=== PATIENT | female | born 1945 | race Caucasian/White ===

== ENCOUNTER 2022-05-29 13:52 | Inpatient (IN) | payer OTHER, BC ==
--- OUTSIDE RECORDS SUMMARY | 2022-05-29 13:56 | XMS REPORT | Continuity of Care Document ---
:1945 Author Organization [facility] t Address [address] [place] [address] Care Team Providers Name Role Phone PAWAN CHARLOTTE Primary Care Physician Unavailable KANG LORD Attending Clinician Unavailable Kang Lord MD Attending Clinician Only, Adc Test Attending Clinician Unavailable Pob, [facility] Lab Main Attending Clinician Unavailable Doctor Unassigned, [place] Attending Clinician Unavailable Areli Bueno Attending Clinician Lex Bustillos Attending Clinician KANG LORD Admitting Clinician Unavailable Kang Lord MD Admitting Clinician Payers Payer Name Policy Type Policy Number Effective Date Expiration Date S ource MEDICARE PART A \T\ [id number] 2012 B 00:00:00 [employer] TRADITIONAL [id number] 2019 00:00:00 Problems Condition Condition Condition Status Onset Resolution Last Treating Co mments Source Name Details Category Date Date Treatment Clinician Date INFLAMMATI INFLAMMAT Diagnosis Active 2018-05-26 Memoria ON 05-15 09:13:00 l SACROILIAC SACROILIAC 00:00: He rmann JOINT JOINT 00 [facility] 2014-09 [facility] management management 2- it y of 00:00: [place] 00 Medical Branch Spondylosi Spondylos Problem 2018-12-13 Memoria s without is without 12:12:44 l myelopathy myelopathy He rmann or or radiculopa radiculopa thy, thy, lumbosacra lumbosacra l region l region 12/13/2018 [facility] Essential Essential Problem 2018-12-13 Memoria (primary) (primary) 12:12:44 l hypertensi hypertensi He rmann on on 12/13/2018 [facility] Hypothyroi Hypothyro Problem 2018-12-13 Memoria dism, idism, 12:12:44 l unspecifie unspecifie He rmann d d 12/13/2018 [facility] Gastro-eso Gastro-es Problem 2018-12-13 Memoria phageal ophageal 12:12:44 l reflux reflux [place] disease disease without without esophagiti esophagiti s s 12/13/2018 [facility] retirement retirement Problem 2018-12-13 Memoria (current) (current) 12:12:44 l use of use of [place] non-steroi non-steroi darrick darrick anti-infla anti-infla mmatories mmatories (NSAID) (NSAID) 12/13/2018 [facility] Presence Presence Problem 2018-12-13 Memoria of other of other 12:12:44 l specified specified Herm shakila functional functional implants implants 12/13/2018 [facility] Post-traum Post-trau Problem 2018-12-04 Memoria atic matic 13:16:01 l stress stress [place] disorder, disorder, unspecifie unspecifie d d 12/04/2018 [facility] Personal Personal Problem 2018-12-04 Memoria history of history of 13:16:01 l nicotine nicotine Jorge Luis n dependence dependence 12/04/2018 [facility] Gastric Gastric Problem Resolve 2021-07-02 M emoria ulcer ulcer d 00:51:24 l (disorder) (disorder) He rmann Resolved Problem 07/02/2021 [facility] Posttrauma Posttraum Problem Resolve 2021-07-02 Memoria tic stress atic d 00:51:24 l disorder stress Patel (disorder) disorder (disorder) [facility] Hypothyroi Hypothyro Problem Active 2021-07-02 Memoria dism idism 00:51:24 l (disorder) (disorder) He rmann Active Problem [facility]02[facility]2021 [facility] Impaired Impaired Problem Active 2021-07-02 Memoria mobility mobility 00:51:24 l (finding) (finding) Herm shakila Active Problem [facility]02[facility]2021 [facility] Sacroiliac Problem Active 2021-07-02 M emoria joint Sacroiliac 00:51:24 l inflamed joint Patel (disorder) inflamed (disorder) Active Problem 07/02/2021 Medical [facility] Osteoporos Osteoporo Problem Active 2021-07-02 Memoria is sis 00:51:24 l (disorder) (disorder) He rmann Active Problem [facility]02[facility]2021 [facility] Pain Pain Problem Active 2021-07-02 Memor ia (finding) (finding) 00:51:24 l Active [place] Problem 07/02/2021 Medical [facility] Poor Poor Problem Active 2021-07-02 Memor ia short-term short-term 00:51:24 l memory memory Patel (finding) (finding) Active Problem [facility]02[facility]2021 [facility] Seasonal Seasonal Problem Active 2021-07-02 Memoria allergic allergic 00:51:24 l rhinitis rhinitis Jorge Luis n (disorder) (disorder) Active Problem [facility]02[facility]2021 [facility] Thyroidect Thyroidec Problem Active 2021-07-02 Memoria william jeremie 00:51:24 l (procedure (procedure He rmann ) ) Active Problem 07/02/2021 [facility] Urinary Urinary Problem Active 2021-07-02 Me moria incontinen incontinen 00:51:24 l ce ce Patel (finding) (finding) Active Problem [facility]02/2021 [facility] History of Past Illness Condition Condition Condition Status Onset Resolution Last Treating Co mments Source Name Details Category Date Date Treatment Clinician Date Sacroiliit Sacroilii Problem 2017-0 2018-12-13 2018-12-13 Memoria is, not tis, not 9-14 12:12:44 12:12:44 l elsewhere elsewhere 03:22: Herm shakila classified classified 55 06/02/2018 12/13/2018 [facility] Allergies, Adverse Reactions, Alerts Allergy Allergy Status Severity Reaction(s) Onset Inactive Treating Comm ents Source Name Type Date Date Clinician Penicill DA Active U 2018-09 [facility] ins 0-07 Clear 00:00: [place] 00 [facility] codeine DA Active U 2018-09 [facility] 0-07 Clear 00:00: [place] 00 [facility] CODEINE DRUG Active Med Hallucinates 2014-09 Uni vers INGREDI 2- ity of 00:00: [place] 00 Medical Branch PENICILL Drug Active Unknown-Cmnt 2014-09 Un jerilyn INS Class 2 ity of 00:00: [place] 00 Medical Branch Codeine Propensi Active Nausea 2014-09 Univers ty to and/or 10-21 ity of adverse Vomiting 00:00: [place] reaction 00 Medical s to Branch drug Penicill Propensi Active Unknown - 2014-09 Uni vers ins ty to See comments 10-21 ity of adverse 00:00: [place] reaction 00 Medical s Branch traMADol traMADol Active Memori a l [place] morphine morphine Active Memori a l [place] penicill penicill Active Memori a ins ins l Patel codeine codeine Active Memoria l Patel Social History Social Habit Start Date Stop Date Quantity Comments Source History of Current smoker University of tobacco use [facility] Exposure to 2022-03-20 2022-03-30 Not sure [facility] SARS-CoV-2 00:00:00 15:29:00 [facility] [place] [facility] (event) Branch Alcohol intake 2022-03-30 2022-03-30 0 /d University 00:00:00 00:00:00 [facility] Social History 2018-05-15 2018-05-15 [facility] alexander 20:10:59 20:10:59 Sex [birth year] At [birth year] Universit y of 00:00:00 00:00:00 [facility] Smoking Status Start Date Stop Date Source Ex-smoker [facility] Branch Medications Ordered Filled Start Stop Current Ordering Indication Dosage Frequency Signature Comments Components Source Medication Medication Date Date Medication? Clinician (SIG) Name Name lactated 2022-0 Yes 1000mL at 75 Univer s ringers IV 7-18 mL/hr, ity of infusion 13:30: 1,000 mL[place] 1[place]000 [place] 00 IV Medical Infusion, Branch CONTINUOUS , Starting on Tue04/05/22 at 0830, Until Discontinu ed, Routine, PACU lactated 2021- No 1000mL at 75 Unive rs ringers IV 7-18 07-18 mL/hr, ity of infusion 13:30: 16:28 1,000 mL, Shmuel as 1,000 mL 00 :13 IV Medical Infusion, Branch CONTINUOUS , Starting on Tue04/05/22 at 0830, Until Tue04/05/22 at 1128, Routine, PACU HYDROmorphO 2021-0 Yes .2mg 0.2 mg, Uni vers ne -18 Slow IV ity of (DILAUDID) 13:22: Push, [place] injection 44 Q5MIN PRN, Medi maikol 0.2 mg 10 doses, Branch Starting on Tue04/05/22 at 0822, Until Discontinu ed, Routine, Pain (scale 7-10), PACU
Us e approved by (Faculty): PACU USE -ANESTHESI A SERVICE-HY DROMORPHON E INJECTIONS FENTanyl PF Yes 25ug 25 mcg, Uni vers (SUBLIMAZE -18 Slow IV ity of (PF)) 13:22: Push, [place] injection 44 Q5MIN PRN, Medi maikol 25 mcg 4 doses, Branch Starting on Tue04/05/22 at 0822, Until Discontinu ed, Routine, Pain (scale 4-6), PACU FENTanyl PF 2021- No 25ug 25 mcg, Un jerilyn (SUBLIMAZE 04-05-18 Slow IV ity o f (PF)) 13:22: 16:28 Push, [place] injection 44 :13 Q5MIN PRN, Medi maikol 25 mcg 4 doses, Branch Starting on Tue04/05/22 at 0822, Until Tue04/05/22 at 1128, Routine, Pain (scale 4-6), PACU HYDROmorphO 0 2021- No .2mg 0.2 mg, Un jerilyn ne 04-05-18 Slow IV ity of (DILAUDID) 13:22: 16:28 Push, [place] injection 44 :13 Q5MIN PRN, Medi maikol 0.2 mg 10 doses, Branch Starting on Tue04/05/22 at 0822, Until Tue04/05/22 at 1128, Routine, Pain (scale 7-10), PACU
Us e approved by (Faculty): PACU USE -ANESTHESI A SERVICE-HY DROMORPHON E INJECTIONS bupivacaine Yes PRN, Univer s -epinephrin 04-05 Starting ity of e-pf 12:52: on Tue [place] (SENSORCAIN 00 04/05/[address], Branch W/EPINEPHRI Until NE) 0.25 Discontinu %-1:200,000 ed, injection Routine, Intra-op bupivacaine 2021- No PRN, Unive rs -epinephrin 04-05 Starting ity of e-pf 12:52: 16:28 on Tue [place] (SENSORCAIN 00 :13 04/05/[address], Branch W/EPINEPHRI Until Mon NE) 0.25 04/05/22 at %-1:200,000 1128, injection Routine, Intra-op water for 2021- No PRN, Univers irrigation 04-05 Starting ity of irrigation 12:50: 13:19 on Tue [place] solution 00 :05 04/05/22 at Medic al 0750, Branch Until Tue04/05/22 at 0819, Routine, Intra-op lactated 2021- No 1000mL at 42 Unive rs ringers IV 04-05 mL/hr, ity of infusion 11:30: 11:40 1,000 mL, Shmuel as 1,000 mL 00 :00 IV Medical Infusion, Branch ONCE, 1 dose, On Tue04/05/22 at 0630, Routine, DSU Pre-op lactated 2021- No 1000mL at 42 Unive rs ringers IV 04-05-18 mL/hr, ity of infusion 11:30: 11:40 1,000 mL, Shmuel as 1,000 mL 00 :00 IV Medical Infusion, Branch ONCE, 1 dose, On Tue04/05/22 at 0630, Routine, DSU Pre-op FENTanyl 2022-0 Yes 1{patch Apply 1 Uni vers (DURAGESIC) 7-18 } Patch to ity of 100 mcg/hr 09:28: skin every [place] patch 11 72 Medical (seventy-t Branch wo) hours. oxybutynin 2022-0 Yes 5mg Take 5 mg Un jerilyn chloride 7-18 by mouth ity of (DITROPAN) 09:28: daily. [place] 5 mg tablet 11 Medical Branch methocarbam 2-0 Yes 750mg Take 750 U nivers ol 7-18 mg by ity of (ROBAXIN) 09:28: mouth [place] 750 mg 11 every 6 Medical tablet (six) Branch hours as needed. DULoxetine 2022-0 Yes 30mg Take 30 mg U nivers 30 mg 7-18 by mouth ity of capsule 09:28: in the [place] [address] morning. Medical Branch QUEtiapine 2022-0 Yes 25mg Take 25 mg U nivers 25 mg 7-18 by mouth ity of tablet 09:28: in the [place] [address] morning. Medical At bedtime Branch famotidine 2022-0 Yes 20mg Take 20 mg U nivers 20 mg 7-18 by mouth ity of tablet 09:28: in the [place] [address] morning Medical and 20 mg Branch in the evening. FENTanyl 2022-0 Yes 1{patch Apply 1 Uni vers (DURAGESIC) 7-18 } Patch to ity of 100 mcg/hr 09:28: skin every [place] patch 11 72 Medical (seventy-t Branch wo) hours. oxybutynin 2022-0 Yes 5mg Take 5 mg Un jerilyn chloride 7-18 by mouth ity of (DITROPAN) 09:28: daily. [place] 5 mg tablet 11 Medical Branch methocarbam 2-0 Yes 750mg Take 750 U nivers ol 7-18 mg by ity of (ROBAXIN) 09:28: mouth [place] 750 mg 11 every 6 Medical tablet (six) Branch hours as needed. DULoxetine 2022-0 Yes 30mg Take 30 mg U nivers 30 mg 7-18 by mouth ity of capsule 09:28: in the [place] [address] morning. Medical Branch QUEtiapine 2022-0 Yes 25mg Take 25 mg U nivers 25 mg 7-18 by mouth ity of tablet 09:28: in the [place] [address] morning. Medical At bedtime Branch famotidine 2022-0 Yes 20mg Take 20 mg U nivers 20 mg 7-18 by mouth ity of tablet 09:28: in the [place] 11 morning Medical and 20 mg Branch in the evening. DULoxetine Yes 30mg Take 30 mg U nivers 30 mg 7-12 by mouth ity of capsule 15:43: in the [place] [address] morning. Medical Branch QUEtiapine Yes 25mg Take 25 mg U nivers 25 mg 7-12 by mouth ity of tablet 15:43: in the [place] [address] morning. Medical At bedtime Branch famotidine Yes 20mg Take 20 mg U nivers 20 mg 7-12 by mouth ity of tablet 15:43: in the [place] [address] morning Medical and 20 mg Branch in the evening. levothyroxi 2021- No 125ug Take 125 Univers ne 7-12 07-12 mcg by ity of (SYNTHROID) 15:22: 00:00 mouth [place] 125 mcg 12 :00 daily. Medical tablet Branch levothyroxi 2021- No 125ug Take 125 Univers ne 7-12 07-12 mcg by ity of (SYNTHROID) 15:22: 00:00 mouth [place] 125 mcg 12 :00 daily. Medical tablet Branch FENTanyl Yes 1{patch Apply 1 Uni vers (DURAGESIC) 7-12 } Patch to ity of 100 mcg/hr 15:19: skin every [place] patch 22 72 Medical (seventy-t Branch wo) hours. oxybutynin Yes 5mg Take 5 mg Un jerilyn chloride 7-12 by mouth ity of (DITROPAN) 15:19: daily. [place] 5 mg tablet 22 Medical Branch methocarbam Yes 750mg Take 750 U nivers ol 7-12 mg by ity of (ROBAXIN) 15:19: mouth [place] 750 mg 22 every 6 Medical tablet (six) Branch hours as needed. EUTHYROX Yes 1{tbl} Take 1 Unive rs 112 mcg 6-08 tablet by ity of tablet 00:00: mouth [place] 00 every Medical morning. Branch donepeziL Yes 10mg Take 10 mg Un jerilyn 10 mg 6-08 by mouth ity of tablet 00:00: in the [place] 00 morning Medical and 10 mg Branch in the evening. Take with meals. memantine 2022-0 Yes 10mg Take 10 mg Un jerilyn 10 mg 6-08 by mouth ity of tablet 00:00: in the [place] morning Medical and 10 mg Branch in the evening. EUTHYROX 2022-0 Yes 1{tbl} Take 1 Unive rs 112 mcg 6-08 tablet by ity of tablet 00:00: mouth [place] every Medical morning. Branch donepeziL 2022-0 Yes 10mg Take 10 mg Un jerilyn 10 mg 6-08 by mouth ity of tablet 00:00: in the [place] morning Medical and 10 mg Branch in the evening. Take with meals. memantine 2022-0 Yes 10mg Take 10 mg Un jerilyn 10 mg 6-08 by mouth ity of tablet 00:00: in the [place] morning Medical and 10 mg Branch in the evening. EUTHYROX 2022-0 Yes 1{tbl} Take 1 Unive rs 112 mcg 6-08 tablet by ity of tablet 00:00: mouth [place] every Medical morning. Branch donepeziL 2022-0 Yes 10mg Take 10 mg Un jerilyn 10 mg 6-08 by mouth ity of tablet 00:00: in the [place] morning Medical and 10 mg Branch in the evening. Take with meals. memantine 2022-0 Yes 10mg Take 10 mg Un jerilyn 10 mg 6-08 by mouth ity of tablet 00:00: in the [place] morning Medical and 10 mg Branch in the evening. HYDROcodone 2022-0 Yes 1{tbl} Take 1 Un jerilyn -acetaminop 6-01 tablet by ity of hen 10-325 00:00: mouth 2 [place] mg tablet 00 (two) Medical times Branch daily with meals as needed. HYDROcodone 2022-0 Yes 1{tbl} Take 1 Un jerilyn -acetaminop 6-01 tablet by ity of hen 10-325 00:00: mouth 2 [place] mg tablet 00 (two) Medical times Branch daily with meals as needed. HYDROcodone 2022-0 Yes 1{tbl} Take 1 Un jerilyn -acetaminop 6-01 tablet by ity of hen 10-325 00:00: mouth 2 [place] mg tablet 00 (two) Medical times Branch daily with meals as needed. Acetaminoph 2021-0 Yes 0 Memori a en 325 MG / 05-11 Refill(s) l Hydrocodone 14:51: Jorge Luis n Bitartrate 00 10 MG Oral Tablet Acetaminoph No Notes: Azam romaine en 10 MG/ML 05-26 Infuse l Injectable 17:31: over 15 Herm shakila Solution 00 minutes Do not exceed 4gm/day of acetaminop hen MEDICATION WASTE Product Size: 1000 mg Product Wasted: ___ mg Lactated No 1,000 mL, Azam romaine Ringers IV 05-26 Rate: 125 l 1,000 mL 17:31: ml/hr, [place] 00 Infuse over: 8 hr, Route: IV, Dosing Weight 68.636 kg, Total Volume: 1,000, Start date: 05/26/18 12:31:00 CDT, Duration: 30 day, Stop date: 06/25/18 12:30:00 CDT, 1.81, m2 Hydromorpho No Notes: Azam romaine ne 05-26 Same as l 17:31: Dilaudid Patel 00 Acetaminoph No Notes: Do M emoria en 325 MG / 05-26 not exceed l Hydrocodone 17:31: 4gm/day of [place] Bitartrate 00 acetaminop 10 MG Oral hen. (Same Tablet as: Call 325/10) Ondansetron No Notes: Azam romaine 05-26 (Same as: l 17:31: Zofran) [place] 00 MEDICATION WASTE Product Size: 4 mg Product Wasted: ___ mg Ondansetron No Notes: Azam romaine 05-26 (Same as: l 17:30: Zofran) Patel 00 MEDICATION WASTE Product Size: 4 mg Product Wasted: ___ mg Lactated No 1,000 mL, Azam romaine Ringers IV 05-26 Rate: 125 l 1,000 mL 15:59: ml/hr, [place] 00 Infuse over: 8 hr, Route: IV, Dosing Weight 68.636 kg, Total Volume: 1,000, Start date: 05/26/18 10:59:00 CDT, Duration: 30 day, Stop date: 06/25/18 10:58:00 CDT, 1.81, m2 Saline No Notes: Memoria Flush 0.9% 05-26 Same as: l 15:59: BD [place] Posiflush Sterile Acetaminoph No Notes: Azam romaine en 10 MG/ML 05-17 Infuse l Injectable 15:42: over 15 Herm shakila Solution 00 minutes Do not exceed 4gm/day of acetaminop hen MEDICATION WASTE Product Size: 1000 mg Product Wasted: ___ mg Lactated No 1,000 mL, Azam romaine Ringers IV 05-17 Rate: 125 l 1,000 mL 15:42: ml/hr, [place] Infuse over: 8 hr, Route: IV, Dosing Weight 68.182 kg, Total Volume: 1,000, Start date: 05/17/18 10:42:00 CDT, Duration: 30 day, Stop date: 06/16/18 10:41:00 CDT, 1.81, m2 Ondansetron No Notes: Azam romaine 05-17 (Same as: l 15:42: Zofran) [place] 00 MEDICATION WASTE Product Size: 4 mg Product Wasted: ___ mg Hydromorpho No Notes: Azam romaine ne 05-17 Same as l 15:42: Dilaudid Patel Acetaminoph No Notes: Do M emoria en 325 MG / 05-17 not exceed l Hydrocodone 15:42: 4gm/day of [place] Bitartrate 00 acetaminop 10 MG Oral hen. (Same Tablet as: Call 325/10) Lactated No 1,000 mL, Azam romaine Ringers IV 05-17 Rate: 125 l 1,000 mL 14:10: ml/hr, [place] 00 Infuse over: 8 hr, Route: IV, Dosing Weight 68.182 kg, Total Volume: 1,000, Start date: 05/17/18 9:10:00 CDT, Duration: 30 day, Stop date: 06/16/18 9:09:00 CDT, 1.81, m2 Saline No Notes: Memoria Flush 0.9% 05-17 Same as: l 14:10: BD [place] 00 Posiflush Sterile Tylenol Yes PO, Memoria Extra 05-15 Bedtime, 0 l Strength PM 20:26: Refill(s) H ermann Rapid 00 Release ibuprofen Yes 800 mg = 1 Me moria 800 mg oral 05-15 tab, PO, l tablet 20:19: TID, 0 [place] 00 Refill(s) mirabegron Yes 25 mg, PO, M emoria 05-15 BID, 0 l 20:18: Refill(s) [place] 00 memantine 5 Yes 5 mg = 1 Me moria mg oral 05-15 tab, PO, l tablet 20:17: BID, 0 Patel 00 Refill(s) levothyroxi Yes 112 Memori a ne 112 mcg 05-15 microgram l (0.112 mg) 20:17: = 1 tab, Her [place] oral tablet 00 PO, Daily, 0 Refill(s) donepezil Yes 10 mg = 1 Mem oria 10 mg oral 05-15 tab, PO, l tablet 20:16: BID, 0 [place] 00 Refill(s) FENTanyl 2014-09 Yes 1{patch Apply 1 Uni vers (DURAGESIC) 2-07 } Patch to ity of 100 mcg/hr 18:09: skin every [place] patch 20 72 Medical (seventy-t Branch wo) hours. levothyroxi 2014-09 Yes 125ug Take 125 U nivers ne 2-07 mcg by ity of (SYNTHROID) 18:09: mouth [place] 125 mcg 20 daily. Medical tablet Branch oxybutynin 2014-09 Yes 5mg Take 5 mg Un jerilyn chloride 2-07 by mouth ity of (DITROPAN) 18:09: daily. [place] 5 mg tablet 20 Medical Branch methocarbam 2014-09 Yes 750mg Take 750 U nivers ol 2-07 mg by ity of (ROBAXIN) 18:09: mouth [place] 750 mg 20 every 6 Medical tablet (six) Branch hours as needed. FENTanyl 2014-09 Yes 1{patch Apply 1 Uni vers (DURAGESIC) 2-07 } Patch to ity of 100 mcg/hr 18:09: skin every [place] patch 20 72 Medical (seventy-t Branch wo) hours. levothyroxi 2014-09 Yes 125ug Take 125 U nivers ne 2-07 mcg by ity of (SYNTHROID) 18:09: mouth [place] 125 mcg 20 daily. Medical tablet Branch oxybutynin 2014-09 Yes 5mg Take 5 mg Un jerilyn chloride 2-07 by mouth ity of (DITROPAN) 18:09: daily. [place] 5 mg tablet 20 Medical Branch methocarbam 2014-09 Yes 750mg Take 750 U nivers ol 2-07 mg by ity of (ROBAXIN) 18:09: mouth [place] 750 mg 20 every 6 Medical tablet (six) Branch hours as needed. Vital Signs Vital Name Observation Time Observation Value Comments Source Heart rate 2022-04-05 13:57:00 73 /min [facility] Respiratory rate 2022-04-05 13:57:00 20 /min [facility] saturation in 2022-04-05 13:57:00 100 /min [facility] of Arterial blood by [facility] [place] [place] Pulse oximetry Branch Systolic blood 2022-04-05 13:55:00 158 mm[Hg] Univer sity of [facility] Diastolic blood 2022-04-05 13:55:00 63 mm[facility]Hg] [facility] Body temperature 2022-04-05 13:04:[address] [facility] Body height 2022-03-23 11:56:00 167.6 cm [facility] Body weight 2022-03-23 11:56:00 72.6 kg [facility] BMI 2022-03-23 11:56:00 25.85 kg/m2 [facility] Systolic blood 2022-04-05 13:20:00 122 mm[Hg] Univer sity of [facility] Diastolic blood 2022-04-05 13:20:00 51 mm[Hg] Unive rsity [facility] Heart rate 2022-04-05 13:20:00 79 /min [facility] Respiratory rate 2022-04-05 13:20:00 11 /min [facility] Oxygen saturation in 2022-04-05 13:20:00 94 /min [facility] Arterial blood by [facility] [place] [place] Pulse oximetry Branch Body temperature 2022-04-05 13:04:[address] [facility] Body height 2022-03-23 11:56:00 167.6 cm [facility] Body weight 2022-03-23 11:56:00 72.6 kg [facility] BMI 2022-03-23 11:56:00 25.85 kg/m2 [facility] Height 2021-06-29 14:41:00 167.64 cm [facility] Weight 2021-06-29 14:41:00 [facility] BMI Calculated 2021-06-29 14:41:00 Memori al [place] Systolic (mm Hg) 2021-05-11 14:39:00 Azam rial [place]el Diastolic (mm Hg) 2021-05-11 14:39:00 Mem orial [place] Heart Rate 2021-05-11 14:39:00 [facility] Patel Height 2021-05-11 14:39:00 167.64 cm Memorial [place] Weight 2021-05-11 14:39:00 [facility] [place] BMI Calculated 2021-05-11 14:39:00 Memori al [place] Respitory Rate 2018-05-26 18:02:00 Memori al [place] Systolic (mm Hg) 2018-05-26 18:02:00 Azam rial [place] Diastolic (mm Hg) 2018-05-26 18:02:00 Mem orial [place] Systolic (mm Hg) 2018-05-26 17:47:00 Azam rial [place] Diastolic (mm Hg) 2018-05-26 17:47:00 Mem orial [place] Respitory Rate 2018-05-26 17:47:00 Memori al [place] Systolic (mm Hg) 2018-05-26 17:32:00 Azam rial [place] Diastolic (mm Hg) 2018-05-26 17:32:00 Mem orial [place] Respitory Rate 2018-05-26 17:32:00 Memori al [place] Weight 2018-05-26 15:04:00 Memorial [place] BMI Calculated 2018-05-26 15:04:00 Memori al [place] Respitory Rate 2018-05-17 15:45:00 Memori al [place] Systolic (mm Hg) 2018-05-17 15:45:00 Azam rial [place] Diastolic (mm Hg) 2018-05-17 15:45:00 Mem orial [place] Respitory Rate 2018-05-17 15:30:00 Memori al [place] Systolic (mm Hg) 2018-05-17 15:30:00 Azam rial [place] Diastolic (mm Hg) 2018-05-17 15:30:00 Mem orial [place] Systolic (mm Hg) 2018-05-17 15:15:00 Azam rial [place] Diastolic (mm Hg) 2018-05-17 15:15:00 Mem orial [place] Respitory Rate 2018-05-17 15:15:00 Memori al Patel Height 2018-05-15 20:00:00 170.18 cm [facility] Procedures Procedure Date / Time Performing Clinician Source Performed INTRATHECAL INFUSION PUMP 2022-04-05 12:05:00 Kang [facility] ASSIGNMENT OF BENEFITS 2022-03-29 20:25:48 Doctor Unassigned, [facility] [place] [facility] EXTERNAL PROVIDER RECORDS 2022-03-17 05:01:00 Doctor Unassigned, [facility] [place] [facility] EXTERNAL PROVIDER RECORDS 2022-03-17 05:01:00 Doctor Unassigned, [facility] Name [facility] Measurement of 2021-05-11 15:12:00 Aniya aponte post-voiding residual urine and/or bladder capacity by ultrasound, non-imaging Insertion of infusion pump 2015-08-19 00:00:00 josafat Sweeney Open reduction and 2012-04-11 05:00:00 [facility] internal fixation of fracture Hysterectomy [facility] Partial lobectomy of [facility] thyroid Epidural steroid injection Memor ial [place] Cholecystectomy [facility] of [facility] by cautery Encounters Start End Encounter Admission Attending Care Care Encounter Source Date/Time Date/Time Type Type Clinicians Facility Department ID 2022-04-05 2022-04-05 Outpatient R RAULITO LORD ANS [id number] Univers 06:25:00 09:12:00 KANG lopez [facility] 2022-04-05 2022-04-05 Hospital Pop NYNALLELY [id number] Univers 06:25:00 09:12:00 Encounter Kang S [place] 350.1.13.10 [place] [id number] [facility] [address] 2022-04-05 2022-04-05 Surgery Pop [facility] [id number] Univers 07:15:00 08:23:00 Kang Ibanez [place] 350.1.13.10 [place] [id number] [facility] [address] 2022-04-02 2022-04-02 Laboratory Only, Adc Test [facility] 1.2.840. [id number] Univers 09:15:00 09:30:00 Only Kang Lord 350.1.13.1 0 [place] C[place] [id number] [facility] [address] 2022-04-02 2022-04-02 Outpatient R POP [facility] [id number] Univers 09:15:00 09:15:00 KANG [id number] ity [facility] 2022-04-02 2022-04-02 Outpatient R POP [facility] [id number] Univers 09:15:00 09:15:00 KANG ity [facility] 2022-03-29 2022-03-29 Examination Supervisor Sharon, Adc Lab Main [facility] [id number] [id number] Univers 15:30:00 15:45:00 Visit Kang Lord 350.1.13.1 0 [place] PROFESS[place] [id number] [facility] [address] [facility] 2022-03-29 2022-03-29 Outpatient R POP [facility] [id number] Univers 15:30:00 15:30:00 KANG it[facility] 2022-03-29 2022-03-29 Orders Doctor ABERNATHY [id number] Univers 00:00:00 00:00:00 Only Unassigned, MARYANA 350.1.13.10 [facility] 4.2.7.2.686 [place] as [id number] [place] [address] [address] 2021-06-29 2021-06-30 Outpatient nullFlavo [facility] Multi 39 [id number] Memoria 14:40:00 04:59:59 r Specialty 01 l [facility] Gorge jhaveri Brayan 2021-06-29 2021-06-29 [facility] [id number] 09:40:00 23:59:59 Areli L 01 2021-06-29 2021-06-29 Outpatient ZAK EUNICE [id number] Memoria 09:40:00 09:40:00 01 l Patel 2021-05-11 2021-05-12 Outpatient nullFlavo [facility] Multi 39 [id number] Memoria 14:40:00 04:59:59 r Specialty 00 l [facility] Daryl jhaveri [place] 2021-05-11 2021-05-11 Outpatient Myles [facility] [id number] 09:40:00 23:59:59 Areli L 00 2021-05-11 2021-05-11 Outpatient ZAK [facility] [id number] Memoria 09:40:00 09:40:00 00 l [place] 2018-05-26 2018-05-27 Day nullFlavo [facility] [id number] Memoria 13:59:00 04:59:00 Surgery r [place] 02 l [facility] 2018-05-26 2018-05-26 Outpatient ARBEN Bustillos [facility] [id number] 08:59:00 23:59:00 Lex Mckeon 2018-05-17 2018-05-18 Day nullFlavo [facility] [id number] Memoria 13:33:00 04:59:00 Surgery r [place] 01 l [facility]opedic [facility] 2018-05-17 2018-05-17 Outpatient Apollo [facility] [id number] 08:33:00 23:59:00 Lex Bright Results Test Description Test Time Test Comments Results Result Comments Source BASIC METABOLIC PANEL 2019-07-20 06:39:00 Test Item Value Reference Range Interpretation Comme nts SODIUM (test code = NA) 141 mmol/L 136-145 N POTASSIUM (test code = K) 3.9 mmol/L 3.5-5.1 N CHLORIDE (test code = CL) 105.0 mmol/L 98-107 N CARBON DIOXIDE (test code = 28.9 mmol/L 21-32 N CO2) GLUCOSE (test code = GLU) 95 mg/dL 70-110 N BLOOD UREA NITROGEN (test code 17 mg/dL 7-18 N = BUN) GLOMERULAR FILTRATION RATE 75.0 >60 U nit of measure: mL/min/1.73 (test code = GFR) [id number] Range:Healthy Adults >90 mL/m in/1.73 m2 For Chronic Kidney Disease: Stage II Mild Decreas e in GFR 60-90 Stage III Moder ate Decrease in GFR 30-59 St age IV Severe Decrease in GFR 15-29 Stage V Kidney Failure <15 CREATININE (test code = CREAT) 0.76 mg/dL 0.55-1.30 N CALCIUM (test code = CA) 8.2 mg/dL 8.2-10.1 N CBC W/AUTO [id number] 06:02:00 Test Item Value Reference Range Interpretation Comments WHITE BLOOD CELL (test code = WBC) 4.6 K/mm3 5.8-11.0 L RED BLOOD CELL (test code = RBC) 3.56 M/mm3 4.2-5.4 L HEMOGLOBIN (test code = HGB) 8.5 g/dL 12-16 L HEMATOCRIT (test code = HCT) 27.8 % 37-47 L MEAN CELL VOLUME (test code = MCV) 78 fL 80-98 L MEAN CELL HGB (test code = MCH) 23.9 pg 27-34 L MEAN CELL HGB CONCENTRATION (test 30.6 g/dL 30.8-34.1 L code = MCHC) RED CELL DISTRIBUTION WIDTH (test 15.4 % 11-16 N code = RDW) PLT (test code = PLT) 200 K/mm3 130-400 N MEAN PLATELET VOLUME (test code = 10.1 fL 8.9-12.1 N MPV) NEUTROPHIL % (test code = NT%) 69.6 % 45-70 N LYMPHOCYTE % (test code = LY%) 14.8 % 20-40 L MONOCYTE % (test code = MO%) 14.6 % 3-10 H EOSINOPHIL % (test code = EO%) 0.4 % 1-5 L BASOPHIL % (test code = BA%) 0.4 % 0.0-1.1 N NEUTROPHIL # (test code = NT#) 3.20 K/mm3 2.00-7.50 N LYMPHOCYTE # (test code = LY#) 0.68 K/mm3 1.50-4.00 L MONOCYTE # (test code = MO#) 0.67 K/mm3 0.2-0.8 N EOSINOPHIL # (test code = EO#) 0.02 K/mm3 0.04-0.4 L BASOPHIL # (test code = BA#) 0.02 K/mm3 0.02-0.10 N MANUAL DIFF REQUIRED (test code = NO MANUAL DIFF MDIFF) NUCLEATED RED BLOOD CELL (test 0 % 0-0 N code = NRBC) C REACTIVE [id number] 21:06:00 Test Item Value Reference Range Interpretation Comments C REACTIVE PROTEIN (test code = 0.5 mg/dL <0.9 CRP) ACUTE HEPATITIS [id number] 21:06:00 Test Item Value Reference Range Interpretation Comments AB HEPATITIS A IGM (test code = NONREACTIVE NONREACTIVE HAVMAB) AG HEPATITIS B SURFACE (test code NONREACTIVE NONREACTIVE = HBSAG) AB HEPATITIS B CORE IGM (test NONREACTIVE NONREACTIVE code = HBCMAB) AB HEPATITIS C (test code = NONREACTIVE NONREACTIVE HCVAB) SIGNAL TO CUTOFF (test code = 0.18 <0.80 CUTOFF) AB HIV 21:06:00 Test Item Value Reference Range Interpretation Comments AB HIV 1 (test code NONREACTIVE NONREACTIVE DONE AT: [facility] = HIV1AB) [place] [id number] [place], [place] [address] by [employer] HIV Ag/Ab C ombo Screen ACUTE HEPATITIS [id number] 21:05:00 Test Item Value Reference Range Interpretation Comments AB HEPATITIS A IGM (test code = NONREACTIVE NONREACTIVE HAVMAB) AG HEPATITIS B SURFACE (test code NONREACTIVE NONREACTIVE = HBSAG) AB HEPATITIS B CORE IGM (test NONREACTIVE NONREACTIVE code = HBCMAB) AB HEPATITIS C (test code = NONREACTIVE NONREACTIVE HCVAB) SIGNAL TO CUTOFF (test code = 0.18 <0.80 N CUTOFF) AB HIV 1 21:05:00 Test Item Value Reference Range Interpretation Comments AB HIV 1 2 (test NONREACTIVE NONREACTIVE Done by [employer] code = [id number]) 4th Gen HIV Ag/Ab Combo Screen C REACTIVE [id number] 20:33:00 Test Item Value Reference Range Interpretation Comments C REACTIVE PROTEIN (test code = 0.5 mg/dL <0.9 CRP) ACUTE HEPATITIS [id number] 20:33:00 Test Item Value Reference Range Interpretation Comments AB HEPATITIS A IGM (test code = NONREACTIVE HAVMAB) AG HEPATITIS B SURFACE (test code NONREACTIVE NONREACTIVE = HBSAG) AB HEPATITIS B CORE IGM (test code = HBCMAB) AB HEPATITIS C (test code = NONREACTIVE HCVAB) SIGNAL TO CUTOFF (test code = CUTOFF) AB HIV 20:33:00 Test Item Value Reference Range Interpretation Comments AB HIV 1 (test code = HIV1AB) NONREACTIVE ACUTE HEPATITIS [id number] 20:32:00 Test Item Value Reference Range Interpretation Comments AB HEPATITIS A IGM (test code = NONREACTIVE HAVMAB) AG HEPATITIS B SURFACE (test code NONREACTIVE NONREACTIVE = HBSAG) AB HEPATITIS B CORE IGM (test NONREACTIVE code = HBCMAB) AB HEPATITIS C (test code = NONREACTIVE HCVAB) SIGNAL TO CUTOFF (test code = <0.80 CUTOFF) AB HIV 1 20:32:00 Test Item Value Reference Range Interpretation Comments AB HIV 1 2 (test code = [id number]) NONREACTIVE CBC W/AUTO [id number] 18:33:00 Test Item Value Reference Range Interpretation Comments WHITE BLOOD CELL (test 2.9 K/mm3 5.8-11.0 LL VERIF IED BY REPEAT code = WBC) ANALYSIS. RED BLOOD CELL (test 4.56 M/mm3 4.2-5.4 N code = RBC) HEMOGLOBIN (test code = 10.9 g/dL 12-16 L HGB) HEMATOCRIT (test code = 35.3 % 37-47 L HCT) MEAN CELL VOLUME (test 77 fL 80-98 L code = MCV) MEAN CELL HGB (test code 23.9 pg 27-34 L = MCH) MEAN CELL HGB 30.9 g/dL 30.8-34.1 N CONCENTRATION (test code = MCHC) RED CELL DISTRIBUTION 14.9 % 11-16 N WIDTH (test code = RDW) PLT (test code = PLT) 242 K/mm3 130-400 N MEAN PLATELET VOLUME 10.6 fL 8.9-12.1 N (test code = MPV) NEUTROPHIL % (test code 59.4 % 45-70 N = NT%) LYMPHOCYTE % (test code 23.8 % 20-40 N = LY%) MONOCYTE % (test code = 13.4 % 3-10 H MO%) EOSINOPHIL % (test code 2.4 % 1-5 N = EO%) BASOPHIL % (test code = 0.7 % 0.0-1.1 N BA%) NEUTROPHIL # (test code 1.72 K/mm3 2.00-7.50 L = NT#) LYMPHOCYTE # (test code 0.69 K/mm3 1.50-4.00 L = LY#) MONOCYTE # (test code = 0.39 K/mm3 0.2-0.8 N MO#) EOSINOPHIL # (test code 0.07 K/mm3 0.04-0.4 N = EO#) BASOPHIL # (test code = 0.02 K/mm3 0.02-0.10 N BA#) MANUAL DIFF REQUIRED NO MANUAL DIFF (test code = MDIFF) NUCLEATED RED BLOOD CELL 0 % 0-0 N (test code = NRBC) SED [id number] 18:33:00 Test Item Value Reference Range Interpretation Comments SED RATE (test code = SEDW) 36 mm/hr 0-20 H CBC W/AUTO [id number] 17:48:00 Test Item Value Reference Range Interpretation Comments WHITE BLOOD CELL (test 2.9 K/mm3 5.8-11.0 LL VERIF IED BY REPEAT code = WBC) ANALYSIS. RED BLOOD CELL (test 4.56 M/mm3 4.2-5.4 N code = RBC) HEMOGLOBIN (test code = 10.9 g/dL 12-16 L HGB) HEMATOCRIT (test code = 35.3 % 37-47 L HCT) MEAN CELL VOLUME (test 77 fL 80-98 L code = MCV) MEAN CELL HGB (test code 23.9 pg 27-34 L = MCH) MEAN CELL HGB 30.9 g/dL 30.8-34.1 N CONCENTRATION (test code = MCHC) RED CELL DISTRIBUTION 14.9 % 11-16 N WIDTH (test code = RDW) PLT (test code = PLT) 242 K/mm3 130-400 N MEAN PLATELET VOLUME 10.6 fL 8.9-12.1 N (test code = MPV) NEUTROPHIL % (test code 59.4 % 45-70 N = NT%) LYMPHOCYTE % (test code 23.8 % 20-40 N = LY%) MONOCYTE % (test code = 13.4 % 3-10 H MO%) EOSINOPHIL % (test code 2.4 % 1-5 N = EO%) BASOPHIL % (test code = 0.7 % 0.0-1.1 N BA%) NEUTROPHIL # (test code 1.72 K/mm3 2.00-7.50 L = NT#) LYMPHOCYTE # (test code 0.69 K/mm3 1.50-4.00 L = LY#) MONOCYTE # (test code = 0.39 K/mm3 0.2-0.8 N MO#) EOSINOPHIL # (test code 0.07 K/mm3 0.04-0.4 N = EO#) BASOPHIL # (test code = 0.02 K/mm3 0.02-0.10 N BA#) MANUAL DIFF REQUIRED NO MANUAL DIFF (test code = MDIFF) NUCLEATED RED BLOOD CELL 0 % 0-0 N (test code = NRBC) SED [id number] 17:48:00 Test Item Value Reference Range Interpretation Comments SED RATE (test code = SEDW) mm/hr 0-20 CBC W/AUTO [id number] 17:45:00 Test Item Value Reference Range Interpretation Comments WHITE BLOOD CELL (test code = WBC) 2.9 K/mm3 5.8-11.0 LL RED BLOOD CELL (test code = RBC) 4.56 M/mm3 4.2-5.4 N HEMOGLOBIN (test code = HGB) 10.9 g/dL 12-16 L HEMATOCRIT (test code = HCT) 35.3 % 37-47 L MEAN CELL VOLUME (test code = MCV) 77 fL 80-98 L MEAN CELL HGB (test code = MCH) 23.9 pg 27-34 L MEAN CELL HGB CONCENTRATION (test 30.9 g/dL 30.8-34.1 N code = MCHC) RED CELL DISTRIBUTION WIDTH (test 14.9 % 11-16 N code = RDW) PLT (test code = PLT) 242 K/mm3 130-400 N MEAN PLATELET VOLUME (test code = 10.6 fL 8.9-12.1 N MPV) NEUTROPHIL % (test code = NT%) 59.4 % 45-70 N LYMPHOCYTE % (test code = LY%) 23.8 % 20-40 N MONOCYTE % (test code = MO%) 13.4 % 3-10 H EOSINOPHIL % (test code = EO%) 2.4 % 1-5 N BASOPHIL % (test code = BA%) 0.7 % 0.0-1.1 N NEUTROPHIL # (test code = NT#) 1.72 K/mm3 2.00-7.50 L LYMPHOCYTE # (test code = LY#) 0.69 K/mm3 1.50-4.00 L MONOCYTE # (test code = MO#) 0.39 K/mm3 0.2-0.8 N EOSINOPHIL # (test code = EO#) 0.07 K/mm3 0.04-0.4 N BASOPHIL # (test code = BA#) 0.02 K/mm3 0.02-0.10 N MANUAL DIFF REQUIRED (test code = NO MANUAL DIFF MDIFF) NUCLEATED RED BLOOD CELL (test 0 % 0-0 N code = NRBC) SED [id number] 17:45:00 Test Item Value Reference Range Interpretation Comments SED RATE (test code = SEDW) mm/hr 0-20 C REACTIVE [id number] 17:12:00 Test Item Value Reference Range Interpretation Comments C REACTIVE PROTEIN (test code = 0.5 mg/dL <0.9 CRP) ACUTE HEPATITIS [id number] 17:12:00 Test Item Value Reference Range Interpretation Comments AB HEPATITIS A IGM (test code = HAVMAB) NONREACTIVE AG HEPATITIS B SURFACE (test code = NONREACTIVE HBSAG) AB HEPATITIS B CORE IGM (test code = HBCMAB) AB HEPATITIS C (test code = HCVAB) NONREACTIVE SIGNAL TO CUTOFF (test code = CUTOFF) AB HIV 17:12:00 Test Item Value Reference Range Interpretation Comments AB HIV 1 (test code = HIV1AB) NONREACTIVE COMPREHENSIVE METABOLIC [id number] 17:12:00 Test Item Value Reference Range Interpretation Comments SODIUM (test code = NA) 136 mmol/L 136-145 N POTASSIUM (test code = 4.1 mmol/L 3.5-5.1 N K) CHLORIDE (test code = 99.0 mmol/L 98-107 N CL) CARBON DIOXIDE (test 30.4 mmol/L 21-32 N code = CO2) GLUCOSE (test code = 134 mg/dL 70-110 H GLU) BLOOD UREA NITROGEN 28 mg/dL 7-18 H (test code = BUN) GLOMERULAR FILTRATION 58.0 >60 Unit o f measure: RATE (test code = GFR) mL/mi n/1.73 [id number] Range:Healthy Adults >90 mL/min/1.73 m2 For Chronic Kidney Disease: Stage II Mild Decrease i n GFR 60-90 Stage III Moderate Decrea se in GFR 30-59 St age IV Severe Decre ase in GFR 15-29 St age V Kidney Failur e <15 CREATININE (test code = 0.95 mg/dL 0.55-1.30 N CREAT) TOTAL PROTEIN (test 7.4 g/dL 6.4-8.2 N code = PROT) ALBUMIN (test code = 3.5 g/dL 3.4-5.0 N ALB) GLOBULIN (test code = 3.9 g/dL 2.2-4.2 N GLOB) ALBUMIN/GLOBULIN RATIO 0.9 0.7-2.0 N (test code = A/G) CALCIUM (test code = 9.3 mg/dL 8.2-10.1 N CA) BILIRUBIN TOTAL (test 0.35 mg/dL 0.2-1.00 N code = BILT) SGOT/AST (test code = 21.0 U/L 15-37 N AST) SGPT/ALT (test code = 16.0 U/L 12-78 N Please note new ALT) normal range. ALKALINE PHOSPHATASE 116 U/L 46-116 N TOTAL (test code = ALKP) PROTHROMBIN [id number] 16:37:00 Test Item Value Reference Range Interpretation Comments PROTHROMBIN TIME 12.3 secs 10.1-12.5 N PATIENT (test code = PTP) INTERNATIONAL NORMAL 1.09 <2.0 RECOMME NDED THERAPEUTIC RATIO (test code = RANGE FOR ORAL INR) ANTICOAGULANTTR EATMENT: CONDITION INRPr ophylaxis of venous throm bosis in 2.0 - 3.0 high- risk medical or surg ical patientsTreatme nt of venous thrombos is 2.0 - 3.0Prevention o f embolism 2.0 - 3.0Prevention o f recurrent embol ism, or 3.0 - 4.5 patie nts with mechanical pros thetic intravascular v sullivan IS PATIENT ON ANTICOAGULANTS ? NHas Lab been notified if Patient is on Heparin Drip? NOIf Yes, orderCBC, OCCULT BLOOD, PT every other day NTHROMBOPLASTIN TIME [id number] 16:37:00 Test Item Value Reference Range Interpretation Comments PTT ACTIVATED (test code = APTT) 28.6 secs 24.9-37.0 N IS PATIENT ON ANTICOAGULANTS ? NHas Lab been notified if Patient is on Heparin Drip? NOIf Yes, orderCBC, OCCULT BLOOD, PT every other day N- XR FLUORO NDL 2019-06-28 12:02:00 Patient Name: CAMI TAPIA Unit No: [id number] EXAMS: CPT CODE: [id number] XR FLUORO NDL 06512 FLUOROSCOPICALLY GUIDED RIGHT KNEE Marcaine INJECTION COMMENT: After informed consent was obtained a 25-gauge needle is inserted into the right knee joint under fluoroscopic control using sterile technique. 3 mL of Isovue-300 is instilled into the joint. This is followed by injection of 5 mL Marcaine. The patient tolerated the procedure well. 0.5 minutes of fluoroscopy time was used on this exam. at 1202 Reported and signed by: Nasim Sanders MD CC: Ethan Francisco MD Technologist: RT. Maria M(R) Transcribed D/ (1202) [email or web address] [facility] NAME: CAMI TAPIA [address] [place] [address] PHYS: [email or web address] - Ethan Francisco MD : 1945 AGE: 73 SEX: F [place], [place] [address] LOC: Y.RAD PHONE #: [phone] EXAM DATE: 06/25/2019 STATUS: DEP CLI FAX #: [phone] RAD #: D/C DT PAGE 1 Signed Report Patient Name: CAMI TAPIA Unit No: [id number] EXAMS: CPT CODE: [id number] XR FLUORO NDL 00921 (Continued) Orig Print D/T: S: 06/28/2019 (1205) [facility] NAME: CAMI TAPIA [facility] PHYS: [email or web address] - Ethan Francisco MD : 1945 AGE: 73 SEX: F [place], [place] [address] LOC: JAYCE PHONE #: [phone] EXAM DATE: 06/25/2019 STATUS: ANA CLI FAX #: [phone] RAD #: D/C DT PAGE 2 Signed Report
[2022-05-29] MEDS ORDERED: NA CHLORIDE 0.9% 1,000 ML ONE (14:40)
[2022-05-29 14:52] LABS: Absolute Lymphocytes (CBC) 0.7 K/uL (0.7-4.9)
[2022-05-29 14:56] LABS: Hematocrit 40.6 % (36.0-45.0); Lymphocytes % 7.8 % (15.3-44.8); MCV 79.2 fL (80-100); MPV 7.8 fL (7.6-11.3); Protime INR 1.09; RBC Red Blood Cell Count 5.13 M/uL (3.86-4.86)
[2022-05-29 15:03] LABS: Albumin 3.3 g/dL (3.4-5.0); Bilirubin Total 0.8 mg/dL (0.2-1.0); Protein, Total 7.7 g/dL (6.4-8.2)
--- NOTE | 2022-05-29 15:18 | RAD REPORT ---
EXAM DESCRIPTION: RAD - Chest Single View - 05/29/2022 3:10 pm CLINICAL HISTORY: code sepsis COMPARISON: CHEST SINGLE VIEW dated 09/23/2015; CHEST PA AND LAT 2 VIEW dated 06/27/2014 FINDINGS: Lines: None. Lungs: No evidence of edema or pneumonia. Pleural: No significant pleural effusions or pneumothorax. Cardiac: The heart size is within normal limits. Mediastinum: Within normal limits. Bones: No acute fractures. Other: Surgical clips in the upper abdomen. IMPRESSION: No acute cardiopulmonary disease.
[2022-05-29 15:38] LABS: Urine Blood 3+ (Negative); Urine Glucose Negative (Negative); Urine Protein 2+ (Negative); Urine Specific Gravity 1.025 (1.005-1.030); Urine pH 8.5 (5.0-7.0)
[2022-05-29] MEDS ORDERED: ONDANSETRON 4 MG/2 ML VIAL ONE (15:39)
[2022-05-29] MEDS ORDERED: POTASSIUM 25 MEQ EFFERV TAB ONE (16:27)
--- NOTE | 2022-05-29 17:01 | EDPHYS ---
Physician Documentation [facility] Name: Jacquelyn Phillips Age: 76 yrs Sex: Female : 1945 Arrival Date: 05/29/2022 Time: 13:53 Bed 6 Private MD: ED Physician Peter Smith HPI: 05/29 14:56 This 76 yrs old Female presents to ER via EMS with complaints of generalized jl9 weakness. Patient's son states she has not been eating as much as she normally does. Patient denies any pain or distress. . 14:56 Onset: The symptoms/episode began/occurred yesterday. Severity of symptoms: Pain is jl9 currently a 0 / 10. The patient has not experienced similar symptoms in the past. Historical: - Allergies: 14:04 PENICILLINS; ph 14:04 BISPHOSPHONATES; ph 14:04 Codeine; ph 14:04 Morphine; ph - PMHx: 19:17 Dementia; Chronic pain; ph - Immunization history:: Adult Immunizations unknown. - Social history:: Smoking status: Patient denies any tobacco usage or history of. ROS: 14:58 Constitutional: Negative for fever, chills, and weight loss, Eyes: Negative for injury, jl9 pain, redness, and discharge, ENT: Negative for injury, pain, and discharge, Neck: Negative for injury, pain, and swelling, Cardiovascular: Negative for chest pain, palpitations, and edema, Respiratory: Negative for shortness of breath, cough, wheezing, and pleuritic chest pain, Abdomen/GI: Negative for abdominal pain, nausea, vomiting, diarrhea, and constipation, Back: Negative for injury and pain, : Negative for injury, bleeding, discharge, and swelling, MS/Extremity: Negative for injury and deformity, Skin: Negative for injury, rash, and discoloration. 14:58 Psych: Negative for depression, anxiety, suicide ideation, homicidal ideation, and hallucinations, Allergy/Immunology: Negative for hives, rash, and allergies, Endocrine: Negative for neck swelling, polydipsia, polyuria, polyphagia, and marked weight changes, Hematologic/Lymphatic: Negative for swollen nodes, abnormal bleeding, and unusual bruising. 14:58 Neuro: Positive for weakness. Exam: 14:58 Constitutional: This is a well developed, well nourished patient who is awake, alert, jl9 and in no acute distress. Head/Face: Normocephalic, atraumatic. Eyes: Pupils equal round and reactive to light, extra-ocular motions intact. Lids and lashes normal. Conjunctiva and sclera are non-icteric and not injected. Cornea within normal limits. Periorbital areas with no swelling, redness, or edema. ENT: Mucous membranes moist. Neck: Trachea midline, no thyromegaly or masses palpated, and no cervical lymphadenopathy. Supple, full range of motion without nuchal rigidity, or vertebral point tenderness. No Meningismus. Chest/axilla: Normal chest wall appearance and motion. Nontender with no deformity. No lesions are appreciated. Cardiovascular: Regular rate and rhythm with a normal S1 and S2. No gallops, murmurs, or rubs. Normal PMI, no JVD. No pulse deficits. Respiratory: Lungs have equal breath sounds bilaterally, clear to auscultation and percussion. No rales, rhonchi or wheezes noted. No increased work of breathing, no retractions or nasal flaring. Abdomen/GI: Soft, non-tender, with normal bowel sounds. No distension or tympany. No guarding or rebound. No evidence of tenderness throughout. Back: No spinal tenderness. No costovertebral tenderness. Full range of motion. Skin: Warm, dry with normal turgor. Normal color with no rashes, no lesions, and no evidence of cellulitis. MS/ Extremity: Pulses equal, no cyanosis. Neurovascular intact. Full, normal range of motion. Neuro: Awake and alert, GCS 15, oriented to person, place, time, and situation. Cranial nerves II-XII grossly intact. Motor strength 5/5 in all extremities. Sensory grossly intact. Cerebellar exam normal. Normal gait. Psych: Awake, alert, with orientation to person, place and time. Behavior, mood, and affect are within normal limits. Vital Signs: 13:54 BP 117 / 109; Pulse 113; Resp 18; Temp 98.4; Pulse Ox 100% on NC; Weight 58.06 kg; ph Height 5 ft. 7 in. (170.18 cm); 13:54 Resp 24; ph 15:48 BP 165 / 82; Pulse 96; Resp 18; Pulse Ox 95% on R/A; ph 17:15 BP 140 / 78; Pulse 93; Resp 16; Pulse Ox 96% on R/A; ph 18:33 BP 149 / 82; Pulse 90; Resp 18; Pulse Ox 96% on R/A; ph 19:45 BP 151 / 77; Pulse 90; Resp 16 S; Pulse Ox 94% on R/A; as6 13:54 Body Mass Index 20.05 (58.06 kg, 170.18 cm) ph MDM: 14:09 Patient medically screened. jl9 14:39 Test interpretation: by ED physician or midlevel provider: ECG, ST- 103. jl9 14:58 Data reviewed: vital signs, nurses notes. jl9 16:49 Counseling: I had a detailed discussion with the patient and/or guardian regarding: the 9 historical points, exam findings, and any diagnostic results supporting the discharge/admit diagnosis, lab results, radiology results, the need for further work-up and treatment in the hospital. 05/29 14:06 Order name: Blood Culture Adult (2) 05/29 14:06 Order name: CBC with Diff; Complete Time: 15: 05/29 14:06 Order name: CMP; Complete Time: 15:09 05/29 14:06 Order name: Lactate; Complete Time: 15:09 05/29 14:06 Order name: Protime (+inr); Complete Time: 15:09 05/29 14:06 Order name: Ptt, Activated; Complete Time: 15: 05/29 15:39 Order name: Urine Dipstick-Ancillary; Complete Time: 15:43 [facility] 05/29 15:51 Order name: SARS-COV-2 RT PCR (Document "Date of Onset" if Symptomatic); Complete Time: 9 17:33 05/29 16:59 Order name: Lactate; Complete Time: 17:57 [facility] 05/29 19:06 Order name: CBC with Automated Diff [facility] 05/29 19:06 Order name: CBC with Automated Diff [facility] 05/29 19:06 Order name: Comprehensive Metabolic Panel [facility] 05/29 19:06 Order name: Comprehensive Metabolic Panel [facility] 05/29 19:06 Order name: Procalcitonin [facility] 05/29 14:06 Order name: Chest Single View XRAY; Complete Time: 15:26 ph 05/29 19:06 Order name: Procalcitonin [facility] 05/29 19:08 Order name: Cortisol [facility] 05/29 19:08 Order name: Folic Acid, (Folate) [facility] 05/29 19:08 Order name: Iron [facility] 05/29 19:08 Order name: Magnesium [facility] 05/29 19:08 Order name: Retic Count [facility] 05/29 19:08 Order name: T4 Free [facility] 05/29 19:08 Order name: Thyroid Stimulating Hormone [facility] 05/29 19:08 Order name: Vitamin B12 Level [facility] 05/29 19:53 Order name: Lactate Sepsis 2 HR Follow-up [facility] 05/29 14:06 Order name: Accucheck; Complete Time: 15:23 ph 05/29 14:06 Order name: Cardiac monitoring; Complete Time: 14:47 ph 05/29 14:06 Order name: EKG - Nurse/Tech; Complete Time: 14:46 ph 05/29 14:06 Order name: IV Saline Lock - Large Bore; Complete Time: 14:28 ph 05/29 14:06 Order name: Labs collected and sent; Complete Time: 14:29 ph 05/29 14:06 Order name: O2 Per Protocol; Complete Time: 14:29 ph 05/29 14:06 Order name: O2 Sat Monitoring; Complete Time: 14:28 ph 05/29 14:06 Order name: Urine Dipstick-Ancillary (obtain specimen); Complete Time: 15:40 ph 05/29 19:06 Order name: Heart Healthy [facility] Administered Medications: 14:46 Drug: NS 0.9% 1000 ml Route: IV; Rate: 1000 ml; Site: right antecubital; ko1 18:42 Follow up: Response: No adverse reaction; IV Status: Completed infusion; IV Intake: ph 1000ml 15:46 Drug: Ondansetron 4 mg Route: IVP; Site: right antecubital; ph 18:34 Follow up: Response: No adverse reaction ph 16:20 Drug: Potassium Effervescent Tablet 50 mEq Route: PO; ko1 18:34 Follow up: Response: No adverse reaction ph 18:41 Drug: fentaNYL (PF) 50 mcg Route: IVP; Site: right antecubital; ph 18:41 Follow up: Response: No adverse reaction ph 18:42 Follow up: Response: No adverse reaction ph Disposition Summary: 05/29/22 17:01 Hospitalization Ordered Hospitalization Status: Observation jl9 Provider: Marrero, Mohammad jl9 Location: Telemetry/MedSurg (observation) jl9 Condition: Stable jl9 Problem: new jl9 Symptoms: have improved jl9 Bed/Room Type: Standard 9 Room Assignment: 405(05/29/22 20:41) mw Diagnosis - Muscle weakness (generalized) jl9 Forms: - Medication Reconciliation Form jl9 - SBAR form jl9 Signatures: Dispatcher [employer] EDMS Charlette Lozada RN RN Blanca Daniel RN RN Lex Ivy [facility] Xiomy Garner RN RN ko1 Corrections: (The following items were deleted from the chart) 16:34 14:56 This 76 yrs old Female presents to ER via EMS with complaints of jl9 generalized weakness. Patient's on states she has not been eating as much as she normally does. Patient denies any pain or distress. . jl9 20:41 17:01 jl9
--- NOTE | 2022-05-29 17:01 | ER ---
Nurse's Notes [facility] Name: Jacquelyn Phillips Age: 76 yrs Sex: Female : 1945 Arrival Date: 05/29/2022 Time: 13:53 Bed 6 Private MD: Diagnosis: Muscle weakness (generalized) Presentation: 05/29 13:54 Chief complaint: EMS states: Pt from home, currently being treated for infected pain ph pump, c/o general weakness and "not being able to eat." VSS except slight tachycardia, hx of dementia. Coronavirus screen: Vaccine status: Patient reports receiving the 2nd dose of the covid vaccine. Ebola Screen: No symptoms or risks identified at this time. Initial Sepsis Screen: Does the patient meet any 2 criteria? No. Patient's initial sepsis screen is negative. Does the patient have a suspected source of infection? Yes: Other: "infected pain pump". Risk Assessment: Do you want to hurt yourself or someone else? Patient reports no desire to harm self or others. 13:54 Method Of Arrival: EMS: [facility] 13:54 Acuity: SCOTT 2 ph 15:49 Onset of symptoms was May 29, 2022. ph Triage Assessment: 14:05 General: Appears in no apparent distress. Behavior is cooperative, appropriate for age, ph Denies fever. Pain: Complains of pain in back. Neuro: Level of Consciousness is awake, alert, obeys commands, Oriented to person, place. Cardiovascular: Capillary refill < 3 seconds in bilateral fingers Patient's skin is warm and dry. Respiratory: Airway is patent Respiratory effort is even, unlabored, Respiratory pattern is regular, symmetrical. GI: Reports intolerance of fluids, intolerance of food, nausea, vomiting. Derm: Skin is fragile, is thin, Skin is normal. Musculoskeletal: Circulation, motion, and sensation intact. Range of motion: intact in all extremities. Historical: - Allergies: 14:04 PENICILLINS; ph 14:04 BISPHOSPHONATES; ph 14:04 Codeine; ph 14:04 Morphine; ph - PMHx: 19:17 Dementia; Chronic pain; ph - Immunization history:: Adult Immunizations unknown. - Social history:: Smoking status: Patient denies any tobacco usage or history of. Screenin:20 Abuse screen: Denies threats or abuse. Denies injuries from another. Nutritional ph screening: No deficits noted. Tuberculosis screening: No symptoms or risk factors identified. Fall Risk None identified. Assessment: 16:16 Reassessment: Patient appears in no apparent distress at this time. Patient and/or ph family updated on plan of care and expected duration. Pain level reassessed. Pt awake and alert, oriented to person and place, family at bedside. 18:31 Reassessment: Patient appears in no apparent distress at this time. Patient and/or ph family updated on plan of care and expected duration. Pain level reassessed. Pt awake and alert, oriented to person and place, has had brief changed multiple times d/t frequent urination,PureWick catheter placed. 19:40 General: Appears in no apparent distress. Behavior is calm, cooperative. Neuro: Level kd3 of Consciousness is awake, alert, obeys commands. Respiratory: Airway is patent Trachea midline Respiratory effort is even, unlabored, Respiratory pattern is regular, symmetrical. 19:45 Reassessment: Patient appears in no apparent distress at this time. No changes from as6 previously documented assessment. Vital Signs: 13:54 BP 117 / 109; Pulse 113; Resp 18; Temp 98.4; Pulse Ox 100% on NC; Weight 58.06 kg; ph Height 5 ft. 7 in. (170.18 cm); 13:54 Resp 24; ph 15:48 BP 165 / 82; Pulse 96; Resp 18; Pulse Ox 95% on R/A; ph 17:15 BP 140 / 78; Pulse 93; Resp 16; Pulse Ox 96% on R/A; ph 18:33 BP 149 / 82; Pulse 90; Resp 18; Pulse Ox 96% on R/A; ph 19:45 BP 151 / 77; Pulse 90; Resp 16 S; Pulse Ox 94% on R/A; as6 13:54 Body Mass Index 20.05 (58.06 kg, 170.18 cm) ph ED Course: 13:53 Patient arrived in ED. ph 14:04 Triage completed. ph 14:09 Lex Ivy is PHCP. jl9 14:09 Peter Smith MD is Attending Physician. jl9 14:28 Xiomy Garner, RN is Primary Nurse. ko1 14:28 CBC with Diff Sent. ko1 14:28 CMP Sent. ko1 14:28 Lactate Sent. ko1 14:28 Protime (+inr) Sent. ko1 14:28 Ptt, Activated Sent. ko1 14:28 Initial lab(s) drawn, by ED staff. Inserted saline lock: 20 gauge in right antecubital ph area, using aseptic technique. Blood collected. 15:11 Chest Single View XRAY In Process Unspecified. EDMS 15:21 Arm band placed on. ph 15:21 Patient has correct armband on for positive identification. Placed in gown. Bed in low ph position. Call light in reach. Side rails up X2. Client placed on continuous cardiac and pulse oximetry monitoring. NIBP monitoring applied. 16:16 Blood Culture Adult (2) Sent. ko1 16:17 No provider procedures requiring assistance completed. Patient admitted, IV remains in ph place. 16:25 Turned to left side. ko1 17:00 Zaheer Marrero MD is Hospitalizing Provider. jl9 19:14 Primary Nurse role handed off by Xiomy Garner RN as6 19:14 Danial Howard RN is Primary Nurse. as6 Administered Medications: 14:46 Drug: NS 0.9% 1000 ml Route: IV; Rate: 1000 ml; Site: right antecubital; ko1 18:42 Follow up: Response: No adverse reaction; IV Status: Completed infusion; IV Intake: ph 1000ml 15:46 Drug: Ondansetron 4 mg Route: IVP; Site: right antecubital; ph 18:34 Follow up: Response: No adverse reaction ph 16:20 Drug: Potassium Effervescent Tablet 50 mEq Route: PO; ko1 18:34 Follow up: Response: No adverse reaction ph 18:41 Drug: fentaNYL (PF) 50 mcg Route: IVP; Site: right antecubital; ph 18:41 Follow up: Response: No adverse reaction ph 18:42 Follow up: Response: No adverse reaction ph Medication: 15:48 VIS not applicable for this client. ph Intake: 18:42 IV: 1000ml; Total: 1000ml. ph Outcome: 17:01 Decision to Hospitalize by Provider. jl9 21:26 Admitted to Tele accompanied by tech, via stretcher, room 405, with chart. aa9 21:26 Condition: stable 21:26 Instructed on the need for admit. 21:26 Patient left the ED. aa9 Signatures: Dispatcher [employer] Blanca Galeano RN RN ph Danial Howard, RN RN as6 Lora Washington, RN RN kd3 Lex Ivy9 Ericka Fountain, RN RN aa9 Xiomy Garner, RN RN ko1
[2022-05-29] MEDS ORDERED: FENTANYL CITR 100 MCG/2 ML ONE (18:46)
[2022-05-29] MEDS ORDERED: MORPHINE 2 MG/ML SYR IV PRN (19:02)
[2022-05-29] MEDS ORDERED: ACETAMINOPHEN 500 MG TAB PO PRN (19:02)
[2022-05-29] MEDS ORDERED: Levofloxacin500mg IV 500 MG/100 ML BAG IV SCH (20:00)
[2022-05-29] MEDS ORDERED: FENTANYL CITR 100 MCG/2 ML IV PRN (22:45)
[2022-05-29] MEDS: NA CHLORIDE 0.9% 1,000 ML IV SCH (22:56)
[2022-05-29] MEDS: ONDANSETRON 4 MG/2 ML VIAL IV PRN (22:56)
[2022-05-29] MEDS: HYDROMORPHONE HCL 1 MG/ML INJ IV PRN (23:44)
[2022-05-30 00:36] VITALS: O2SAT 94
[2022-05-30] MEDS: FENTANYL CITR 100 MCG/2 ML IV PRN (04:38)
[2022-05-30 06:36] LABS: RBC Red Blood Cell Count 4.74 M/uL (3.86-4.86)
[2022-05-30 06:37] LABS: Absolute Lymphocytes (CBC) 0.7 K/uL (0.7-4.9); Hematocrit 37.8 % (36.0-45.0); Lymphocytes % 7.1 % (15.3-44.8); MCV 79.1 fL (80-100); MPV 7.8 fL (7.6-11.3); RBC Red Blood Cell Count 4.78 M/uL (3.86-4.86)
[2022-05-30 07:05] LABS: Albumin 2.9 g/dL (3.4-5.0); Bilirubin Total 0.6 mg/dL (0.2-1.0); Potassium 3.3 mmol/L (3.5-5.1); Protein, Total 6.8 g/dL (6.4-8.2)
[2022-05-30 07:16] LABS: Folic Acid, (Folate) 12.6 ng/mL (3.1-17.5); Magnesium 1.7 mg/dL (1.8-2.4); Thyroid Stimulating Hormone 1.16 uIU/mL (0.360-3.740)
[2022-05-30] MEDS ORDERED: SODIUM CHLORIDE 0.9% 10ML INJ IV PRN (08:10)
[2022-05-30] MEDS: DONEPEZIL HCL 5 MG TAB PO SCH ×2 (08:55→21:45)
[2022-05-30] MEDS: MEMANTINE HCL 10 MG TABLET PO SCH ×2 (08:56→21:45)
[2022-05-30] MEDS: PANTOPRAZOLE 40 MG INJ IVP SCH ×2 (08:56→21:45)
[2022-05-30] MEDS: DULOXETINE 30 MG CAP PO SCH ×2 (08:56→21:45)
[2022-05-30] MEDS: HYDROMORPHONE HCL 1 MG/ML INJ IV PRN (08:56)
[2022-05-30] MEDS ORDERED: CYANOCOBALAMIN 1000MCG/ML INJ IM ONE (09:00)
[2022-05-30] MEDS: NA CHLORIDE 0.9% 1,000 ML IV SCH ×2 (09:00→21:44)
[2022-05-30] MEDS: ONDANSETRON 4 MG/2 ML VIAL IV PRN ×2 (09:14→18:00)
[2022-05-30] MEDS ORDERED: METOCLOPRAMIDE 10 MG/2mL INJ IV ONE (11:00)
--- NOTE | 2022-05-30 11:32 | RAD REPORT ---
EXAM DESCRIPTION: CTAbdomen Pelvis W Contrast - 05/30/2022 11:07 am CLINICAL HISTORY: Abdominal pain. pain/weakness COMPARISON: No comparisons TECHNIQUE: Biphasic CT imaging of the abdomen and pelvis was performed with 100 ml non-ionic IV cont rast. All CT scans are performed using dose optimization technique as appropriate and may include automated exposure control or mA/KV adjustment according to patient size. FINDINGS: Linear atelectasis is present in the left lung base. Mild intrahepatic biliary tree dilatation. Cholecystectomy. Postsurgical changes are present about st omach. The spleen, adrenal glands, pancreas and kidneys are within normal limits. No bowel obstruction, free air, free fluid or abscess. Moderate stool is present throughout the colon . Mild fluid is seen in the presacral space. Scattered colonic diverticulosis. . Nonvisualized append ix. Mild enhancing bladder wall. No evidence of significant lymphadenopathy. Moderate lumbar degenerative changes. IMPRESSION: Enhancing bladder wall could indicate cystitis. Moderate rectosigmoid fecal retention with mild fluid in the presacral space. Prior cholecystectomy.
[2022-05-30] MEDS ORDERED: MINERAL OIL 30 ML UCUP PO ONE (13:30)
[2022-05-30] MEDS: Levofloxacin 750mg IV 750 MG/150 ML BAG IV SCH (14:46)
[2022-05-30] MEDS ORDERED: METOPROLOL TARTRATE 5 MG/5 ML INJ IV STA (18:21)
--- NOTE | 2022-05-30 19:29 | P.HP ---
Certification for Inpatient Patient admitted to: Inpatient With expected LOS: >2 Midnights Patient will require the following post-hospital care: None Practitioner: I am a practitioner with admitting privileges, knowledge of patient current condition, hospital course, and medical plan of care. Services: Services provided to patient in accordance with Admission requirements found in Title 42 Section 412.3 of the Code of Federal Regulations Patient History Date of Service: 05/29/22 Reason for admission: Abdominal pain History of Present Illness: Patient is a 76-year-old female who lives with her son, and patient has had a skin infection from where pain pump was inserted. She was given antibiotics and has healed up. She been complaining of weakness and confusion. The son brought her into the emergency room for further evaluation. In the ER her work-up is unremarkable. Skin infection looks to be fairly well-healed. She does have some abdominal tenderness. Will get CT abdomen and pelvis for further review. Patient will be admitted for observation. Patient's primary care provider is Dr. Meyer and will be covering for him for the next week. Allergies codeine [Codeine] Allergy (Mild, Verified 02/26/12 14:19) Hives/Rash morphine Allergy (Mild, Verified 02/26/12 14:19) Hives/Rash Penicillins Allergy (Mild, Verified 02/26/12 14:19) Hives/Rash Bisphosphonates Allergy (Verified 08/01/20 17:14) Hives/Rash Home Medications: Clindamycin HCl 300 mg PO TID 05/30/22 Donepezil [Aricept*] 10 mg PO BID 05/30/22 Duloxetine [Cymbalta *] 30 mg PO BID 05/30/22 Famotidine 20 mg PO BID 05/30/22 Memantine HCl [Namenda*] 10 mg PO BID 05/30/22 Quetiapine [Seroquel*] 05/30/22 - Past Medical/Surgical History Diabetic: No -: Thyroid disease -: Apendectomy -: Cholecystectomy -: Skin Graft -: Bowel surgery -: hysterectomy -: knee replacement -: pain pump - Family History Father Family History: Reviewed- Non-Contributory - Social History Smoking Status: Former smoker Alcohol use: No CD- Drugs: No Caffeine use: No Place of Residence: Home Review of Systems 10-point ROS is otherwise unremarkable Physical Examination - Vital Signs Temperature: 98.0 F Blood Pressure: 157/72 Pulse: 112 Respirations: 18 Pulse Ox (%): 98 - Physical Exam General: Alert, In no apparent distress, Oriented x3 HEENT: Atraumatic, PERRLA, Mucous membr. moist/pink, EOMI, Sclerae nonicteric Neck: Supple, 2+ carotid pulse no bruit, No LAD, Without JVD or thyroid abnormality Respiratory: Clear to auscultation bilaterally, Normal air movement Cardiovascular: Regular rate/rhythm, Normal S1 S2 Gastrointestinal: Soft and benign, Non-distended, No rebound, No guarding, Tenderness Musculoskeletal: No tenderness Integumentary: No rashes Neurological: Normal gait, Normal speech, Normal strength at 5/5 x4 extr, Normal tone, Normal affect Lymphatics: No axilla or inguinal lymphadenopathy Assessment & Plan - Problems (Diagnosis) (1) Abdominal pain Current Visit: Yes Status: Acute (2) Generalized weakness Current Visit: Yes Status: Acute (3) Confusion Current Visit: Yes Status: Acute (4) Chronic pain Current Visit: Yes Status: Acute (5) S/P insertion of intrathecal pump Current Visit: Yes Status: Acute - Plan Plan: 1. Gentle hydration 2. CT imaging of the abdomen 3. Advance diet as tolerated 4. Physical therapy evaluation 5. GI DVT prophylaxis - Advance Directives Does patient have a Living Will: No Does patient have a Durable POA for Healthcare: Yes
[2022-05-30] MEDS: QUETIAPINE 25 MG TAB PO SCH (21:45)
[2022-05-31] MEDS: HYDROMORPHONE HCL 1 MG/ML INJ IV PRN (01:46)
[2022-05-31] MEDS: NA CHLORIDE 0.9% 1,000 ML IV SCH ×2 (02:00→12:58)
--- NOTE | 2022-05-31 06:14 | P.PN ---
Subjective Date of Service: 05/30/22 Plan for possible discharge today; the patient had AFib with RVR. Started on IV Lopressor. Rate is better controlled. Echocardiogram and Cardiology consultation pending. CT abdomen revealed fecal impaction. Patient given enema x1. Possible discharge over the next 48 hours. Patient will be inpatient ho spitalization. Also with severe B12 deficiency. Try to call patient's and son and had to leave a message. We will await return phone call. Review of Systems 10-point ROS is otherwise unremarkable Physical Examination - Vital Signs Temperature: 98.0 F Blood Pressure: 157/72 Pulse: 112 Respirations: 18 Pulse Ox (%): 98 - Physical Exam General: Alert, In no apparent distress, Oriented x2, Demented HEENT: Atraumatic, PERRLA, EOMI Neck: Supple, JVD not distended Respiratory: Clear to auscultation bilaterally, Normal air movement Cardiovascular: Regular rate/rhythm, Normal S1 S2 Gastrointestinal: Normal bowel sounds, Soft and benign, Non-distended, No rebound, No guarding, Tenderness Musculoskeletal: No clubbing, No swelling, No tenderness Neurological: Sensation intact, Cranial nerves 3-12 intact, Dementia - Studies Medications List Reviewed: Yes Assessment & Plan - Problems (Diagnosis) (1) Abdominal pain Current Visit: Yes Status: Acute (2) Generalized weakness Current Visit: Yes Status: Acute (3) Confusion Current Visit: Yes Status: Acute (4) Chronic pain Current Visit: Yes Status: Acute (5) S/P insertion of intrathecal pump Current Visit: Yes Status: Acute (6) Alzheimer's dementia Current Visit: Yes Status: Acute (7) Atrial fibrillation with RVR Current Visit: Yes Status: Acute - Plan Plan: 1. Gentle hydration 2. CT imaging of the abdomen revealed fecal impaction. No other abnormalities. 3. Advance diet as tolerated 4. Physical therapy evaluation 5. IV Lopressor 6. Echocardiogram 7. Cardiology consultation 8. Inpatient hospitalization 9. Gi DVT prophylaxis Discharge Plan: Home Plan to discharge in: 48 Hours - Advance Directives Does patient have a Living Will: No Does patient have a Durable POA for Healthcare: Yes - Code Status/Comfort Care Code Status Assessed: Yes Code Status: Full Code Critical Care: No Time Spent Managing PTS Care (In Minutes): 35
[2022-05-31] MEDS: METOPROLOL TAR 50 MG TAB PO SCH ×3 (08:00→20:36)
[2022-05-31] MEDS: DONEPEZIL HCL 5 MG TAB PO SCH ×2 (08:51→20:35)
[2022-05-31] MEDS: FENTANYL CITR 100 MCG/2 ML IV PRN ×3 (08:51→17:52)
[2022-05-31] MEDS: DULOXETINE 30 MG CAP PO SCH ×2 (08:51→20:35)
[2022-05-31] MEDS: MEMANTINE HCL 10 MG TABLET PO SCH ×2 (08:51→20:35)
[2022-05-31] MEDS: APIXABAN 2.5 MG TABLET PO SCH ×2 (08:52→20:35)
[2022-05-31] MEDS: PANTOPRAZOLE 40 MG INJ IVP SCH ×2 (08:52→20:35)
[2022-05-31] MEDS: CYANOCOBALAMIN 1,000 MCG TAB SL SCH (08:52)
--- NOTE | 2022-05-31 12:13 | CON ---
Date of Consultation: 05/31/[address] Monson on 05/29/2022. I saw the patient on 05/31/2022. Reason For Consultation: Atrial fibrillation with rapid ventricular response. History Of Present Illness: Ms. Phillips is a 76-year-old woman. She was admitted with weakness, poor a ppetite, was found to have some cystitis on her CT of her abdomen. Normal chest x-ray, normal blood work. Went into atrial fibrillation with rapid ventricular response. Received 1 dose of IV metoprol ol and she is still in atrial fibrillation at a rate of 110. She is on p.o. metoprolol 50 b.i.d. Sh jude is on Eliquis. There is an echocardiogram pending. No symptoms with her atrial fibrillation. Past Medical History: Includes chronic back pain and dementia. Allergies: SHE IS ALLERGIC TO PENICILLIN, CODEINE, AND MORPHINE. Review of Systems: Negative. Social History: Negative. Family History: Noncontributory. Medications: At home include Cymbalta, Namenda, and Aricept. Physical Examination: General: She appeared alert and oriented to name and place. Vital Signs: Showed atrial fibrillation, rate of 110. Otherwise, she is afebrile. HEENT: Negative. Neck: Supple with no bruit. Chest: Clear. Cardiac: Revealed atrial fibrillation. No murmurs, gallops, or rubs. Abdomen: Benign. Extremities: Revealed no clubbing, cyanosis, or edema. Skin: Dry and intact. Neurological: She appeared to be demented. Pulses were present distally bilaterally. Diagnostic Data: Showed a normal chest x-ray. EKG showed atrial fibrillation with rapid ventricular response. CT of the abdomen shows cystitis. The rest of the blood work was normal. Impression And Plan: Rapid atrial fibrillation, on metoprolol 50 b.i.d. and Eliquis. I would correc t her potassium. Continue metoprolol 50 b.i.d. Continue Eliquis. See what the echocardiogram shows . Without intent to do any cardioversion at this time electrically unless we have to, I will continu e the beta-blockers and anticoagulation. We will continue to follow her. MARY/CATRACHITA Voice ID: [id number] Report ID: [id number]
--- NOTE | 2022-05-31 13:48 | P.PN ---
Subjective Date of Service: 05/31/22 Chief Complaint: Abdominal pain Subjective: No new changes No acute events overnight. She is alert and oriented x [address]. She does not know the date or why she is in the hospital. Per RN, heart rates have remained stable, but slightly elevated overnight. Review of Systems is unable to be obtained (advanced dementia) Physical Examination - Vital Signs Temperature: 99.5 F Blood Pressure: 162/83 Pulse: 76 Respirations: 18 Pulse Ox (%): 95 - Physical Exam General: Alert, In no apparent distress, Oriented x2 HEENT: Atraumatic, PERRLA, Mucous membr. moist/pink, EOMI, Sclerae nonicteric Neck: Supple, JVD not distended Respiratory: Clear to auscultation bilaterally, Normal air movement Cardiovascular: No edema, Regular rate/rhythm, Normal S1 S2, No gallops, No rubs, No murmurs Gastrointestinal: Normal bowel sounds, Soft and benign, Non-distended, No tenderness, No rebound, No guarding Musculoskeletal: No clubbing Integumentary: No rashes Neurological: Normal speech, Normal affect, Dementia - Studies Medications List Reviewed: Yes Assessment And Plan - Plan # Paroxysmal Atrial Fibrillation with Rapid Ventricular Response (improved) # SIRS Criteria (Tachycardia, Tachypnea) secondary to above - no evidence of infection Her [id number] = 2 (Age 65-74=1, Sex=1). - Cardiology consulted and spoke with Dr. Braswell - recommendations appreciated - Evaluation thus far: - Telemetry = was sinus this morning - CXR = "No acute cardiopulmonary disease." - Potassium = 3.3, Magnesium = 1.7 - Target K> 4, Mg >2 - TSH = 1.16 - Transthoracic echocardiogram ordered - For rate control: - Continue metoprolol - For anticoagulation: - Continue apixaban # Chronic Pain Syndrome s/p Intrathecal Pump # Fecal Impaction - suspect secondary to Opioid-Induced Constipation # Microscopic Hematuria - Continue home regimen - CT abdomen/pelvis = "Enhancing bladder wall could indicate cystitis. Moderate rectosigmoid fecal retention with mild fluid in the presacral space. Prior cholecystectomy. " - Urinalysis with negative nitrite and negative leukocyte esterase - suggesting against UTI - Started bowel regimen with docusate and polyethylene glycol # Alzheimer's Dementia - Continue home donepezil, memantine, quetiapine Morales Monson M.D.
[2022-05-31] MEDS: Levofloxacin 750mg IV 750 MG/150 ML BAG IV SCH (15:06)
[2022-05-31] MEDS: ENSURE ENLIVE 237 ML CAN PO SCH (20:36)
[2022-05-31] MEDS: QUETIAPINE 25 MG TAB PO SCH (20:47)
[2022-06-01] MEDS: NA CHLORIDE 0.9% 1,000 ML IV SCH ×3 (00:10→17:00)
[2022-06-01 04:19] LABS: Magnesium 1.8 mg/dL (1.8-2.4)
[2022-06-01 04:37] LABS: Potassium 2.6 mmol/L (3.5-5.1)
[2022-06-01] MEDS: KCL 20 MEQ/100 mL IVPB 20 MEQ/100 ML BAG IV SCH ×3 (06:18→11:38)
[2022-06-01] MEDS: Magnesium Sulfate 2gm IVPB 2 G/50 ML BAG IV ONE (06:28)
[2022-06-01] MEDS: FENTANYL CITR 100 MCG/2 ML IV PRN ×2 (06:44→21:54)
[2022-06-01] MEDS ORDERED: MAGNESIUM SULFATE 1 gm IVPB 1 GM/100 ML BAG IV ONE (07:41)
[2022-06-01] MEDS: ENSURE ENLIVE 237 ML CAN PO SCH ×2 (09:00→21:00)
[2022-06-01] MEDS ORDERED: Magnesium Sulfate 2gm IVPB 2 G/50 ML BAG IV ONE (09:40)
[2022-06-01] MEDS: DONEPEZIL HCL 5 MG TAB PO SCH ×2 (09:45→21:35)
[2022-06-01] MEDS: PANTOPRAZOLE 40 MG INJ IVP SCH ×2 (09:45→21:35)
[2022-06-01] MEDS: METOPROLOL TAR 50 MG TAB PO SCH ×2 (09:45→21:00)
[2022-06-01] MEDS: CYANOCOBALAMIN 1,000 MCG TAB SL SCH (09:45)
[2022-06-01] MEDS: MEMANTINE HCL 10 MG TABLET PO SCH ×2 (09:45→21:35)
[2022-06-01] MEDS: APIXABAN 2.5 MG TABLET PO SCH ×2 (09:45→21:35)
[2022-06-01] MEDS: DULOXETINE 30 MG CAP PO SCH ×2 (09:45→21:35)
[2022-06-01] MEDS: Levofloxacin 750mg IV 750 MG/150 ML BAG IV SCH (15:02)
--- NOTE | 2022-06-01 15:43 | EKG ---
Test Date: 2022-05-29 Test Time: 14:39:44 Care Program Resident: JUSTIN MEASUREMENT RESULTS: Intervals: Rate: 103 RI: 172 QRSD: 80 QT: 370 QTc: 484 Farner: P: 42 RI: 172 QRS: -30 T: 68 INTERPRETIVE STATEMENTS: Sinus tachycardia Left axis deviation Nonspecific ST abnormality Abnormal ECG Compared to ECG 09/23/2015 19:24:49 Left-axis deviation now present ST (T wave) deviation now present Sinus rhythm no longer present Myocardial infarct finding no longer present Electronically Signed On 06-01-22 15:41:11 CDT by Binu Duff
[2022-06-01] MEDS: QUETIAPINE 25 MG TAB PO SCH (21:35)
--- NOTE | 2022-06-01 22:01 | CON ---
Date of Consultation: 06/01/2022 Reason For Consultation: Atrial fibrillation. History Of Present Illness: A 76-year-old female with no significant cardiac history. Apparently, s he has some skin infection, for which antibiotics were given. The patient presented with generalized weakness and confusion, has some diarrhea, has a history of atrial fibrillation. Hence, I am consul babs to evaluate her by bedside. Her heart rate is controlled. The patient is asymptomatic from that regard. Past Medical History: Hypothyroidism. Medications: Refer reconciliation sheet for detailed list. Allergies: CODEINE, MORPHINE, PENICILLIN, AND BISPHOSPHONATES. Family History: No premature coronary artery disease or cancer. Social History: Does not smoke or drink. Does not use any drugs. Review of Systems: All systems reviewed and they were negative except as mentioned in the HPI. Physical Examination: Vital Signs: Showed temperature is 97.5, pulse 67, breathing at 14, blood pressure is 107/53, sattin g 96% on room air. General: Pleasant, elderly female, in no apparent distress. Head and Neck: Pupils are equal and reactive to light. Intact eye movements. No JVD. No cervical lymphadenopathy. Neck is supple. Thyroid is not enlarged. Lungs: Clear to auscultation bilaterally. No rhonchi, rales, or crackles. No accessory muscle use. Heart: Regular. No extra sounds. Abdomen: Soft, nontender. Bowel sounds positive. No organomegaly. No masses or hernia. No rigidi ty or rebound. Extremities: No clubbing or cyanosis. Neuro: Alert and awake with confusion. No focal deficits appreciated. She is moving all extremitie s. Lymph Nodes: No cervical or axillary lymphadenopathy. Investigations: Sodium 136, potassium 2.6, creatinine is 0.52. Assessment And Recommendations: Atrial fibrillation. This condition appears to be well controlled. Continue metoprolol 50 mg twice a day, doing very well with that as well as apixaban for stroke prev ention. However, I will increase the apixaban to 5 mg twice a day as she has a normal kidney functio n and please obtain an echocardiogram. SR/MODL Voice ID: [id number] Report ID: [id number]
[2022-06-01] MEDS ORDERED: POTASSIUM 25 MEQ EFFERV TAB PO ONE (22:15)
--- NOTE | 2022-06-01 22:51 | P.PN ---
Subjective Date of Service: 06/01/22 Chief Complaint: Abdominal pain No acute events overnight. She is alert and oriented x [address] (seems to be her baseline). Heart rates have remained stable overnight; however, her potassium was low this morning to 2.6. Review of Systems is unable to be obtained Physical Examination - Vital Signs Temperature: 97 F Blood Pressure: 105/52 Pulse: 65 Respirations: 15 Pulse Ox (%): 99 - Studies Medications List Reviewed: Yes Assessment And Plan - Plan - Physical Exam General: Alert, In no apparent distress, Oriented x2 HEENT: Atraumatic, PERRLA, Mucous membr. moist/pink, EOMI, Sclerae nonicteric Neck: Supple, JVD not distended Respiratory: Clear to auscultation bilaterally, Normal air movement Cardiovascular: No edema, Regular rate/rhythm, Normal S1 S2, No gallops, No rubs, No murmurs Gastrointestinal: Normal bowel sounds, Soft and benign, Non-distended, No tenderness, No rebound, No guarding Musculoskeletal: No clubbing Integumentary: No rashes Neurological: Normal speech, Normal affect, Dementia # Paroxysmal Atrial Fibrillation with Rapid Ventricular Response (improved) # SIRS Criteria (Tachycardia, Tachypnea) secondary to above - no evidence of infection # Significant Hypokalemia Her [id number] = 2 (Age 65-74=1, Sex=1). - Cardiology consulted and spoke with Dr. Braswell - recommendations appreciated - Evaluation thus far: - Telemetry = was sinus this morning - CXR = "No acute cardiopulmonary disease." - Potassium = 3.3, Magnesium = 1.7 - Target K> 4, Mg >2 - TSH = 1.16 - Transthoracic echocardiogram ordered - For rate control: - Continue metoprolol - For anticoagulation: - Continue apixaban # Chronic Pain Syndrome s/p Intrathecal Pump # Fecal Impaction - suspect secondary to Opioid-Induced Constipation # Microscopic Hematuria - Continue home regimen - CT abdomen/pelvis = "Enhancing bladder wall could indicate cystitis. Moderate rectosigmoid fecal retention with mild fluid in the presacral space. Prior cholecystectomy. " - Urinalysis with negative nitrite and negative leukocyte esterase - suggesting against UTI - Started bowel regimen with docusate and polyethylene glycol # Alzheimer's Dementia - Continue home donepezil, memantine, quetiapine Replace electrolytes and monitor telemetry today. TTE results pending. If TTE is stable and her heart rate and electrolytes remain stable, possible discharge tomorrow. Morales Monson M.D.
[2022-06-02 04:19] LABS: Potassium 4.1 mmol/L (3.5-5.1)
--- NOTE | 2022-06-02 07:54 | ECHO ---
HEIGHT: 5 ft 7 in WEIGHT: 128 lb 0 oz DATE OF STUDY: 06/01/[address]: Zaheer Marrero MD 2-DIMENSIONAL: YES M.MODE: YES DOPPLER: YES COLOR FLOW: YES TDS: NO PORTABLE: YES DEFINITY: NO BUBBLE STUDY: NO DIAGNOSIS: ATRIAL FIBRILLATION CARDIAC HISTORY: CATHERIZATION: SURGERY: PROSTHETIC VALVE: PACEMAKER: MEASUREMENTS (cm) DIASTOLIC (NORMALS) SYSTOLIC (NORMALS) IVSd 1.1 (0.6-1.2) LA Diam 2.8 (1.9-4.0) LVEF 55-60% LVIDd 4.2 (3.5-5.7) LVIDs 3.1 (2.0-3.5) %FS 26% LVPWd 1.1 (0.6-1.2) Ao Diam 3.0 (2.0-3.7) 2 DIMENSIONAL ASSESSMENT: RIGHT ATRIUM: NORMAL LEFT ATRIUM: ENLARGED RIGHT VENTRICLE: NORMAL LEFT VENTRICLE: NORMAL TRICUSPID VALVE: MITRAL VALVE: PULMONIC VALVE: NORMAL AORTIC VALVE: NORMAL PERICARDIAL EFFUSION: NONE AORTIC ROOT: NORMAL LEFT VENTRICULAR WALL MOTION: NORMAL DOPPLER/COLOR FLOW: SEE BELOW COMMENTS: NORMAL LEFT VENTRICULAR EJECTION FRACTION 55-60%. NORMAL WALL MOTION. MILD MITRAL AND TRICUSPID REGURGITATION. LEFT ATRIAL ENLARGEMENT. TECHNOLOGIST: Romel GU
[2022-06-02] MEDS: CYANOCOBALAMIN 1,000 MCG TAB SL SCH (07:58)
[2022-06-02] MEDS: PANTOPRAZOLE 40 MG INJ IVP SCH ×2 (07:58→20:11)
[2022-06-02] MEDS: APIXABAN 2.5 MG TABLET PO SCH ×2 (07:58→20:11)
[2022-06-02] MEDS: DULOXETINE 30 MG CAP PO SCH ×2 (07:58→20:11)
[2022-06-02] MEDS: MEMANTINE HCL 10 MG TABLET PO SCH ×2 (07:58→20:11)
[2022-06-02] MEDS: DONEPEZIL HCL 5 MG TAB PO SCH ×2 (07:58→20:11)
[2022-06-02] MEDS: ENSURE ENLIVE 237 ML CAN PO SCH ×2 (07:59→20:12)
[2022-06-02] MEDS: NA CHLORIDE 0.9% 1,000 ML IV SCH ×2 (07:59→20:11)
[2022-06-02] MEDS: METOPROLOL TAR 25 MG TAB PO SCH ×2 (07:59→20:12)
[2022-06-02] MEDS: Levofloxacin 750mg IV 750 MG/150 ML BAG IV SCH (13:48)
--- NOTE | 2022-06-02 16:45 | P.PN ---
Subjective Date of Service: 06/02/22 Chief Complaint: Abdominal pain No acute events overnight. She is doing well this morning, with no specific complaints. Her electrolytes have improved. Blood pressures have been a little soft. Reduced metoprolol dose. Review of Systems is unable to be obtained Physical Examination - Vital Signs Temperature: 97.5 F Blood Pressure: 100/48 Pulse: 67 Respirations: 15 Pulse Ox (%): 95 - Studies Medications List Reviewed: Yes Assessment And Plan - Plan - Physical Exam General: Alert, In no apparent distress, Oriented x2 HEENT: Atraumatic, PERRLA, Mucous membr. moist/pink, EOMI, Sclerae nonicteric Neck: Supple, JVD not distended Respiratory: Clear to auscultation bilaterally, Normal air movement Cardiovascular: No edema, Regular rate/rhythm, Normal S1 S2, No gallops, No rubs, No murmurs Gastrointestinal: Normal bowel sounds, Soft and benign, Non-distended, No tenderness, No rebound, No guarding Musculoskeletal: No clubbing Integumentary: No rashes Neurological: Normal speech, Normal affect, Dementia # Paroxysmal Atrial Fibrillation with Rapid Ventricular Response (improved) # SIRS Criteria (Tachycardia, Tachypnea) secondary to above - no evidence of infection # Significant Hypokalemia Her [id number] = 2 (Age 65-74=1, Sex=1). - Cardiology consulted and spoke with Dr. Braswell - recommendations appreciated - Evaluation thus far: - Telemetry = was sinus this morning - CXR = "No acute cardiopulmonary disease." - Potassium = 4.1, Magnesium = 2.0 - Target K> 4, Mg >2 - TSH = 1.16 - Transthoracic echocardiogram = "normal left ventricular ejection fraction 55-60%. normal wall motion. mild mitral and tricuspid regurgitation. left atrial enlargement." - For rate control: - Continue metoprolol - For anticoagulation: - Continue apixaban # Chronic Pain Syndrome s/p Intrathecal Pump # Fecal Impaction - suspect secondary to Opioid-Induced Constipation # Microscopic Hematuria - Continue home regimen - CT abdomen/pelvis = "Enhancing bladder wall could indicate cystitis. Moderate rectosigmoid fecal retention with mild fluid in the presacral space. Prior cholecystectomy. " - Urinalysis with negative nitrite and negative leukocyte esterase - suggesting against UTI - Started bowel regimen with docusate and polyethylene glycol # Alzheimer's Dementia - Continue home donepezil, memantine, quetiapine Blood pressure soft overnight. Reduced metoprolol dose. If heart rate and blood pressure remain stable, possible discharge tomorrow. Spoke with her son, Mr. Good, who agrees with plan of care. Morales Monson M.D.
[2022-06-02] MEDS: QUETIAPINE 25 MG TAB PO SCH (20:11)
[2022-06-03 00:06] VITALS: BMI 19.0
--- NOTE | 2022-06-03 07:02 | P.DS ---
Admission Date: 05/31/22 Discharge Date: 06/03/22 Primary Care Provider: Dr. Meyer Disposition: ROUTINE DISCHARGE Discharge Condition: GOOD Reason for Admission: Abdominal pain Consultations: 1. Cardiology Hospital Course: DIAGNOSES: # Paroxysmal Atrial Fibrillation with Rapid Ventricular Response (improved) # SIRS Criteria (Tachycardia, Tachypnea) secondary to above - no evidence of infection # Significant Hypokalemia (resolved) # Chronic Pain Syndrome s/p Intrathecal Pump # Fecal Impaction - suspect secondary to Opioid-Induced Constipation (improved) # Microscopic Hematuria # Alzheimer's Dementia HOSPITAL COURSE: Ms. Jacquelyn Phillips is a pleasant 76 year old female with a past medical history significant for paroxysmal atrial fibrillation, advanced Alzheimer's dementia, and chronic pain syndrome s/p intrathecal pump who was admitted to the [facility] on 05/31/2022 for atrial fibrillation with rapid ventricular response. She was admitted to the Medicine service. Cardiology was consulted and she was evaluated by Dr. Braswell. She was treated with metoprolol, with improvement in her heart rates. Her transthoracic echocardiogram was notable for, "normal left ventricular ejection fraction 55-60%. Normal wall motion. Mild mitral and tricuspid regurgitation. Left atrial enlargement." Her metoprolol was titrated up, but was complicated by borderline hypotension. The dose was adjusted, and her heart rate and blood pressure has remained stable. She was started on apixaban per Cardiology recommendations. She was cleared for discharge home from a cardiac standpoint. On 06/03/2022, she was seen on morning rounds and deemed medically stable for discharge. Her son, Boby, was present for the discharge instructions. They were discharged with instructions to schedule follow-up appointments with her PCP (Dr. Meyer) in 3-5 days and with Cardiology (Dr. Braswell) in 5-7 days. She was provided prescriptions for metoprolol and apixaban. She and her family members were given the opportunity to ask questions and reported no further questions. Furthermore, all questions were answered to the best of my ability. Of note, she was incidentally found to have microscopic hematuria. They were informed that this can occasionally represent an underlying malignancy and advised to follow-up with Dr. Meyer for further evaluation. Today, I personally spent 35 minutes on her case, of which greater than 50% of the time was spent in patient education, counseling, and coordination of care as described above. - Physical Exam General: Alert, In no apparent distress, Oriented x2 HEENT: Atraumatic, PERRLA, Mucous membr. moist/pink, EOMI, Sclerae nonicteric Neck: Supple, JVD not distended Respiratory: Clear to auscultation bilaterally, Normal air movement Cardiovascular: No edema, Regular rate/rhythm, Normal S1 S2, No gallops, No rubs, No murmurs Gastrointestinal: Normal bowel sounds, Soft and benign, Non-distended, No tenderness, No rebound, No guarding Musculoskeletal: No clubbing Integumentary: No rashes Neurological: Normal speech, Normal affect, Dementia Vital Signs/Physical Exam: Temp Pulse Resp BP Pulse Ox 97.5 F 86 17 113/52 L 98 06/03/22 04:00 06/03/22 04:00 06/03/22 04:00 06/03/22 04:00 06/03/22 04:00 Laboratory Data at Discharge: WBC 10.20 K/uL (4.3-10.9) D 05/30/22 05:58 Hgb 12.5 g/dL (12.0-15.0) 05/30/22 05:58 Hct 37.8 % (36.0-45.0) 05/30/22 05:58 Plt Count 274 K/uL (152-406) 05/30/22 05:58 PT 12.0 SECONDS (9.5-12.5) 05/29/22 14:10 INR 1.09 05/29/22 14:10 APTT 27.9 SECONDS (24.3-36.9) 05/29/22 14:10 Sodium 137 mmol/L (136-145) 06/02/22 03:42 Potassium 4.1 mmol/L (3.5-5.1) 06/02/22 03:42 BUN 24 mg/dL (7-18) H 06/02/22 03:42 Creatinine 0.51 mg/dL (0.55-1.3) L 06/02/22 03:42 Glucose 78 mg/dL (74-106) 06/02/22 03:42 Magnesium 2.0 mg/dL (1.8-2.4) 06/02/22 03:42 Total Bilirubin 0.6 mg/dL (0.2-1.0) 05/30/22 05:58 AST 31 U/L (15-37) 05/30/22 05:58 ALT 21 U/L (12-78) 05/30/22 05:58 Alkaline Phosphatase 111 U/L (45-117) 05/30/22 05:58 Home Medications: Donepezil [Aricept*] 10 mg PO BID 05/30/22 Duloxetine [Cymbalta *] 30 mg PO BID 05/30/22 Famotidine 20 mg PO BID 05/30/22 Memantine HCl [Namenda*] 10 mg PO BID 05/30/22 Quetiapine [Seroquel*] 05/30/22 Apixaban [Eliquis *] 2.5 mg PO BID #60 tab 06/03/22 Metoprolol Tartrate [Lopressor*] 25 mg PO BID #60 tab 06/03/22 New Medications: Apixaban [Eliquis *] 2.5 mg PO BID #60 tab Metoprolol Tartrate [Lopressor*] 25 mg PO BID #60 tab Diet: Regular Activity: Fall precautions Followup: Amandeep Meyer MD [ACTIVE - CAN ADMIT] - Sourav Braswell MD [ACTIVE - CAN ADMIT] - Time spent managing pt's care (in minutes): 35
[2022-06-03] MEDS: PANTOPRAZOLE 40 MG INJ IVP SCH (08:29)
[2022-06-03] MEDS: MEMANTINE HCL 10 MG TABLET PO SCH (08:29)
[2022-06-03] MEDS: APIXABAN 2.5 MG TABLET PO SCH (08:29)
[2022-06-03] MEDS: METOPROLOL TAR 25 MG TAB PO SCH (08:29)
[2022-06-03] MEDS: DULOXETINE 30 MG CAP PO SCH (08:29)
[2022-06-03] MEDS: CYANOCOBALAMIN 1,000 MCG TAB SL SCH (08:29)
[2022-06-03] MEDS: DONEPEZIL HCL 5 MG TAB PO SCH (08:29)
[2022-06-03] MEDS: ENSURE ENLIVE 237 ML CAN PO SCH (08:30)
[2022-06-03 08:35] VITALS: BP 107/44; TEMP 97.6
== END 2022-06-03 10:47 | disposition home health service (06) | DRG 309 ==
LOC: ER 13:52 → OBSVTOIN 19:02 → INTOOBSV 19:02 → ERHOLD 19:02 → 4TH 20:45 → OBSVTOIN 05-31 06:06
PROVIDERS: ADMIT Hospitalist; ATTEND Hospitalist
DX: I48.0 Paroxysmal atrial fibrillation (principal); R65.10 Systemic inflammatory response syndrome (SIRS) of non-infectious origin without acute organ dysfunction; E53.8 Deficiency of other specified B group vitamins; G30.9 Alzheimer's disease, unspecified; F02.80 Dementia in other diseases classified elsewhere, unspecified severity, without behavioral disturbance, psychotic disturbance, mood disturbance, and anxiety; G89.29 Other chronic pain; R31.29 Other microscopic hematuria; K59.03 Drug induced constipation; T40.2X5A Adverse effect of other opioids, initial encounter; E87.6 Hypokalemia; I95.9 Hypotension, unspecified; Z88.0 Allergy status to penicillin; Z20.822 Contact with and (suspected) exposure to COVID-19
CPT/HCPCS: 36415; 71045; 74177; 80048; 80053; 81003; 82533; 82607; 82746; 83540; 83605; 83735; 84132; 84145; 84439; 84443; 85025; 85044; 85610; 85730; 87040; 93005; 93306; 96361; 96374; 96375; 99285; C9113; G0378; J1170; J2405; J2765; J3010; J3420; J3475; J3480; J7030; Q9967; U0003

== ENCOUNTER 2023-03-04 11:40 | Inpatient (IN) | payer OTHER, BC ==
--- OUTSIDE RECORDS SUMMARY | 2023-03-04 12:31 | XMS REPORT | Continuity of Care Document ---
:1945 Author Organization [facility] t Address [address] [place] [address] Care Team Providers Name Role Phone Amandeep Magana Primary Care Physician Tiffany Riggins MD Attending Clinician Jaxon Mckeon Attending Clinician TIFFANY RIGGINS Attending Clinician Unavailable Doctor Unassigned, [place] Attending Clinician Unavailable Pob, [facility] Main Attending Clinician Unavailable KANG LORD Attending Clinician Unavailable Kang Lord MD Attending Clinician Only, [facility] Test Attending Clinician Unavailable Areli Bueno Attending Clinician Michela Bustillos Attending Clinician TIFFANY RIGGINS Admitting Clinician Unavailable Tiffany Riggins MD Admitting Clinician KANG LORD Admitting Clinician Unavailable Kang Lord MD Admitting Clinician Payers Payer Name Policy Type Policy Number Effective Date Expiration Date S ource Problems Condition Condition Condition Status Onset Resolution Last Treating Co mments Source Name Details Category Date Date Treatment Clinician Date INFLAMMATI INFLAMMAT Diagnosis Active 2018-05-26 Memoria ON OF ION OF 05-15 09:13:00 l SACROILIAC SACROILIAC 00:00: He rmann JOINT JOINT 00 Active 05/15/2018 [facility] Chronic Chronic Disease Active 2018- Univers pain pain 7-24 ity of 00:00: [place] 00 Medical Branch Urge Urge Disease Active [facility] incontinen incontinen 7-24 it y of ce of ce of 00:00: [place] urine urine 00 Medical Branch Pain Pain Disease Active 2014-09 Univers management management 10-26 it y of 00:00: [place] 00 Medical Branch Spondylosi Spondylos Problem 2018-12-13 Memoria s without is without 12:12:44 l myelopathy myelopathy He rmann or or radiculopa radiculopa thy, thy, lumbosacra lumbosacra l region l region 12/13/2018 [facility] Essential Essential Problem 2018-12-13 Memoria (primary) (primary) 12:12:44 l hypertensi hypertensi He rmann on on 12/13/2018 [facility] Hypothyroi Hypothyro Problem 2018-12-13 Memoria dism, idism, 12:12:44 l unspecifie unspecifie He rmann d d 12/13/2018 [facility] Gastro-eso Gastro-es Problem 2018-12-13 Memoria phageal ophageal 12:12:44 l reflux reflux [place] disease disease without without esophagiti esophagiti s s 12/13/2018 [facility] FDC FDC Problem 2018-12-13 Memoria (current) (current) 12:12:44 l use of use of [place] non-steroi non-steroi darirck darrick anti-infla anti-infla mmatories mmatories (NSAID) (NSAID) 12/13/2018 [facility] Presence Presence Problem 2018-12-13 Memoria of other of other 12:12:44 l specified specified Herm shakila functional functional implants implants 12/13/2018 [facility] Post-traum Post-trau Problem 2018-12-04 Memoria atic matic 13:16:01 l stress stress [place] disorder, disorder, unspecifie unspecifie d d 12/04/2018 [facility] Personal Personal Problem 2018-12-04 Memoria history of history of 13:16:01 l nicotine nicotine Jorge Luis n dependence dependence 9 [facility] Backache Backache Problem Active 2022-11-28 Memoria (finding) (finding) 13:20:28 l Active [place] Problem 11/28/2022 [facility] Dementia Dementia Problem Active 2022-11-28 Memoria (disorder) (disorder) 13:20:28 l Active Patel Problem 11/28/2022 [facility] [place] Gastric Gastric Problem Resolve 2021-07-02 M emoria ulcer ulcer d 00:51:24 l (disorder) (disorder) He rmann Resolved Problem 07/02/2021 [facility] Posttrauma Posttraum Problem Resolve 2021-07-02 Memoria tic stress atic d 00:51:24 l disorder stress Patel (disorder) disorder (disorder) Resolved Problem 07/02/2021 [facility] Hypothyroi Hypothyro Problem Active 2022-11-28 Memoria dism idism 13:20:28 l (disorder) (disorder) He rmann Active Problem 11/28/2022 [facility] Impaired Impaired Problem Active 2022-11-28 Memoria mobility mobility 13:20:28 l (finding) (finding) Herm shakila Active Problem 11/28/2022 [facility] Sacroiliac Sacroilia Problem Active 2022-11-28 Memoria joint c joint 13:20:28 l inflamed inflamed Jorge Luis n (disorder) (disorder) Active Problem 11/28/2022 [facility] Osteoporos Osteoporo Problem Active 2022-11-28 Memoria is sis 13:20:28 l (disorder) (disorder) He rmann Active Problem 11/28/2022 [facility] Pain Pain Problem Active 2022-11-28 Memor ia (finding) (finding) 13:20:28 l Active [place] Problem 11/28/2022 [facility] Poor Poor Problem Active 2022-11-28 Memor ia short-term short-term 13:20:28 l memory memory Patel (finding) (finding) Active Problem 11/28/2022 Medical [facility] Seasonal Seasonal Problem Active 2022-11-28 Memoria allergic allergic 13:20:28 l rhinitis rhinitis Jorge Luis n (disorder) (disorder) Active Problem 11/28/2022 [facility] Thyroidect Thyroidec Problem Active 2022-11-28 Memoria william jeremie 13:20:28 l (procedure (procedure He rmann ) ) Active Problem 11/28/2022 [facility] Urinary Urinary Problem Active 2022-11-28 Me moria incontinen incontinen 13:20:28 l ce ce Patel (finding) (finding) Active Problem 11/28/2022 [facility] History of Past Illness Condition Condition Condition Status Onset Resolution Last Treating Co mments Source Name Details Category Date Date Treatment Clinician Date Sacroiliit Sacroilii Problem 2017-2018-12-13 2018-12-13 Memoria is, not tis, not 9-14 12:12:44 12:12:44 l elsewhere elsewhere 03:22: Herm shakila classified classified 55 06/02/2018 12/13/2018 [facility] Spine Allergies, Adverse Reactions, Alerts Allergy Allergy Status Severity Reaction(s) Onset Inactive Treating Comm ents Source Name Type Date Date Clinician Penicill DA Active U 2018-09 [facility] ins 0-07 Clear 00:00: [place] 00 [facility] codeine DA Active U 2018-09 [facility] 0-07 Clear 00:00: [place] 00 [facility] Penicill Propensi Active Unknown - 2014-09 Uni vers ins ty to See comments 10-21 ity of adverse 00:00: [place] reaction 00 Medical s Branch CODEINE DRUG Active Med Hallucinates 2014-09 Uni vers INGREDI 2- ity of 00:00: [place] 00 Medical Branch PENICILL Drug Active Unknown-Cmnt 2014-09 Un jerilyn INS Class 2- ity of 00:00: [place] 00 Medical Branch Codeine Propensi Active Nausea 2014-09 Univers ty to and/or 2 ity of adverse Vomiting 00:00: [place] reaction 00 Medical s to Branch drug Penicill Propensi Active Unknown - 2014-09 Uni vers ins ty to See comments 2 ity of adverse 00:00: [place] reaction 00 Medical s Branch penicill penicill Active Memori a ins ins l [place] codeine codeine Active Memoria l [place] traMADol traMADol Active Memori a l [place] morphine morphine Active Memori a l [place] Social History Social Habit Start Date Stop Date Quantity Comments Source History of Current smoker University of tobacco use [facility] Alcohol intake 2022-08-10 2022-08-10 0 /d University 00:00:00 00:00:00 [facility] Exposure to 2022-07-26 2022-08-05 Not sure [facility] SARS-CoV-2 00:00:00 11:34:00 [facility] (event) [place] Social History 2018-05-15 2018-05-15 [facility] 20:10:59 20:10:59 Sex [birth year] Univers y of 00:00:00 00:00:00 [facility] Smoking Status Start Date Stop Date Source Tobacco smoking status 2022-11-25 19:30:45 2022-11-25 19:30:45 M [facility] [place] [facility] Medications Ordered Filled Start Stop Current Ordering Indication Dosage Frequency Signature Comments Components Source Medication Medication Date Date Medication? Clinician (SIG) Name Name fentaNYL Yes 1 patch, Me moria mcg/hr 1-03 TOP, Q72H, l transdermal 21:56: 0 Jorge Luis n film, 00 Refill(s) extended release fentaNYL Yes 1 patch, Me moria mcg/hr 1-03 TOP, Q72H, l transdermal 21:56: 0 Jorge Luis n film, 00 Refill(s) extended release mirtazapine Yes TAKE 1 Azam romaine 30 mg oral 1-03 TABLET BY l tablet 21:15: MOUTH [place] 00 EVERY DAY famotidine Yes TAKE 1 Memor ia 20 mg oral 1-03 TABLET BY l tablet 21:15: MOUTH [place] 00 TWICE DAILY BEFORE MEAL(S) mirtazapine Yes TAKE 1 Azam romaine 30 mg oral 1-03 TABLET BY l tablet 21:15: MOUTH [place] 00 EVERY DAY famotidine 0 Yes TAKE 1 Memor ia 20 mg oral 03 TABLET BY l tablet 21:15: MOUTH [place] 00 TWICE DAILY BEFORE MEAL(S) LORazepam 2022-0 Yes 0 Memoria 1-03 Refill(s) l 21:14: [place] 00 LORazepam 2022-0 Yes 0 Memoria 1-03 Refill(s) l 21:14: [place] 00 ondansetron 2021-09 Yes 4mg 4 mg, Slow Univers (ZOFRAN 10-09 IV Push, ity of (PF)) 17:10: PRN, 1 [place] injection 4 56 dose, Medical mg Starting Branch on Tue08/09/22 at 1110, Until Discontinu ed, Routine, Nausea and Vomiting (N/V), PACU FENTanyl PF 2021-09- No 25ug 25 mcg, Un jerilyn (SUBLIMAZE 10-09 Slow IV ity o f (PF)) 17:10: 17:41 Push, [place] injection 56 :00 Q5MIN PRN, Medi maikol 25 mcg 4 doses, Branch Starting on Tue08/09/22 at 1110, Until Tue08/09/22 at 1141, Routine, Pain (scale 4-6), PACU FENTanyl PF 2021-09- No 25ug 25 mcg, Un jerilyn (SUBLIMAZE 10-09 Slow IV ity o f (PF)) 17:10: 17:41 Push, [place] injection 56 :00 Q5MIN PRN, Medi maikol 25 mcg 4 doses, Branch Starting on Tue08/09/22 at 1110, Until Tue08/09/22 at 1141, Routine, Pain (scale 4-6), PACU ondansetron 2021-09- No 4mg 4 mg, Slow Univers (ZOFRAN 10-09 IV Push, ity of (PF)) 17:10: 20:57 PRN, 1 [place] injection 4 56 :09 dose, Medical mg Starting Branch on Tue08/09/22 at 1110, Until Tue08/09/22 at 1457, Routine, Nausea and Vomiting (N/V), PACU sodium 2021-09 Yes PRN, Univers chloride 10-09 Starting ity of 0.9 % 16:22: on Tue [place] irrigation 00 08/09/22 Medic al solution at 1022, Branch Until Discontinu ed, Intra-op sodium 2021-09- No PRN, Univers chloride 10-09 Starting ity of 0.9 % 16:22: 20:57 on Tue [place] irrigation 00 :09 08/09/22 Medic al solution at 1022, Branch Until Tue08/09/22 at 1457, Intra-op lactated 2021-09- No 1000mL at 42 Unive rs ringers IV 10-09 11-21 mL/hr, ity of infusion 14:00: 13:57 1,000 mL, Shmuel as 1,000 mL 00 :00 IV Medical Infusion, Branch ONCE, 1 dose, On Tue08/09/22 at 0800, Routine, DSU Pre-op lactated 2021-09- No 1000mL at 42 Unive rs ringers IV 10-09 mL/hr, ity of infusion 14:00: 13:57 1,000 mL, Shmuel as 1,000 mL 00 :00 IV Medical Infusion, Branch ONCE, 1 dose, On Tue08/09/22 at 0800, Routine, DSU Pre-op FENTanyl 2021-09 Yes 1{patch Apply 1 Uni vers (DURAGESIC) 10-09 } Patch to ity of 100 mcg/hr 12:57: skin every [place] patch 06 72 Medical (seventy-t Branch wo) hours. oxybutynin 2021-09 Yes 5mg Take 5 mg Un jerilyn chloride 10-09 by mouth ity of (DITROPAN) 12:57: daily. [place] 5 mg tablet 06 Medical Branch methocarbam 2021-09 Yes 750mg Take 750 U nivers ol 1-21 mg by ity of (ROBAXIN) 12:57: mouth [place] 750 mg 06 every 6 Medical tablet (six) Branch hours as needed. DULoxetine 2021-09 Yes 30mg Take 30 mg U nivers 30 mg -21 by mouth ity of capsule 12:57: in the [place] morning. Medical Branch QUEtiapine 2021-09 Yes 25mg Take 25 mg U nivers 25 mg -21 by mouth ity of tablet 12:57: in the [place] morning. Medical At bedtime Branch famotidine 2021-09 Yes 20mg Take 20 mg U nivers 20 mg 1-21 by mouth ity of tablet 12:57: in the [place] [address] morning Medical and 20 mg Branch in the evening. apixaban 2021-09 Yes Take by Univer s (ELIQUIS 1-21 mouth. ity of ORAL) 12:57: [place] [address] Medical Branch FENTanyl 2021-09 Yes 1{patch Apply 1 Uni vers (DURAGESIC) 1-21 } Patch to ity of 100 mcg/hr 12:57: skin every [place] patch 06 72 Medical (seventy-t Branch wo) hours. oxybutynin 2021-09 Yes 5mg Take 5 mg Un jerilyn chloride 1-21 by mouth ity of (DITROPAN) 12:57: daily. [place] 5 mg tablet Medical Branch methocarbam 2021-09 Yes 750mg Take 750 U nivers ol 1-21 mg by ity of (ROBAXIN) 12:57: mouth [place] 750 mg 06 every 6 Medical tablet (six) Branch hours as needed. DULoxetine 2021-09 Yes 30mg Take 30 mg U nivers 30 mg 1-21 by mouth ity of capsule 12:57: in the [place] [address] morning. Medical Branch QUEtiapine 2021-09 Yes 25mg Take 25 mg U nivers 25 mg 1-21 by mouth ity of tablet 12:57: in the [place] [address] morning. Medical At bedtime Branch famotidine 2021-09 Yes 20mg Take 20 mg U nivers 20 mg 1-21 by mouth ity of tablet 12:57: in the [place] [address] morning Medical and 20 mg Branch in the evening. apixaban 2021-09 Yes Take by Quanlighter s (ELIQUIS 1-21 mouth. ity of ORAL) 12:57: [place] [address] Medical Branch FENTanyl 2021-09 Yes 1{patch Apply 1 Uni vers (DURAGESIC) 1-21 } Patch to ity of 100 mcg/hr 12:57: skin every [place] patch 06 72 Medical (seventy-t Branch wo) hours. oxybutynin 2021-09 Yes 5mg Take 5 mg Un jerilyn chloride 1-21 by mouth ity of (DITROPAN) 12:57: daily. [place] 5 mg tablet Medical Branch methocarbam 2021-09 Yes 750mg Take 750 U nivers ol 1-21 mg by ity of (ROBAXIN) 12:57: mouth [place] 750 mg 06 every 6 Medical tablet (six) Branch hours as needed. DULoxetine 2021-09 Yes 30mg Take 30 mg U nivers 30 mg 1-21 by mouth ity of capsule 12:57: in the [place] morning. Medical Branch QUEtiapine 2021-09 Yes 25mg Take 25 mg U nivers 25 mg 1-21 by mouth ity of tablet 12:57: in the [place] [address] morning. Medical At bedtime Branch famotidine 2021-09 Yes 20mg Take 20 mg U nivers 20 mg 1-21 by mouth ity of tablet 12:57: in the [place] [address] morning Medical and 20 mg Branch in the evening. apixaban 2021-09 Yes Take by Univer s (ELIQUIS 1-21 mouth. ity of ORAL) 12:57: [place] [address] Medical Branch FENTanyl 2021-09 Yes 1{patch Apply 1 Uni vers (DURAGESIC) 1-21 } Patch to ity of 100 mcg/hr 12:57: skin every [place] patch 06 72 Medical (seventy-t Branch wo) hours. oxybutynin 2021-09 Yes 5mg Take 5 mg Un jerilyn chloride 1-21 by mouth ity of (DITROPAN) 12:57: daily. [place] 5 mg tablet 06 [facility] Branch methocarbam 2021-09 Yes 750mg Take 750 U nivers ol 1-21 mg by ity of (ROBAXIN) 12:57: mouth [place] 750 mg 06 every 6 Medical tablet (six) Branch hours as needed. DULoxetine 2021-09 Yes 30mg Take 30 mg U nivers 30 mg 1-21 by mouth ity of capsule 12:57: in the [place] [address] morning. Medical Branch QUEtiapine 2021-09 Yes 25mg Take 25 mg U nivers 25 mg 1-21 by mouth ity of tablet 12:57: in the [place] [address] morning. Medical At bedtime Branch famotidine 2021-09 Yes 20mg Take 20 mg U nivers 20 mg 1-21 by mouth ity of tablet 12:57: in the [place] [address] morning Medical and 20 mg Branch in the evening. apixaban 2021-09 Yes Take by Univer s (ELIQUIS 1-21 mouth. ity of ORAL) 12:57: [place] [address] Medical Branch FENTanyl 2021-09 Yes 1{patch Apply 1 Uni vers (DURAGESIC) 1-17 } Patch to ity of 100 mcg/hr 11:27: skin every [place] patch 46 72 Medical (seventy-t Branch wo) hours. oxybutynin 2021-09 Yes 5mg Take 5 mg Un jerilyn chloride 1-17 by mouth ity of (DITROPAN) 11:27: daily. [place] 5 mg tablet 46 Medical Branch methocarbam 2021-09 Yes 750mg Take 750 U nivers ol 1-17 mg by ity of (ROBAXIN) 11:27: mouth [place] 750 mg 46 every 6 Medical tablet (six) Branch hours as needed. DULoxetine 2021-09 Yes 30mg Take 30 mg U nivers 30 mg 1-17 by mouth ity of capsule 11:27: in the [place] 46 morning. Medical Branch QUEtiapine 2021-09 Yes 25mg Take 25 mg U nivers 25 mg 1-17 by mouth ity of tablet 11:27: in the [place] 46 morning. Medical At bedtime Branch FENTanyl 2021-09 Yes 1{patch Apply 1 Uni vers (DURAGESIC) 1-17 } Patch to ity of 100 mcg/hr 11:27: skin every [place] patch 46 72 Medical (seventy-t Branch wo) hours. oxybutynin 2021-09 Yes 5mg Take 5 mg Un jerilyn chloride 1-17 by mouth ity of (DITROPAN) 11:27: daily. [place] 5 mg tablet 46 Medical Branch methocarbam 2021-09 Yes 750mg Take 750 U nivers ol 1-17 mg by ity of (ROBAXIN) 11:27: mouth [place] 750 mg 46 every 6 Medical tablet (six) Branch hours as needed. DULoxetine 2021-09 Yes 30mg Take 30 mg U nivers 30 mg 1-17 by mouth ity of capsule 11:27: in the [place] 46 morning. Medical Branch QUEtiapine 2021-09 Yes 25mg Take 25 mg U nivers 25 mg 1-17 by mouth ity of tablet 11:27: in the [place] 46 morning. Medical At bedtime Branch FENTanyl 2021-09 Yes 1{patch Apply 1 Uni vers (DURAGESIC) 1-17 } Patch to ity of 100 mcg/hr 11:27: skin every [place] patch 46 72 Medical (seventy-t Branch wo) hours. oxybutynin 2021-09 Yes 5mg Take 5 mg Un jerilyn chloride 1-17 by mouth ity of (DITROPAN) 11:27: daily. [place] 5 mg tablet 46 Medical Branch methocarbam 2021-09 Yes 750mg Take 750 U nivers ol 1-17 mg by ity of (ROBAXIN) 11:27: mouth [place] 750 mg 46 every 6 Medical tablet (six) Branch hours as needed. DULoxetine 2021-09 Yes 30mg Take 30 mg U nivers 30 mg 1-17 by mouth ity of capsule 11:27: in the [place] [address] morning. Medical Branch QUEtiapine 2021-09 Yes 25mg Take 25 mg U nivers 25 mg 1-17 by mouth ity of tablet 11:27: in the [place] [address] morning. Medical At bedtime Branch FENTanyl 2021-09 Yes 1{patch Apply 1 Uni vers (DURAGESIC) 1-17 } Patch to ity of 100 mcg/hr 11:27: skin every [place] patch 46 72 Medical (seventy-t Branch wo) hours. oxybutynin 2021-09 Yes 5mg Take 5 mg Un jerilyn chloride 1-17 by mouth ity of (DITROPAN) 11:27: daily. [place] 5 mg tablet 46 Medical Branch methocarbam 2021-09 Yes 750mg Take 750 U nivers ol 1-17 mg by ity of (ROBAXIN) 11:27: mouth [place] 750 mg 46 every 6 Medical tablet (six) Branch hours as needed. DULoxetine 2021-09 Yes 30mg Take 30 mg U nivers 30 mg 1-17 by mouth ity of capsule 11:27: in the [place] [address] morning. Medical Branch QUEtiapine 2021-09 Yes 25mg Take 25 mg U nivers 25 mg 1-17 by mouth ity of tablet 11:27: in the [place] [address] morning. Medical At bedtime Branch famotidine 2021-09 Yes 20mg Take 20 mg U nivers 20 mg 1-17 by mouth ity of tablet 11:20: in the [place] [address] morning Medical and 20 mg Branch in the evening. famotidine 2021-09 Yes 20mg Take 20 mg U nivers 20 mg 1-17 by mouth ity of tablet 11:20: in the [place] [address] morning Medical and 20 mg Branch in the evening. famotidine 2021-09 Yes 20mg Take 20 mg U nivers 20 mg 1-17 by mouth ity of tablet 11:20: in the [place] [address] morning Medical and 20 mg Branch in the evening. famotidine 2021-09 Yes 20mg Take 20 mg U nivers 20 mg 1-17 by mouth ity of tablet 11:20: in the [place] [address] morning Medical and 20 mg Branch in the evening. spironolact 2021-09 Yes 1{tbl} Take 1 Un jerilyn one 25 mg 1-14 tablet by ity o f tablet 00:00: mouth as [place] 00 needed. LE Medical edema Branch spironolact 2021-09 Yes 1{tbl} Take 1 Un jerilyn one 25 mg 1-14 tablet by ity o f tablet 00:00: mouth as [place] 00 needed. LE Medical edema Branch spironolact 2021-09 Yes 1{tbl} Take 1 Un jerilyn one 25 mg 1-14 tablet by ity o f tablet 00:00: mouth as [place] 00 needed. LE Medical edema Branch spironolact 2021-09 Yes 1{tbl} Take 1 Un jerilyn one 25 mg 1-14 tablet by ity o f tablet 00:00: mouth as [place] 00 needed. LE Medical edema Branch spironolact 2021-09 Yes 1{tbl} Take 1 Un jerilyn one 25 mg 1-14 tablet by ity o f tablet 00:00: mouth as [place] 00 needed. LE Medical edema Branch spironolact 2021-09 Yes 1{tbl} Take 1 Un jerilyn one 25 mg 1-14 tablet by ity o f tablet 00:00: mouth as [place] 00 needed. LE Medical edema Branch sulfamethox 2021-09 Yes 1{tbl} Take 1 Un jerilyn azole-trime 1-04 tablet by ity of thoprim 00:00: mouth in [place] 800-160 mg 00 the Medical per tablet morning Branch and 1 tablet in the evening. Will complete today sulfamethox 2021-09 Yes 1{tbl} Take 1 Un jerilyn azole-trime 1-04 tablet by ity of thoprim 00:00: mouth in [place] 800-160 mg 00 the Medical per tablet morning Branch and 1 tablet in the evening. Will complete today sulfamethox 2021-09 Yes 1{tbl} Take 1 Un jerilyn azole-trime 1-04 tablet by ity of thoprim 00:00: mouth in [place] 800-160 mg 00 the Medical per tablet morning Branch and 1 tablet in the evening. Will complete today sulfamethox 2021-09 Yes 1{tbl} Take 1 Un jerilyn azole-trime 1-04 tablet by ity of thoprim 00:00: mouth in [place] 800-160 mg 00 the Medical per tablet morning Branch and 1 tablet in the evening. Will complete today sulfamethox 2021-09 Yes 1{tbl} Take 1 Un jerilyn azole-trime 1-04 tablet by ity of thoprim 00:00: mouth in [place] 800-160 mg 00 the Medical per tablet morning Branch and 1 tablet in the evening. Will complete today sulfamethox 2021-09 Yes 1{tbl} Take 1 Un jerilyn azole-trime 1-04 tablet by ity of thoprim 00:00: mouth in [place] 800-160 mg 00 the Medical per tablet morning Branch and 1 tablet in the evening. Will complete today mirtazapine 2021-09 Yes 30mg Take 30 mg Univers 15 mg 0-26 by mouth ity of tablet 00:00: in the [place] morning. Medical bedtime Branch metoprolol 2021-09 Yes 1{tbl} Take 1 Uni vers tartrate 25 0-26 tablet by ity of mg tablet 00:00: mouth in [place] the morning. Branch If SBP is greater than 110 mirtazapine 2021-09 Yes 30mg Take 30 mg Univers 15 mg 0-26 by mouth ity of tablet 00:00: in the [place] morning. Medical bedtime Branch metoprolol 2021-09 Yes 1{tbl} Take 1 Uni vers tartrate 25 0-26 tablet by ity of mg tablet 00:00: mouth in [place] 00 the morning. Branch If SBP is greater than 110 mirtazapine 2021-09 Yes 30mg Take 30 mg Univers 15 mg 0-26 by mouth ity of tablet 00:00: in the morning. Medical bedtime Branch metoprolol 2021-09 Yes 1{tbl} Take 1 Uni vers tartrate 25 0-26 tablet by ity of mg tablet 00:00: mouth in [place] 00 the Medical morning. Branch If SBP is greater than 110 mirtazapine 2022-1 Yes 30mg Take 30 mg Univers 15 mg 0-26 by mouth ity of tablet 00:00: in the [place] morning. Medical bedtime Branch metoprolol 2021-09 Yes 1{tbl} Take 1 Uni vers tartrate 25 0-26 tablet by ity of mg tablet 00:00: mouth in [facility] [place] [facility] the morning. Branch If SBP is greater than 110 mirtazapine 2021-09 Yes 30mg Take 30 mg Univers 15 mg 0-26 by mouth ity of tablet 00:00: in the [place] morning. Medical bedtime Branch metoprolol 2021-09 Yes 1{tbl} Take 1 Uni vers tartrate 25 0-26 tablet by ity of mg tablet 00:00: mouth in [facility] [place] [facility] the Medical morning. Branch If SBP is greater than 110 mirtazapine 2021-09 Yes 30mg Take 30 mg Univers 15 mg 0-26 by mouth ity of tablet 00:00: in the [place] morning. Medical bedtime Branch metoprolol 2021-09 Yes 1{tbl} Take 1 Uni vers tartrate 25 0-26 tablet by ity of mg tablet 00:00: mouth in [facility] the morning. Branch If SBP is greater than 110 lactated 2021-0 Yes 1000mL at 75 Univer s ringers IV 7-18 mL/hr, ity of infusion 13:30: 1,000 mL, [place] 1,000 mL 00 IV Medical Infusion, Branch CONTINUOUS , Starting on Tue04/05/22 at 0830, Until Discontinu ed, Routine, PACU lactated 2021-0 2021- No 1000mL at 75 Unive rs ringers IV 7-18 07-18 mL/hr, ity of infusion 13:30: 16:28 1,000 mL, Shmu[place] as 1,000 mL 00 :13 IV Medical Infusion, Branch CONTINUOUS , Starting on Tue04/05/22 at 0830, Until Tue04/05/22 at 1128, Routine, PACU HYDROmorphO 2021-0 Yes .2mg 0.2 mg, Uni vers ne 7-18 Slow IV ity of (DILAUDID) 13:22: Push, [place] injection 44 Q5MIN PRN, Medi maikol 0.2 mg 10 doses, Branch Starting on Tue04/05/22 at 0822, Until Discontinu ed, Routine, Pain (scale 7-10), PACU
Us e approved by (Faculty): PACU USE -ANESTHESI A SERVICE-HY DROMORPHON E INJECTIONS FENTanyl PF Yes 25ug 25 mcg, Uni vers (SUBLIMAZE 04-05 Slow IV ity of (PF)) 13:22: Push, [place] injection 44 Q5MIN PRN, Medi maikol 25 mcg 4 doses, Branch Starting on Tue04/05/22 at 0822, Until Discontinu ed, Routine, Pain (scale 4-6), PACU FENTanyl PF 2021- No 25ug 25 mcg, Un jerilyn (SUBLIMAZE 04-05 Slow IV ity o f (PF)) 13:22: 16:28 Push, [place] injection 44 :13 Q5MIN PRN, Medi maikol 25 mcg 4 doses, Branch Starting on Tue04/05/22 at 0822, Until Tue04/05/22 at 1128, Routine, Pain (scale 4-6), PACU HYDROmorphO 2021- No .2mg 0.2 mg, Un jerilyn ne 04-05 Slow IV ity of (DILAUDID) 13:22: 16:28 Push, [place] injection 44 :13 Q5MIN PRN, Medi maikol 0.2 mg 10 doses, Branch Starting on Tue04/05/22 at 0822, Until Tue04/05/22 at 1128, Routine, Pain (scale 7-10), PACU
Us e approved by (Faculty): PACU USE -ANESTHESI A SERVICE-HY DROMORPHON E INJECTIONS bupivacaine Yes PRN, Univer s -epinephrin 04-05 Starting ity of e-pf 12:52: on Tue [place] (SENSORCAIN 00 04/05/22 at [place] dical E 0752, Branch W/EPINEPHRI Until NE) 0.25 Discontinu %-1:200,000 ed, injection Routine, Intra-op bupivacaine 2021- No PRN, Unive rs -epinephrin 04-05 Starting ity of e-pf 12:52: 16:28 on Tue [place] (SENSORCAIN 00 :13 04/05/22 at [place] dical E 0752, Branch W/EPINEPHRI Until Mon [place]) 0.25 04/05/22 at %-1:200,000 1128, injection Routine, Intra-op water for 2021- No PRN, Univers irrigation 04-05 Starting ity of irrigation 12:50: 13:19 on [place] solution 00 :05 04/05/22 at [...] Tue04/05/22 at 0630, Routine, DSU Pre-op FENTanyl Yes 1{patch Apply 1 Uni vers (DURAGESIC) 18 } Patch to ity of 100 mcg/hr 09:28: skin every [place] patch 11 72 Medical (seventy-t Branch wo) hours. oxybutynin 0 Yes 5mg Take 5 mg Un jerilyn chloride 7-18 by mouth ity of (DITROPAN) 09:28: daily. [place] 5 mg tablet 11 Medical Branch methocarbam 2021-0 Yes 750mg Take 750 U nivers ol 7-18 mg by ity of (ROBAXIN) 09:28: mouth [place] 750 mg 11 every 6 Medical tablet (six) Branch hours as needed. DULoxetine 2021-0 Yes 30mg Take 30 mg U nivers 30 mg 7-18 by mouth ity of capsule 09:28: in the [place] [address] morning. Medical Branch QUEtiapine 2021-0 Yes 25mg Take 25 mg U nivers 25 mg 7-18 by mouth ity of tablet 09:28: in the [place] [address] morning. Medical At bedtime Branch famotidine 2022-0 Yes 20mg Take 20 mg U nivers 20 mg 7-18 by mouth ity of tablet 09:28: in the [place] [address] morning Medical and 20 mg Branch in [...] mouth ity of capsule 09:28: in the [place] [address] morning. Medical Branch QUEtiapine 2-0 Yes 25mg Take 25 mg U nivers 25 mg 7-18 by mouth ity of tablet 09:28: in the [place] [address] morning. Medical At bedtime Branch famotidine 2021-0 Yes 20mg Take 20 mg U nivers 20 mg 7-18 by mouth ity of tablet 09:28: in the [place] [address] morning Medical and 20 mg Branch in [...] mouth ity of capsule 09:28: in the [place] [address] morning. Medical Branch QUEtiapine 2022-0 Yes 25mg Take 25 mg U nivers 25 mg 7-18 by mouth ity of tablet 09:28: in the [place] [address] morning. Medical At bedtime Branch famotidine 2021-0 Yes 20mg Take 20 mg U nivers 20 mg 7-18 by mouth ity of tablet 09:28: in the [place] [address] morning Medical and 20 mg Branch in the evening. FENTanyl 2021-0 Yes 1{patch Apply 1 Uni vers (DURAGESIC) 7-18 } Patch to ity of 100 mcg/hr 09:28: skin every [place] patch 11 72 Medical (seventy-t Branch wo) hours. oxybutynin 2021-0 Yes 5mg Take 5 mg Un jerilyn chloride 7-18 by mouth ity of (DITROPAN) 09:28: daily. [place] 5 mg tablet 11 Medical Branch methocarbam 2021-0 Yes 750mg Take 750 U nivers ol 7-18 mg by ity of (ROBAXIN) 09:28: mouth [place] 750 mg 11 every 6 Medical tablet (six) Branch hours as needed. DULoxetine 2021-0 Yes 30mg Take 30 mg U nivers 30 mg 7-18 by mouth ity of capsule 09:28: in the [place] [address] morning. Medical Branch QUEtiapine 2021-0 Yes 25mg Take 25 mg U nivers 25 mg 7-18 by mouth ity of tablet 09:28: in the [place] [address] morning. Medical At bedtime Branch famotidine 2021-0 Yes 20mg Take 20 mg U nivers 20 mg 7-18 by mouth ity of tablet 09:28: in the [place] [address] morning Medical and 20 mg Branch in the evening. DULoxetine 2021-0 Yes 30mg Take 30 mg U nivers 30 mg 7-12 by mouth ity of capsule 15:43: in the [place] [address] morning. Medical Branch QUEtiapine 2021-0 Yes 25mg Take 25 mg U nivers 25 mg 7-12 by mouth ity of tablet 15:43: in the [place] [address] morning. Medical At bedtime Branch famotidine 2021-0 Yes 20mg Take 20 mg U nivers 20 mg 7-12 by mouth ity of tablet 15:43: in the [place] [address] morning Medical and 20 mg Branch in the evening. levothyroxi 2021-0 2022- No 125ug Take 125 Univers ne 7-12 [...] 5 mg tablet 22 Medical Branch methocarbam 0 Yes 750mg Take 750 U nivers ol 7-12 mg by ity of (ROBAXIN) 15:19: mouth [place] 750 mg 22 every 6 Medical tablet (six) Branch hours as needed. donepeziL 0 Yes 10mg Take 10 mg Un jerilyn 10 mg 6-08 by mouth ity of tablet 00:00: in the [place] morning Medical and 10 mg Branch in the evening. Take with meals. memantine 0 Yes 10mg Take 10 mg Un jerilyn 10 mg 6-08 by mouth ity of tablet 00:00: in the [place] morning Medical and 10 mg Branch in the evening. EUTHYROX Yes 1{tbl} Take 1 Unive rs 112 mcg 6-08 tablet by ity of tablet 00:00: mouth [place] every Medical morning. Branch donepeziL 0 Yes 10mg Take 10 mg Un jerilyn 10 mg 6-08 by mouth ity of tablet 00:00: in the morning Medical and 10 mg Branch in the evening. Take with meals. memantine 2021-0 Yes 10mg Take 10 mg Un jerilyn 10 mg 6-08 by mouth ity of tablet 00:00: in the [place] morning Medical and 10 mg Branch in the evening. EUTHYROX Yes 1{tbl} Take 1 Unive rs 112 mcg 6-08 tablet by ity of tablet 00:00: mouth every Medical morning. Branch donepeziL 2022-0 Yes 10mg Take 10 mg Un jerilyn 10 mg 6-08 by mouth ity of tablet 00:00: in the morning Medical and 10 mg Branch in the evening. Take with meals. memantine 2022-0 Yes 10mg Take 10 mg Un jerilyn 10 mg 6-08 by mouth ity of tablet 00:00: in the morning Medical and 10 mg Branch in the evening. EUTHYROX 2022-0 Yes 1{tbl} Take 1 Unive rs 112 mcg 6-08 tablet by ity of tablet 00:00: mouth [place] every Medical morning. Branch donepeziL 2022-0 Yes 10mg Take 10 mg Un jerilyn 10 mg 6-08 by mouth ity of tablet 00:00: in the morning Medical and 10 mg Branch in the evening. Take with meals. memantine 2022-0 Yes 10mg Take 10 mg Un jerilyn 10 mg 6-08 by mouth ity of tablet 00:00: in the morning Medical and 10 mg Branch in the evening. EUTHYROX 2022-0 Yes 1{tbl} Take 1 Unive rs 112 mcg 6-08 tablet by ity of tablet 00:00: mouth [place] every Medical morning. Branch donepeziL 2022-0 Yes 10mg Take 10 mg Un jerilyn 10 mg 6-08 by mouth ity of tablet 00:00: in the morning Medical and 10 mg Branch in the evening. Take with meals. memantine 2022-0 Yes 10mg Take 10 mg Un jerilyn 10 mg 6-08 by mouth ity of tablet 00:00: in the morning Medical and 10 mg Branch in the evening. EUTHYROX 2022-0 Yes 1{tbl} Take 1 Unive rs 112 mcg 6-08 tablet by ity of tablet 00:00: mouth [place] every Medical morning. Branch donepeziL 2022-0 Yes 10mg Take 10 mg Un jerilyn 10 mg 6-08 by mouth ity of tablet 00:00: in the morning Medical and 10 mg Branch in the evening. Take with meals. memantine 2022-0 Yes 10mg Take 10 mg Un jerilyn 10 mg 6-08 by mouth ity of tablet 00:00: in the morning Medical and 10 mg Branch in the evening. EUTHYROX 2022-0 Yes 1{tbl} Take 1 Unive rs 112 mcg 6-08 tablet by ity of tablet 00:00: mouth [place] every Medical morning. Branch donepeziL 2022-0 Yes 10mg Take 10 mg Un jerilyn 10 mg 6-08 by mouth ity of tablet 00:00: in the morning Medical and 10 mg Branch in the evening. Take with meals. memantine 2022-0 Yes 10mg Take 10 mg Un jerilyn 10 mg 6-08 by mouth ity of tablet 00:00: in the morning Medical and 10 mg Branch in the evening. EUTHYROX 2022-0 Yes 1{tbl} Take 1 Unive rs 112 mcg 6-08 tablet by ity of tablet 00:00: mouth [place] every Medical morning. Branch donepeziL 2022-0 Yes 10mg Take 10 mg Un jerilyn 10 mg 6-08 by mouth ity of tablet 00:00: in the [place] morning Medical and 10 mg Branch in the evening. Take with meals. memantine 2022-0 Yes 10mg Take 10 mg Un jerilyn 10 mg 6-08 by mouth ity of tablet 00:00: in the [place] morning Medical and 10 mg Branch in the evening. EUTHYROX 2022-0 Yes 1{tbl} Take 1 Unive rs 112 mcg 6-08 tablet by ity of tablet 00:00: mouth [place] every Medical morning. Branch donepeziL 2022-0 Yes 10mg Take 10 mg Un jerilyn 10 mg 6-08 by mouth ity of tablet 00:00: in the [place] morning Medical and 10 mg Branch in the evening. Take with meals. memantine 2022-0 Yes 10mg Take 10 mg Un jerilyn 10 mg 6-08 by mouth ity of tablet 00:00: in the [place] morning Medical and 10 mg Branch in the evening. EUTHYROX 2022-0 Yes 1{tbl} Take 1 Unive rs 112 mcg 6-08 tablet by ity of tablet 00:00: mouth [place] every Medical morning. Branch donepeziL 2022-0 Yes 10mg Take 10 mg Un jerilyn 10 mg 6-08 by mouth ity of tablet 00:00: in the [place] morning Medical and 10 mg Branch in the evening. Take with meals. memantine 2022-0 Yes 10mg Take 10 mg Un jerilyn 10 mg 6-08 by mouth ity of tablet 00:00: in the morning Medical and 10 mg Branch in the evening. EUTHYROX 2022-0 Yes 1{tbl} Take 1 Unive rs 112 mcg 6-08 tablet by ity of tablet 00:00: mouth [place] every Medical morning. Branch donepeziL 2022-0 Yes 10mg Take 10 mg Un jerilyn 10 mg 6-08 by mouth ity of tablet 00:00: in the [place] morning Medical and 10 mg Branch in the evening. Take with meals. memantine 2022-0 Yes 10mg Take 10 mg Un jerilyn 10 mg 6-08 by mouth ity of tablet 00:00: in the [place] morning Medical and 10 mg Branch in the evening. EUTHYROX 2022-0 Yes 1{tbl} Take 1 Unive rs 112 mcg 6-08 tablet by ity of tablet 00:00: mouth [place] every Medical morning. Branch donepeziL 2022-0 Yes 10mg Take 10 mg Un jerilyn 10 mg 6-08 by mouth ity of tablet 00:00: in the [place] morning Medical and 10 mg Branch in the evening. Take with meals. memantine 2022-0 Yes 10mg Take 10 mg Un jerilyn 10 mg 6-08 by mouth ity of tablet 00:00: in the [place] morning Medical and 10 mg Branch in the evening. EUTHYROX 2022-0 Yes 1{tbl} Take 1 Unive rs 112 mcg 6-08 tablet by ity of tablet 00:00: mouth [place] every Medical morning. Branch donepeziL 2022-0 Yes 10mg Take 10 mg Un jerilyn 10 mg 6-08 by mouth ity of tablet 00:00: in the [place] morning Medical and 10 mg Branch in the evening. Take with meals. memantine 2022-0 Yes 10mg Take 10 mg Un jerilyn 10 mg 6-08 by mouth ity of tablet 00:00: in the [place] morning Medical and 10 mg Branch in the evening. EUTHYROX 2022-0 Yes 1{tbl} Take 1 Unive rs 112 mcg 6-08 tablet by ity of tablet 00:00: mouth [place] every Medical morning. Branch HYDROcodone 2022-0 Yes 1{tbl} Take 1 Un [...] Branch daily with meals as needed. HYDROcodone 2021-0 Yes 1{tbl} Take 1 Un jerilyn -acetaminop 6-01 tablet by ity of hen 10-325 00:00: mouth [place] mg tablet 00 (two) Medical times Branch daily with meals as needed. HYDROcodone 2021-0 Yes 1{tbl} Take 1 Un jerilyn -acetaminop 6-01 tablet by ity of hen 10-325 00:00: mouth [place] mg tablet 00 (two) Medical times Branch daily with meals as needed. HYDROcodone 2021-0 Yes 1{tbl} Take 1 Un jerilyn -acetaminop 6-01 tablet by ity of hen 10-325 00:00: mouth [place] mg tablet 00 (two) Medical times Branch daily with meals as needed. HYDROcodone 2021-0 Yes 1{tbl} Take 1 Un jerilyn -acetaminop 6-01 tablet by ity of hen 10-325 00:00: mouth [place] mg tablet 00 (two) Medical times Branch daily with meals as needed. HYDROcodone 2021-0 Yes 1{tbl} Take 1 Un jerilyn -acetaminop 6-01 tablet by ity of hen 10-325 00:00: mouth [place] mg tablet 00 (two) Medical times Branch daily with meals as needed. HYDROcodone 2-0 Yes 1{tbl} Take 1 Un jerilyn -acetaminop [...] Branch daily with meals as needed. HYDROcodone 2021-0 Yes 1{tbl} Take 1 Un jerilyn -acetaminop 6-01 tablet by ity of hen 10-325 00:00: mouth [place] mg tablet 00 (two) Medical times Branch daily with meals as needed. HYDROcodone 2021-0 Yes 1{tbl} Take 1 Un jerilyn -acetaminop 6-01 tablet by ity of hen 10-325 00:00: mouth [place] mg tablet 00 (two) Medical times Branch daily with meals as needed. HYDROcodone 2021-0 Yes 1{tbl} Take 1 Un jerilyn -acetaminop 6-01 tablet by ity of hen 10-325 00:00: mouth 2 [place] mg tablet 00 (two) Medical times Branch daily with meals as needed. Acetaminoph 2020-0 Yes 0 Memori a en 325 MG / 8-23 Refill(s) l Hydrocodone 14:51: [place] n Bitartrate 00 10 MG Oral Tablet Acetaminoph 2020-0 Yes 0 Memori a en 325 MG / 8-23 Refill(s) l Hydrocodone 14:51: [place] n Bitartrate 00 10 MG Oral Tablet Acetaminoph 2020-0 Yes 0 Memori a en 325 MG / 8-23 Refill(s) l Hydrocodone 14:51: [place] n Bitartrate 00 10 MG Oral Tablet Acetaminoph 2020-0 Yes 0 Memori a en 325 MG / 8-23 Refill(s) l Hydrocodone 14:51: [place] n Bitartrate 00 10 MG Oral Tablet Acetaminoph 2021-0 Yes 0 Memori a en 325 MG / 8-23 Refill(s) l Hydrocodone 14:51: [place] n Bitartrate 00 10 MG Oral Tablet Acetaminoph 2021-0 Yes 0 Memori a en 325 MG / 8-23 Refill(s) l Hydrocodone 14:51: [place] n Bitartrate 00 10 MG Oral Tablet Acetaminoph 1-0 Yes 0 Memori a en 325 MG / 8-23 Refill(s) l Hydrocodone 14:51: Jorge Luis n [...] Rate: 125 l 1,000 mL 17:31: ml/hr, [place] 00 Infuse over: 8 hr, Route: IV, Dosing Weight 68.636 kg, Total Volume: 1,000, Start date: 05/26/18 12:31:00 CDT, Duration: 30 day, Stop date: 06/25/18 12:30:00 CDT, 1.81, m2 Hydromorpho No Notes: Azam romaine ne 05-26 Same as l 17:31: Dilaudid [place] 00 Acetaminoph No Notes: Do M emoria en 325 MG / 05-26 not exceed l Hydrocodone 17:31: 4gm/day of [place] Bitartrate 00 acetaminop 10 MG Oral hen. (Same Tablet as: [place] 325/10) Ondansetron No Notes: Azam romaine 05-26 (Same as: l 17:31: Zofran) [place] 00 MEDICATION WASTE Product Size: 4 mg Product Wasted: ___ mg Acetaminoph No Notes: Azam romaine en 10 MG/ML 05-26 Infuse l Injectable 17:31: over 15 Herm shakila Solution 00 minutes Do not exceed 4gm/day of acetaminop hen MEDICATION WASTE Product Size: 1000 mg Product Wasted: ___ mg Lactated No 1,000 mL, Azam romaine Ringers IV 05-26 Rate: 125 l 1,000 mL 17:31: ml/hr, [place] 00 Infuse over: 8 hr, Route: IV, Dosing Weight 68.636 kg, Total Volume: 1,000, Start date: 05/26/18 12:31:00 CDT, Duration: 30 day, Stop date: 06/25/18 12:30:00 CDT, 1.81, m2 Hydromorpho No Notes: Azam romaine ne 05-26 Same as l 17:31: Dilaudid [place] Acetaminoph No Notes: Do M emoria en 325 MG / 05-26 not exceed l Hydrocodone 17:31: 4gm/day of [place] Bitartrate 00 acetaminop 10 MG Oral hen. (Same Tablet as: [place] 325/10) Ondansetron No Notes: Azam romaine 05-26 (Same as: l 17:31: Zofran) [place] 00 MEDICATION WASTE Product Size: 4 mg Product Wasted: ___ mg Acetaminoph No Notes: Azam romaine en 10 MG/ML 05-26 Infuse l Injectable 17:31: over 15 Herm shakila Solution 00 minutes Do not exceed 4gm/day of acetaminop hen MEDICATION WASTE Product Size: 1000 mg Product Wasted: ___ mg Lactated No 1,000 mL, Azam romaine Ringers IV 05-26 Rate: 125 l 1,000 mL 17:31: ml/hr, [place] 00 Infuse over: 8 hr, Route: IV, Dosing Weight 68.636 kg, Total Volume: 1,000, Start date: 05/26/18 12:31:00 CDT, Duration: 30 day, Stop date: 06/25/18 12:30:00 CDT, 1.81, m2 Hydromorpho No Notes: Azam romaine ne 05-26 Same as l 17:31: Dilaudid [place] Acetaminoph No Notes: Do M emoria en 325 MG / 05-26 not exceed l Hydrocodone 17:31: 4gm/day of [place] Bitartrate 00 acetaminop 10 MG Oral hen. (Same Tablet as: [place] 325/10) Ondansetron No Notes: Azam romaine 05-26 (Same as: l 17:31: Zofran) [place] 00 MEDICATION WASTE Product Size: 4 mg Product Wasted: ___ mg Acetaminoph No Notes: Azam romaine en 10 MG/ML 05-26 Infuse l Injectable 17:31: over 15 Herm shakila Solution 00 minutes Do not exceed 4gm/day of acetaminop hen MEDICATION WASTE Product Size: 1000 mg Product Wasted: ___ mg Lactated No 1,000 mL, Azam romaine Ringers IV 05-26 Rate: 125 l 1,000 mL 17:31: ml/hr, [place] 00 Infuse over: 8 hr, Route: IV, Dosing Weight 68.636 kg, Total Volume: 1,000, Start date: 05/26/18 12:31:00 CDT, Duration: 30 day, Stop date: 06/25/18 12:30:00 CDT, 1.81, m2 Hydromorpho No Notes: Azam romaine ne 05-26 Same as l 17:31: Dilaudid [place] 00 Acetaminoph No Notes: Do M emoria en 325 MG / 05-26 not exceed l Hydrocodone 17:31: 4gm/day of [place] Bitartrate 00 acetaminop 10 MG Oral hen. (Same Tablet as: [place] 325/10) Ondansetron No Notes: Azam romaine 05-26 (Same as: l 17:31: Zofran) [place] 00 MEDICATION WASTE Product Size: 4 mg Product Wasted: ___ mg Acetaminoph No Notes: Azma romaine en 10 MG/ML 05-26 Infuse l Injectable 17:31: over 15 Herm shakila Solution 00 minutes Do not exceed 4gm/day of acetaminop hen MEDICATION WASTE Product Size: 1000 mg Product Wasted: ___ mg Lactated No 1,000 mL, Azam romaine Ringers IV 05-26 Rate: 125 l 1,000 mL 17:31: ml/hr, [place] 00 Infuse over: 8 hr, Route: IV, Dosing Weight 68.636 kg, Total Volume: 1,000, Start date: 05/26/18 12:31:00 CDT, Duration: 30 day, Stop date: 06/25/18 12:30:00 CDT, 1.81, m2 Hydromorpho No Notes: Azam romaine ne 05-26 Same as l 17:31: Dilaudid [place] 00 Acetaminoph No Notes: Do M emoria en 325 MG / 05-26 not exceed l Hydrocodone 17:31: 4gm/day of [place] Bitartrate 00 acetaminop 10 MG Oral hen. (Same Tablet as: [place] 325/10) Ondansetron No Notes: Azam romaine 05-26 (Same as: l 17:31: Zofran) [place] 00 MEDICATION WASTE Product Size: 4 mg Product Wasted: ___ mg Acetaminoph No Notes: Azam romaine en 10 MG/ML 05-26 Infuse l Injectable 17:31: over 15 Herm shakila Solution 00 minutes Do not exceed 4gm/day of acetaminop hen MEDICATION WASTE Product Size: 1000 mg Product Wasted: ___ mg Lactated No 1,000 mL, Azam romaine Ringers IV 05-26 Rate: 125 l 1,000 mL 17:31: ml/hr, [place] 00 Infuse over: 8 hr, Route: IV, Dosing Weight 68.636 kg, Total Volume: 1,000, Start date: 05/26/18 12:31:00 CDT, Duration: 30 day, Stop date: 06/25/18 12:30:00 CDT, 1.81, m2 Hydromorpho No Notes: Azam romaine ne 05-26 Same as l 17:31: Dilaudid [place] Acetaminoph No Notes: Do M emoria en 325 MG / 05-26 not exceed l Hydrocodone 17:31: 4gm/day of [place] Bitartrate 00 acetaminop 10 MG Oral hen. (Same Tablet as: [place] 325/10) Ondansetron No Notes: Azam romaine 05-26 (Same as: l 17:31: Zofran) [place] 00 MEDICATION WASTE Product Size: 4 mg Product Wasted: ___ mg Acetaminoph No Notes: Azam romaine en 10 MG/ML 05-26 Infuse l Injectable 17:31: over 15 Herm shakila Solution 00 minutes Do not exceed 4gm/day of acetaminop hen MEDICATION WASTE Product Size: 1000 mg Product Wasted: ___ mg Lactated No 1,000 mL, Azam romaine Ringers IV 05-26 Rate: 125 l 1,000 mL 17:31: ml/hr, [place] 00 Infuse over: 8 hr, Route: IV, Dosing Weight 68.636 kg, Total Volume: 1,000, Start date: 05/26/18 12:31:00 CDT, Duration: 30 day, Stop date: 06/25/18 12:30:00 CDT, 1.81, m2 Hydromorpho No Notes: Azam romaine ne 05-26 Same as l 17:31: Dilaudid [place] Acetaminoph No Notes: Do M emoria en 325 MG / 05-26 not exceed l Hydrocodone 17:31: 4gm/day of [place] Bitartrate 00 acetaminop 10 MG Oral hen. (Same Tablet as: [place] 325/10) Ondansetron No Notes: Azam romaine 05-26 (Same as: l 17:31: Zofran) [place] 00 MEDICATION WASTE Product Size: 4 mg Product Wasted: ___ mg Ondansetron No Notes: Azam romaine 05-26 (Same as: l 17:30: Zofran) [place] 00 MEDICATION WASTE Product Size: 4 mg Product Wasted: ___ mg Ondansetron No Notes: Azam roamine 05-26 (Same as: l 17:30: Zofran) [place] 00 MEDICATION WASTE Product Size: 4 mg Product Wasted: ___ mg Ondansetron 0 No Notes: Azam romaine 05-26 (Same as: l 17:30: Zofran) [place] 00 MEDICATION WASTE Product Size: 4 mg Product Wasted: ___ mg Ondansetron 2017-0 No Notes: Azam romaine 05-26 (Same as: l 17:30: Zofran) [place] 00 MEDICATION WASTE Product Size: 4 mg Product Wasted: ___ mg Ondansetron 0 No Notes: Azam romaine 05-26 (Same as: l 17:30: Zofran) [place] 00 MEDICATION WASTE Product Size: 4 mg Product Wasted: ___ mg Ondansetron 2017-0 No Notes: Azam romaine - (Same as: l 17:30: Zofran) [place] 00 MEDICATION WASTE Product Size: 4 mg Product Wasted: ___ mg Ondansetron 2018-0 No Notes: Azam romaine - (Same as: l 17:30: Zofran) [place] 00 MEDICATION WASTE Product Size: 4 mg Product Wasted: ___ mg Lactated 2018-0 No 1,000 mL, Azam romaine Ringers IV 05-26 Rate: 125 l 1,000 mL 15:59: ml/hr, [place] 00 Infuse over: 8 hr, Route: IV, Dosing Weight 68.636 kg, Total Volume: 1,000, Start date: 05/26/18 10:59:00 CDT, Duration: 30 day, Stop date: 06/25/18 10:58:00 CDT, 1.81, m2 Saline 2017-0 No Notes: Memoria Flush 0.9% 05-26 Same as: l 15:59: BD [place] 00 Posiflush Sterile Lactated 2017-0 No 1,000 mL, Azam romaine Ringers IV 05-26 Rate: 125 l 1,000 mL 15:59: ml/hr, [place] 00 Infuse over: 8 hr, Route: IV, Dosing Weight 68.636 kg, Total Volume: 1,000, Start date: 05/26/18 10:59:00 CDT, Duration: 30 day, Stop date: 06/25/18 10:58:00 CDT, 1.81, m2 Saline 2018-0 No Notes: Memoria Flush 0.9% - Same as: l 15:59: BD [place] 00 Posiflush Sterile Lactated 2017-0 No 1,000 mL, Azam romaine Ringers IV 05-26 Rate: 125 l 1,000 mL 15:59: ml/hr, [place] 00 Infuse over: 8 hr, Route: IV, Dosing Weight 68.636 kg, Total Volume: 1,000, Start date: 05/26/18 10:59:00 CDT, Duration: 30 day, Stop date: 06/25/18 10:58:00 CDT, 1.81, m2 Saline 2018-0 No Notes: Memoria Flush 0.9% 9- Same as: l 15:59: BD [place] 00 Posiflush Sterile Lactated 2018-0 No 1,000 mL, Azam romaine Ringers IV 05-26 Rate: 125 l 1,000 mL 15:59: ml/hr, [place] 00 Infuse over: 8 hr, Route: IV, Dosing Weight 68.636 kg, Total Volume: 1,000, Start date: 05/26/18 10:59:00 CDT, Duration: 30 day, Stop date: 06/25/18 10:58:00 CDT, 1.81, m2 Saline 2018-0 No Notes: Memoria Flush 0.9% 05-26 Same as: l 15:59: BD [place] 00 Posiflush Sterile Lactated 2018-0 No 1,000 mL, Azam romaine Ringers IV 05-26 Rate: 125 l 1,000 mL 15:59: ml/hr, [place] 00 Infuse over: 8 hr, Route: IV, Dosing Weight 68.636 kg, Total Volume: 1,000, Start date: 05/26/18 10:59:00 CDT, Duration: 30 day, Stop date: 06/25/18 10:58:00 CDT, 1.81, m2 Saline 2018-0 No Notes: Memoria Flush 0.9% 05-26 Same as: l 15:59: BD [place] 00 Posiflush Sterile Lactated 2018-0 No 1,000 mL, Azam romaine Ringers IV 05-26 Rate: 125 l 1,000 mL 15:59: ml/hr, [place] 00 Infuse over: 8 hr, Route: IV, Dosing Weight 68.636 kg, Total Volume: 1,000, Start date: 05/26/18 10:59:00 CDT, Duration: 30 day, Stop date: 06/25/18 10:58:00 CDT, 1.81, m2 Lactated 2018-0 No 1,000 mL, Azam romaine Ringers IV 05-26 Rate: 125 l 1,000 mL 15:59: ml/hr, [place] 00 Infuse over: 8 hr, Route: IV, Dosing Weight 68.636 kg, Total Volume: 1,000, Start date: 05/26/18 10:59:00 CDT, Duration: 30 day, Stop date: 06/25/18 10:58:00 CDT, 1.81, m2 Saline No Notes: Memoria Flush 0.9% 05-26 Same as: l 15:59: BD [place] Posiflush Sterile Saline No Notes: Memoria Flush 0.9% 05-26 Same as: l 15:59: BD [place] Posiflush Sterile Acetaminoph No Notes: Do M emoria en 325 MG / 05-17 not exceed l Hydrocodone 15:42: 4gm/day of [place] Bitartrate 00 acetaminop 10 MG Oral hen. (Same Tablet as: [place] 325/10) Acetaminoph No Notes: Azam romaine en 10 MG/ML 05-17 Infuse l Injectable 15:42: over 15 Herm shakila Solution 00 minutes Do not exceed 4gm/day of acetaminop hen MEDICATION WASTE Product Size: 1000 mg Product Wasted: ___ mg Lactated No 1,000 mL, Azam romaine Ringers IV 05-17 Rate: 125 l 1,000 mL 15:42: ml/hr, [place] 00 Infuse over: 8 hr, Route: IV, Dosing Weight 68.182 kg, Total Volume: 1,000, Start date: 05/17/18 10:42:00 CDT, Duration: 30 day, Stop date: 06/16/18 10:41:00 CDT, 1.81, m2 Ondansetron No Notes: Azam romaine 05-17 (Same as: l 15:42: Zofran) [place] 00 MEDICATION WASTE Product Size: 4 mg Product Wasted: ___ mg Hydromorpho No Notes: Azam romaine ne 05-17 Same as l 15:42: Dilaudid [place] 00 Acetaminoph No Notes: Do M emoria en 325 MG / 05-17 not exceed l Hydrocodone 15:42: 4gm/day of [place] Bitartrate 00 acetaminop 10 MG Oral hen. (Same Tablet as: [place] 325/10) Acetaminoph No Notes: Azam romaine en 10 MG/ML 05-17 Infuse l Injectable 15:42: over 15 Herm shakila Solution 00 minutes Do not exceed 4gm/day of acetaminop hen MEDICATION WASTE Product Size: 1000 mg Product Wasted: ___ mg Lactated No 1,000 mL, Azam romaine Ringers IV 05-17 Rate: 125 l 1,000 mL 15:42: ml/hr, [place] 00 Infuse over: 8 hr, Route: IV, Dosing Weight 68.182 kg, Total Volume: 1,000, Start date: 05/17/18 10:42:00 CDT, Duration: 30 day, Stop date: 06/16/18 10:41:00 CDT, 1.81, m2 Ondansetron No Notes: Azam romaine 05-17 (Same as: l 15:42: Zofran) [place] 00 MEDICATION WASTE Product Size: 4 mg Product Wasted: ___ mg Hydromorpho No Notes: Azam romaine ne 05-17 Same as l 15:42: Dilaudid [place] 00 Acetaminoph No Notes: Do M emoria en 325 MG / 05-17 not exceed l Hydrocodone 15:42: 4gm/day of [place] Bitartrate 00 acetaminop 10 MG Oral hen. (Same Tablet as: [place] 325/10) Acetaminoph No Notes: Azam romaine en 10 MG/ML 05-17 Infuse l Injectable 15:42: over 15 Herm shakila Solution 00 minutes Do not exceed 4gm/day of acetaminop hen MEDICATION WASTE Product Size: 1000 mg Product Wasted: ___ mg Lactated No 1,000 mL, Azam romaine Ringers IV 05-17 Rate: 125 l 1,000 mL 15:42: ml/hr, Patel 00 Infuse over: 8 hr, Route: IV, Dosing Weight 68.182 kg, Total Volume: 1,000, Start date: 05/17/18 10:42:00 CDT, Duration: 30 day, Stop date: 06/16/18 10:41:00 CDT, 1.81, m2 Ondansetron No Notes: Azam romaine - (Same as: l 15:42: Zofran) [place] 00 MEDICATION WASTE Product Size: 4 mg Product Wasted: ___ mg Hydromorpho No Notes: Azam romaine ne 05-17 Same as l 15:42: Dilaudid [place] Acetaminoph No Notes: Do M emoria en 325 MG / 05-17 not exceed l Hydrocodone 15:42: 4gm/day of Patel Bitartrate 00 acetaminop 10 MG Oral hen. (Same Tablet as: [place] 325/10) Acetaminoph No Notes: Azam romaine en 10 MG/ML 05-17 Infuse l Injectable 15:42: over 15 Herm shakila Solution 00 minutes Do not exceed 4gm/day of acetaminop hen MEDICATION WASTE Product Size: 1000 mg Product Wasted: ___ mg Lactated No 1,000 mL, Azam romaine Ringers IV 05-17 Rate: 125 l 1,000 mL 15:42: ml/hr, Patel 00 Infuse over: 8 hr, Route: IV, Dosing Weight 68.182 kg, Total Volume: 1,000, Start date: 05/17/18 10:42:00 CDT, Duration: 30 day, Stop date: 06/16/18 10:41:00 CDT, 1.81, m2 Ondansetron No Notes: Azam romaine 05-17 (Same as: l 15:42: Zofran) [place] 00 MEDICATION WASTE Product Size: 4 mg Product Wasted: ___ mg Hydromorpho No Notes: Azam romaine ne 05-17 Same as l 15:42: Dilaudid [place] Acetaminoph No Notes: Do M emoria en 325 MG / 05-17 not exceed l Hydrocodone 15:42: 4gm/day of [place] Bitartrate 00 acetaminop 10 MG Oral hen. (Same Tablet as: [place] 325/10) Acetaminoph No Notes: Azam romaine en 10 MG/ML 05-17 Infuse l Injectable 15:42: over 15 Herm shkaila Solution 00 minutes Do not exceed 4gm/day of acetaminop hen MEDICATION WASTE Product Size: 1000 mg Product Wasted: ___ mg Lactated No 1,000 mL, Azam romaine Ringers IV 05-17 Rate: 125 l 1,000 mL 15:42: ml/hr, Patel 00 Infuse over: 8 hr, Route: IV, Dosing Weight 68.182 kg, Total Volume: 1,000, Start date: 05/17/18 10:42:00 CDT, Duration: 30 day, Stop date: 06/16/18 10:41:00 CDT, 1.81, m2 Ondansetron No Notes: Azam romaine 05-17 (Same as: l 15:42: Zofran) [place] 00 MEDICATION WASTE Product Size: 4 mg Product Wasted: ___ mg Hydromorpho No Notes: Azam romaine ne 05-17 Same as l 15:42: Dilaudid [place] 00 Acetaminoph No Notes: Do M emoria en 325 MG / 05-17 not exceed l Hydrocodone 15:42: 4gm/day of [place] Bitartrate 00 acetaminop 10 MG Oral hen. (Same Tablet as: [place] 325/10) Acetaminoph No Notes: Azam romaine en 10 MG/ML 05-17 Infuse l Injectable 15:42: over 15 Herm shakila Solution 00 minutes Do not exceed 4gm/day of acetaminop hen MEDICATION WASTE Product Size: 1000 mg Product Wasted: ___ mg Lactated No 1,000 mL, Azam romaine Ringers IV 05-17 Rate: 125 l 1,000 mL 15:42: ml/hr, Patel 00 Infuse over: 8 hr, Route: IV, Dosing Weight 68.182 kg, Total Volume: 1,000, Start date: 05/17/18 10:42:00 CDT, Duration: 30 day, Stop date: 06/16/18 10:41:00 CDT, 1.81, m2 Ondansetron No Notes: Azam romaine 05-17 (Same as: l 15:42: Zofran) [place] 00 MEDICATION WASTE Product Size: 4 mg Product Wasted: ___ mg Hydromorpho No Notes: Azam romaine ne 05-17 Same as l 15:42: Dilaudid [place] Acetaminoph No Notes: Do M emoria en 325 MG / 05-17 not exceed l Hydrocodone 15:42: 4gm/day of [place] Bitartrate 00 acetaminop 10 MG Oral hen. (Same Tablet as: [place] 325/10) Acetaminoph No Notes: Azam romaine en 10 MG/ML 05-17 Infuse l Injectable 15:42: over 15 Herm shakila Solution 00 minutes Do not exceed 4gm/day of acetaminop hen MEDICATION WASTE Product Size: 1000 mg Product Wasted: ___ mg Lactated No 1,000 mL, Azam romaine Ringers IV 05-17 Rate: 125 l 1,000 mL 15:42: ml/hr, [place] 00 Infuse over: 8 hr, Route: IV, Dosing Weight 68.182 kg, Total Volume: 1,000, Start date: 05/17/18 10:42:00 CDT, Duration: 30 day, Stop date: 06/16/18 10:41:00 CDT, 1.81, m2 Ondansetron No Notes: Azam romaine 05-17 (Same as: l 15:42: Zofran) [place] 00 MEDICATION WASTE Product Size: 4 mg Product Wasted: ___ mg Hydromorpho No Notes: Azam romaine ne 05-17 Same as l 15:42: Dilaudid [place] Lactated No 1,000 mL, Azam romaine Ringers IV 05-17 Rate: 125 l 1,000 mL 14:10: ml/hr, Patel Infuse over: 8 hr, Route: IV, Dosing Weight 68.182 kg, Total Volume: 1,000, Start date: 05/17/18 9:10:00 CDT, Duration: 30 day, Stop date: 06/16/18 9:09:00 CDT, 1.81, m2 Saline No Notes: Memoria Flush 0.9% 05-17 Same as: l 14:10: BD [place] Posiflush Sterile Lactated No 1,000 mL, Azam romaine Ringers IV 05-17 Rate: 125 l 1,000 mL 14:10: ml/hr, [place] 00 Infuse over: 8 hr, Route: IV, Dosing Weight 68.182 kg, Total Volume: 1,000, Start date: 05/17/18 9:10:00 CDT, Duration: 30 day, Stop date: 06/16/18 9:09:00 CDT, 1.81, m2 Saline 2018-0 No Notes: Memoria Flush 0.9% - Same as: l 14:10: BD [place] 00 Posiflush Sterile Lactated 2018-0 No 1,000 mL, Azam romaine Ringers IV 05-17 Rate: 125 l 1,000 mL 14:10: ml/hr, Pat[place] 00 Infuse over: 8 hr, Route: IV, Dosing Weight 68.182 kg, Total Volume: 1,000, Start date: 05/17/18 9:10:00 CDT, Duration: 30 day, Stop date: 06/16/18 9:09:00 CDT, 1.81, m2 Saline 2018-0 No Notes: Memoria Flush 0.9% - Same as: l 14:10: BD [place] 00 Posiflush Sterile Lactated 2018-0 No 1,000 mL, Azam romaine Ringers IV 05-17 Rate: 125 l 1,000 mL 14:10: ml/hr, [place] 00 Infuse over: 8 hr, Route: IV, Dosing Weight 68.182 kg, Total Volume: 1,000, Start date: 05/17/18 9:10:00 CDT, Duration: 30 day, Stop date: 06/16/18 9:09:00 CDT, 1.81, m2 Saline 2018-0 No Notes: Memoria Flush 0.9% 8-29 Same as: l 14:10: BD [place] 00 Posiflush Sterile Lactated 2018-0 No 1,000 mL, Azam romaine Ringers IV 05-17 Rate: 125 l 1,000 mL 14:10: ml/hr, [place] 00 Infuse over: 8 hr, Route: IV, Dosing Weight 68.182 kg, Total Volume: 1,000, Start date: 05/17/18 9:10:00 CDT, Duration: 30 day, Stop date: 06/16/18 9:09:00 CDT, 1.81, m2 Saline 2018-0 No Notes: Memoria Flush 0.9% 8-29 Same as: l 14:10: BD [place] Posiflush Sterile Lactated 2018-0 No 1,000 mL, Azam romaine Ringers IV 05-17 Rate: 125 l 1,000 mL 14:10: ml/hr, [place] 00 Infuse over: 8 hr, Route: IV, Dosing Weight 68.182 kg, Total Volume: 1,000, Start date: 05/17/18 9:10:00 CDT, Duration: 30 day, Stop date: 06/16/18 9:09:00 CDT, 1.81, m2 Saline 2018-0 No Notes: Memoria Flush 0.9% 8-29 Same as: l 14:10: BD [place] Posiflush Sterile Lactated 2018-0 No 1,000 mL, Azam romaine Ringers IV 05-17 Rate: 125 l 1,000 mL 14:10: ml/hr, [place] 00 Infuse over: 8 hr, Route: IV, Dosing Weight 68.182 kg, Total Volume: 1,000, Start date: 05/17/18 9:10:00 CDT, Duration: 30 day, Stop date: 06/16/18 9:09:00 CDT, 1.81, m2 Saline 2018-0 No Notes: Memoria Flush 0.9% 8-29 Same as: l 14:10: BD [place] 00 Posiflush Sterile Tylenol 2017-0 Yes PO, Memoria Extra 8-27 Bedtime, 0 l Strength PM 20:26: Refill(s) H ermann Rapid 00 Release Tylenol 2018-0 Yes PO, Memoria Extra 8-27 Bedtime, 0 l Strength PM 20:26: Refill(s) H ermann Rapid 00 Release Tylenol 2018-0 Yes PO, Memoria Extra 8-27 Bedtime, 0 l Strength PM 20:26: Refill(s) H ermann Rapid 00 Release Tylenol 2018-0 Yes PO, Memoria Extra 8-27 Bedtime, 0 l Strength PM 20:26: Refill(s) H ermann Rapid 00 Release Tylenol 2018-0 Yes PO, Memoria Extra 8-27 Bedtime, 0 l Strength PM 20:26: Refill(s) H ermann Rapid 00 Release Tylenol 2018-0 Yes PO, Memoria Extra 8-27 Bedtime, 0 l Strength PM 20:26: Refill(s) H ermann Rapid 00 Release Tylenol 2018-0 Yes PO, Memoria Extra 8-27 Bedtime, 0 l Strength PM 20:26: Refill(s) H ermann Rapid 00 Release ibuprofen 2018-0 Yes 800 mg = 1 Me moria 800 mg oral 8-27 tab, PO, l tablet 20:19: TID, 0 Patel 00 Refill(s) ibuprofen 2018-0 Yes 800 mg = 1 Me moria 800 mg oral 8-27 tab, PO, l tablet 20:19: TID, 0 [place] 00 Refill(s) ibuprofen 2018-0 Yes 800 mg = 1 Me moria 800 mg oral 8-27 tab, PO, l tablet 20:19: TID, 0 [place] 00 Refill(s) ibuprofen 2018-0 Yes 800 mg = 1 Me moria 800 mg oral 8-27 tab, PO, l tablet 20:19: TID, 0 [place] 00 Refill(s) ibuprofen 2018-0 Yes 800 mg = 1 Me moria 800 mg oral 8-27 tab, PO, l tablet 20:19: TID, 0 [place] 00 Refill(s) ibuprofen 2018-0 Yes 800 mg = 1 Me moria 800 mg oral 8-27 tab, PO, l tablet 20:19: TID, 0 [place] 00 Refill(s) ibuprofen 2018-0 Yes 800 mg = 1 Me moria 800 mg oral 8-27 tab, PO, l tablet 20:19: TID, 0 [place] 00 Refill(s) mirabegron 2018-0 Yes 25 mg, PO, M emoria 8-27 BID, 0 l 20:18: Refill(s) [place] 00 mirabegron 2018-0 Yes 25 mg, PO, M emoria 8-27 BID, 0 l 20:18: Refill(s) mirabegron 2018-0 Yes 25 mg, PO, M emoria 8-27 BID, 0 l 20:18: Refill(s) mirabegron 2018-0 Yes 25 mg, PO, M emoria 8-27 BID, 0 l 20:18: Refill(s) mirabegron 2018-0 Yes 25 mg, PO, M emoria 8-27 BID, 0 l 20:18: Refill(s) [place] mirabegron 2018-0 Yes 25 mg, PO, M emoria 8-27 BID, 0 l 20:18: Refill(s) Patel mirabegron 2018-0 Yes 25 mg, PO, M emoria 8-27 BID, 0 l 20:18: Refill(s) [place] 00 memantine 5 2017-0 Yes 5 mg = 1 Me moria mg oral 8-27 tab, PO, l tablet 20:17: BID, 0 [place] 00 Refill(s) levothyroxi 2018-0 Yes 112 Memori a ne 112 mcg 8-27 microgram l (0.112 mg) 20:17: = 1 tab, Her aponte oral tablet 00 PO, Daily, 0 Refill(s) memantine 5 2017-0 Yes 5 mg = 1 Me moria mg oral 8-27 tab, PO, l tablet 20:17: BID, 0 [place] 00 Refill(s) levothyroxi 2017-0 Yes 112 Memori a ne 112 mcg 8-27 microgram l (0.112 mg) 20:17: = 1 tab, Her aponte oral tablet 00 PO, Daily, 0 Refill(s) memantine 5 2017-0 Yes 5 mg = 1 Me moria mg oral 8-27 tab, PO, l tablet 20:17: BID, 0 [place] 00 Refill(s) levothyroxi 2017-0 Yes 112 Memori a ne 112 mcg 8-27 microgram l (0.112 mg) 20:17: = 1 tab, Her aponte oral tablet 00 PO, Daily, 0 Refill(s) memantine 5 2018-0 Yes 5 mg = 1 Me moria mg oral 8-27 tab, PO, l tablet 20:17: BID, 0 [place] 00 Refill(s) levothyroxi 2018-0 Yes 112 Memori a ne 112 mcg 8-27 microgram l (0.112 mg) 20:17: = 1 tab, Her aponte oral tablet 00 PO, Daily, 0 Refill(s) memantine 5 2017-0 Yes 5 mg = 1 Me moria mg oral 8-27 tab, PO, l tablet 20:17: BID, 0 [place] 00 Refill(s) levothyroxi 2018-0 Yes 112 Memori a ne 112 mcg 8-27 microgram l (0.112 mg) 20:17: = 1 tab, Her aponte oral tablet 00 PO, Daily, 0 Refill(s) memantine 5 2018-0 Yes 5 mg = 1 Me moria mg oral 8-27 tab, PO, l tablet 20:17: BID, 0 [place] 00 Refill(s) levothyroxi 2018-0 Yes 112 Memori a ne 112 mcg 8-27 microgram l (0.112 mg) 20:17: = 1 tab, Her aponte oral tablet 00 PO, Daily, 0 Refill(s) memantine 5 2018-0 Yes 5 mg = 1 Me moria mg oral 8-27 tab, PO, l tablet 20:17: BID, 0 [place] 00 Refill(s) levothyroxi 2018-0 Yes 112 Memori a ne 112 mcg 8-27 microgram l (0.112 mg) 20:17: = 1 tab, Her aponte oral tablet 00 PO, Daily, 0 Refill(s) donepezil 2018-0 Yes 10 mg = 1 Mem oria 10 mg oral 8-27 tab, PO, l tablet 20:16: BID, 0 [place] 00 Refill(s) donepezil 2018-0 Yes 10 mg = 1 Mem oria 10 mg oral 8-27 tab, PO, l tablet 20:16: BID, 0 [place] 00 Refill(s) donepezil 2018-0 Yes 10 mg = 1 Mem oria 10 mg oral 8-27 tab, PO, l tablet 20:16: BID, 0 [place] 00 Refill(s) donepezil 2018-0 Yes 10 mg = 1 Mem oria 10 mg oral 8-27 tab, PO, l tablet 20:16: BID, 0 [place] 00 Refill(s) donepezil 2018-0 Yes 10 mg = 1 Mem oria 10 mg oral 8-27 tab, PO, l tablet 20:16: BID, 0 [place] 00 Refill(s) donepezil 2018-0 Yes 10 mg = 1 Mem oria 10 mg oral 8-27 tab, PO, l tablet 20:16: BID, 0 [place] 00 Refill(s) donepezil 2018-0 Yes 10 mg = 1 Mem oria 10 mg oral 8-27 tab, PO, l tablet 20:16: BID, 0 [place] 00 Refill(s) FENTanyl 2014-09 Yes 1{patch Apply [...] Name Observation Time Observation Value Comments Source Systolic blood 2022-08-09 18:30:00 147 mm[Hg] Univer sity of pressure [facility] Diastolic blood 2022-08-09 18:30:00 53 mm[Hg] Unive rsity of pressure [facility] Heart rate 2022-08-09 18:25:00 79 /min [facility] Respiratory rate 2022-08-09 18:25:00 19 /min [facility] [place] [facility] Oxygen saturation in 2022-08-09 18:25:00 99 /min University of Arterial blood by [facility] Pulse oximetry Branch Body temperature 2022-08-09 17:04:00 36.61 Ramona [facility] [place] [facility] Systolic blood 2022-08-09 13:46:00 114 mm[Hg] [facility] Diastolic blood 2022-08-09 13:46:00 49 mm[Hg] [facility] Heart rate 2022-08-09 13:46:00 69 /min [facility] [place] [facility] Body temperature 2022-08-09 13:46:00 36.56 Ramona [facility] [place] [facility] Respiratory rate 2022-08-09 13:46:00 16 /min [facility] [place] [facility] Oxygen saturation in 2022-08-09 13:46:00 97 /min [facility] of Arterial blood by [facility] Pulse oximetry Branch Body height 2022-08-04 19:15:00 165.1 cm [facility] [place] [facility] Body weight 2022-08-04 19:15:00 54.432 kg [facility] [place] [facility] BMI 2022-08-04 19:15:00 19.97 kg/m2 [facility] [place] [facility] Heart rate 2022-04-05 13:57:00 73 /min [facility] [place] [facility] Respiratory rate 2022-04-05 13:57:00 20 /min [facility] Oxygen saturation in 2022-04-05 13:57:00 100 /min [facility] of Arterial blood by [facility] Pulse oximetry Branch Systolic blood 2022-04-05 13:55:00 158 mm[Hg] [facility] [place] [facility] Diastolic blood 2022-04-05 13:55:00 63 mm[Hg] [facility] [place] [facility] Body temperature 2022-04-05 13:04:00 36.28 Ramona [facility] [place] [facility] Body height 2022-03-23 11:56:00 167.6 cm [facility] [place] [facility] Body weight 2022-03-23 11:56:00 72.6 kg [facility] [place] [facility] BMI 2022-03-23 11:56:00 25.85 kg/m2 [facility] Systolic blood 2022-04-05 13:20:00 122 mm[Hg] Univer sity of pressure [facility] Diastolic blood 2022-04-05 13:20:00 51 mm[Hg] Unive rsity of pressure [facility] Heart rate 2022-04-05 13:20:00 79 /min [facility] Respiratory rate 2022-04-05 13:20:00 11 /min [facility] Oxygen saturation in 2022-04-05 13:20:00 94 /min [facility] Arterial blood by [facility] Pulse oximetry [place] Body temperature 2022-04-05 13:04:00 36.28 Ramona [facility] Body height 2022-03-23 11:56:00 167.6 cm [facility] Body weight 2022-03-23 11:56:00 72.6 kg [facility] BMI 2022-03-23 11:56:00 25.85 kg/m2 [facility] Systolic (mm Hg) 2022-11-25 19:30:00 Azam rial [place] Diastolic (mm Hg) 2022-11-25 19:30:00 Mem orial [place] Heart Rate 2022-11-25 19:30:00 [facility] [place] Height 2022-11-25 19:30:00 5 [ft_i] [facility] [place] Weight 2022-11-25 19:30:00 [facility] [place] BMI Calculated 2022-11-25 19:30:00 Memori al Pat[place] Systolic (mm Hg) 2022-09-21 21:07:00 Azam rial [place] Diastolic (mm Hg) 2022-09-21 21:07:00 Mem orial [place] Heart Rate 2022-09-21 21:07:00 [facility] Patel Height 2022-09-21 21:07:00 5 [ft_i] [facility] [place] Weight 2022-09-21 21:07:00 [facility] [place] BMI Calculated 2022-09-21 21:07:00 Memori al Patel Height 2021-06-29 14:41:00 167.64 cm [facility] [place] Weight 2021-06-29 14:41:00 [facility] [place] BMI Calculated 2021-06-29 14:41:00 Memori al [place]el Systolic (mm Hg) 2021-05-11 14:39:00 Azam rial [place] Diastolic (mm Hg) 2021-05-11 14:39:00 Mem orial [place] Heart Rate 2021-05-11 14:39:00 [facility] Patel Height 2021-05-11 14:39:00 167.64 cm [facility] [place] Weight 2021-05-11 14:39:00 [facility] [place] BMI Calculated 2021-05-11 14:39:00 Memori al [place] Respitory Rate 2018-05-26 18:02:00 Memori al Patel Systolic (mm Hg) 2018-05-26 18:02:00 Azam rial [place] Diastolic (mm Hg) 2018-05-26 18:02:00 Mem orial [place] Systolic (mm Hg) 2018-05-26 17:47:00 Azam rial [place] Diastolic (mm Hg) 2018-05-26 17:47:00 Mem orial [place] Respitory Rate 2018-05-26 17:47:00 Memori al Patel Systolic (mm Hg) 2018-05-26 17:32:00 Azam rial [place] Diastolic (mm Hg) 2018-05-26 17:32:00 Mem orial [place] Respitory Rate 2018-05-26 17:32:00 Memori al Patel Weight 2018-05-26 15:04:00 [facility] [place] BMI Calculated 2018-05-26 15:04:00 Memori al [place] Respitory Rate 2018-05-17 15:45:00 Memori al [place] Systolic (mm Hg) 2018-05-17 15:45:00 Azam rial [place] Diastolic (mm Hg) 2018-05-17 15:45:00 Mem orial [place] Respitory Rate 2018-05-17 15:30:00 Memori al [place] Systolic (mm Hg) 2018-05-17 15:30:00 Azam rial [place] Diastolic (mm Hg) 2018-05-17 15:30:00 Mem orial [place] Systolic (mm Hg) 2018-05-17 15:15:00 Azam rial [place] Diastolic (mm Hg) 2018-05-17 15:15:00 Mem orial [place] Respitory Rate 2018-05-17 15:15:00 Sidney Gonzalez Height 2018-05-15 20:00:00 170.18 cm [facility] Procedures Procedure Date / Time Performing Clinician Source Performed [place] TIME OR 2022-08-09 15:50:00 Tiffany Riggins [facility] (NON-REPORTABLE) Medical Branch [place] TIME OR 2022-08-09 15:50:00 Tiffany Riggins [facility] (NON-REPORTABLE) Medical Branch INTRATHECAL INFUSION PUMP 2022-08-09 15:21:00 Tiffany Rigigns [facility] REMOVAL Medical Branch DAY SURGERY - ADC 2022-08-09 06:01:00 Doctor Ovi, [facility] [place] [facility] CONSENT/REFUSAL FOR 2022-08-05 19:08:31 Doctor Unakandi, [facility] DIAGNOSIS AND TREATMENT [place] [facility] CONSENT/REFUSAL FOR 2022-08-05 19:08:31 Doctor Unassandreina, [facility] DIAGNOSIS AND TREATMENT [place] [facility] ASSIGNMENT OF BENEFITS 2022-08-05 19:08:09 Doctor Unassigned, [facility] [place] [facility] ASSIGNMENT OF BENEFITS 2022-08-05 19:08:09 Doctor Unassigned, [facility] [place] [facility] CONSENT/REFUSAL FOR 2022-08-05 19:07:40 Doctor Unassandreina, [facility] DIAGNOSIS AND TREATMENT [place] [facility] CONSENT/REFUSAL FOR 2022-08-05 19:07:40 Doctor Unassigned, [facility] DIAGNOSIS AND TREATMENT [place] [facility] ASSIGNMENT OF BENEFITS 2022-08-05 19:07:17 Doctor Unassigned, [facility] [place] [facility] ASSIGNMENT OF BENEFITS 2022-08-05 19:07:17 Doctor Unassigned, [facility] [place] [facility] EXTERNAL PROVIDER RECORDS 2022-08-05 06:01:00 Doctor Ovi [facility] [place] [facility] EXTERNAL PROVIDER RECORDS 2022-08-05 06:01:00 Doctor Dior [facility] [place] [facility] DSU PRE-OP 2022-08-04 06:01:00 Doctor Dior [facility] [place] [facility] DSU PRE-OP 2022-08-04 06:01:00 Doctor Unassigned, [facility] [place] [facility] [place] INTRATHECAL INFUSION PUMP 2022-04-05 12:05:00 Kang Lord [facility] Medical [place] ASSIGNMENT OF BENEFITS 2022-03-29 20:25:48 Doctor Unassigned, [facility] [place] [facility] [place] EXTERNAL PROVIDER RECORDS 2022-03-17 05:01:00 Doctor Unassigned, [facility] [place] [facility] EXTERNAL PROVIDER RECORDS 2022-03-17 05:01:00 Doctor Unassigned, [facility] [place] [facility] Measurement of 2021-05-11 15:12:00 Aniya aponte post-voiding residual urine and/or bladder capacity by ultrasound, non-imaging Insertion of infusion pump 2015-08-19 00:00:00 Dieudonne Sweeney Open reduction and 2012-04-11 05:00:00 [facility] internal fixation of fracture Knee [facility] replacement<sup>1</sup> Hysterectomy [facility] Partial lobectomy of [facility] thyroid Epidural steroid injection Memor ial [place] Cholecystectomy [facility] Resection of gastric ulcer [facility] Encounters Start End Encounter Admission Attending Care Care Encounter Source Date/Time Date/Time Type Type Clinicians Facility Department ID 2023-03-09 2023-03-09 Outpatient IE EUNICE [id number] Memoria 13:30:00 13:30:00 04 nino Sweeney 2023-03-09 2023-03-09 [facility] [id number] Memoria 13:30:00 13:30:00 04 nino Sweeney 2023-03-03 2023-03-03 Telephone Riggins, [facility] [id number] [facility] 00:00:00 00:00:00 [facility] Mob[place] [id number] it y of HYANNIS [id number] Shmuel as ANALIA?BLEA [id number] Ok shannan IBRAHIM [address] [place] [address] MEDICAL OFFICE BUILDING 2022-11-25 2022-11-26 Outpatient IE [facility] [id number] Memoria 19:15:00 05:59:59 Neurology 03 nino Sweeney 2022-11-25 2022-11-26 Outpatient IE MNA [id number] Memoria 19:15:00 05:59:59 Neurology 03 l Sammy Sweeney 2022-11-25 2022-11-25 Outpatient LAVELL MckeonMISCHER MHMISCHER [id number] 13:15:00 23:59:59 Jaxon Luca Calderon 2022-11-25 2022-11-25 Outpatient MHIE MHIE [id number] Memoria 13:15:00 13:15:00 03 nino Sweeney 2022-09-21 2022-09-22 Outpatient MHIE MNA [id number] Memoria 21:15:00 05:59:59 Neurology 02 l Sammy Sweeney 2022-09-21 2022-09-22 Outpatient MHIE MNA [id number] Memoria 21:15:00 05:59:59 Neurology 02 l Sammy Sweeney 2022-09-21 2022-09-21 Outpatient LAVELL MckeonMISCHER MHMISCHER [id number] 15:15:00 23:59:59 Jaxon Linda Calderon 2022-09-21 2022-09-21 Outpatient MHIE MHIE [id number] Memoria 15:15:00 15:15:00 02 nino [place] 2022-08-09 2022-08-09 [facility] S[facility] [id number] Univers 07:36:00 12:37:00 TIFFANY lopez [facility] 2022-08-09 2022-08-09 [facility] [id number] Univers 07:36:00 12:37:00 Encounter Tiffany GARCIA [id number] [facility] [facility] [id number] [id number] [facility] 071 Branch 2022-08-09 2022-08-09 Surgery [facility] [id number] Univers 09:20:00 10:41:00 Tiffany GARCIA [id number] i ty [facility] [id number] [id number] [facility] 020 Branch 2022-08-09 2022-08-09 Orders Doctor ABERNATHY [id number] Univers 00:00:00 00:00:00 Only Unassigned, MARYANA [id number] ity of [place] [facility] [id number] Shmuel as [id number] [facility] [address] [place] 2022-08-06 2022-08-06 Outpatient R VAISHNAVI [facility] [id number] Univers 00:00:00 00:00:00 TIFFANY lopez [facility] 2022-08-05 2022-08-05 [facility] [id number] Univers 13:10:17 23:59:00 TIFFANY lopez [facility] 2022-08-05 2022-08-05 [facility] [id number] Univers 13:10:17 23:59:00 Encounter Tiffany GARCIA [id number] ity of [id number] [id number] [facility] [address] [place] 2022-08-05 2022-08-05 Mechanic Sharon, Adc Lab Main [facility] [id number] 40.114 [id number] Univers 13:30:00 13:45:00 Visit Tiffany Riggins [id number] it[facility] [id number] [facility] [phone] Ok dical NAL [address] [facility] 2022-08-04 2022-08-04 Outpatient [facility] [id number] Univers 13:15:00 15:05:36 TIFFANY [facility] 2022-08-04 2022-08-04 [facility] [id number] Univers 13:15:00 15:05:36 Visit Tiffany BOURNE [id number] it y [facility] [id number] [place] as ANALIA?BLEA [phone] Ok dical KNEY [address] MEDICAL OFFICE BUILDING 2022-08-04 2022-08-04 [facility] [id number] Univers 00:00:00 00:00:00 Surgery Tiffany [facility] 350.1.13.10 it y of [place] 4.2.7.2.686 Shmuel as ANALIA?BLEA [id number] Ok shannan IBRAHIM [address] MEDICAL OFFICE [facility] 2022-08-02 2022-08-02 Telephone Vaishnavi [facility] 1.2.840.114 [id number] Univers 00:00:00 00:00:00 Tiffany [facility] 350.1.13.10 it y of [place] 4.2.7.2.686 Shmuel as ANALIA?BLEA [id number] Ok shannan [address] OFFICE [facility] 2022-04-05 2022-04-05 Outpatient R [facility] ANS [id number] Univers 06:25:00 09:12:00 KANG ity [facility] 2022-04-05 2022-04-05 [facility] 1.2.840.114 [id number] Univers 06:25:00 09:12:00 Encounter Kang GARCIA 350.1.13.10 [id number] [facility] [address] 2022-04-05 2022-04-05 Surgery [facility] 1.2.092.414 [id number] Univers 07:15:00 08:23:00 Kang [place] 350.1.13.10 [place] [id number] [facility] [address] [place] 2022-04-02 2022-04-02 Laboratory Only, Adc Test [facility] 1.2.840. 114 [id number] Univers 09:15:00 09:30:00 Only Kang Lord 350.1.13.1 0 it[place] of [place].2.[place] CAMP[place] [id number] [facility] [address] 2022-04-02 2022-04-02 Outpatient R POP [facility] [id number] Univers 09:15:00 09:15:00 KANG ity [facility] 2022-03-29 2022-03-29 Mechanic Sharon, Adc Lab Main [facility] 1.2.8 40.114 [id number] Univers 15:30:00 15:45:00 Visit Kang Lord Marcelle SUZYMONTSE 350.1.13.1 0 ity of [place].2.[place] PROF[place] [id number] Ok dical [address] 2022-03-29 2022-03-29 Outpatient R POP [facility] [id number] Univers 15:30:00 15:30:00 KANG ity [facility] 2022-03-29 2022-03-29 Orders Doctor MICHELA 1.2.840.114 [id number] Univers 00:00:00 00:00:00 Only Unassigned, MARYANA 350.1.13.10 ity of [place] [facility] 4.2.7.2.686 Shmuel as [id number] [address] 2021-06-29 2021-06-30 Outpatient nullFlavo [facility] Multi 39 [id number] Memoria 14:40:00 04:59:59 r Specialty 01 l [facility] 2021-06-29 2021-06-30 Outpatient nullFlavo MG Multi 39 [id number] Memoria 14:40:00 04:59:59 r Specialty 01 l [facility] 2021-06-29 2021-06-29 Outpatient Myles [facility] [id number] 09:40:00 23:59:59 Areli L 2021-06-29 2021-06-29 Outpatient MHIE IE [id number] Memoria 09:40:00 09:40:00 01 [facility] 2021-05-11 2021-05-12 Outpatient nullFlavo MG Multi 39 [id number] Memoria 14:40:00 04:59:59 r Specialty 00 [facility] 2021-05-11 2021-05-12 Outpatient nullFlavo MG Multi 39 [id number] Memoria 14:40:00 04:59:59 r Specialty 00 [facility] 2021-05-11 2021-05-11 Outpatient Myles [facility] [id number] 09:40:00 23:59:59 Areli L 00 2021-05-11 2021-05-11 Outpatient [facility] [id number] Memoria 09:40:00 09:40:00 00 nino Sweeney 2018-05-26 2018-05-27 Day nullFlavo [facility] [id number] Memoria 13:59:00 04:59:00 Surgery r Patel 02 l [facility] 2018-05-26 2018-05-27 Day nullFlavo [facility] [id number] Memoria 13:59:00 04:59:00 Surgery r [place] 02 l [facility] 2018-05-26 2018-05-26 Outpatient ARBEN Bustillos [facility] [id number] 08:59:00 23:59:00 Michela Mckeon 2018-05-17 2018-05-18 Day nullFlavo [facility] [id number] Memoria 13:33:00 04:59:00 Surgery r [place] 01 l [facility] 2018-05-17 2018-05-18 Day nullFlavo [facility] [id number] Memoria 13:33:00 04:59:00 Surgery r [place] 01 l [facility] 2018-05-17 2018-05-17 Outpatient Apollo YOLANDE [facility] [id number] 08:33:00 23:59:00 Michela Joseph Results Test Description Test Time Test Comments [...] of measure: mL/min/1.73 (test code = GFR) [id number] Range:Healthy Adults >90 mL/m in/1.73 m2 For Chronic Kidney Disease: Stage II Mild Decreas e in GFR 60-90 Stage III Moder ate Decrease in GFR 30-59 St age IV Severe Decrease in GFR 15-29 Stage V Kidney Failure <15 CREATININE (test code = CREAT) 0.76 mg/dL 0.55-1.30 N CALCIUM (test code = CA) 8.2 mg/dL 8.2-10.1 N CBC W/AUTO [id number] 06:02:00 Test Item Value Reference Range Interpretation [...] 0-0 N code = NRBC) C REACTIVE [id number] 21:06:00 Test Item Value Reference Range Interpretation Comments C REACTIVE PROTEIN (test code = 0.5 mg/dL <0.9 CRP) ACUTE HEPATITIS [id number] 21:06:00 Test Item Value Reference Range Interpretation [...] NONREACTIVE NONREACTIVE DONE AT: [facility] = HIV1AB) [facility] [address], [place] [address]Done by [email or web address] 4th Gen HIV Ag/Ab C ombo Screen ACUTE HEPATITIS [id number] 21:05:00 Test Item Value Reference Range Interpretation [...] 2 (test NONREACTIVE NONREACTIVE Done by [employer] code = LRK31YD) 4th Gen HIV Ag/Ab Combo Screen C REACTIVE [id number] 20:33:00 Test Item Value Reference Range Interpretation Comments C REACTIVE PROTEIN (test code = 0.5 mg/dL <0.9 CRP) ACUTE HEPATITIS [id number] 20:33:00 Test Item Value Reference Range Interpretation [...] (test code = HIV1AB) NONREACTIVE ACUTE HEPATITIS [id number] 20:32:00 Test Item Value Reference Range Interpretation [...] AB HIV 1 2 (test code = AEJ25KA) NONREACTIVE CBC W/AUTO [id number] 18:33:00 Test Item Value Reference Range Interpretation [...] 0-0 N (test code = NRBC) SED [id number] 18:33:00 Test Item Value Reference Range Interpretation Comments SED RATE (test code = SEDW) 36 mm/hr 0-20 H CBC W/AUTO [id number] 17:48:00 Test Item Value Reference Range Interpretation [...] 0-0 N (test code = NRBC) SED [id number] 17:48:00 Test Item Value Reference Range Interpretation Comments SED RATE (test code = SEDW) mm/hr 0-20 CBC W/AUTO [id number] 17:45:00 Test Item Value Reference Range Interpretation [...] % 0-0 N code = NRBC) SED [id number] 17:45:00 Test Item Value Reference Range Interpretation Comments SED RATE (test code = SEDW) mm/hr 0-20 C REACTIVE [id number] 17:12:00 Test Item Value Reference Range Interpretation Comments C REACTIVE PROTEIN (test code = 0.5 mg/dL <0.9 CRP) ACUTE HEPATITIS [id number] 17:12:00 Test Item Value Reference Range Interpretation [...] (test code = HIV1AB) NONREACTIVE COMPREHENSIVE METABOLIC [id number] 17:12:00 Test Item Value Reference Range Interpretation [...] RATE (test code = GFR) mL/mi n/1.73 q8Sonpehaur Range:Healthy Adults >90 mL/min/1.73 m2 For Chronic [...] N TOTAL (test code = ALKP) PROTHROMBIN [id number] 16:37:00 Test Item Value Reference Range Interpretation [...] BLOOD, PT every other day NTHROMBOPLASTIN TIME [id number] 16:37:00 Test Item Value Reference Range Interpretation Comments PTT ACTIVATED (test code = APTT) 28.6 secs 24.9-37.0 N IS PATIENT ON ANTICOAGULANTS ? NHas Lab been notified if Patient is on Heparin Drip? NOIf Yes, orderCBC, OCCULT BLOOD, PT every other day N- XR FLUORO NDL 2019-06-28 12:02:00 Patient Name: CAMI TAPIA Unit No: [id number] EXAMS: CPT CODE: [id number] XR FLUORO NDL 86733 FLUOROSCOPICALLY GUIDED RIGHT KNEE Marcaine INJECTION COMMENT: [...] Sanders MD CC: Ethan Francisco MD Technologist: RT Maria M.(R) Transcribed D/ (2232) GustavoGVG [facility] NAME: CAMI TAPIA [address] [place] [address] PHYS: BR. - Ethan Francisco MD : 1945 AGE: 73 SEX: F [place] [address] LOC: Y.RAD PHONE #: [phone] EXAM DATE: 06/25/2019 STATUS: DEP CLI FAX #: [phone] RAD #: D/C DT PAGE 1 Signed Report Patient Name: CAMI TAPIA Unit No: [id number] EXAMS: CPT CODE: [id number] XR FLUORO NDL 56343 (Continued) Orig Print D/T: S: 06/28/2019 (1595) [facility] NAME: CAMI TAPIA [address] [place] [address] PHYS: BRIMA. - Ethan Francisco MD : 1945 AGE: 73 SEX: F [place] [address] LOC: Y.RAD PHONE #: [phone] EXAM DATE: 06/25/2019 STATUS: DEP CLI FAX #: [phone] RAD #: D/C DT PAGE 2 Signed Report Notes Date/Time Note Provider Source 2019-07-20 11:44:00-00:[address] [facility] Infectious Dis. Progress Note REPORT#:[id number] REPORT STATUS: Signed DATE:07/20/19 TIME: 1144 PATIENT: CAMI TAPIA UNIT #: [id number] [facility]GE[facility] 73 SEX: F ATTEND: Jaye Francisco MD ADM AUTHOR: Monica Stewart MD * ALL edits or amendments must be made on the [employer] document * Subjective Chief Complaint: UTI, possible infection R tibia Patient reports: Yes: pain controlled. No: nausea, vomiting. Comments: OOB in chair with R leg elevated. DC paperwork h as been completed, and she is ready for home. Reports pain is controlled. Objective General VS/I O: Last Documented: Result Date Time Pulse Ox 98 07/20 1133 B/P 136/68 07/20 1133 B/P Mean 90.7 07/20 1133 O2 Delivery Room air 07/20 1133 Temp 36.5 07/20 1133 Pulse 62 07/20 1133 Resp 14 07/20 1133 FiO2 28 07/20 0205 O2 Flow Rate 2.870862 07/20 0205 Vital Signs Date Temp Pulse Resp B/P B/P Mean Pulse Ox FiO2 07/19-07/20 36.3-37.3 62-101 14-18 97-136/57-71 70.9-93 96-100 28 24 hour I O ending at 0700: 07/20 0700 07/19 1900 Intake Total 750.00 130.00 Output Total 350 Balance 750.00 -220.00 Intake, IV 750.00 100.00 Intake, Oral 30 Number Voids 8 2 Output, Urine 350 Patient 72.7 kg Weight Weight Standing scale Measurement Method Patient Weight Weight (lb): 160 Weight (oz): 4.42 Weight (kg): 72.700 Antibiotic start date: Antibiotic: Bactrim Start Date: 07/19/19 Antibiotic: Vancomycin Start Date: 07/19/19 Physical Exam General appearance: alert, awake, no acute distr ess, pleasant Wound/incision: Location: RLE Site condition: dressing clean dry (from foot t o above knee) Head/Eyes: anicteric Neck: full range of motion Cardiovascular: normal heart sounds, regular rat e rhythm Respiratory: clear to auscultation (anteriorly) Abdomen: non-tender, normal bowel sounds, soft, no distention Extremities: no edema Neuro/SIMULATION ANALYST: alert, normal speech Skin: dry, no rash Results Findings/Data: Laboratory Tests 07/20 340 Chemistry Sodium (136 - 145 mmol/L) 141 Potassium (3.5 - 5.1 mmol/L) 3.9 Chloride (98 - 107 mmol/L) 105.0 Carbon Dioxide (21 - 32 mmol/L) 28.9 BUN (7 - 18 mg/dL) 17 Creatinine (0.55 - 1.30 mg/dL) 0.76 Glomerular Filtr Rate (>60) 75.0 Glucose (70 - 110 mg/dL) 95 Calcium (8.2 - 10.1 mg/dL) 8.2 Laboratory Tests 07/20 340 Hematology WBC (5.8 - 11.0 K/mm3) 4.6 L RBC (4.2 - 5.4 M/mm3) 3.56 L Hgb (12 - 16 g/dL) 8.5 L Hct (37 - 47 %) 27.8 L MCV (80 - 98 fL) 78 L MCH (27 - 34 pg) 23.9 L MCHC (30.8 - 34.1 g/dL) 30.6 L RDW (11 - 16 %) 15.4 Plt Count (130 - 400 K/mm3) 200 MPV (8.9 - 12.1 fL) 10.1 Neut % (Auto) (45 - 70 %) 69.6 Lymph % (Auto) (20 - 40 %) 14.8 L Forrest % (Auto) (3 - 10 %) 14.6 H Eos % (Auto) (1 - 5 %) 0.4 L Baso % (Auto) (0.0 - 1.1 %) 0.4 Neut # (Auto) (2.00 - 7.50 K/mm3) 3.20 Lymph # (Auto) (1.50 - 4.00 K/mm3) 0.68 L Forrest # (Auto) (0.2 - 0.8 K/mm3) 0.67 Eos # (Auto) (0.04 - 0.4 K/mm3) 0.02 L Baso # (Auto) (0.02 - 0.10 K/mm3) 0.02 Add Manual Diff (MANUAL DIFF) NO Nucleated RBC % (0 - 0 %) 0 Results: 07/19 Op cxs ngtd Treatment Prophylaxis Treatment Prophylaxis Lines: peripheral Diagnosis, Assessment Plan Free Text A P: 73 yo woman with hx of UTI not yet started on th e po abx given to her by her PCP. She was admitted for elective remov al of right tibia HW with note made of fluid collection at the time of surgery. Fluid w as cultured, and she has been on empiric Vanco and po Bactrim since surgery. 1) Pt to DC home today on po Bactrim and f/up fo r tibia cx results. 2) Pt instructed not to begin taking Cip ro at home and to use Bactrim instead. Will follow up cultures after discharge. at 1149 RPT #:[id number] END OF REPORT 2019-07-20 09:03:00-00:00 [facility]) Discharge Summary REPORT#:[id number] REPORT STATUS: Signed DATE:07/20/19 TIME: 902 PATIENT: CAMI TAPIA UNIT #: [id number] ROOM/BED: : 47 AGE: 73 SEX: F ATTEND: Jaye Francisco MD ADM AUTHOR: Ethan Francisco MD * ALL edits or amendments must be made on the el [employer]ronic/computer document * PCP PCP Discharge to: home General Information Problem List/A P: 1. UTI (urinary tract infection) Date of admission: Observation Start Date: Date of admission: 07/19/19 Date of discharge: 07/20/19 Hospital course: 07/19/2019: Right lateral tibia hardware removal Consultants: infectious disease, internal medici ne, pain management Pt. condition on discharge: improved, stable Allergies: Allergies: Penicillins (Coded, UNKNOWN, 06/25/19) codeine (Coded, UNKNOWN, 06/25/19) Med Rec PCP PCP: PCP: Undefined Provider Med Rec Discharge meds: Continue taking these medications: MIRABEGRON (MYRBETRIQ) 50 MG TAB.ER.24H 50 MILLIGRAM ORAL DAILY. DONEPEZIL (ARICEPT) 10 MG TAB 10 MILLIGRAM ORAL DAILY. LEVOTHYROXINE (SYNTHROID) 50 MCG TAB 50 MICROGRAM ORAL DAILY. MULTIVITAMIN (MULTI-DAY VITAMIN) 1 TAB TAB 1 TABLET ORAL BEDTIME. [PAIN PUMP IMPLANT] SULFAMETHOXAZOLE/TMP (BACTRIM DS 800/160 MG) 1 T AB TAB 1 TABLET ORAL TWICE DAILY. Qty = 20 Instructions: * TAKE DIRECTED Discharge Instructions Activity: non-weight bearing, right Wound/dressing care: Keep wound clean and dry, L eave dressing in place Additional instructions: F/u in office in 7-10 days, instructed to call t o schedule Take aspirin 81mg daily for DVT prophylaxis Electronically Signed by Ethan Francisco MD on at 0923 RPT #:[id number] END OF REPORT 2019-07-20 09:01:00-00:00 [facility]) Orthopaedic Progress Note REPORT#:[id number] REPORT STATUS: Signed DATE:07/20/19 TIME: 900 PATIENT: CAMI TAPIA UNIT #: [id number] ROOM/BED: [address] : 47 AGE: 73 SEX: F ATTEND: Jaye Francisco MD ADM AUTHOR: Ethan Francisco MD * ALL edits or amendments must be made on the [employer]/computer document * Subjective Patient reports: Yes: complaints, pain. Objective VS: Last Documented: Result Date Time Pulse Ox 97 07/20 727 B/P 97/58 07/20 727 B/P Mean 70.9 07/20 727 O2 Delivery Room air 07/20 727 Temp 97.9 07/20 727 Pulse 76 07/20 727 Resp 14 07/20 727 FiO2 28 07/20 205 O2 Flow Rate 2.590139 07/20 205 Patient Weight Weight (lb): 160 Weight (oz): 4.42 Weight (kg): 72.700 Physical Exam General appearance: no acute distress Diagnosis, Assessment Plan Problem List/A P: 1. UTI (urinary tract infection) Free text A P: No overnight events. Pain controlled. RLE: Dressings c/d/i SILT all toes Moves all toes + ankle DF/PF WWP A/P: 73 y/o F POD 1: Right t ibia hardware removal, Cx: Aerobic/anerobic bacteria , fungal and AFB Analgesia ADAT DVT prophylaxis No evidence of compartment syndrome Consult ID: concerned about possible infection i n wound, in addition pt has a UTI Plans to dispo home today, will put in discharge orders Pt instructed to call office to f/u in 7-10 days Pt instructed to take aspirin 81mg daily for DVT prophylaxis Electronically Signed by Ethan Francisco MD on at 0902 RPT #:[id number] END OF REPORT 2019-07-20 08:16:00-00:00 [facility]) Clinical Note REPORT#:[id number] REPORT STATUS: Signed DATE:07/20/19 TIME: 08 PATIENT: CAMI TAPIA UNIT #: [id number] ROOM/BED: [address] : 47 AGE: 73 SEX: F ATTEND: Jaye Francisco MD ADM AUTHOR: Pedro Del Valle MD * ALL edits or amendments must be made on the el [employer]/computer document * Clinical Note Note: [facility] Pedro obregon M.D. (cell text [phone]) Assessment/Plan 1.) Anemia of acute blood lo ss- .Hgb 8.5, asymptomatic. Advised to add Iron OTC x3 weeks. 2.) POD#1 Right Tibial Hware removal- .acute lianne n control. Anticoagulation as per Dr. Francisco. Dr. Pulido following. 3.) Urinary incontinence- .stable. 4.) Hypothyroid- .continue on Rx. * OK for DISCHARGE per Internal Medicine. Kaushik thompson plans to look into normal pressure hydrocephalus affecting Ms. Tapia's gait coordination with outside neurologist as mentioned by Dr. Stacie Hernández. Prior Events/Overnight: Uneventful. Chief Complaint: No significant complaints. very appreciative of care. Objective Vital Signs: Date Time Temp Pulse Resp B/P B/P Pulse O2 O2 F low FiO2 Mean Ox Delivery Rate 07/20 727 97.9 76 14 97/58 70.9 97 Room air 07/20 0343 97.5 67 17 117/71 86.6 99 Nasal cannula 07/20 0205 97 Nasal 2.055982 28 cannula 07/19 2351 97.7 82 18 110/62 78.0 100 Nasal cannula 07/19 1946 Nasal 3.482881 cannula 07/19 194 98 Nasal 2.503547 28 cannula 07/19 1930 97.3 101 17 100/59 72.5 96 Room air 07/19 1508 99.1 91 14 119/59 85 98 Room air 07/19 1311 97.7 91 18 113/57 75 100 07/19 1241 Nasal 3.510348 cannula 07/19 1216 98.6 86 16 135/65 93 100 Nasal cannula 07/19 1205 100 Nasal 2.279737 cannula 07/19 1129 Simple 8.038403 mask 07/19 1128 89 20 150/72 100 Nasal 3.739959 cannula 07/19 1113 97.8 88 12 161/71 100 Nasal 3.327527 cannula 07/19 1058 96 21 150/68 99 Nasal 3.319451 cannula 07/19 1043 94 23 165/82 100 Simple 8.300274 mask 07/19 1028 97.7 100 20 176/85 100 Simple 8.0000 00 mask Gen: Alert, oriented, in mild discomfort Neck: No Masses, No Thyromegaly- CV: Regular Rate Rhythm / Edema- no significant Resp: Clear To Ascultation / Normal Respiratory Effort ABD: NonTender / NonDistended MS/Skin: No signof compartme nt syndrome / +Ankle DF/PF / nl capillary refill of toes. Other: Labs/X-ray: Laboratory Tests: 07/20 340 Chemistry Sodium (136 - 145 mmol/L) 141 Potassium (3.5 - 5.1 mmol/L) 3.9 Chloride (98 - 107 mmol/L) 105.0 Carbon Dioxide (21 - 32 mmol/L) 28.9 BUN (7 - 18 mg/dL) 17 Creatinine (0.55 - 1.30 mg/dL) 0.76 Glomerular Filtr Rate (>60) 75.0 Glucose (70 - 110 mg/dL) 95 Calcium (8.2 - 10.1 mg/dL) 8.2 Hematology WBC (5.8 - 11.0 K/mm3) 4.6 L RBC (4.2 - 5.4 M/mm3) 3.56 L Hgb (12 - 16 g/dL) 8.5 L Hct (37 - 47 %) 27.8 L MCV (80 - 98 fL) 78 L MCH (27 - 34 pg) 23.9 L MCHC (30.8 - 34.1 g/dL) 30.6 L RDW (11 - 16 %) 15.4 Plt Count (130 - 400 K/mm3) 200 MPV (8.9 - 12.1 fL) 10.1 Neut % (Auto) (45 - 70 %) 69.6 Lymph % (Auto) (20 - 40 %) 14.8 L Forrest % (Auto) (3 - 10 %) 14.6 H Eos % (Auto) (1 - 5 %) 0.4 L Baso % (Auto) (0.0 - 1.1 %) 0.4 Neut # (Auto) (2.00 - 7.50 K/mm3) 3.20 Lymph # (Auto) (1.50 - 4.00 K/mm3) 0.68 L Forrest # (Auto) (0.2 - 0.8 K/mm3) 0.67 Eos # (Auto) (0.04 - 0.4 K/mm3) 0.02 L Baso # (Auto) (0.02 - 0.10 K/mm3) 0.02 Add Manual Diff (MANUAL DIFF) NO Nucleated RBC % (0 - 0 %) 0 Microbiology: Date/Time Procedure - Status Source Growth 07/19 0950 Acid Fast Bacilli Smear - RECD TIB 07/19 0950 Acid Fast Bacilli Culture - RECD TIB 07/19 0950 Fungal Smear - RECD TIB 07/19 0950 Fungal Culture - RECD TIB 07/19 0950 Wound Culture - RES TIB 07/19 0950 Anaerobic Culture - RES TIB 07/19 0950 Gram Stain - RES TIB 07/19 0945 Acid Fast Bacilli Smear - RECD TIB 07/19 0945 Acid Fast Bacilli Culture - RECD TIB 07/19 0945 Fungal Smear - RECD TIB 07/19 0945 Fungal Culture - RECD TIB 07/19 0945 Wound Culture - RES TIB 07/19 0945 Anaerobic Culture - RES TIB 07/19 0945 Gram Stain - RES TIB Pedro Peter M.D. at [address] [facility] #:[id number] END OF REPORT 2019-07-19 18:11:00-00:00 [facility]) Clinical Note REPORT#:[id number] REPORT STATUS: Signed DATE:07/19/19 TIME: 1810 PATIENT: CAMI TAPIA UNIT #: [id number] [facility] AGE: 73 SEX: F ATTEND: Jaye Francisco MD ADM AUTHOR: Pedro Del Valle MD * ALL edits or amendments must be made on the [employer]/computer document * Clinical Note Note: [facility] Pedro obregon MD (cell text [phone]) Internal Medicine Consult at request of : Dr Jaye Francisco Chief Complaint: Right knee pain HPI: .73yo W now s/p Right Tibial hardware remov al with culture of fluid collection by Dr. Francisco. had ORIF of r ight tibia fracture at [facility] after falling off ladder 201 3. She developed increaseing pain in right tibia the last few months and was admitted for elective Hw are removal. Comorbidities: see below. PmHx: .Hypothyroid, urinary incontinence, macula r degeneration, pain pump for back pain. ALLERGY: Allergies: Penicillins (Coded, UNKNOWN, 06/25/19) codeine (Coded, UNKNOWN, 06/25/19) Home Medications: Home Medications: MIRABEGRON (MYRBETRIQ) 50 MG PO DAILY DONEPEZIL (ARICEPT) 10 MG PO DAILY LEVOTHYROXINE (SYNTHROID) 50 MCG PO DAILY MULTIVITAMIN (MULTI-DAY VITAMIN) 1 TAB PO BEDTIM E [PAIN PUMP IMPLANT] SgHx: .partial thyroidectomy, gastrectomy for ul cers, pain pump in back SHx: Tob: quit 28 yrs ago FHx: .No significant h x of DVT/PE. Alcohol: none Drugs: none Lives: with spouse Vitals: Vital Signs: Date Time Temp Pulse Resp B/P B/P Pulse O2 O2 F low FiO2 Mean Ox Delivery Rate 07/19 1508 99.1 91 14 119/59 85 98 Room air 07/19 1311 97.7 91 18 113/57 75 100 07/19 1241 Nasal 3.152912 cannula 07/19 1216 98.6 86 16 135/65 93 100 Nasal cannula 07/19 1205 100 Nasal 2.982118 cannula 07/19 1129 Simple 8.325898 mask 07/19 1128 89 20 150/72 100 Nasal 3.860441 cannula 07/19 1113 97.8 88 12 161/71 100 Nasal 3.315462 cannula 07/19 1058 96 21 150/68 99 Nasal 3.089437 cannula 07/19 1043 94 23 165/82 100 Simple 8.867884 mask 07/19 1028 97.7 100 20 176/85 100 Simple 8.000 000 mask 07/19 0640 97.8 76 16 115/55 96 Room air Gen: Alert, in mild discomfort, nl nutrition. EYE: Nl lids conjunctiva. ENT: Nl ears Nose, nl lips,. Neck: Supple, nl thyroid, No masses. CV: Regular Rate Rhythm, no heave or significant murmur. Edema- none Feet toes normal temperature. RESP: Clear to Auscultation, normal Respiratory effort. ABD: Soft, NonDistended,. LYM: No significant cervical Lymphadenopathy. MS: No Clubbing, cyanosis, distal leg is wrapped , NEURO: Nonfocal, grossly normal sensation of LE, +Ankle DF/PF PSY: Normal insight, Normal mood, oriented, . Preop Labs(07/04/19): CBC:. Hgb 10.9, Plt 242, CHEM: Na 136, K 4.1, Cr 0.95 (eGFR 58%), . Hep A ,B,C,HIV negative. (medium to high risk of complications or morbidi ty) (major surgery) (IV sedative, meds) Assessment Plan 1.) Anemia of Acute Blood Loss- .will recheck to mark. 2.) S/p Right Tibial Hware r emoval- .acute pain control. Anticoagulation as per Dr. Francisco. Dr. Pulido following. 3.) Urinary incontinence- .mybretiq not availabl e currently at [facility]. WIll use oxybutynin. 4.) Hypothyroid- .continue on Rx. Pedro Peter M.D. Thanks! at 1830 RPT #:[id number] END OF REPORT 2019-07-19 14:03:00-00:00 [facility]) Clinical Note REPORT#:[id number] REPORT STATUS: Signed DATE:07/19/19 TIME: 1403 PATIENT: CAMI TAPIA UNIT #: [id number] ROOM/BED: [address] : 47 AGE: 73 SEX: F ATTEND: Jaye Francisco MD ADM AUTHOR: Shukri Hernández MD * ALL edits or amendments must be made on the [employer]/computer document * Clinical Note Note: [id number] at 1403 RPT #:[id number] END OF REPORT 2019-07-19 14:03:00-00:00 [id number] [place] [address] PATIENT NAME: CAMI TAPIA ADMIT DATE: ACCOUNT NO: [id number] ROOM NO: AGE: 73 REPORT TYPE: CONSULTATION REPORT SEX: F ADMITTING PHYSICIAN: ATTENDING PHYSICIAN:Ethan Francisco MD CONSULTATION DATE: 07/19/2019 CONSULTING PHYSICIAN: Shukri Hernández MD ASSESSMENT AND PLAN: The patient is a 73-year-ol d woman, with a history of cognitive issues and previous right lower extrem ity fracture, now status post hardware removal from the right tibia, who is se en regarding ongoing neurological care and pain management needs. 1. Cognitive impairment. The patient has signifi cant memory deficits. She also has some gait impairment and urinar y incontinence raising the possibility of normal pressure hydrocephalus. Her in dicates that she has had some sort of head imaging a couple of years ago. I to ld him that I would strongly recommend that she have additional imaging to en sure that there has not been some interval change that would be consistent wi th normal pressure hydrocephalus. He does not want to have the imaging performed at this time and would prefer to pursue an outpatient workup with her primary care physician, which I think is quite reasonable since they would have access to the previous imaging for comparison. There is nothing urgent about performing imaging at this time. I have written down the phrase "aminta l pressure hydrocephalus" for him, so that this can be investigated further. O tre, I think she should have a basic dementia workup, which can be perfo rmed by any community neurologist. 2. Musculoskeletal pain in the right lower extre mity. The patient states that her pain is fairly well controlled at present. S he has baclofen 5 mg every 8 hours as needed for spasms and Dallas 5/325 mg or 7.5/325 mg every 4 hours as needed for xsnshafv-ch-thrpls pain. She has an o utpatient pain management physician with whom she will follow up a fter discharge. Adjustments as needed. 3. Chronic back pain. The patient has a pain pum p in place, which helps to alleviate her baseline chronic pain. Further adj ustments as needed. HISTORY OF PRESENT ILLNESS: The patient is a 73- year-old woman with reported history of dementia with cognitive deficits wors ening over the last several years (currently on Aricept 10 mg daily on an ou tpatient basis). The patient fell off of a ladder in 2012 and fractured her r ight tibia. She was placed in an external fixator and unde rwent open reduction and internal fixation. She has had increasing pain in the right leg over the year or so. She is taking Dallas on an outpatient basis, although her [facility] does not know the exact dosing. He states that she t ypically takes the Dallas at bedtime and rarely uses more than one dose a day. He states that over the course of a week she may use 4 or 5 pills. Again, over the last year, s he has had increasing pain with more restriction in PATIENT NAME: CAMI TAPIA 3953 terms of activities of daily living. Her pain on an outpatient basis is typically somewhere between 7 to 8/10 in severit y. Given her increasing pain, the patient has opted to undergo removal of hard lo from the right lower extremity in the hopes of reducing her pain and increasing her ability to ambulate more freely. The patient notes a history of chronic b ack pain and has undergone a pain pump several years ago. The patient's reports her developing some memory problems sometimes thereafter and attributed the memory problems to the implantation of the pump. The patient has had di fficulty with ambulation and also notes some incontinence of bladder. She sta majo that she knows when she needs to get to the bathroom most of the time, but is very prone to urinating on herself. She has no ability to control when she goes. The patient has undergone evaluation with some s can of her head, either CT or MRI (the patient's is unsure). He is uns ure if she has had any other workup in terms of labs. PAST MEDICAL HISTORY: 1. Hypothyroidism. 2. Gastric ulcers. 3. Macular degeneration. 4. Cognitive impairment. 5. Urinary incontinence. 6. Vocal cord injury. 7. Sleep apnea (resolved with weight loss). 8. Chronic pain. 9. Lower extremity weakness (ambulates with walk er at baseline). 10. Cataracts. PAST SURGICAL HISTORY: 1. Right tibia external fixator placement. 2. Right tibia ORIF. 3. Right tibia hardware removal. 4. Pain pump. 5. Cataract surgery. 6. Gastrectomy. 7. Partial thyroidectomy. ALLERGIES: 1. PENICILLIN. 2. CODEINE. MEDICATIONS: Reviewed. Please see MAR. SOCIAL HISTORY: The patient smoked about a pack per day for 20 years, but quit 20 plus years ago. She denies any alcohol or rec reational drug use. She lives with her who is at bedside. They live in a 1-level house. FAMILY HISTORY: Noncontributory to current [facility], operated by [facility]. PHYSICAL EXAMINATION: VITALS: T-max 98.6, blood pressure 113/57, pulse 91, respirations 18, oxygen saturation 100%. PATIENT NAME: CAMI TAPIA 3953 GENERAL: The patient is resting comfortably and in no distress. MENTAL STATUS: The patient is alert. She cannot tell me the year, but knows that she is in [place] and knows the month. She identifies the president correctly. SPEECH: No dysarthria or aphasia. CRANIAL NERVES: II through XII intact. MOTOR: 5/5 in the upper extremities. She wiggles her toes in the right foot. She is unable to sustain ant igravity strength in the left leg, which her states is baseline. She is 4+/5 with knee flexio n and extension on the left side and is 5/5 with dorsifl exion and plantar flexion. Again, her weakness with hip flexors is evidently baseline. REFLEXES: 2+ in the upper extremities and in the left lower extremity. Deferred on the right side due to surgery. SENSATION: Mildly diminished vibratory sensation in a glove and stocking distribution. COORDINATION: No abnormal movements at rest or w ith action. GAIT: Nonambulatory at present. LABS AND STUDIES: No new imaging. CBC with a white blood cell count 2.9, hemoglobin 10.9, hematocrit 35.3, MCV 77. BMP with a BUN of 28, glucose 134. LFTs unremarkable. Dictated By: Shukri Hernández MD WT: CON:YCARMINA/CHRIS/NTS Conf#: [id number]/DID#: [id number] Authenticated by Shukri Hernández MD On 019 02:11:58 PM at 1412 PATIENT NAME: CAMI TAPIA 3953 2019-07-19 12:28:00-00:00 [facility] ([facility]) Infect Disease Consult Note REPORT#:[id number] REPORT STATUS: Signed DATE:07/19/19 TIME: 1228 PATIENT: CAMI TAPIA UNIT #: [id number] ROOM/BED: [address] : 47 AGE: 73 SEX: F ATTEND: Jaye Francisco MD ADM AUTHOR: Ne Pulido MD * ALL edits or amendments must be made on the [employer]/computer document * History of Present Illness Requesting Clinician: Dr Francisco Reason for consult: UTI, possible infection right tibia HPI: A 73 y/o female with hx of right tibia fracture 6-7 years ago who had ORIF at [facility]. Has done well until several months ago when she developed increasing pain in the tibia. Denies any hx of swelling, erythem a of the leg. Pt seen by Dr Francisco and admitted for removal of HW. A fluid collection that did not look like infection was noted and cxs were taken. Pt was recently diagnosed wi th a UTI by her PCP and given a script for Cipro but has not yet started it. She gives hx of frequency and urgency for several days although denies dysuria. History - Adult longitudinal Past medical history: Reports: Thyroid disorder. Past surgical history: Reports: Bariatric procedure, Thyroidectomy. Smoking status for patients 13 years old or olde r: Former Smoker Allergies: Coded Allergies: Penicillins (UNKNOWN 06/25/19) codeine (UNKNOWN 06/25/19) Review of Systems Constitutional: Denies: chills, fever. Objective General VS/I O: Last Documented: Result Date Time Pulse Ox 100 07/19 1216 B/P 135/65 07/19 1216 B/P Mean 93 07/19 1216 O2 Delivery Nasal cannula 07/19 1216 Temp 37.0 07/19 1216 Pulse 86 07/19 1216 Resp 16 07/19 1216 O2 Flow Rate 8.052573 07/19 1129 Vital Signs Date Temp Pulse Resp B/P B/P Mean Pulse Ox FiO2 07/19 36.5-37.0 76-100 16-20 115-176/55-85 93 9 6-100 Patient Weight Weight (lb): 160 Weight (oz): 4.42 Weight (kg): 72.700 Physical Exam General appearance: alert, awake, oriented Wound/incision: Location: righ tibia Site condition: dressing clean dry, dressing in tact Head/eyes: normocephalic Cardiovascular: normal heart sounds, regular rat e rhythm Respiratory: clear to auscultation Abdomen: non-tender, soft Skin: no rash Results Findings/Data: Microbiology: 07/19 950 TIB: Acid Fast Bacilli Smear - RECD 07/19 950 TIB: Acid Fast Bacilli Culture - RECD 07/19 950 TIB: Fungal Smear - RECD 07/19 950 TIB: Fungal Culture - RECD 07/19 950 TIB: Wound Culture - RECD 07/19 950 TIB: Anaerobic Culture - RECD 07/19 950 TIB: Gram Stain - RECD 07/19 945 TIB: Acid Fast Bacilli Smear - RECD 07/19 945 TIB: Acid Fast Bacilli Culture - RECD 07/19 945 TIB: Fungal Smear - RECD 07/19 945 TIB: Fungal Culture - RECD 10/31 0945 TIB: Wound Culture - RECD 07/19 945 TIB: Anaerobic Culture - RECD 07/19 945 TIB: Gram Stain - RECD Results: labs reviewed, vital signs stable, curr ent med profile rev'd Treatment Prophylaxis Treatment Prophylaxis Lines: peripheral Anti-infectives: vancomycin, Bactrim Diagnosis, Assessment Plan Problem List/A P: 1. UTI (urinary tract infection) Free Text DxA P Notes Free text DxA P notes: Pt with hx of UTI not yet st arted on the po abx given to her by her PCP. She is admitted for removal of right tibia HW and note made of fluid collection that was cultures today. Will plan on empiric Vanco and po Bactrim today. Pt for DC home on po Bactrim to f/up for tibia cx results. Electronically Signed by Ne Pulido MD on at 1242 RPT #:[id number] END OF REPORT 2019-07-19 10:53:00-00:00 [facility] ([facility]) Clinical Note REPORT#:[id number] REPORT STATUS: Signed DATE:07/19/19 TIME: 1053 PATIENT: CAMI TAPIA UNIT #: [id number] ROOM/BED: [address] : 47 AGE: 73 SEX: F ATTEND: Jaye Francisco MD ADM AUTHOR: Dino Leblanc MD * ALL edits or amendments must be made on the el [employer]/computer document * Clinical Note Note: Ask to manage postoperative pain by [FRANC - HDW REMOVAL Assessment VAS [10] L.O.S. [1, ORIENTED TO PERS ON , NOT PLACE OR TIME ] Respirator Quality [1] [] Other HX- MEMORY LOSS - ARICEPT. GASTRECTOMY R/O ULCERS, BACK PAIN - PT HAS IT PUMP. KEENAN, EXSMOKER. USES WALKER AT HOME [] Activity Site Assessment: [] Site non -tender and free of redness, swelling or exudates. [ ] Other Catheter Discontinued []Tip intact [] Plan: NO WINDOWS SECURITY ANALYST. PT WILL NOT USE EFFECTIVELY WITH MEMORY LOSS. TYLENOL [address] HERNÁNDEZ TO ASSUME PAIN MANAGEMENT ON FLOOR. Portions of this section wer e scribed by Margo Rangel on 07/19/19 at 1053 at 1014 RPT #:[id number] END OF REPORT 2019-07-19 10:11:00-00:00 [facility] ([facility]) Orthopaedic Progress Note REPORT#:[id number] REPORT STATUS: Signed DATE:07/19/19 TIME: 1011 PATIENT: CAMI TAPIA UNIT #: [id number] ROOM/BED: : 47 AGE: 73 SEX: F ATTEND: Jaye Francisco MD ADM AUTHOR: Etahn Francisco MD * ALL edits or amendments must be made on the [employer]/computer document * Subjective Patient reports: Yes: complaints, pain. Objective VS: Last Documented: Result Date Time Pulse Ox 96 07/19 640 B/P 115/55 07/19 640 O2 Delivery Room air 07/19 640 Temp 97.8 07/19 640 Pulse 76 07/19 640 Resp 16 07/19 640 B/P Mean 64 07/04 1409 Patient Weight Weight (lb): 160 Weight (oz): 4.42 Weight (kg): 72.700 Physical Exam General appearance: no acute distress Diagnosis, Assessment Plan Free text A P: Post-op Progress Note NAD. Examined in PACU RLE: Dressings c/d/i SILT all toes Moves all toes + ankle DF/PF WWP A/P: 73 y/o F POD 0: Right t ibia hardware removal, Cx: Aerobic/anerobic bacteria , fungal and AFB Analgesia ADAT DVT prophylaxis No evidence of compartment syndrome Consult ID: concerned about possible infection i n wound, in addition pt has a UTI Plans to dispo home tomorrow Electronically Signed by Ethan Francisco MD on at 1116 RPT #:[id number] END OF REPORT 2019-07-19 10:08:00-00:00 [facility] ([facility]) Op/Inv Procedure Note - Brief REPORT#:[id number] REPORT STATUS: Signed DATE:07/19/19 TIME: 1008 PATIENT: CAMI TAPIA UNIT #: [id number] ROOM/BED: : 47 AGE: 73 SEX: F ATTEND: Jaye Francisco MD ADM AUTHOR: Ethan Francisco MD * ALL edits or amendments must be made on the el [employer]/computer document * Op/Inv Proc Note - Brief TEXT Brief Op/Inv Procedure Note Note details: *PRE-PROCEDURE DIAGNOSIS: [] Right tibia retained hardware *POST-PROCEDURE DIAGNOSIS: Same[] *PROCEDURE(S) PERFORMED: [] Right tibia hardware jeannie lizbeth, Cx: aerobic/anerobic bacterial, fungal and AFB *PRIMARY SURGEON: [] Dr. Francisco *POWDER BLENDER(S): [] None ANESTHETIC: [] *ESTIMATED BLOOD LOSS in ml's: [] 10 mL *SPECIMEN(S) REMOVED: [] Tibial plate and screws (x8) *COMPLICATIONS: None[] DRAIN(S): None[] TUBE(S): None[] IMPLANT(S): None[] FLUIDS: [] URINE OUTPUT: [] *FINDINGS: [] See dictated op-note DISPOSITION: To PACU[] Electronically Signed by Ethan Francisco MD on at [address] [facility] #:[id number] END OF REPORT 2019-07-04 14:04:00-00:00 [id number] [facility] [place] [id number] PATIENT NAME: CAMI TAPIA ADMIT DATE: ACCOUNT NO: [id number] ROOM NO: AGE: 73 REPORT TYPE: ELECTROCARDIOGRAM SEX: F ADMITTING PHYSICIAN: ATTENDING PHYSICIAN:Ethan Francisco MD Order: [id number] Test Reason : PRE OP CLEARANCE HTN Test Date/Time Stamp: TueJul 04 2019 14:04:13 Blood Pressure : / mmHG Vent. Rate : 071 BPM Atrial Rate : 071 BPM P-R Int : 188 ms QRS Dur : 094 ms QT Int : 392 ms P-R-T Axes : 046 008 058 degree s QTc Int : 425 ms Normal sinus rhythm Normal ECG No previous ECGs available Confirmed by YESI CHEATHAM MD ([id number]) on 07/05/2019 10:08:24 AM Referred By: Ethan Francisco Confirmed by:YESI CHEATHAM MD Electronically Signed by Yesi Cheatham MD on 06/19 04/06 at 1008 PATIENT NAME: CAMI TAPIA [id number]
[2023-03-04] MEDS ORDERED: ONDANSETRON 4 MG (ODT) TAB PO PRN (13:38)
[2023-03-04] MEDS ORDERED: ACETAMINOPHEN 500 MG TAB PO PRN (14:48)
[2023-03-04] MEDS: HYDROCODONE/APAP 5/325 MG TAB PO PRN (16:08)
[2023-03-04] MEDS ORDERED: METOPROLOL TAR 25 MG TAB PO SCH (18:00)
[2023-03-04] MEDS: CRANBERRY FRUIT EXTRACT 200 MG CAP PO SCH (19:59)
[2023-03-04] MEDS: APIXABAN 2.5 MG TABLET PO SCH (19:59)
[2023-03-04] MEDS: ENSURE ENLIVE 237 ML CAN PO SCH (19:59)
[2023-03-04] MEDS: MEMANTINE HCL 10 MG TABLET PO SCH (20:00)
[2023-03-04] MEDS: FAMOTIDINE 20 MG TAB PO SCH (20:00)
[2023-03-04] MEDS: DULOXETINE 30 MG CAP PO SCH (20:00)
[2023-03-04] MEDS: METOPROLOL TAR 25 MG TAB PO SCH (20:00)
[2023-03-04] MEDS: DONEPEZIL HCL 5 MG TAB PO SCH (20:00)
[2023-03-04] MEDS: GABAPENTIN 100 MG CAP PO SCH (20:00)
[2023-03-04] MEDS: ENSURE SURGERY 237 ML CAN PO SCH (20:00)
[2023-03-04] MEDS: DOCUSATE NA/SENNA CONC 1 TAB PO PRN (20:01)
[2023-03-04 21:18] LABS: Specific Gravity 1.016 (1.005-1.030); Urine Bacteria None Seen /HPF (<20); Urine Bilirubin NEGATIVE (Negative); Urine Blood 3+ (OVER) (Negative); Urine Clarity Extremely Turbid (Clear); Urine Color Brown (Yellow); Urine Glucose NEGATIVE (Negative); Urine Mucus 1+ /HPF (None Seen); Urine Protein 1+ (Negative); Urine RBC >50 /HPF (None Seen); Urine Urobilinogen Normal (Normal); Urine pH 5.5 (5.0-7.0)
--- NOTE | 2023-03-04 22:16 | HP ---
Date of Admission: 03/04/2023 Time Of Service: 3 p.m. Chief Complaint: "I fell and broke my right hip." History Of Present Illness: Ms. Phillips is a 77-year-old patient who was independent at home ambulating when she fell and impacted the right hip and had severe pain and could not bear weight. She fell on 03/01/2023 and was seen at [facility]. Her evaluation identified severe anemia with hemogl obin of 7.8, urinary tract infection, and a comminuted intertrochanteric fracture of the right hip. She was seen by Dr. Berrios in the Orthopedic Service and determined that surgery was required. On 03/03/2023, Dr. Berrios performed a right 3 part intertrochanteric fracture repair with intramedulla ry rodding. She tolerated the procedure well and it was determined, however, to require blood transf usion of a unit as her hemoglobin had dropped to 7.8, post transfusion up to 11. Also requiring IV R ocephin for her urinary tract infection and has become significantly debilitated over the 4 day hospi talization. Please note, she actually fell on the 01 of March and it has been 4 days since the fall and has been unable to mobilize. As a result of her fracture; recent surgery urinary tract infectio n, which actually grew Klebsiella pneumoniae, which is pansensitive; and debility, she is now determi zoya to be an appropriate candidate for inpatient rehabilitation to manage her significant anemia, uri nary tract infection, debility, and pain related to her right hip fracture and surgical repair. Past Medical History: Hypothyroidism, hypertension, atrial fibrillation, chronic back pain, dementia , knee replacement with pain pump, bowel surgery, and skin graft. X-ray/imaging: On 03/01 x-rays of the hip showed a comminuted intertrochanteric fracture of the righ t hip. On 03/02 a pelvic x-ray showed improved alignment of the right femoral neck fracture status p ost internal fixation. She was seen by Dr. Berrios on the Orthopedic Service and the physician giselle Cole assisted with the surgery and she was seen by Dr. Manley on the Hospitalist Service. Allergies: BISPHOSPHONATES. Medications: Tylenol Extra Strength 500 mg every 4 hours as needed, Marana 5/325 every 6 hours as nee ded, Eliquis 2.5 mg twice daily, methimazole 10 mg at bedtime, Cymbalta 30 mg at bedtime, Ensure Enli ve 237 mL twice daily, Pepcid 20 mg daily, ferrous sulfate 325 mg daily, gabapentin 100 mg twice sally y, lidocaine patch 1 patch topically daily, melatonin 3 mg at bedtime, Namenda 10 mg twice daily, Lop ressor 25 mg twice daily, Hemocyte Plus 1 tablet with breakfast, Zofran 4 mg every 6 hours, and Senok ot-S 2 at bedtime. Family History: Noncontributory. Social History: No alcohol, tobacco, or IV drug use. The patient lives at home and was independent. Review of Systems: Left hip pain, weakness, and some urinary urgency, which has improved. Mild constipation and chronic back pain. Otherwise, no fevers or chills. No nausea or vomiting. No rash. No psychiatric issues and no other positives other than mentioned above on a 10 point systems review. Physical Examination: Vital Signs: Blood pressure 112/53, pulse 92, respiratory rate 16, temperature 98.8, and oxygen satu ration 99% on room air. Pain level ranged from 2 to 5. General: Ms. Phillips is sitting at the side of the bed working with the therapist. HEENT: She appears normocephalic, atraumatic. Sclerae anicteric. Oropharynx pink and moist. Neck: Supple. Chest: Clear. Heart: Regular. Extremities: No significant edema despite her surgery except trace edema bilaterally. Neurologic: No obvious cranial nerve deficits. No focal upper or lower motor deficits. There is good hemostasis at the surgical site. She ambulated 3 feet with maximum assistance with touchdown weightbearing to the right lower extremity with a rolling walker. Current Level Of Functioning: As noted, she ambulated just 3 feet with maximum assistance with touch down weightbearing. Mobilized a wheelchair 50 feet with minimum assistance. Bed mobility done with maximum assistance. Sit to stand and stand and pivot transfers with maximum assistance. Pain did ra nge from 7 to 10/10 when she was mobilizing and 3 to 4 when sitting. Bathing was minimum assistance for 10 of 10 body parts. Upper body dressing with supervision, maximum assistance for lower body mary ssing, minimum assistance for sit to stand. Rehabilitation And Medical Assessment And Plan: Ms. Phillips is admitted to the inpatient rehabilitation unit with a rehabilitation impairment category 07 orthopedic lower extremity fracture. [facility] group code is 08.11 status post unilateral hip fracture. Etiologic diagnosis is co mminuted intertrochanteric fracture of the right hip. Active comorbids are atrial fibrillation, anem ia, dementia, urinary tract infection, essential hypertension, and hypothyroidism. She also has cyst itis without hematuria. Plan: 1.She will have physical and occupational therapy along with speech therapy, 3.5 hours, 5 of 7 days. Speech therapy will be for the dementia. 2.She will have Namenda 10 mg twice daily and donepezil 10 mg daily for Alzheimer disease. 3.Ferrous sulfate 325 mg daily and Hemocyte Plus for anemia. 4.Lopressor 25 mg twice daily for hypertension. 5.Eliquis 2.5 mg twice daily for DVT prophylaxis. 6.Marana 5/325 and Tylenol Extra Strength for pain. 7.Pepcid for GE reflux. 8.Gabapentin 100 mg twice daily for neuropathic pain and to decrease the need for narcotics. 9.Hemocyte Plus daily for anemia and ferrous sulfate as well. 10.Zofran for nausea. 11.Senokot-S for constipation. Impact Of Comorbids: 1.She had significant anemia and required 1 unit of blood. Her hemoglobin will be assessed per prot ocol and more frequently if needed and more blood will be administered as appropriate. 2.Her urinary tract infection is being treated. She will have cranberry pills added, hydration opti mized and urinalysis will be done if symptoms resume. 3.She has a touchdown weightbearing status, which will be a mild restriction on how fast she can rec over. However, she is motivated and will likely continue to do well as she goes through inpatient re habilitation. Rehab Specific Plan: 1.Improve her ability to mobilize with the touchdown weightbearing status. She will have physical t herapy and occupational therapy for 3 hours a day, 5 of 7 days. She will work to improve her transfe rs from bed to chair, to shower, and to toilet and also work to improve her transfers from bed to amalia let and to actually perform showering and toileting activities. We will work to improve her gait and ambulate over 50 feet with modified independence and up and down at least 5 steps with modified inde pendence. 2.She will work with Speech Therapy to improve cognitive functioning, her insight, her ability to so lve problems, and improve her safety awareness. 3.She has a good understanding of the process of her admission to the inpatient rehabilitation unit. She has a potential to make improvement and will require physical, occupational, and likely speech therapy together to optimize her recovery. If needed, services from the Cardiology Service, Respirat ory Service, Nutrition Service, and Wound Care will be sought. 4.Given her complex medical condition and risk of further complications, rehabilitation cannot be sa chas or effectively performed at a lower level of care such as senior living. Barriers To Discharge: 1.Given the prior transfusion of 1 unit, she is at risk of more blood transfusions and hemoglobin wi ll be followed carefully with up to 2 or 3 times weekly as needed. 2.Also she has an ongoing urinary tract infection and will complete her treatment for that. 3.She has touchdown weightbearing status and will also have her to maintain it throughout therapy. 4.She also has dementia and will work hard with Speech Therapy to have good insight. Estimated Length Of Stay: About 13 days. Disposition: Home. Prognosis: Good. Rehabilitation Goals: 1.Become independent with transferring from bed to chair, to toilet, to shower. 2.Independently perform activities of showering and toileting and dressing upper and lower body. 3.Independently ambulate over 250 feet with the touchdown weightbearing status. 4.Be able to go up and down 5 steps with touchdown weightbearing. 5.Perform cognitive functioning with supervision to modified independence. I acknowledge I have personally performed a full physical examination, no later than 24 hours after a dmission to the rehabilitation unit of patient Alan and have determined that she is able to tolerate the above course of treatment at an intensive level for a reasonable period of time. A detailed debbie vidualized plan of care for her will be completed by hospital day 4 based on the preadmission screen, history and physical, and therapy evaluations. JUSTYNA/CATRACHITA Voice ID: [id number]
[2023-03-04] MEDS: MELATONIN 3 MG TABLET PO PRN (23:55)
[2023-03-05] MEDS: HYDROCODONE/APAP 5/325 MG TAB PO PRN ×3 (01:56→14:42)
[2023-03-05 06:21] LABS: Absolute Lymphocytes (CBC) 0.7 K/uL (0.7-4.9); Hematocrit 24.4 % (36.0-45.0); Lymphocytes % 14.1 % (15.3-44.8); MCV 72.3 fL (80-100); MPV 8.3 fL (7.6-11.3); RBC Red Blood Cell Count 3.38 M/uL (3.86-4.86)
[2023-03-05 06:43] LABS: Albumin 2.2 g/dL (3.4-5.0); Potassium 3.4 mEq/L (3.5-5.1)
[2023-03-05] MEDS: ENSURE SURGERY 237 ML CAN PO SCH (08:00)
[2023-03-05] MEDS ORDERED: DULOXETINE 20 MG CAP PO SCH (08:00)
[2023-03-05] MEDS: ENSURE ENLIVE 237 ML CAN PO SCH ×3 (08:00→19:47)
[2023-03-05] MEDS: LIDOCAINE 4% PATCH TOP SCH (08:15)
[2023-03-05 08:16] LABS: Prealbumin 4.3 mg/dL (20-40)
[2023-03-05] MEDS: METOPROLOL TAR 25 MG TAB PO SCH ×2 (08:17→19:47)
[2023-03-05] MEDS: CRANBERRY FRUIT EXTRACT 200 MG CAP PO SCH ×2 (08:17→19:47)
[2023-03-05] MEDS: FAMOTIDINE 20 MG TAB PO SCH ×2 (08:18→19:48)
[2023-03-05] MEDS: APIXABAN 2.5 MG TABLET PO SCH ×2 (08:18→19:47)
[2023-03-05] MEDS: FERROUS SULFATE 325 MG TAB PO SCH (08:18)
[2023-03-05] MEDS: FE SULF/FA/VIT B COMP & C TAB PO SCH (08:18)
[2023-03-05] MEDS: MEMANTINE HCL 10 MG TABLET PO SCH ×2 (08:18→19:48)
[2023-03-05] MEDS: GABAPENTIN 100 MG CAP PO SCH ×2 (08:19→19:48)
[2023-03-05] MEDS ORDERED: POTASSIUM CL SA 10 MEQ TAB PO ONE (15:30)
[2023-03-05] MEDS: DONEPEZIL HCL 5 MG TAB PO SCH (19:48)
[2023-03-05] MEDS: AMINO ACIDS/PROTEIN HYDROLYS 30 ML LIQUID.PKT PO SCH (19:48)
[2023-03-05] MEDS: DULOXETINE 30 MG CAP PO SCH (19:48)
[2023-03-06 06:17] LABS: Absolute Lymphocytes (CBC) 0.8 K/uL (0.7-4.9); Hematocrit 25.9 % (36.0-45.0); Lymphocytes % 21.4 % (15.3-44.8); MCV 73.5 fL (80-100); RBC Red Blood Cell Count 3.53 M/uL (3.86-4.86)
[2023-03-06 06:34] LABS: Potassium 3.6 mEq/L (3.5-5.1)
[2023-03-06] MEDS: LIDOCAINE 4% PATCH TOP SCH (07:20)
[2023-03-06] MEDS: METOPROLOL TAR 25 MG TAB PO SCH ×2 (07:20→19:44)
[2023-03-06] MEDS: GABAPENTIN 100 MG CAP PO SCH ×2 (07:21→19:44)
[2023-03-06] MEDS: FAMOTIDINE 20 MG TAB PO SCH ×2 (07:21→19:43)
[2023-03-06] MEDS: APIXABAN 2.5 MG TABLET PO SCH ×2 (07:22→19:44)
[2023-03-06] MEDS: MEMANTINE HCL 10 MG TABLET PO SCH ×2 (07:22→19:43)
[2023-03-06] MEDS: CRANBERRY FRUIT EXTRACT 200 MG CAP PO SCH ×2 (07:56→19:44)
[2023-03-06] MEDS: AMINO ACIDS/PROTEIN HYDROLYS 30 ML LIQUID.PKT PO SCH ×2 (07:56→19:44)
[2023-03-06] MEDS: FERROUS SULFATE 325 MG TAB PO SCH (07:56)
[2023-03-06] MEDS: FE SULF/FA/VIT B COMP & C TAB PO SCH (07:56)
[2023-03-06] MEDS: ENSURE ENLIVE 237 ML CAN PO SCH ×2 (07:56→19:44)
[2023-03-06] MEDS: HYDROCODONE/APAP 5/325 MG TAB PO PRN ×3 (08:00→19:43)
[2023-03-06] MEDS: DONEPEZIL HCL 5 MG TAB PO SCH (19:43)
[2023-03-06] MEDS: DULOXETINE 30 MG CAP PO SCH (19:43)
[2023-03-06] MEDS: MELATONIN 3 MG TABLET PO PRN (19:44)
[2023-03-06] MEDS: TRAMADOL HCL 50 MG TAB PO PRN (21:06)
[2023-03-07] MEDS: HYDROCODONE/APAP 5/325 MG TAB PO PRN ×4 (00:21→19:26)
[2023-03-07] MEDS: TRAMADOL HCL 50 MG TAB PO PRN ×3 (05:25→16:43)
[2023-03-07] MEDS: METOPROLOL TAR 25 MG TAB PO SCH ×2 (07:21→19:28)
[2023-03-07] MEDS: CRANBERRY FRUIT EXTRACT 200 MG CAP PO SCH ×2 (07:22→19:24)
[2023-03-07] MEDS: MEMANTINE HCL 10 MG TABLET PO SCH ×2 (07:22→19:24)
[2023-03-07] MEDS: FE SULF/FA/VIT B COMP & C TAB PO SCH (07:22)
[2023-03-07] MEDS: FERROUS SULFATE 325 MG TAB PO SCH (07:22)
[2023-03-07] MEDS: GABAPENTIN 100 MG CAP PO SCH (07:22)
[2023-03-07] MEDS: FAMOTIDINE 20 MG TAB PO SCH ×2 (07:22→19:24)
[2023-03-07] MEDS: APIXABAN 2.5 MG TABLET PO SCH ×2 (07:23→19:25)
[2023-03-07] MEDS: ENSURE ENLIVE 237 ML CAN PO SCH ×2 (07:23→19:26)
[2023-03-07] MEDS: AMINO ACIDS/PROTEIN HYDROLYS 30 ML LIQUID.PKT PO SCH ×2 (07:25→19:26)
[2023-03-07] MEDS: LIDOCAINE 4% PATCH TOP SCH (10:05)
[2023-03-07] MEDS: DULOXETINE 30 MG CAP PO SCH (19:24)
[2023-03-07] MEDS: GABAPENTIN 300 MG CAP PO SCH (19:25)
[2023-03-07] MEDS: MELATONIN 3 MG TABLET PO PRN (19:25)
[2023-03-07] MEDS: DONEPEZIL HCL 5 MG TAB PO SCH (19:25)
--- NOTE | 2023-03-07 20:46 | PN ---
Date of Progress Note: 03/07/2023 Time Of Service: 1 p.m. Subjective: Ms. Phillips is resting comfortably in bed. She denies any new complaints. Denies any sign ificant pain except for mild spasms in the right hip surgical site. She is sleeping well and again n o significant problems. Review of Systems: Mild myalgias and arthralgias at the surgical site. Otherwise, no fevers, chills. No significant na usea. No vomiting. No rash. No psychiatric complaints. No active gastrointestinal or genitourinar y complaints. Physical Examination: Vital Signs: Blood pressure 125/60, pulse 68, respiratory rate 16, temperature 98.2, oxygen saturati on 95% to 96% on room air. At max, pain level was up to 7, but down to 0 when not mobilizing. HEENT: Again, she is normocephalic and atraumatic. Sclerae anicteric. Oropharynx pink and moist. Neck: Supple. Chest: Clear. Heart: Regular. Extremities: Show no significant edema or cyanosis. Mild swelling in the right lower extremity from hip surgical site and she has good hemostasis there. Laboratory Studies: White blood cell count 3.7, hemoglobin 8, hematocrit 25.9, platelets 218. Sodiu m 136, potassium 3.6, chloride 104, carbon dioxide 28, BUN 14, creatinine 0.38, calcium 8.3, prealbum in 4.3. Urinalysis unremarkable and urine cultures grew less than 10,000 colony-forming units of mix ed chris. X-rays/imaging: No new x-rays or imaging. Medications: Tylenol 500 mg every 4 hours as needed, [place] 5/325 every 4 hours as needed, protein boyd pplementation 30 mL twice daily, Eliquis 2.5 mg twice daily, donepezil 10 mg at bedtime, duloxetine 3 0 mg daily, Pepcid 20 mg twice daily, ferrous sulfate 325 mg daily, gabapentin 300 mg twice daily, li docaine patch topically daily, melatonin 3 mg at bedtime, Namenda 10 mg twice daily, Lopressor 25 mg twice daily, Hemocyte-Plus 1 tablet daily, Ensure Enlive 237 mL twice daily, Zofran 4 mg every 6 hour s as needed, Senokot-S 2 at bedtime, Ultram 50 mg every 4 hours as needed. Current Functional Status: Today, she did multiple supine to sit transfers with moderate assistance. Maximum assistance required for stand and pivot transfers. Dfw-qd-yzept transfers done with minimu m assistance. Toilet transfers with maximum assistance. She mobilized a wheelchair 100 feet twice w ith standby assistance. With occupational therapy, she completed 4 sets of fig-xy-likps with a rolli ng walker with minimum to contact guard assistance and verbal cues. She did have some difficulty amb ulating in the parallel bars covering 8 feet while adhering to touchdown weightbearing status with th e right lower extremity. She began working with Speech Therapy with long-term goals set to improve s hort-term memory skills from maximum assistance to moderate assistance and improve executive function ing skills from moderate assistance to supervision level. Progress Towards Rehabilitation Goals: Ms. Phillips is making fair progress with goals. She is somewhat limited by her touchdown weightbearing status with right lower extremity, only ambulating 8 feet in parallel bars. She is making better progress with her occupational therapy activities such as ADLs a nd upper and lower body dressing and other functional activities. She is mobilizing a wheelchair muc h better. Assessment: Ms. Phillips is a 77-year-old patient in the rehabilitation unit with a right intertrochante dena hip fracture, status post surgical repair. She has comorbid atrial fibrillation, anemia, dementi a, urinary tract infection which is resolved, essential hypertension, hypothyroidism. Plan: 1.Physical, occupational and speech therapy 3.5 hours, 5 of 7 days. 2.Namenda and donepezil for Alzheimer disease. 3.Ferrous sulfate and Hemocyte-Plus for anemia. 4.Lopressor for hypertension. 5.Eliquis 2.5 mg twice daily for DVT prophylaxis. 6.[place] 5/325 and tramadol 50 mg every 4 hours, alternating as needed for pain. 7.Pepcid for GE reflux. 8.Gabapentin 100 mg twice daily to help decrease the need for narcotics. 9.Severe anemia and malnutrition addressed with protein supplementation and iron along with Hemocyte -Plus. 10.Senokot-S for constipation. 11.Zofran for nausea. Comorbids That Continue To Impact Her Rehabilitation Process: She has a touchdown weightbearing stat us with right lower extremity and some upper extremity weakness and incoordination, which is a limiti ng factor in how fast she can recover from the right hip fracture surgery. She also has multiple com orbidities, which require attention on a daily basis and has a potential for infection, pneumonia, an d deep vein thrombosis. She will have again continued deep vein thrombosis prophylaxis, will have in centive spirometry, and pain management including multiple modalities such as pain patch, neuro modul ators, judicious use of narcotics and non-narcotics. JUSTYNA/CATRACHITA Voice ID: [id number] Report ID: [id number]
[2023-03-08] MEDS: HYDROCODONE/APAP 5/325 MG TAB PO PRN ×3 (07:17→22:39)
[2023-03-08] MEDS: LIDOCAINE 4% PATCH TOP SCH (07:18)
[2023-03-08] MEDS: CRANBERRY FRUIT EXTRACT 200 MG CAP PO SCH ×2 (07:18→19:14)
[2023-03-08] MEDS: FE SULF/FA/VIT B COMP & C TAB PO SCH (07:18)
[2023-03-08] MEDS: FAMOTIDINE 20 MG TAB PO SCH ×2 (07:18→19:14)
[2023-03-08] MEDS: APIXABAN 2.5 MG TABLET PO SCH ×2 (07:19→19:14)
[2023-03-08] MEDS: ENSURE ENLIVE 237 ML CAN PO SCH ×2 (07:19→19:15)
[2023-03-08] MEDS: METOPROLOL TAR 25 MG TAB PO SCH ×2 (07:19→19:14)
[2023-03-08] MEDS: FERROUS SULFATE 325 MG TAB PO SCH (07:19)
[2023-03-08] MEDS: GABAPENTIN 300 MG CAP PO SCH ×2 (07:19→19:14)
[2023-03-08] MEDS: AMINO ACIDS/PROTEIN HYDROLYS 30 ML LIQUID.PKT PO SCH ×2 (07:24→19:15)
[2023-03-08] MEDS: MEMANTINE HCL 10 MG TABLET PO SCH ×2 (08:06→19:15)
[2023-03-08] MEDS: TRAMADOL HCL 50 MG TAB PO PRN ×2 (11:13→17:47)
[2023-03-08] MEDS: BACLOFEN 10 MG TAB PO SCH ×2 (13:38→19:14)
[2023-03-08] MEDS: MAGNESIUM OXIDE 400 MG TAB PO SCH ×2 (13:38→19:14)
[2023-03-08] MEDS ORDERED: LIDOCAINE 4% PATCH TOP ONE (14:00)
--- NOTE | 2023-03-08 16:11 | PN ---
Date of Progress Note: 03/08/2023 Time Of Service: 1:15 p.m. Subjective: Ms. Phillips is resting in bed. She does report some spasms and pain in the right hip surgi maikol site, but this did not stop her from completing her therapy today. She otherwise has no problems with sleeping, bowel movements, and otherwise respiratory issues and no other complaints. Review of Systems: As noted, mild myalgias and arthralgias and muscle spasms of the right hip surgical site. Otherwise, no fevers, chills, nausea, or vomiting. No rash. No psychiatric complaints. No gastrointestinal o r genitourinary complaints. Physical Examination: Vital Signs: Blood pressure 155/77, pulse of 77, respiratory rate 16, temperature 98.3, oxygen satur ation 92%. General: Ms. Phillips is resting in bed. HEENT: She is normocephalic, atraumatic. Sclerae anicteric. Oropharynx is moist. Neck: Supple. Chest: Clear. Heart: Regular. Extremities: Mild edema in the right lower extremity. Otherwise, no other abnormalities identified. Laboratory Studies: No new laboratory studies. X-rays/imaging: No new x-rays and imaging. Medications: She now has baclofen 10 mg twice daily and magnesium oxide 400 mg twice daily added to her medical regimen. Otherwise, all other medications are unchanged and have been reviewed. She dawkins s have DVT prophylaxis with Eliquis 2.5 mg twice daily, ferrous sulfate for anemia, Namenda for demen tia, Ultram for pain in addition to [place], and Senokot S for constipation. Current Functional Status: Today, she was able to ambulate 4 to 7 feet 8 times in the parallel bars with minimum to moderate assistance. Emphasis was placed on touchdown weightbearing status in the [facility] lower extremity and upright posture. She mobilized the wheelchair to 100 feet twice with standby assistance. She performed bilateral seated lower extremity exercises 20 repetitions, toe raises, he el raises, hip flexure and abduction and adduction along with pillow squeeze exercises. With her occ upational therapy, she was inconsistent with the touchdown weightbearing and requiring verbal cues he re to the weightbearing status. She did have education on donning and doffing pants and socks. She demonstrated impaired standing balance, requiring assistance to pull up pants and to pull down for lo wer body dressing and toileting hygiene. With speech, she was oriented to temporal concepts and spat ial concepts with 50% accuracy using external communication board. She recalled 2 of 3 unrelated pic tures with 3 recall and 3 of 3 with cued recall on first attempt. She demonstrates sustained attenti on for 3 minutes to divergent naming tasks with 90% accuracy. Progress Towards Rehabilitation Goals: Ms. Phillips is making fair overall progress towards her goals of improving her cognitive functioning, performing her activities of daily living with minimum assistan ce to modified independence and ambulating household distances with minimum assistance to modified in dependence. Assessment And Plan: Ms. Phillips is a 77-year-old patient in the rehabilitation unit with a right hip f racture, status post surgical repair. She has atrial fibrillation, anemia, dementia, urinary tract i nfection, essential hypertension, hypothyroidism. Plan: 1.Continue with physical and occupational along with speech therapy for 3.5 hours, 5 of 7 days. 2.Continue with Namenda and donepezil for Alzheimer disease. 3.Continue ferrous sulfate and Hemocyte-Plus for anemia. 4.Losartan for hypertension. 5.For her muscle spasms at the surgical site, she has baclofen 10 mg twice daily and magnesium 400 m g twice daily. 6.Tramadol and [place] for pain. Again, Eliquis 2.5 mg twice daily for DVT prophylaxis. 7.Gabapentin may be increased 300 mg twice daily as needed. She has severe malnutrition with a prea lbumin of 4.3 and albumin 2.2. She is on Ensure Enlive 237 mL twice daily. She has Cymbalta 20 mg a t bedtime to help with depressed mood. Comorbids That Continue To Impact The Rehabilitation Process: She does have cognitive deficits, whic h require her to receive multiple cues to maintain her touchdown weightbearing status. She also has severe malnutrition and has protein supplementation with the ProSource 30 mL twice daily along with t he Ensure Enlive to improve rate of healing. She has moderate pain and spasms and that has been addr essed with muscle relaxants and magnesium. LB/MODL Voice ID: [id number] Report ID: [id number]
[2023-03-08] MEDS: MELATONIN 3 MG TABLET PO PRN (19:14)
[2023-03-08] MEDS: DONEPEZIL HCL 5 MG TAB PO SCH (19:14)
[2023-03-08] MEDS: DULOXETINE 30 MG CAP PO SCH (19:14)
[2023-03-09] MEDS: HYDROCODONE/APAP 5/325 MG TAB PO PRN ×3 (07:39→16:52)
[2023-03-09] MEDS: AMINO ACIDS/PROTEIN HYDROLYS 30 ML LIQUID.PKT PO SCH (08:00)
[2023-03-09] MEDS: LIDOCAINE 4% PATCH TOP SCH (08:39)
[2023-03-09] MEDS: CRANBERRY FRUIT EXTRACT 200 MG CAP PO SCH ×2 (08:39→20:37)
[2023-03-09] MEDS: GABAPENTIN 300 MG CAP PO SCH ×2 (08:39→20:36)
[2023-03-09] MEDS: FE SULF/FA/VIT B COMP & C TAB PO SCH (08:40)
[2023-03-09] MEDS: METOPROLOL TAR 25 MG TAB PO SCH ×2 (08:40→20:37)
[2023-03-09] MEDS: FAMOTIDINE 20 MG TAB PO SCH ×2 (08:40→20:37)
[2023-03-09] MEDS: FERROUS SULFATE 325 MG TAB PO SCH (08:40)
[2023-03-09] MEDS: APIXABAN 2.5 MG TABLET PO SCH ×2 (08:40→20:38)
[2023-03-09] MEDS: MAGNESIUM OXIDE 400 MG TAB PO SCH ×2 (08:41→20:36)
[2023-03-09] MEDS: MEMANTINE HCL 10 MG TABLET PO SCH ×2 (08:41→20:36)
[2023-03-09] MEDS: BACLOFEN 10 MG TAB PO SCH ×2 (08:41→20:37)
[2023-03-09] MEDS: ENSURE ENLIVE 237 ML CAN PO SCH ×2 (09:32→20:00)
[2023-03-09] MEDS: TRAMADOL HCL 50 MG TAB PO PRN ×2 (14:21→20:38)
[2023-03-09] MEDS: DULOXETINE 30 MG CAP PO SCH (20:36)
[2023-03-09] MEDS: DONEPEZIL HCL 5 MG TAB PO SCH (20:37)
[2023-03-09] MEDS: MELATONIN 3 MG TABLET PO PRN (20:38)
--- NOTE | 2023-03-09 21:29 | PN ---
Date of Progress Note: 03/09/2023 [facility] Progress Note Visit Time Of Service: 1:15 p.m. Subjective: Ms. Phillips is doing very well. She has no new complaints. She has slight tenderness at t he right hip surgical site. Otherwise, sleeping well. Good bowel movements. Doing well in terms of eating. Review of Systems: Mild myalgias at the right hip surgical site, but no severe muscle spasms. No psychiatric complaints . No gastrointestinal complaints or genitourinary complaints. Physical Examination: Vital Signs: Blood pressure 136/58, pulse 74, respiratory rate 16, temperature 97.7, and oxygen satu ration 98%. General: Ms. Phillips is sitting in a chair beside bed waiting for that next therapy session. HEENT: She is normocephalic, atraumatic. Sclerae anicteric. Oropharynx pink and moist. Neck: Supple. Extremities: No significant edema except trace in the right lower extremity from her surgical site. Laboratory Studies: No new laboratory studies X-ray/imaging: No new x-ray or imaging. Medications: Have been reviewed and remain unchanged. Current Functional Status: Currently, she was able to ambulate 5 to 10 feet 8 times with minimum ass istance with a rolling walker. Emphasis was placed on her touchdown weightbearing status of the righ t lower extremity. She did rigghr-qp-nva transfers with moderate assistance and ifr-ge-roqyk with co ntact guard assistance. With speech therapy, her sustained attention to structured tasks was used wi th standby assistance and she scored 90% on the task. With occupational therapy, xpc-ek-zwvsl for to ilet transfers with a rolling walker with contact guard assistance. She did have an ice pack on her right hip surgical site for 15 minutes. Progress Towards Rehabilitation Goals: Ms. Phillips is making slow progress overall with her goals of be coming modified independent with upper and lower body dressing, transferring, toileting, showering, a nd ambulating at least 50 feet with modified independence. She is also working on cognitive function ing and processing along with safety awareness and making fair progress there as well. Assessment: Ms. Phillips is a 77-year-old patient in the rehabilitation unit with right hip fracture sta tus post surgical repair. She has atrial fibrillation, anemia, dementia, urinary tract infection, es sential hypertension, and hypothyroidism. Plan: 1.Continue with physical, occupational, and speech therapy for 3.5 hours, 5 of 7 days. 2.Namenda and donepezil for Alzheimer disease. 3.Hemocyte and ferrous sulfate for anemia. 4.Losartan for hypertension. 5.Baclofen 10 mg twice daily and magnesium 400 mg twice daily for muscle spasms at the surgical site . 6.Tramadol and [place] for pain. 7.Gabapentin 300 mg twice daily for neuropathic pain. 8.Ensure Enlive and protein supplementation for severe malnutrition. 9.Cymbalta for depression. Comorbids That Continue To Impact Rehabilitation: She does have touchdown weightbearing status, ankush ng it somewhat difficult that she has to use her arms as she is ambulating and she does require more time for her arms to become strong. Her pain is managed by muscle relaxants, magnesium and strong pa in medications as needed. LB/MODL Voice ID: [id number] Report ID: [id number]
[2023-03-10] MEDS: HYDROCODONE/APAP 5/325 MG TAB PO PRN ×3 (02:14→22:20)
[2023-03-10 05:12] LABS: Absolute Lymphocytes (CBC) 0.7 K/uL (0.7-4.9); Hematocrit 24.8 % (36.0-45.0); Lymphocytes % 20.1 % (15.3-44.8); MCV 73.1 fL (80-100); MPV 7.9 fL (7.6-11.3)
[2023-03-10 05:36] LABS: Albumin 2.3 g/dL (3.4-5.0); Magnesium 2.2 mg/dL (1.6-2.4); Potassium 3.8 mEq/L (3.5-5.1)
[2023-03-10] MEDS: TRAMADOL HCL 50 MG TAB PO PRN ×3 (06:57→23:29)
[2023-03-10] MEDS: MEMANTINE HCL 10 MG TABLET PO SCH ×2 (07:22→20:00)
[2023-03-10] MEDS: MAGNESIUM OXIDE 400 MG TAB PO SCH ×2 (07:22→20:14)
[2023-03-10] MEDS: GABAPENTIN 300 MG CAP PO SCH ×2 (07:22→20:15)
[2023-03-10] MEDS: METOPROLOL TAR 25 MG TAB PO SCH ×2 (07:22→20:13)
[2023-03-10] MEDS: APIXABAN 2.5 MG TABLET PO SCH ×2 (07:22→20:13)
[2023-03-10] MEDS: CRANBERRY FRUIT EXTRACT 200 MG CAP PO SCH ×2 (07:22→20:12)
[2023-03-10] MEDS: FE SULF/FA/VIT B COMP & C TAB PO SCH (07:23)
[2023-03-10] MEDS: BACLOFEN 10 MG TAB PO SCH ×2 (07:23→20:13)
[2023-03-10] MEDS: FAMOTIDINE 20 MG TAB PO SCH ×2 (07:23→20:15)
[2023-03-10] MEDS: FERROUS SULFATE 325 MG TAB PO SCH (07:23)
[2023-03-10] MEDS: ENSURE ENLIVE 237 ML CAN PO SCH ×2 (08:00→20:13)
[2023-03-10] MEDS: LIDOCAINE 4% PATCH TOP SCH (10:15)
[2023-03-10] MEDS: DONEPEZIL HCL 5 MG TAB PO SCH (20:15)
[2023-03-10] MEDS: DULOXETINE 30 MG CAP PO SCH (20:15)
[2023-03-10] MEDS: DOCUSATE NA/SENNA CONC 1 TAB PO PRN (20:16)
[2023-03-10] MEDS: MELATONIN 3 MG TABLET PO PRN (20:16)
--- NOTE | 2023-03-10 23:12 | PN ---
Date of Progress Note: 03/10/2023 [facility] Progress Note Visit Time Of Service: 1:20 p.m. Subjective: Ms. Phillips is resting well in bed. She is in between therapy sessions and has no signific ant complaints. There is soreness to the right hip surgical site. Review of Systems: No fevers or chills. No nausea or vomiting. No significant myalgias, arthralgias, rash, headache, o r weight change. No other complaints. Physical Examination: Vital Signs: Blood pressure 126/49, pulse 72, respiratory rate 16, temperature is 97.6, and oxygen s aturation 98%. General: Ms. Phillips is sitting in a chair waiting for her next therapy session. She has no focal defi cits. Extremities: She has mild swelling in the right lower extremity where she had her right hip surgery, but there was good hemostasis at the surgical site. Laboratory Studies: White blood cell count 3.4, hemoglobin 7.9, and platelets 264. Chemistry: Sodi um 139, potassium 3.8, chloride 107, carbon dioxide 31, BUN 14, creatinine 0.51. Prealbumin improved to 10 from 4.3 over the last 5 days. X-ray/imaging: No new x-ray or imaging. Medications: Her medications have been reviewed and remain unchanged. Current Functional Status: Today she did kasdab-gq-wmy transfers with minimum assistance. She also ambulated 8 to 10 feet 4 times with minimum assistance, emphasis was placed on touchdown weightbearin g with her right lower extremity where she has a right hip fracture. With speech therapy, she demons trated use of remote temporal orientation skills within the room communicating board with 100% accura cy. Convergent thinking skills noted for abstract concepts with 100% accuracy. Progress Towards Rehabilitation Goals: Ms. Phillips is making slow progress so far. She does have weigh tbearing status restriction and it is making it difficult for her to ambulate long distances as she h as weaker upper extremities. She also has some cognitive challenges, but that is actually improving. She is now on day 6 of her hospital stay and will likely require significant more time to improve a nd thrive. Assessment: Ms. Phillips is a 77-year-old patient in the rehabilitation unit with right hip fracture sta tus post surgical repair. She has atrial fibrillation, anemia, dementia, urinary tract infection, es sential hypertension, and hypothyroidism. Plan: 1.Continue with physical, occupational, and speech therapy for 3.5 hours, 5 of 7 days. 2.Continue with all comorbid condition medications including Namenda and donepezil for Alzheimer dis ease, Hemocyte Plus and ferrous sulfate for anemia, losartan for hypertension, baclofen and magnesium for muscle spasms, tramadol and [place] for pain along with gabapentin, Ensure Enlive for severe malnu trition and anemia, and Cymbalta for depression. 3.Nursing will address her surgical site by dressing changes as appropriate. Comorbids That Continue To Impact Rehabilitation Process: Her touchdown weightbearing status and wea k upper extremities make for slow improvement, but she is motivated and was working hard. She also h as cognitive challenges with Alzheimer disease, but is still doing well with speech therapy. She libia l require likely an extended period of time for recovery. JUSTYNA/MODL Voice ID: [id number] Report ID: [id number]
[2023-03-11] MEDS: BACLOFEN 10 MG TAB PO SCH ×2 (07:42→20:13)
[2023-03-11] MEDS: TRAMADOL HCL 50 MG TAB PO PRN ×2 (07:42→16:07)
[2023-03-11] MEDS: APIXABAN 2.5 MG TABLET PO SCH ×2 (07:42→20:13)
[2023-03-11] MEDS: ENSURE ENLIVE 237 ML CAN PO SCH (08:00)
[2023-03-11] MEDS: FE SULF/FA/VIT B COMP & C TAB PO SCH (08:40)
[2023-03-11] MEDS: LIDOCAINE 4% PATCH TOP SCH (08:40)
[2023-03-11] MEDS: GABAPENTIN 300 MG CAP PO SCH ×2 (08:40→20:14)
[2023-03-11] MEDS: FERROUS SULFATE 325 MG TAB PO SCH (08:40)
[2023-03-11] MEDS: FAMOTIDINE 20 MG TAB PO SCH ×2 (08:41→20:12)
[2023-03-11] MEDS: METOPROLOL TAR 25 MG TAB PO SCH ×2 (08:41→20:00)
[2023-03-11] MEDS: CRANBERRY FRUIT EXTRACT 200 MG CAP PO SCH ×2 (08:41→20:12)
[2023-03-11] MEDS: MEMANTINE HCL 10 MG TABLET PO SCH ×2 (08:41→20:14)
[2023-03-11] MEDS: MAGNESIUM OXIDE 400 MG TAB PO SCH ×2 (10:13→20:14)
[2023-03-11] MEDS: HYDROCODONE/APAP 5/325 MG TAB PO PRN ×2 (12:29→20:15)
--- NOTE | 2023-03-11 13:20 | P.RH.PN ---
Estimated Length of Stay: 14 Expected Discharge Date: 03/16/23 Discharge Disposition Plan: Home Family Support: Yes Alf Goal: Mobility, Transfers, Self Care Vital Signs: Last Vital Signs Temp 98.0 F 03/11/23 07:10 Pulse 72 03/11/23 08:41 Resp 18 03/11/23 12:29 BP 152/67 H 03/11/23 08:41 Pulse Ox 98 03/11/23 12:29 Laboratory: Laboratory Last Values WBC 3.40 thou/uL (4.3-10.9) L 03/10/23 04:24 RBC 3.40 M/uL (3.86-4.86) L 03/10/23 04:24 Hgb 7.9 g/dL (12.0-15.0) L 03/10/23 04:24 Hct 24.8 % (36.0-45.0) L 03/10/23 04:24 MCV 73.1 fL (80-100) L 03/10/23 04:24 MCH 23.2 pg (27.0-35.0) L 03/10/23 04:24 MCHC 31.7 g/dL (32.0-36.0) L 03/10/23 04:24 RDW 19.5 % (12.1-15.2) H 03/10/23 04:24 Plt Count 264 thou/uL (152-406) 03/10/23 04:24 MPV 7.9 fL (7.6-11.3) 03/10/23 04:24 Neutrophils % 56.2 % (41.7-73.7) 03/10/23 04:24 Lymphocytes % 20.1 % (15.3-44.8) 03/10/23 04:24 Monocytes % 18.1 % (3.3-12.3) H 03/10/23 04:24 Eosinophils % 4.9 % (0-4.4) H 03/10/23 04:24 Basophils % 0.7 % (0-1.3) 03/10/23 04:24 Absolute Neutrophils 1.9 K/uL (1.8-8.0) 03/10/23 04:24 Absolute Lymphocytes 0.7 K/uL (0.7-4.9) 03/10/23 04:24 Absolute Monocytes 0.6 K/uL (0.1-1.3) 03/10/23 04:24 Absolute Eosinophils 0.2 K/uL (0-0.5) 03/10/23 04:24 Absolute Basophils 0.0 K/uL (0-0.5) 03/10/23 04:24 Sodium 139 mEq/L (136-145) 03/10/23 04:24 Potassium 3.8 mEq/L (3.5-5.1) 03/10/23 04:24 Chloride 107 mEq/L (98-107) 03/10/23 04:24 Carbon Dioxide 31 mEq/L (21-32) 03/10/23 04:24 Anion Gap 4.8 mEq/L (5.0-15.0) L 03/10/23 04:24 BUN 14 mg/dL (7-18) 03/10/23 04:24 Creatinine 0.51 mg/dL (0.55-1.02) L 03/10/23 04:24 Est GFR (CKD-EPI) 97 ml/min (=/>90) 03/10/23 04:24 Glucose 102 mg/dL (74-106) 03/10/23 04:24 Calcium 7.9 mg/dL (8.5-10.1) L 03/10/23 04:24 Magnesium 2.2 mg/dL (1.6-2.4) 03/10/23 04:24 Albumin 2.3 g/dL (3.4-5.0) L 03/10/23 04:24 Prealbumin 10.0 mg/dL (20-40) L 03/10/23 04:24 Urine Color Brown (Yellow) 03/04/23 20:30 Urine Clarity Extremely turbid (Clear) H 03/04/23 20:30 Urine pH 5.5 (5.0-7.0) 03/04/23 20:30 Ur Specific [place] 1.016 (1.005-1.030) 03/04/23 20:30 Glucose (UA)(Auto) Negative (Negative) 03/04/23 20:30 Urine Ketones Negative (Negative) 03/04/23 20:30 Urine Blood 3+ (over) (Negative) H 03/04/23 20:30 Urine Nitrite Negative (Negative) 03/04/23 20:30 Urine Bilirubin Negative (Negative) 03/04/23 20:30 Urine Urobilinogen Normal (Normal) 03/04/23 20:30 Ur Leukocyte Esterase 250 Maxi/uL (Negative) H 03/04/23 20:30 Urine RBC >50 /HPF (None Seen) H 03/04/23 20:30 Urine WBC >50 /HPF (<5) H 03/04/23 20:30 Ur Squamous Epith Cells None seen /HPF (None Seen) 03/04/23 20:30 U Non-Squamous Epi Cells <5 /HPF (None Seen) 03/04/23 20:30 Amorphous Crystals 1+ /HPF (None Seen) H 03/04/23 20:30 Urine Bacteria None seen /HPF (<20) 03/04/23 20:30 Urine Mucus 1+ /HPF (None Seen) 03/04/23 20:30 Urine Yeast (Budding) Few /HPF (None Seen) H 03/04/23 20:30 Urine Culture Reflexed Reflexed 03/04/23 20:30 Urine Total Protein 1+ (Negative) H 03/04/23 20:30 Weight: 144 lb 6.4 oz Wound Present: No Closed Surgical Incision Present: Yes Negative Pressure Wound Therapy Present: No Physician Update: Labs reviewed and are stable with mild to moderate anemia and malnutriton. Her right hip pain is fairly well managed. On Eliquis for atrial fibrillation. Making fair overall progress. Scored 6 on BIMS with poor short term memory. Min assistance bed mobility. Moderate assistance for transfers. Walking 10' at a time. Difficulty keep in TDWB. Urinary loss of control especially at night. 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 Please see the Rehabilitation Signature page for all necessary signatures.
[2023-03-11] MEDS: AMINO ACIDS/PROTEIN HYDROLYS 30 ML LIQUID.PKT PO SCH (20:00)
[2023-03-11] MEDS: DULOXETINE 30 MG CAP PO SCH (20:14)
[2023-03-11] MEDS: DONEPEZIL HCL 5 MG TAB PO SCH (20:14)
[2023-03-11] MEDS: MELATONIN 3 MG TABLET PO PRN (20:15)
[2023-03-12] MEDS: TRAMADOL HCL 50 MG TAB PO PRN ×3 (02:31→14:34)
[2023-03-12 05:30] VITALS: BMI 22.6
[2023-03-12] MEDS: LIDOCAINE 4% PATCH TOP SCH (06:53)
[2023-03-12] MEDS: FAMOTIDINE 20 MG TAB PO SCH ×2 (07:05→19:58)
[2023-03-12] MEDS: BACLOFEN 10 MG TAB PO SCH ×2 (07:05→19:59)
[2023-03-12] MEDS: AMINO ACIDS/PROTEIN HYDROLYS 30 ML LIQUID.PKT PO SCH ×2 (08:00→20:00)
[2023-03-12] MEDS: MEMANTINE HCL 10 MG TABLET PO SCH ×2 (08:12→20:00)
[2023-03-12] MEDS: CRANBERRY FRUIT EXTRACT 200 MG CAP PO SCH ×2 (08:12→20:00)
[2023-03-12] MEDS: FERROUS SULFATE 325 MG TAB PO SCH (08:12)
[2023-03-12] MEDS: GABAPENTIN 300 MG CAP PO SCH ×2 (08:12→19:59)
[2023-03-12] MEDS: APIXABAN 2.5 MG TABLET PO SCH ×2 (08:12→19:59)
[2023-03-12] MEDS: METOPROLOL TAR 25 MG TAB PO SCH ×2 (08:12→19:59)
[2023-03-12] MEDS: FE SULF/FA/VIT B COMP & C TAB PO SCH (08:12)
[2023-03-12] MEDS: MAGNESIUM OXIDE 400 MG TAB PO SCH ×2 (08:14→19:58)
[2023-03-12] MEDS: HYDROCODONE/APAP 5/325 MG TAB PO PRN ×2 (11:04→19:59)
[2023-03-12] MEDS: MELATONIN 3 MG TABLET PO PRN (19:59)
[2023-03-12] MEDS: DONEPEZIL HCL 5 MG TAB PO SCH (19:59)
[2023-03-12] MEDS: DOCUSATE NA/SENNA CONC 1 TAB PO PRN (19:59)
[2023-03-12] MEDS: DULOXETINE 30 MG CAP PO SCH (20:01)
[2023-03-13] MEDS: TRAMADOL HCL 50 MG TAB PO PRN ×2 (02:06→20:10)
[2023-03-13] MEDS: LIDOCAINE 4% PATCH TOP SCH (07:32)
[2023-03-13] MEDS: FAMOTIDINE 20 MG TAB PO SCH ×2 (07:33→20:11)
[2023-03-13] MEDS: FERROUS SULFATE 325 MG TAB PO SCH (07:33)
[2023-03-13] MEDS: FE SULF/FA/VIT B COMP & C TAB PO SCH (07:33)
[2023-03-13] MEDS: APIXABAN 2.5 MG TABLET PO SCH ×2 (07:33→20:11)
[2023-03-13] MEDS: MAGNESIUM OXIDE 400 MG TAB PO SCH ×2 (07:33→20:11)
[2023-03-13] MEDS: BACLOFEN 10 MG TAB PO SCH ×2 (07:33→20:11)
[2023-03-13] MEDS: MEMANTINE HCL 10 MG TABLET PO SCH ×2 (07:34→20:11)
[2023-03-13] MEDS: CRANBERRY FRUIT EXTRACT 200 MG CAP PO SCH ×2 (07:34→20:11)
[2023-03-13] MEDS: METOPROLOL TAR 25 MG TAB PO SCH ×2 (07:34→20:10)
[2023-03-13] MEDS: HYDROCODONE/APAP 5/325 MG TAB PO PRN ×2 (07:34→15:34)
[2023-03-13] MEDS: GABAPENTIN 300 MG CAP PO SCH ×2 (07:34→20:11)
[2023-03-13] MEDS: AMINO ACIDS/PROTEIN HYDROLYS 30 ML LIQUID.PKT PO SCH ×2 (07:36→20:00)
[2023-03-13] MEDS: DULOXETINE 30 MG CAP PO SCH (20:10)
[2023-03-13] MEDS: DONEPEZIL HCL 5 MG TAB PO SCH (20:10)
[2023-03-13] MEDS: MELATONIN 3 MG TABLET PO PRN (20:11)
[2023-03-14 04:42] LABS: Potassium 4.1 mEq/L (3.5-5.1)
[2023-03-14 04:44] LABS: Absolute Lymphocytes (CBC) 1.1 K/uL (0.7-4.9); Hematocrit 27.8 % (36.0-45.0); Lymphocytes % 31.5 % (15.3-44.8); MCV 75.1 fL (80-100); MPV 7.7 fL (7.6-11.3); RBC Red Blood Cell Count 3.71 M/uL (3.86-4.86)
[2023-03-14 05:30] LABS: Blood Morphology Comment NOTED (NOT SEEN); White Blood Cell Scan OK (OK)
[2023-03-14 05:31] LABS: Anisocytosis 1+; Platelet Estimate ADEQ
[2023-03-14] MEDS: HYDROCODONE/APAP 5/325 MG TAB PO PRN (06:54)
[2023-03-14] MEDS: METOPROLOL TAR 25 MG TAB PO SCH ×2 (07:02→19:53)
[2023-03-14] MEDS: GABAPENTIN 300 MG CAP PO SCH ×3 (07:03→20:00)
[2023-03-14] MEDS: MEMANTINE HCL 10 MG TABLET PO SCH ×2 (07:03→19:53)
[2023-03-14] MEDS: FAMOTIDINE 20 MG TAB PO SCH ×2 (07:03→19:52)
[2023-03-14] MEDS: FE SULF/FA/VIT B COMP & C TAB PO SCH (07:03)
[2023-03-14] MEDS: CRANBERRY FRUIT EXTRACT 200 MG CAP PO SCH ×2 (07:03→19:51)
[2023-03-14] MEDS: MAGNESIUM OXIDE 400 MG TAB PO SCH ×2 (07:03→19:50)
[2023-03-14] MEDS: FERROUS SULFATE 325 MG TAB PO SCH (07:04)
[2023-03-14] MEDS: BACLOFEN 10 MG TAB PO SCH ×3 (07:04→20:00)
[2023-03-14] MEDS: AMINO ACIDS/PROTEIN HYDROLYS 30 ML LIQUID.PKT PO SCH ×2 (07:04→19:53)
[2023-03-14] MEDS: APIXABAN 2.5 MG TABLET PO SCH ×2 (07:04→19:53)
[2023-03-14] MEDS: LIDOCAINE 4% PATCH TOP SCH (11:12)
[2023-03-14] MEDS: TRAMADOL HCL 50 MG TAB PO PRN (13:10)
[2023-03-14] MEDS: DONEPEZIL HCL 5 MG TAB PO SCH (19:51)
[2023-03-14] MEDS: DULOXETINE 30 MG CAP PO SCH (19:52)
[2023-03-14] MEDS: MELATONIN 3 MG TABLET PO PRN (19:57)
--- NOTE | 2023-03-14 20:55 | PN ---
Date of Progress Note: 03/14/2023 Time Of Service: 12:30 a.m. Subjective: Ms. Phillips is doing well. She is happy with her progress and glad to be able to go home i n the morning. She feels her pain is well managed and muscle spasms. Her sleeping is well and she h as no new complaints. Review of Systems: No fevers, chills. No significant myalgias, arthralgias. No rash. No headache. No psychiatric iss ues. No gastrointestinal or genitourinary issues. Physical Examination: Vital Signs: Blood pressure 103/39, pulse of 74, respiratory rate 16, temperature 97.8, oxygen satur ation 97%. Pain level down to about 3. General: Ms. Phillips is rolling wheelchair independently to her room. HEENT: She is normocephalic, atraumatic. As noted previously, poor dentition. Otherwise, cranial n erves no deficits. Lungs: There is good air movement. Abdomen: Soft. Extremities: Trace edema in her right lower extremity where she had a right hip fracture. Otherwise , no significant findings on her examination. Laboratory Studies: White blood cell count 3.4, hemoglobin 8.9, platelets 224. Chemistry; sodium 13 6, potassium 4.1, chloride 105, carbon dioxide 30, creatinine 0.52, calcium 8.2. Her COVID test toda y is negative. X-ray/imaging: No new x-rays or imaging. Medications: Medications have been reviewed and remained unchanged. Current Functional Status: Today, Ms. Phillips ambulated 5 feet with a rolling walker with contact guard assistance. Emphasis placed on a touchdown weightbearing at the right lower extremity, which she avila s to maintain until she follows up with Orthopedic Surgery. She did perform wheelchair mobilization up to 150 feet independently with improved upper extremity strength, endurance, and she is functional ly independent from that standpoint. Her occupational therapy, wheelchair to toilet x2, transfers do ne with standby assistance and toilet hygiene done with standby assistance with use of grab bars to m aintain balance. Blood pressures were low during therapy sessions around 97/53 prior to showering; h owever, she was still able to continue with the activities without feeling faint or any loss of danielle ce. She is independent with upper body dressing, standby assistance for showering and lower body mary ssing, contact guard for footwear and with the use of an assistive device. In terms of her cognitive functioning and speech therapy, she demonstrated recall of temporal and spatial information with min imum verbal cues to use communication board with 100% accuracy. She demonstrated understanding of ca use and effect relationships with 90% accuracy. She did have SLUMS readministered, which improved fr om 19-22/30. She will be discharged to shelter to continue therapy in the morning. Progress Toward Rehabilitation Goals: Ms. Phillips is making excellent progress toward her ability to tr ansfer and mobilize in a wheelchair where she needs significant help with her ability to ambulate sin ce she has toe-touch weightbearing status with the right lower extremity following her hip fracture. She has to follow up with Orthopedic Surgery to be released from that. Otherwise, cognitively mirtha g great progress. Again wheelchair mobilization, upper body dressing great progress, lower body dres sing as well as donning and doffing her footwear. Assessment: Ms. Phillips is admitted to the rehabilitation unit with right hip fracture and status post surgical repair. She has comorbidities of atrial fibrillation, anemia, dementia, urinary tract infec tion which is treated, essential hypertension, hypothyroidism. Plan: 1.Continue with physical, occupational, and speech therapy for 3.5 hours, 5 of 7 days until her disc harge. 2.We will continue her comorbid medications, which do include Namenda and donepezil for Alzheimer di sease. 3.Continue Hemocyte-Plus and ferrous sulfate for anemia. 4.Continue losartan for hypertension. 5.Tramadol and [place] for pain along with gabapentin. 6.Ensure Enlive for poor nutrition and anemia along with the protein supplementation. This is helpf ul for anemia. 7.Cymbalta for depression. 8.Her right hip surgical wound has been addressed adequately and is doing well. Comorbids That Continue To Impact Rehabilitation Process: Due to her touchdown weightbearing status, she is not able to ambulate any long distances; however, she can mobilize with a wheelchair very wel l and is independent for that. She also has some cognitive functioning, which will make it important for her to have activities re-emphasized and she may need redirecting and verbal cues presented to h er to help her to avoid any actions that may be result in harm to her recent surgery and potential ri sk of falling. LB/MODL Voice ID: [id number] Report ID: [id number]
[2023-03-15] MEDS: TRAMADOL HCL 50 MG TAB PO PRN ×2 (01:35→07:33)
[2023-03-15 06:47] VITALS: BP 139/64; TEMP 97.7
[2023-03-15] MEDS: LIDOCAINE 4% PATCH TOP SCH (07:33)
[2023-03-15] MEDS: FE SULF/FA/VIT B COMP & C TAB PO SCH (07:34)
[2023-03-15] MEDS: MEMANTINE HCL 10 MG TABLET PO SCH (07:34)
[2023-03-15] MEDS: GABAPENTIN 300 MG CAP PO SCH ×2 (07:34→08:00)
[2023-03-15] MEDS: METOPROLOL TAR 25 MG TAB PO SCH (07:34)
[2023-03-15] MEDS: MAGNESIUM OXIDE 400 MG TAB PO SCH (07:34)
[2023-03-15] MEDS: FERROUS SULFATE 325 MG TAB PO SCH (07:34)
[2023-03-15] MEDS: CRANBERRY FRUIT EXTRACT 200 MG CAP PO SCH (07:35)
[2023-03-15] MEDS: APIXABAN 2.5 MG TABLET PO SCH (07:35)
[2023-03-15] MEDS: AMINO ACIDS/PROTEIN HYDROLYS 30 ML LIQUID.PKT PO SCH (07:35)
[2023-03-15] MEDS: BACLOFEN 10 MG TAB PO SCH (07:35)
[2023-03-15] MEDS: FAMOTIDINE 20 MG TAB PO SCH (07:35)
== END 2023-03-15 10:05 | DRG 559 ==
LOC: 5TH 12:15
PROVIDERS: ADMIT Psychiatry & Neurology Neurology with Special Qualifications in Child Neurology; ATTEND Psychiatry & Neurology Neurology with Special Qualifications in Child Neurology
DX: S72.141D Displaced intertrochanteric fracture of right femur, subsequent encounter for closed fracture with routine healing (principal); E43 Unspecified severe protein-calorie malnutrition; N30.90 Cystitis, unspecified without hematuria; D64.9 Anemia, unspecified; R53.81 Other malaise; E03.9 Hypothyroidism, unspecified; I10 Essential (primary) hypertension; I48.91 Unspecified atrial fibrillation; K59.00 Constipation, unspecified; G30.9 Alzheimer's disease, unspecified; F02.80 Dementia in other diseases classified elsewhere, unspecified severity, without behavioral disturbance, psychotic disturbance, mood disturbance, and anxiety; Z68.22 Body mass index [BMI] 22.0-22.9, adult; Z20.822 Contact with and (suspected) exposure to COVID-19
CPT/HCPCS: 36415; 80048; 81001; 82040; 83735; 84134; 85025; 87086; 87088; 87635; 92523; 97010; 97110; 97116; 97129; 97161; 97162; 97165; 97530; 97542; J2001

== ENCOUNTER 2024-04-15 21:10 | Inpatient (IN) | payer OTHER, BC ==
[2024-04-15 22:03] LABS: PT Prothrombin Time 16.1 SECONDS (9.4-12.5); Protime INR 1.45
[2024-04-15 22:07] LABS: Absolute Lymphocytes (CBC) 0.4 K/uL (0.7-4.9); Absolute Monocytes 0.7 K/uL (0.1-1.3); Absolute Neutrophil 3.3 K/uL (1.8-8.0); Basophils % 0.3 % (0-1.3); Eosinophils % 0.1 % (0-4.4); MCH 27.5 pg (27.0-35.0); MCHC 32.4 g/dL (32.0-36.0); MPV 8.5 fL (7.6-11.3); Monocytes % 15.7 % (3.3-12.3); Neutrophils % 74.9 % (41.7-73.7); Platelets 166 thou/uL (152-406); RBC Red Blood Cell Count 3.64 M/uL (3.86-4.86); Red Cell Distribution Width 16.6 % (12.1-15.2)
[2024-04-15 22:28] LABS: Albumin 2.4 g/dL (3.4-5.0); Albumin/Globulin Ratio 0.7 (1.1-1.8); Bilirubin Direct 0.3 mg/dL (0-0.2); Bilirubin Indirect, Calculated 0.5 mg/dL (0.2-0.8); Bilirubin Total 0.8 mg/dL (0.2-1.0); Globulin 3.4 g/dL (2.3-3.5); Magnesium 2.1 mg/dL (1.6-2.4); Protein, Total 5.8 g/dL (6.4-8.2); Troponin High Sensitivity 12.4 pg/mL (<58.9)
[2024-04-15] MEDS ORDERED: NA CHLORIDE 0.9% 1,000 ML ONE (22:44)
[2024-04-15] MEDS ORDERED: HYDROMORPHONE HCL 0.5 MG/0.5 ML INJ ONE (22:44)
[2024-04-15] MEDS ORDERED: ONDANSETRON 4 MG/2 ML VIAL ONE (22:44)
[2024-04-16] MEDS ORDERED: HYDROMORPHONE HCL 1 MG/ML INJ ONE (00:11)
[2024-04-16] MEDS ORDERED: METOCLOPRAMIDE 10 MG/2mL INJ ONE (00:11)
--- NOTE | 2024-04-16 00:36 | ER ---
Nurse's Notes [facility] Name: Jacquelyn Phillips Age: 78 yrs Sex: Female : 1945 Arrival Date: 04/15/2024 Time: 21:10 Bed 2 Private MD: Diagnosis: Acute right distal femur fracture, acute fall at home, acute UTI, Generalized weakness Presentation: 04/15 21:24 Chief complaint: EMS states: patient is experiencing AMS, was covered in urine. January al5 have had a fall, c/o R leg and hip pain. patient not on blood thinners. upon inspection noticeable shortening in the R leg. Coronavirus screen: At this time, the client does not indicate any symptoms associated with coronavirus-19. Ebola Screen: No symptoms or risks identified at this time. Initial Sepsis Screen: Does the patient meet any 2 criteria? Altered Mental Status. No. Patient's initial sepsis screen is negative. Does the patient have a suspected source of infection? No. Patient's initial sepsis screen is negative. Risk Assessment: Do you want to hurt yourself or someone else? Patient reports no desire to harm self or others. Onset of symptoms was April 15, 2024. 21:24 Method Of Arrival: EMS: [facility] al5 21:24 Acuity: SCOTT 2 al5 21:38 Care prior to arrival: Medication(s) given: saline fluids IV initiated. 20 GA, in the al5 right antecubital area. Triage Assessment: 21:35 General: Appears in no apparent distress. Behavior is calm, cooperative. Pain: al5 Complains of pain in right leg. EENT: No signs and/or symptoms were reported regarding the EENT system. Neuro: Level of Consciousness is awake, alert, obeys commands, Oriented to person, place. Cardiovascular: Patient's skin is warm and dry. Respiratory: Airway is patent Respiratory effort is even, unlabored, Respiratory pattern is regular, symmetrical. GI: No signs and/or symptoms were reported involving the gastrointestinal system. : No signs and/or symptoms were reported regarding the genitourinary system. Derm: Skin is intact, Skin is pink, warm \T\ dry. normal. Musculoskeletal: shortening of R leg, swelling to R leg and knee. Injury Description: fall at home. Historical: - Allergies: 21:32 BISPHOSPHONATES; al5 21:32 Codeine; al5 21:32 Morphine; al5 21:32 PENICILLINS; al5 - Home Meds: 21:32 tizanidine oral [Active]; Metoprolol Tartrate Oral [Active]; memantine oral [Active]; al5 Lorazepam Oral [Active]; levothyroxine oral [Active]; donepezil oral [Active]; Hydromorphone Oral [Active]; Famotidine Oral [Active]; - PMHx: 21:32 Alzheimer's disease; Atrial fibrillation; Chronic pain; Dementia; GERD; Hypothyroidism; al5 - Immunization history:: Adult Immunizations up to date. - Infectious Disease History:: Denies. - Social history:: Smoking status: Patient denies any tobacco usage or history of. - Family history:: not pertinent. Screenin:37 [facility] [place] ED Fall Risk Assessment (Adult) History of falling in the last 3 months, al5 including since admission Yes- single mechanical fall (1 pt) Confusion or Disorientation Yes (5 pts) Intoxicated or Sedated No (0 pts) Impaired Gait Yes (1 pt) Mobility Assist Device Used No (0 pt) Altered Elimination No (0 pt) Score/Fall Risk Level 3 or more points = High Risk Oriented to surroundings, Maintained a safe environment, Hourly rounding (assess needs \T\ fall precautionary measures) done, Apply high fall risk patient identification: yellow non skid footwear/ fall signage, Utilized family, sitter, or virtual ruffler as indicated. Abuse screen: Denies threats or abuse. Denies injuries from another. Nutritional screening: No deficits noted. Tuberculosis screening: No symptoms or risk factors identified. Assessment: 21:36 General: see triage note. al5 22:56 Reassessment: Patient appears in no apparent distress at this time. No changes from al5 previously documented assessment. Patient and/or family updated on plan of care and expected duration. Pain level reassessed. Patient is alert, oriented x 3, equal unlabored respirations, skin warm/dry/pink. 23:55 Reassessment: Patient appears in no apparent distress at this time. No changes from al5 previously documented assessment. Patient and/or family updated on plan of care and expected duration. Pain level reassessed. Patient is alert, oriented x 3, equal unlabored respirations, skin warm/dry/pink. 04/16 00:53 Reassessment: Patient appears in no apparent distress at this time. No changes from al5 previously documented assessment. Patient and/or family updated on plan of care and expected duration. Pain level reassessed. Patient is alert, oriented x 3, equal unlabored respirations, skin warm/dry/pink. 01:58 Reassessment: Patient appears in no apparent distress at this time. No changes from al5 previously documented assessment. Patient and/or family updated on plan of care and expected duration. Pain level reassessed. Patient is alert, oriented x 3, equal unlabored respirations, skin warm/dry/pink. 03:16 Reassessment: Patient appears in no apparent distress at this time. No changes from al5 previously documented assessment. Patient and/or family updated on plan of care and expected duration. Pain level reassessed. Patient is alert, oriented x 3, equal unlabored respirations, skin warm/dry/pink. 04:48 Reassessment: Patient appears in no apparent distress at this time. No changes from al5 previously documented assessment. Patient and/or family updated on plan of care and expected duration. Pain level reassessed. Patient is alert, oriented x 3, equal unlabored respirations, skin warm/dry/pink. 06:07 Reassessment: Patient appears in no apparent distress at this time. No changes from al5 previously documented assessment. Patient and/or family updated on plan of care and expected duration. Pain level reassessed. Patient is alert, oriented x 3, equal unlabored respirations, skin warm/dry/pink. Vital Signs: 04/15 21:24 BP 106 / 75; Pulse 79; Resp 18; Temp 97.1(TE); Pulse Ox 98% on R/A; Weight 63.5 kg; al5 Height 5 ft. 8 in. ; Pain 7/10; 21:30 BP 142 / 70; Pulse 73; Resp 16; Pulse Ox 98% on R/A; al5 22:00 BP 155 / 72; Pulse 76; Resp 16; Pulse Ox 96% on R/A; al5 22:30 BP 157 / 67; Pulse 74; Resp 16; Pulse Ox 97% on R/A; al5 23:00 BP 145 / 59; Pulse 84; Resp 16; Pulse Ox 96% on R/A; al5 23:30 BP 147 / 59; Pulse 79; Resp 17; Pulse Ox 97% on R/A; al5 04/16 00:00 BP 143 / 71; Pulse 73; Resp 16; Pulse Ox 97% on R/A; al5 01:00 BP 119 / 47; Pulse 73; Resp 18; Pulse Ox 97% on R/A; al5 01:30 BP 113 / 52; Pulse 70; Resp 18; Pulse Ox 98% on R/A; al5 02:00 BP 109 / 50; Pulse 70; Resp 16; Pulse Ox 98% on R/A; al5 02:30 BP 125 / 50; Pulse 72; Resp 16; Pulse Ox 98% on R/A; al5 03:00 BP 122 / 46; Pulse 69; Resp 18; Pulse Ox 97% on R/A; al5 03:30 BP 111 / 48; Pulse 68; Resp 16; Pulse Ox 96% on R/A; al5 04:00 BP 111 / 56; Pulse 68; Resp 16; Pulse Ox 97% on R/A; al5 04:30 BP 117 / 53; Pulse 73; Resp 16; Pulse Ox 97% on R/A; al5 05:00 BP 120 / 58; Pulse 71; Resp 16; Pulse Ox 96% on R/A; al5 05:30 BP 122 / 50; Pulse 68; Resp 16; Pulse Ox 98% on R/A; al5 04/15 21:24 Body Mass Index 21.29 (63.50 kg, 172.72 cm) al5 04/15 21:24 Pain Scale: Adult al5 Birdie Coma Score: 07:25 Eye Response: spontaneous(4). Motor Response: obeys commands(6). Verbal Response: sp4 oriented(5). Total: 15. ED Course: 04/15 21:22 Patient arrived in ED. al5 21:22 Marcellus Austin MD is Attending Physician. al5 21:22 Charley Valencia RN is Primary Nurse. al5 21:27 Triage completed. al5 21:36 Arm band placed on right wrist. Patient placed in the treatment room, on a stretcher. al5 21:37 Patient has correct armband on for positive identification. Placed in gown. Bed in low al5 position. Call light in reach. Side rails up X2. Adult w/ patient. Provided Education on: processes and procedures. 21:38 No provider procedures requiring assistance completed. Maintain EMS IV. Dressing al5 intact. Good blood return noted. Site clean \T\ dry. Gauge \T\ site: 20G RAC. 21:49 Basic Metabolic Panel Sent. al5 21:49 CBC with Diff Sent. al5 21:49 Magnesium Sent. al5 21:49 NT PRO-BNP Sent. al5 21:49 PT-INR Sent. al5 21:49 Troponin HS Sent. al5 21:50 LFT's Sent. al5 22:44 XRAY Chest (1 view) In Process Unspecified. EDMS 22:44 Femur Right In Process Unspecified. EDMS 22:57 CT Traumagram (Head C Spine CAP wo con) In Process Unspecified. EDMS 04/16 00:22 Arroyo cath inserted, using sterile technique, 16 Fr., by mn, balloon inflated, to al5 gravity drainage, clamped. urine specimen collected. Patient tolerated well. 00:35 Juan Carlos Rider MD is Hospitalizing Provider. sp4 00:44 Knee immobilizer applied on right knee. al5 16:29 Patient admitted, IV remains in place. ap3 Administered Medications: 04/15 22:55 Drug: HYDROmorphone IVP 0.5 mg IVP once Route: IVP; Site: right antecubital; al5 04/16 00:43 Follow up: Response: No adverse reaction al5 04/15 22:55 Drug: Ondansetron IVP 4 mg IVP once; over 2 minutes Route: IVP; Site: right antecubital;al5 04/16 00:43 Follow up: Response: No adverse reaction al5 04/15 22:55 Drug: NS 0.9% IV 1000 ml IV at 125 ml/hr continuous Route: IV; Rate: 125 ml/hr; Site: al5 right antecubital; 04/16 00:43 Drug: HYDROmorphone IVP 1 mg IVP once Route: IVP; Site: right antecubital; al5 01:47 Follow up: Response: No adverse reaction al5 00:43 Drug: metoCLOPramide IVP 10 mg IVP once; over 1 to 2 minutes Route: IVP; Site: right al5 antecubital; 01:47 Follow up: Response: No adverse reaction al5 02:26 Drug: Rocephin - Rocephin (cefTRIAXone) IVPB 1 grams IVPB once over 30 mins; (mix in 50 al5 mL NS) Route: IVPB; Infused Over: 30 mins; Site: right antecubital; 03:24 Follow up: Response: No adverse reaction; IV Status: Completed infusion al5 Medication: 04/15 21:38 VIS not applicable for this client. al5 Outcome: 04/16 00:36 Decision to Hospitalize by Provider. sp4 16:28 Admitted to Med/surg ap3 16:28 Condition: good 16:28 Discharge instructions given to family, Instructed on the need for admit, 16:29 Patient left the ED. ap3 Signatures: Dispatcher [employer] EDCharley Arango, KAT RN ap3 Marcellus Austin MD MD sp4 Charley Valencia RN RN al5 Corrections: (The following items were deleted from the chart) 04/15 22:49 21:50 CREATINE PHOSPHOKINASE+C.LAB.BRZ drawn and sent. al5 EDMS
--- NOTE | 2024-04-16 00:36 | EDPHYS ---
Physician Documentation [facility] Name: Jacquelyn Phillips Age: 78 yrs Sex: Female : 1945 Arrival Date: 04/15/2024 Time: 21:10 Bed 2 Private MD: ED Physician Marcellus Austin HPI: 04/15 21:29 This 78 yrs old Female presents to ER via EMS with complaints of Altered sp4 Mental Status, Fall Injury, Leg Pain, Hip Injury. 04/16 07:25 78-year-old female with dementia presents after acute fall at home with a right thigh sp4 deformity just above the right knee. Moderate to severe right thigh pain. . Historical: - Allergies: 04/15 21:32 BISPHOSPHONATES; al5 21:32 Codeine; al5 21:32 Morphine; al5 21:32 PENICILLINS; al5 - Home Meds: 21:32 tizanidine oral [Active]; Metoprolol Tartrate Oral [Active]; memantine oral [Active]; al5 Lorazepam Oral [Active]; levothyroxine oral [Active]; donepezil oral [Active]; Hydromorphone Oral [Active]; Famotidine Oral [Active]; - PMHx: 21:32 Alzheimer's disease; Atrial fibrillation; Chronic pain; Dementia; GERD; Hypothyroidism; al5 - Immunization history:: Adult Immunizations up to date. - Infectious Disease History:: Denies. - Social history:: Smoking status: Patient denies any tobacco usage or history of. - Family history:: not pertinent. ROS: 04/16 07:25 Constitutional: Negative for fever, chills, and weight loss, Positive right thigh pain sp4 and deformity All other systems are negative, Exam: 07:25 Constitutional: This is a well developed, well nourished patient who is awake, alert, sp4 and in no acute distress. 07:25 Head/Face: Normocephalic, atraumatic. Eyes: Pupils equal round and reactive to light, extra-ocular motions intact. Lids and lashes normal. Conjunctiva and sclera are not injected. Cornea within normal limits. Periorbital areas with no swelling, redness, or edema. ENT: Nares patent. No nasal discharge, no septal abnormalities noted. Tympanic membranes are normal and external auditory canals are clear. Oropharynx with no redness, swelling, or masses, exudates, or evidence of obstruction, uvula midline. Mucous membranes moist. Neck: Trachea midline, no thyromegaly or masses palpated, and no cervical lymphadenopathy. Supple, full range of motion without nuchal rigidity, or vertebral point tenderness. Chest/axilla: Normal chest wall appearance and motion. Nontender with no deformity. No lesions are appreciated. Cardiovascular: Regular rate and rhythm with a normal S1 and S2. No gallops, murmurs, or rubs. Normal PMI, no JVD. No pulse deficits. Respiratory: Lungs have equal breath sounds bilaterally, clear to auscultation and percussion. No rales, rhonchi or wheezes noted. No increased work of breathing, no retractions or nasal flaring. Abdomen/GI: Soft, with normal bowel sounds. No distension or tympany. No guarding or rebound. No evidence of tenderness throughout. Back: No spinal tenderness. No costovertebral tenderness. Skin: Warm, dry with normal turgor. Normal color with no rashes, no lesions, and no evidence of cellulitis. MS/ Extremity: Pulses equal, no cyanosis. Neurovascular intact. Positive for right distal thigh deformity indicative for distal femoral fracture. Right knee swelling, moderate to severe pain Neuro: Awake and alert, GCS 15, oriented to person, place, Cranial nerves II-XII grossly intact. Motor strength 5/5 in all extremities. Sensory grossly intact. Vital Signs: 04/15 21:24 BP 106 / 75; Pulse 79; Resp 18; Temp 97.1(TE); Pulse Ox 98% on R/A; Weight 63.5 kg; al5 Height 5 ft. 8 in. ; Pain 7/10; 21:30 BP 142 / 70; Pulse 73; Resp 16; Pulse Ox 98% on R/A; al5 22:00 BP 155 / 72; Pulse 76; Resp 16; Pulse Ox 96% on R/A; al5 22:30 BP 157 / 67; Pulse 74; Resp 16; Pulse Ox 97% on R/A; al5 23:00 BP 145 / 59; Pulse 84; Resp 16; Pulse Ox 96% on R/A; al5 23:30 BP 147 / 59; Pulse 79; Resp 17; Pulse Ox 97% on R/A; al5 04/16 00:00 BP 143 / 71; Pulse 73; Resp 16; Pulse Ox 97% on R/A; al5 01:00 BP 119 / 47; Pulse 73; Resp 18; Pulse Ox 97% on R/A; al5 01:30 BP 113 / 52; Pulse 70; Resp 18; Pulse Ox 98% on R/A; al5 02:00 BP 109 / 50; Pulse 70; Resp 16; Pulse Ox 98% on R/A; al5 02:30 BP 125 / 50; Pulse 72; Resp 16; Pulse Ox 98% on R/A; al5 03:00 BP 122 / 46; Pulse 69; Resp 18; Pulse Ox 97% on R/A; al5 03:30 BP 111 / 48; Pulse 68; Resp 16; Pulse Ox 96% on R/A; al5 04:00 BP 111 / 56; Pulse 68; Resp 16; Pulse Ox 97% on R/A; al5 04:30 BP 117 / 53; Pulse 73; Resp 16; Pulse Ox 97% on R/A; al5 05:00 BP 120 / 58; Pulse 71; Resp 16; Pulse Ox 96% on R/A; al5 05:30 BP 122 / 50; Pulse 68; Resp 16; Pulse Ox 98% on R/A; al5 04/15 21:24 Body Mass Index 21.29 (63.50 kg, 172.72 cm) al5 04/15 21:24 Pain Scale: Adult al5 Uehling Coma Score: 07:25 Eye Response: spontaneous(4). Motor Response: obeys commands(6). Verbal Response: sp4 oriented(5). Total: 15. MDM: 04/15 21:26 Patient medically screened. sp4 04/16 00:28 ED course: EXAM: XR Right Femur, 2 Views CLINICAL HISTORY: The patient is 78 years old sp4 and is Female; FALL INJURY TECHNIQUE: Frontal and lateral views of the right femur. COMPARISON: No relevant prior studies available. FINDINGS: BONES/JOINTS: Postsurgical change of the proximal right femur is present. The hardware is engaged without surrounding lucency. The bones are osteopenic. Comminuted impacted distal femoral metaphyseal fracture is present. Slight angulation at the fracture site is noted. No dislocation. SOFT TISSUES: Unremarkable. IMPRESSION: Distal femoral fracture as described.. ED course: IMPRESSION: CT Head and Cervical Spine Without Intravenous Contrast: 1. No acute intracranial or extra-axial abnormality. 2. No acute cervical spine injury. 3. Other findings as above. CT Chest Abdomen and Pelvis without Intravenous Contrast: 1. No acute intrathoracic injury. 2. Allowing for unenhanced technique, no evidence for hollow or solid organ injury. 3. Remote right femoral intertrochanteric gamma nail fixation with incomplete union. There is deep soft tissue edema around the proximal right femur with asymmetric enlargement of the iliopsoas and vastus muscles which may reflect underlying intramuscular edema/hematomas. The possibility of a superimposed acute fracture or reinjury cannot be entirely excluded. 4. Other findings as above. Electronically signed by: Fortino Abebe MD 04/16/2024 12:23 AM. 00:38 ED course: EXAM: XR Chest, 1 View CLINICAL HISTORY: The patient is 78 years old and is sp4 Female; CHEST PAIN TECHNIQUE: Frontal view of the chest. COMPARISON: No relevant prior studies available. FINDINGS: LUNGS: Unremarkable. No consolidation. PLEURAL SPACE: Unremarkable. No pneumothorax. HEART: Unremarkable. No cardiomegaly. MEDIASTINUM: Unremarkable. Normal mediastinal contour. BONES/JOINTS: Multilevel degenerative change of the spine is present. No acute fracture. VASCULATURE: Atherosclerosis of the aorta is present. UPPER ABDOMEN: Surgical clips are present within the upper abdomen. IMPRESSION: No acute cardiopulmonary process. . 07:25 Differential Diagnosis: electrolyte abnormality, hypoglycemia, pneumonia, seizure. Data sp4 reviewed: vital signs, nurses notes, EMS record, old medical records, lab test result(s), EKG, radiologic studies, CT scan, plain films. Consideration of Admission/Observation Patient was admitted/placed on observation. Escalation of care including admission/observation considered. Management of patient was discussed with the following: Hospitalist: Tereso PIMENTEL . Senior Sql Dba: Yash PIMENTEL - Orthopedics . ED course: Stable for admission for orthopedic evaluation. 04/15 21:29 Order name: Basic Metabolic Panel; Complete Time: 00:24 sp4 04/15 21: Order name: CBC with Diff; Complete Time: 00:24 sp4 04/15 21: Order name: LFT's; Complete Time: 00:24 sp4 04/15 21: Order name: Magnesium; Complete Time: 00:24 sp4 04/15 21: Order name: NT PRO-BNP; Complete Time: 00:24 [facility] 04/15 21:29 Order name: PT-INR; Complete Time: 00:24 [facility] 04/15 21:29 Order name: Troponin HS; Complete Time: 00:24 [facility] 04/15 21:40 Order name: Urinalysis W/Microscopic; Complete Time: 02:15 [facility] 04/15 22:49 Order name: Creatine Phosphokinase; Complete Time: 00:24 [facility] 04/16 01:23 Order name: Urinalysis w/ reflexes [facility] 04/16 01:23 Order name: CBC with Automated Diff [facility] 04/16 01:23 Order name: CBC with Automated Diff [facility] 04/16 01:23 Order name: Comprehensive Metabolic Panel [facility] 04/16 01:23 Order name: Comprehensive Metabolic Panel [facility] 04/15 21:29 Order name: XRAY Chest (1 view) [facility] 04/15 21:40 Order name: CT Traumagram (Head C Spine CAP wo con) [facility] 04/15 22:17 Order name: Femur Right [facility] 04/16 01:23 Order name: CONS Physician Consult [facility] 04/15 21:29 Order name: Cardiac monitoring; Complete Time: 21:50 [facility] 04/15 21:29 Order name: EKG - Nurse/Tech; Complete Time: 22:55 [facility] 04/15 21:29 Order name: IV Saline Lock; Complete Time: 21:39 [facility] 04/15 21:29 Order name: Labs collected and sent; Complete Time: 21:49 [facility] 04/15 21:29 Order name: O2 Per Protocol; Complete Time: 21:39 [facility] 04/15 21:29 Order name: O2 Sat Monitoring; Complete Time: 21:39 [facility] 04/15 21:40 Order name: Arroyo; Complete Time: 00:43 4 04/16 00:37 Order name: Knee Immobilizer: Apply Right long knee immobilizer; Complete Time: 00:43 sp4 Administered Medications: 04/15 22:55 Drug: HYDROmorphone IVP 0.5 mg IVP once Route: IVP; Site: right antecubital; al04/16 00:43 Follow up: Response: No adverse reaction ky5 04/15 22:55 Drug: Ondansetron IVP 4 mg IVP once; over 2 minutes Route: IVP; Site: right antecubital;al 04/16 00:43 Follow up: Response: No adverse reaction al5 04/15 22:55 Drug: NS 0.9% IV 1000 ml IV at 125 ml/hr continuous Route: IV; Rate: 125 ml/hr; Site: al5 right antecubital; 04/16 00:43 Drug: HYDROmorphone IVP 1 mg IVP once Route: IVP; Site: right antecubital; al5 01:47 Follow up: Response: No adverse reaction al5 00:43 Drug: metoCLOPramide IVP 10 mg IVP once; over 1 to 2 minutes Route: IVP; Site: right al5 antecubital; 01:47 Follow up: Response: No adverse reaction al5 02:26 Drug: Rocephin - Rocephin (cefTRIAXone) IVPB 1 grams IVPB once over 30 mins; (mix in 50 al5 mL NS) Route: IVPB; Infused Over: 30 mins; Site: right antecubital; 03:24 Follow up: Response: No adverse reaction; IV Status: Completed infusion al5 Disposition Summary: 04/16/24 00:36 Hospitalization Ordered Notes: Hospitalization Status: Inpatient Admission sp4 Provider: Juan Carlos Rider sp4 Condition: Stable sp4 Problem: new sp4 Symptoms: have improved sp4 Bed/Room Type: Standard sp4 Location: Telemetry/MedSurg (Inpatient)(04/16/24 15:02) Room Assignment: 205(04/16/24 15:02) bd Diagnosis - Acute right distal femur fracture, acute fall at home, acute UTI, Generalized sp4 weakness Forms: - Medication Reconciliation Form sp4 - SBAR form sp4 - Leadership Thank You Letter sp4 Signatures: Dispatcher [employer] EDMS Mayuri Triplett Heidy, RN RN ha1 Marcellus Austin MD MD sp4 Charley Valencia RN RN al5 Corrections: (The following items were deleted from the chart) 04/15 21:30 21:30 BASIC METABOLIC PANEL+C.LAB.BRZ ordered. EDMS EDMS 21:30 21:30 CBC+H.LAB.BRZ ordered. EDMS EDMS 21:30 21:30 HEPATIC FUNCTION+C.LAB.BRZ ordered. EDMS EDMS 21:30 21:30 MAGNESIUM+C.LAB.BRZ ordered. EDMS EDMS : 21:30 PROBNP+C.LAB.BRZ ordered. EDMS EDMS : 21:30 PROTIME (+INR)+COAG.LAB.BRZ ordered. EDMS EDMS : 21:30 Troponin High Sensitivity+C.LAB.BRZ ordered. EDMS EDMS :30 21:30 Chest Single View+RAD.RAD.BRZ ordered. EDMS EDMS 21:40 21:40 Head C Spine Cap Wo Con+CT.RAD.BRZ ordered. EDMS EDMS 22:49 21:41 CREATINE PHOSPHOKINASE+C.LAB.BRZ ordered. EDMS EDMS 04/16 01: 00:36 Telemetry/MedSurg (Inpatient) sp4 ha1 01: 00:36 sp4 ha1 15:02 01:29 [facility] ER HOLD ha1 bd 15:02 01:29 ERHOLD- ha1 bd
[2024-04-16] MEDS ORDERED: ACETAMINOPHEN 325 MG TABLET PO PRN (01:15)
--- NOTE | 2024-04-16 01:15 | P.HP ---
Certification for Inpatient Patient admitted to: Inpatient With expected LOS: >2 Midnights Practitioner: I am a practitioner with admitting privileges, knowledge of patient current condition, hospital course, and medical plan of care. Services: Services provided to patient in accordance with Admission requirements found in Title 42 Section 412.3 of the Code of Federal Regulations Patient History Date of Service: 04/16/24 Reason for admission: Fall History of Present Illness: 78 yrs old Female with past medical history of Alzheimer's, atrial fibrillation, chronic GERD, hypothyroidism, dementia who was brought to ER after suffering a fall at home. Started having pain in the right lower extremity. Patient does not remember how she felt but she told me that patient slipped from the stairs and fell down. Denies any loss of consciousness. No fever or chills. No palpitations or chest pain or shortness of breath. Allergies Bisphosphonates Allergy (Verified 03/04/23 15:36) Hives/Rash Home medications list reviewed: Yes Home Medications: Duloxetine [Cymbalta *] 30 mg PO BID 05/30/22 Amino Acids/Protein Hydrolys [Prosource No Carb Liquid Pkt] 30 ml PO BID packet 03/14/23 Apixaban [Eliquis *] 2.5 mg PO BID 03/14/23 Cranberry Fruit Extract 200 mg PO BID cap 03/14/23 Docusate/Senna [Senokot-S*] 2 tab PO BEDTIME PRN tab 03/14/23 Donepezil [Aricept*] 10 mg PO BEDTIME tab 03/14/23 Famotidine [Pepcid*] 20 mg PO BID tab 03/14/23 Ferrous Sulfate [Ferrous Sulfate*] 325 mg PO DAILY tab 03/14/23 Hydrocodone 5/APAP 325 [[place] 5/325*] 1 tab PO Q4HP PRN tab 03/14/23 Iron/FA/Vit B-Com W/C [Hemocyte Plus*] 1 tab PO DAILY WITH BREAKFAST tab 03/14/23 Lidocaine 4% Patch [Lidoderm 5% Patch*] 2 patch TOP DAILY pat 03/14/23 Magnesium Oxide [Mag 0X*] 400 mg PO BID tab 03/14/23 Melatonin [Melatonin*] 3 mg PO BEDTIME PRN PRN 03/14/23 Memantine HCl [Namenda*] 10 mg PO BID 03/14/23 Metoprolol Tartrate [Lopressor*] 25 mg PO BID tab 03/14/23 Ondansetron [Zofran (Odt)*] 4 mg PO Q6H PRN tab 03/14/23 traMADol HCL [Ultram*] 50 mg PO Q4H PRN tab 03/14/23 - Past Medical/Surgical History Diabetic: No Past Medical History: Reviewed- Non-Contributory -: Hypothyroidism -: Atrial Fibrillation -: Chronic Back Pain -: Alzheimer's Dementia Past Surgical History: Reviewed- Non-Contributory -: Apendectomy -: Cholecystectomy -: Skin Graft -: Bowel surgery -: hysterectomy -: knee replacement -: pain pump Psychosocial/ Personal History: Patient lives at home with her . - Family History Mother -: Lung disease Notes: TB Father -: Heart disease - Social History Smoking Status: Never smoker Alcohol use: No CD- Drugs: No Caffeine use: No Review of Systems 10-point ROS is otherwise unremarkable Physical Examination - Vital Signs Temperature: 97.8 F Blood Pressure: 136/78 Pulse: 78 Respirations: 94 - Physical Exam General: Alert, Cooperative, Mild distress HEENT: Atraumatic, Normocephalic Neck: Supple, 2+ carotid pulse no bruit Respiratory: Clear to auscultation bilaterally, Normal air movement Cardiovascular: No edema, Regular rate/rhythm, Normal S1 S2 Capillary refill: <2 Seconds Gastrointestinal: Soft and benign, W/out hepatosplenomegaly Musculoskeletal: No clubbing, No swelling Integumentary: No rashes, No breakdown Neurological: Normal speech, Normal strength at 5/5 x4 extr, Cranial nerves 3-12 intact, Normal reflexes 2+, Normal affect Lymphatics: No axilla or inguinal lymphadenopathy - Studies Laboratory Data (last 24 hrs) 04/15/24 04/15/24 04/15/24 21:44 21:44 21:44 WBC 4.40 Hgb 10.0 L Hct 31.0 L Plt Count 166 PT 16.1 H INR 1.45 Sodium 139 Potassium 3.0 L BUN 17 Creatinine 0.55 Glucose 104 Magnesium 2.1 Total Bilirubin 0.8 AST 32 ALT 82 H Alkaline Phosphatase 173 H Assessment and Plan - Problems (Diagnosis) (1) Femur fracture Current Visit: Yes Status: Acute Plan: Femur fracture distal right femur N.p.o. Pain control Ortho consult Monitor closely on telemetry History of atrial fibrillation Monitor closely on telemetry Alzheimer's dementia Supportive management Continue home medications and titrate as needed UTI Started on IV antibiotics Will obtain cultures Hypokalemia Replace potassium Electrolytes monitor and replace accordingly Anemia of chronic disease Monitor H&H closely No overt bleeding at this time GI/DVT prophylaxis Advanced directive full code - Advance Directives Does patient have a Living Will: No Does patient have a Durable POA for Healthcare: No - Code Status/Comfort Care Code Status: Full Code Time Spent Managing Pts Care (In Minutes): 48
[2024-04-16 02:12] LABS: Specific Gravity 1.026 (1.005-1.030); Urine Bacteria >50 /HPF (<20); Urine Bilirubin NEGATIVE (Negative); Urine Blood 3+ (OVER) (Negative); Urine Clarity Extremely Turbid (Clear); Urine Color Yellow (Yellow); Urine Culture Reflex Order REFLEXED; Urine Glucose NEGATIVE (Negative); Urine Ketones 4+ (Over) (Negative); Urine Micro Reflex YN NO BILL MICROSCOPIC; Urine Mucus Slight /HPF (None Seen); Urine Nitrite 2+ (Negative); Urine Protein 1+ (Negative); Urine RBC >50 /HPF (None Seen); Urine Urobilinogen 1+ (Normal); Urine WBC >50 /HPF (<5); Urine WBC Clump Occasional /HPF (None Seen)
[2024-04-16] MEDS ORDERED: CEFTRIAXONE 1000 MG/VIAL ONE (02:24)
[2024-04-16 07:51] VITALS: BMI 21.2
[2024-04-16] MEDS ORDERED: ENOXAPARIN 40 MG/0.4 ML SQ ONE (07:53)
[2024-04-16] MEDS ORDERED: NA CHLORIDE 0.9% 100 ML ONE (07:54)
[2024-04-16] MEDS ORDERED: CEFEPIME 1 GM/VIAL ONE (07:54)
[2024-04-16] MEDS: ENOXAPARIN 40 MG/0.4 ML SQ SCH (08:12)
[2024-04-16] MEDS: CEFEPIME 1 GM in NA CHLORIDE 0.9% 100 ML IV SCH (08:12)
[2024-04-16] MEDS ORDERED: D5.45NS W/KCL 20MEQ 1,000 ML IV ONE (08:49)
[2024-04-16] MEDS: D5.45NS W/KCL 20MEQ 1,000 ML IV SCH (08:50)
[2024-04-16] MEDS ORDERED: MELATONIN 3 MG TABLET PO PRN (13:15)
--- NOTE | 2024-04-16 14:57 | RAD REPORT ---
EXAM DESCRIPTION: CT - Head C Spine Cap Wo Con - 04/16/2024 6:44 am CLINICAL HISTORY: Fall , right leg injury TECHNIQUE: Axial computed tomography images of the head/brain and cervical spine without intravenous contrast. Sagittal and coronal reformatted images were created and reviewed. This CT exam was pe rformed using one or more of the following dose reduction techniques: automated exposure control, a djustment of the mA and/or kV according to patient size, and/or use of iterative reconstruction techn ique. COMPARISON: No relevant prior studies available. FINDINGS: Brain: Mild cerebral atrophy. Mild to moderate bilateral periventricular and subcortical white matter low attenuation most compatible with chronic microvascular angiopathy. No hemorrhage. Ventricles: Unremarkable. No ventriculomegaly. Skull: No acute fracture. Sinuses: Mild bilateral ethmoid, right sphenoid and minimal right maxillary sinus mucosal thickenin g. Mastoid air cells: Unremarkable as visualized. No mastoid effusion. Vertebrae: No acute fracture. Normal alignment. Discs/spinal canal/neural foramina: Multilevel degenerative changes most pronounced, moderate to se samreen at C5-C6 and C6-C7. Moderate to severe multilevel facet arthropathy. Fusion of the right C2-C3 f acet articulation. No canal stenosis. Soft tissues: Unremarkable. Vasculature: There is atherosclerotic disease of the internal carotid and vertebral arteries bilate rally. * A single impression for all exams can be found at the end of this report EXAM DESCRIPTION: CT Chest, Abdomen and Pelvis Without Intravenous Contrast CLINICAL HISTORY: Fall, right leg injury TECHNIQUE: Axial computed tomography images of the chest, abdomen and pelvis without intravenous con trast. Sagittal and coronal reformatted images were created and reviewed. This CT exam was perfor med using one or more of the following dose reduction techniques: automated exposure control, adjus tment of the mA and/or kV according to patient size, and/or use of iterative reconstruction technique . COMPARISON: No relevant prior studies available. FINDINGS: CHEST: Lungs: Unremarkable. No mass. No consolidation. Pleural space: Unremarkable. No significant effusion. No pneumothorax. Heart: Coronary artery and mitral annular calcification. No cardiomegaly. No significant perica rdial effusion. ABDOMEN: Liver: Unremarkable. Gallbladder and bile ducts: There has been a cholecystectomy. Intrahepatic and extrahepatic biliary dilatation. The common duct measures 12 mm in maximum diameter. Pancreas: Mild pancreatic parenchymal atrophy. Spleen: Unremarkable. No splenomegaly. Adrenals: Unremarkable. No mass. Kidneys and ureters: Unremarkable. No obstructing stones. No hydronephrosis. Stomach and bowel: Prior gastric bypass. Colonic diverticula without adjacent inflammatory change . No bowel obstruction. No appreciable mucosal thickening. PELVIS: Appendix: The appendix is not definitively visualized. No findings to suggest acute appendicitis. Bladder: Unremarkable. No stones. Reproductive: There has been a hysterectomy. No adnexal cysts or masses are identified. CHEST, ABDOMEN and PELVIS: Intraperitoneal space: Unremarkable. No significant fluid collection. No free air. Bones/joints: Osseous structures are osteopenic. Thoracolumbar shaped scoliosis and multilevel spon dylosis. Remote right femoral intertrochanteric fracture gamma nail fixation with incomplete union. No dislocation. Soft tissues: There is deep soft tissue edema around the proximal right femur with asymmetric enlar gement of the iliopsoas and vastus muscles. Vasculature: Moderate to severe atherosclerotic disease. No thoracic or abdominal aortic aneurysm. Lymph nodes: Unremarkable. No enlarged lymph nodes. * A single impression for all exams can be found at the end of this report IMPRESSION: CT Head and Cervical Spine Without Intravenous Contrast: 1. No acute intracranial or extra-axial abnormality. 2. No acute cervical spine injury. 3. Other findings as above. CT Chest Abdomen and Pelvis without Intravenous Contrast: 1. No acute intrathoracic injury. 2. Allowing for unenhanced technique, no evidence for hollow or solid organ injury. 3. Remote right femoral intertrochanteric gamma nail fixation with incomplete union. There is deep soft tissue edema around the proximal right femur with asymmetric enlargement of the iliopsoas and va stus muscles which may reflect underlying intramuscular edema/hematomas. The possibility of a superim posed acute fracture or reinjury cannot be entirely excluded. 4. Other findings as above. Electronically signed by: Fortino Abebe MD 04/16/2024 12:23 AM CDT Due to temporary technical issues with the PACS/Fluency reporting system, reports are being signed by the in house radiologist without review as a courtesy to ensure prompt reporting. The interpreting r adiologist is fully responsible for the content of the report.
--- NOTE | 2024-04-16 14:59 | RAD REPORT ---
EXAM DESCRIPTION: RAD - Femur Right - 04/15/2024 10:42 pm CLINICAL HISTORY: The patient is 78 years old and is Female; FALL INJURY TECHNIQUE: Frontal and lateral views of the right femur. COMPARISON: No relevant prior studies available. FINDINGS: BONES/JOINTS: Postsurgical change of the proximal right femur is present. The hardware i s engaged without surrounding lucency. The bones are osteopenic. Comminuted impacted distal femoral m etaphyseal fracture is present. Slight angulation at the fracture site is noted. No dislocation. SOFT TISSUES: Unremarkable. IMPRESSION: Distal femoral fracture as described. Electronically signed by: Pao Smith MD 04/15/2024 11:45 PM CDT RP Due to temporary technical issues with the PACS/Fluency reporting system, reports are being signed by the in house radiologist without review as a courtesy to ensure prompt reporting. The interpreting r adiologist is fully responsible for the content of the report.
--- NOTE | 2024-04-16 16:50 | P.PN ---
Date of Service: 04/16/24 Patient seen and examined. Patient reports pain with movement. She has been afebrile No issues overnight. Diagnosis: Right distal femoral fracture Acute cystitis without hematuria. Alzheimer's dementia Plan: Analgesics as needed Continue IV Rocephin. Patient has tolerated it. [id number] reports remote history of penicillin allergy but patient does not remember how she react to penicillin. Follow urine culture Orthopedic surgery consulted Keep n.p.o. postmidnight.
[2024-04-16] MEDS: MORPHINE 2 MG/ML SYR IV PRN (17:25)
[2024-04-16] MEDS: HYDROCODONE/APAP 5/325 MG TAB PO PRN (18:24)
[2024-04-16] MEDS: FAMOTIDINE 20 MG TAB PO SCH (20:50)
[2024-04-16] MEDS: DONEPEZIL HCL 5 MG TAB PO SCH (20:51)
[2024-04-16] MEDS: MEMANTINE HCL 10 MG TABLET PO SCH (20:51)
[2024-04-16] MEDS: MAGNESIUM OXIDE 400 MG TAB PO SCH (20:52)
[2024-04-16] MEDS: DULOXETINE 30 MG CAP PO SCH (20:52)
[2024-04-16 21:57] LABS: Specific Gravity 1.028 (1.005-1.030); Urine Bacteria None Seen /HPF (<20); Urine Bilirubin NEGATIVE (Negative); Urine Blood 1+ (Negative); Urine Clarity Extremely Turbid (Clear); Urine Color Yellow (Yellow); Urine Culture Reflex Order REFLEXED; Urine Glucose NEGATIVE (Negative); Urine Ketones 1+ (Negative); Urine Microscopic Reflex YN ORDER UMIC; Urine Mucus 1+ /HPF (None Seen); Urine Nitrite NEGATIVE (Negative); Urine Protein 1+ (Negative); Urine Urobilinogen 1+ (Normal); Urine WBC >50 /HPF (<5); Urine WBC Clump Rare /HPF (None Seen)
[2024-04-16] MEDS: KCL 20 MEQ/100 mL IVPB 20 MEQ/100 ML BAG IV SCH (22:54)
[2024-04-16] MEDS: ONDANSETRON 4 MG/2 ML VIAL IV PRN (23:01)
[2024-04-16] MEDS: NA CHLORIDE 0.9% 500 ML ONE (23:28)
--- NOTE | 2024-04-17 03:55 | OP ---
Surgeon: Bishop Berrios MD Reason For Consultation: Right distal femur fracture. History Of Present Illness: Ms. Phillips is well known to me from February of 2023, wherein she had an intra medullary rodding of her right hip. Subsequently, day prior to admission, she sustained a fall and h as a distal femur fracture below her prosthesis. It is minimally displaced. However, her bone stock is extremely poor. Considering the magnitude of the operation and her inability to cooperate with p hysical therapy, I believe it is best to treat her with this knee immobilizer and physical therapy. She will follow up with her physical therapy setting. We will plan for now for no operation. SHARON/CATRACHITA Voice ID: [id number] Report ID: [id number]
[2024-04-17 06:09] LABS: Absolute Eosinophils 0.1 K/uL (0-0.5); Absolute Lymphocytes (CBC) 0.4 K/uL (0.7-4.9); Absolute Monocytes 0.5 K/uL (0.1-1.3); Absolute Neutrophil 1.6 K/uL (1.8-8.0); Basophils % 0.5 % (0-1.3); Eosinophils % 5.1 % (0-4.4); Hematocrit 25.7 % (36.0-45.0); Hemoglobin 8.4 g/dL (12.0-15.0); Lymphocytes % 16.3 % (15.3-44.8); MCH 27.6 pg (27.0-35.0); MCHC 32.6 g/dL (32.0-36.0); MCV 84.5 fL (80-100); Monocytes % 17.8 % (3.3-12.3); Neutrophils % 60.3 % (41.7-73.7); Nucleated Red Blood Cells % 0.1 % (0-0); Platelets 147 thou/uL (152-406); RBC Red Blood Cell Count 3.05 M/uL (3.86-4.86); Red Cell Distribution Width 16.2 % (12.1-15.2)
[2024-04-17 06:21] LABS: Albumin 2.2 g/dL (3.4-5.0); Albumin/Globulin Ratio 0.7 (1.1-1.8); Bilirubin Total 0.8 mg/dL (0.2-1.0); Globulin 3.3 g/dL (2.3-3.5); Magnesium 2.1 mg/dL (1.6-2.4); Protein, Total 5.5 g/dL (6.4-8.2)
[2024-04-17 07:46] LABS: Anisocytosis 2+; Blood Morphology Comment NOTED (NOT SEEN); Hypochromasia 2+; Platelet Estimate ADEQ; White Blood Cell Scan OK (OK)
--- NOTE | 2024-04-17 08:53 | P.PN ---
Date of Service: 04/17/24 Subjective: no new events overnight pain feels ~same as yesterday. doesn't feel worse denies abdominal pains. appetite okay. afebrile ROS: 10 point ROS as noted above, otherwise negative Physical Exam: GEN: Alert, orientedx2, NAD HEENT: Normal conjunctiva, sclera anicteric CV: Regular rate and rhythm, no edema Pulm: Nonlabored respirations on room air, clear bilaterally ABD: Soft, nontender, nondistended MSK: R knee immobilizer in place; decreased ROM of right lower extremity Neuro: Normal speech, normal affect santos in place (from ED) vitals reviewed Problem List: Right distal femoral fracture s/p fall UTI Alzheimer's dementia GERD. Hypothyroidism hx a-fib Right distal femoral fracture s/p fall presented with right lower extremity pain after slipping and falling down some stairs. No loss of consciousness. Dr. Berrios, ortho consulted - recommended medical management with knee immobilizer, continued physical therapy no indications to warrant surgery per ortho at this time after review of risk/benefit pain control May benefit from SNF/rehab. PT consulted to eval. UTI urinalysis in ED suggestive of UTI given rocephin and had santos placed in ED urine cx (04/16): prelim 4+ GNR continue empiric cefepime (04/16-) family reports remote penicillin allergy but unsure on reaction. Alzheimer's dementia continue home meds, supportive care. GERD Hypothyroidism hx a-fib confirm home meds, restart as appropriate VTE: Lovenox Code: Full Dispo: Home vs SNF, family discussing options Pending urine cx, PT eval Time Spent Managing Pts Care (In Minutes): 40
[2024-04-17] MEDS: POTASS/SODIUM PHOSPHATE 1 PKT POWD.PACK PO SCH (09:30)
--- NOTE | 2024-04-17 10:53 | RAD REPORT ---
EXAM DESCRIPTION: RAD - Chest Single View - 04/15/2024 10:42 pm CLINICAL HISTORY: The patient is 78 years old and is Female; CHEST PAIN TECHNIQUE: Frontal view of the chest. COMPARISON: No relevant prior studies available. FINDINGS: LUNGS: Unremarkable. No consolidation. PLEURAL SPACE: Unremarkable. No pneumothorax. HEART: Unremarkable. No cardiomegaly. MEDIASTINUM: Unremarkable. Normal mediastinal contour. BONES/JOINTS: Multilevel degenerative change of the spine is present. No acute fracture. VASCULATURE: Atherosclerosis of the aorta is present. UPPER ABDOMEN: Surgical clips are present within the upper abdomen. IMPRESSION: No acute cardiopulmonary process. Electronically signed by: Pao Smith MD 04/15/2024 11:44 PM CDT RP Due to temporary technical issues with the PACS/Fluency reporting system, reports are being signed by the in house radiologist without review as a courtesy to ensure prompt reporting. The interpreting r adiologist is fully responsible for the content of the report.
--- NOTE | 2024-04-17 13:48 | EKG ---
Test Date: 2024-04-15 Test Time: 22:09:51 Telecommunications Administrator: JONH MEASUREMENT RESULTS: Intervals: Rate: 81 AK: QRSD: 82 QT: 394 QTc: 457 [place]: P: AK: QRS: -25 T: -3 INTERPRETIVE STATEMENTS: Atrial fibrillation Abnormal ECG Compared to ECG 05/29/2022 14:39:44 Sinus tachycardia no longer present Left-axis deviation no longer present ST (T wave) deviation no longer present Electronically Signed On 04-17-24 13:46:03 CDT by Binu Duff
[2024-04-18 05:53] LABS: Absolute Eosinophils 0.1 K/uL (0-0.5); Absolute Lymphocytes (CBC) 0.6 K/uL (0.7-4.9); Absolute Monocytes 0.6 K/uL (0.1-1.3); Absolute Neutrophil 2.5 K/uL (1.8-8.0); Basophils % 0.6 % (0-1.3); Eosinophils % 3.2 % (0-4.4); Lymphocytes % 14.5 % (15.3-44.8); MCH 27.9 pg (27.0-35.0); MCHC 33.5 g/dL (32.0-36.0); MCV 83.4 fL (80-100); Monocytes % 15.7 % (3.3-12.3); Nucleated Red Blood Cells % 0.2 % (0-0); Platelets 194 thou/uL (152-406); RBC Red Blood Cell Count 3.23 M/uL (3.86-4.86); Red Cell Distribution Width 16.5 % (12.1-15.2)
[2024-04-18 06:13] LABS: Magnesium 1.8 mg/dL (1.6-2.4); Phosphorus 1.7 mg/dL (2.5-4.9)
--- NOTE | 2024-04-18 11:22 | P.PN ---
Date of Service: 04/18/24 Subjective: no new events overnight denies trouble urinating since santos removal appetite improving afebrile ROS: 10 point ROS as noted above, otherwise negative Physical Exam: GEN: Alert, orientedx2, NAD HEENT: Normal conjunctiva, sclera anicteric CV: Regular rate and rhythm, no edema Pulm: Nonlabored respirations on room air, clear bilaterally MSK: R knee immobilizer in place; decreased ROM of right lower extremity Neuro: Normal speech, normal affect vitals reviewed Problem List: Right distal femoral fracture s/p fall UTI Alzheimer's dementia GERD. Hypothyroidism hx a-fib Right distal femoral fracture s/p fall presented with right lower extremity pain after slipping and falling down some stairs. No loss of consciousness. Dr. Berrios, ortho consulted - recommended medical management with knee immobilizer, continued physical therapy no indications to warrant surgery per ortho at this time after review of risk/benefit pain control continue PT. approved for SNF 04/18; can accept Pt tomorrow. UTI given rocephin and had santos placed in ED. urine cx (04/16): E. coli - only partially resistant to cipro/cefazolin cefepime (04/16-04/18 ) deescalated to PO cefdinir (04/18-) family reports remote penicillin allergy but unsure on reaction. Alzheimer's dementia continue home meds, supportive care. GERD Hypothyroidism hx a-fib confirm home meds, restart as appropriate VTE: Lovenox Code: Full Dispo: approved for SNF - [facility] - can accept tomorrow Time Spent Managing Pts Care (In Minutes): 40
[2024-04-18] MEDS: CEFDINIR 300 MG CAP PO SCH (16:14)
[2024-04-19 06:07] LABS: Hematocrit 27.1 % (36.0-45.0); Hemoglobin 9.1 g/dL (12.0-15.0); MCHC 33.6 g/dL (32.0-36.0); MCV 83.6 fL (80-100); MPV 7.9 fL (7.6-11.3); Platelets 207 thou/uL (152-406); RBC Red Blood Cell Count 3.24 M/uL (3.86-4.86); Red Cell Distribution Width 16.7 % (12.1-15.2)
[2024-04-19 06:28] LABS: Anion Gap 3.8 mEq/L (5.0-15.0); Potassium 3.8 mEq/L (3.5-5.1)
--- NOTE | 2024-04-19 07:50 | P.DS ---
Admission Date: 04/16/24 Discharge Date: 04/19/24 Disposition: TRANSFER TO SNF - REHAB Discharge Condition: GOOD Reason for Admission: Fall Consultations: Dr. Berrios - ortho Brief History of Present Illness: 78 yo F, PMH: Alzheimer's, atrial fibrillation, chronic GERD, hypothyroidism, dementia Patient who was brought to ER after suffering a fall at home. Started having pain in the right lower extremity. Patient does not remember how she felt but she told me that patient slipped from the stairs and fell down. Denies any loss of consciousness. No fever or chills. No palpitations or chest pain or shortness of breath. Hospital Course: Problem List: Right distal femoral fracture s/p fall UTI Alzheimer's dementia GERD. Hypothyroidism hx a-fib Physician discharge instructions: Patient presented with right lower extremity pain after sustaining a fall and was found to have a minimally displaced right distal femoral fracture, seen on xray imaging. Dr. Berrios, ortho, was consulted and recommended medical management with knee immobilizer and physical therapy. Dr. Berrios concerned givne her comorbidities, extremely poor bone health and the magnitude of operate that would be required for this minimally displaced fracture. She was found to have a UTI, Urine culture grew E. coli, partially resistant to cipro/cefazolin. Patient received empiric IV cefepime (started 04/16) while hospitalized, de- escalated to cefdinir on 04/18 and is to complete 4 more days of Cefdinir on discharge for a total of 1 week antibiotic treatment. (end date: 04/22/24) Patient was feeling better, pain improving and tolerable current oral pain medication, afebrile without leukocytosis, and was deemed stable for discharge. Advised to follow up with Ortho in ~2 weeks for further management. Recommend continued DVT prophylaxis such as lovenox, for ~14 days or until more ambulatory. Medications: Cefdinir 300 mg twice daily for 4 more days (end date: 04/22/24) norco 5/325 as needed for pain DVT prophylaxis - lovenox daily vs DOAC Follow up: PCP 3-5 days Ortho in ~2 weeks Please call to schedule / confirm appointments Home med list was updated, however concern for some inaccuracies due to documented last dates filled. Memantine and mirtazepine were listed as home meds, however have not been filled since 2022 and only a few days. Physical Exam: GEN: Alert, orientedx2, NAD HEENT: Normal conjunctiva, sclera anicteric CV: Regular rate and rhythm, no edema Pulm: Nonlabored respirations on room air, clear bilaterally MSK: R knee immobilizer in place Neuro: Normal speech, normal affect Vital Signs/Physical Exam: Temp Pulse Resp BP Pulse Ox 97.4 F 79 18 158/72 H 94 04/19/24 04:00 04/19/24 04:00 04/19/24 06:14 04/19/24 04:00 04/19/24 06:14 Laboratory Data at Discharge: WBC 3.70 thou/uL (4.3-10.9) L 04/19/24 05:40 Hgb 9.1 g/dL (12.0-15.0) L 04/19/24 05:40 Hct 27.1 % (36.0-45.0) L 04/19/24 05:40 Plt Count 207 thou/uL (152-406) 04/19/24 05:40 PT 16.1 SECONDS (9.4-12.5) H 04/15/24 21:44 INR 1.45 04/15/24 21:44 Sodium 134 mEq/L (136-145) L 04/19/24 05:40 Potassium 3.8 mEq/L (3.5-5.1) 04/19/24 05:40 BUN 8 mg/dL (7-18) 04/19/24 05:40 Creatinine 0.38 mg/dL (0.55-1.02) L 04/19/24 05:40 Glucose 96 mg/dL (74-106) 04/19/24 05:40 Phosphorus 1.7 mg/dL (2.5-4.9) L 04/18/24 05:27 Magnesium 2.0 mg/dL (1.6-2.4) 04/19/24 05:40 Total Bilirubin 0.8 mg/dL (0.2-1.0) 04/17/24 05:33 AST 56 U/L (15-37) H 04/17/24 05:33 ALT 60 U/L (13-56) H 04/17/24 05:33 Alkaline Phosphatase 161 U/L (45-117) H 04/17/24 05:33 Home Medications: Acetaminophen with Codeine [Acetaminophen-Cod #3 Tablet] 1 each PO Q6H PRN 04/19/24 Cefdinir [Cefdinir*] 300 mg PO BIDWM 4 Days #8 cap 04/19/24 Donepezil HCl [Aricept] 30 mg PO DAILY 04/19/24 Duloxetine HCl [Cymbalta] 30 mg PO DAILY 04/19/24 Famotidine 20 mg PO BID 04/19/24 Hydrocodone 5/APAP 325 [[place] 5/325*] 1 tab PO Q4H PRN tab 04/19/24 Levothyroxine [Synthroid*] 1 tab PO [id number] 04/19/24 Lorazepam [Ativan] 1 mg PO BID 04/19/24 Metoprolol Tartrate 25 mg PO DAILY 04/19/24 Oxybutynin Chloride [Oxybutynin Chloride ER] 1 tab PO DAILY 04/19/24 Tizanidine HCl 2 mg PO Q6H PRN 04/19/24 Physician Discharge Instructions: Physician discharge instructions: Patient presented with right lower extremity pain after sustaining a fall and was found to have a minimally displaced right distal femoral fracture, seen on xray imaging. Dr. Berrios, ortho, was consulted and recommended medical management with knee immobilizer and physical therapy. Dr. Berrios concerned givne her comorbidi ties, extremely poor bone health and the magnitude of operate that would be required for this minimally displaced fracture. She was found to have a UTI, Urine culture grew E. coli, partially resistant to cipro/cefazolin. Patient received empiric IV cefepime (started 04/16) while hospitalized, de- escalated to cefdinir on 04/18 and is to complete 4 more days of Cefdinir on discharge for a total of 1 week antibiotic treatment. (end date: 04/22/24) Patient was feeling better, pain improving and tolerable current oral pain medication, afebrile without leukocytosis, and was deemed stable for discharge. Advised to follow up with Ortho in ~2 weeks for further management. Recommend continued DVT prophylaxis such as lovenox, for ~14 days or until more ambulatory. Medications: Cefdinir 300 mg twice daily for 4 more days (end date: 04/22/24) norco 5/325 as needed for pain DVT prophylaxis - lovenox daily vs DOAC Follow up: PCP 3-5 days Ortho in ~2 weeks Please call to schedule / confirm appointments Home med list was updated, however concern for some inaccuracies due to documented last dates filled. Memantine and mirtazepine were listed as home meds, however have not been filled since 2022 and only a few days. Followup: Bishop Berrios MD [ACTIVE - CAN ADMIT] - 1-2 Weeks Yohana York FNP [Primary Care Provider] - Time spent managing pt's care (in minutes): 45
[2024-04-19] MEDS: POTASSIUM CL SA 10 MEQ TAB PO ONE (08:14)
[2024-04-19 09:14] VITALS: O2SAT 94
[2024-04-19 09:57] VITALS: BP 175/73; TEMP 98
== END 2024-04-19 11:33 | DRG 534 ==
LOC: ER 21:10 → ERHOLD 04-16 01:15 → 2ND 04-16 15:23
PROVIDERS: ADMIT Family Medicine; ATTEND Hospitalist
DX: S72.401A Unspecified fracture of lower end of right femur, initial encounter for closed fracture (principal); N30.00 Acute cystitis without hematuria; Z16.39 Resistance to other specified antimicrobial drug; E87.6 Hypokalemia; G89.29 Other chronic pain; D63.8 Anemia in other chronic diseases classified elsewhere; G30.9 Alzheimer's disease, unspecified; F02.80 Dementia in other diseases classified elsewhere, unspecified severity, without behavioral disturbance, psychotic disturbance, mood disturbance, and anxiety; E03.9 Hypothyroidism, unspecified; M21.951 Unspecified acquired deformity of right thigh; K21.9 Gastro-esophageal reflux disease without esophagitis; I48.91 Unspecified atrial fibrillation; B96.20 Unspecified Escherichia coli [E. coli] as the cause of diseases classified elsewhere; Z88.8 Allergy status to other drugs, medicaments and biological substances; Z88.0 Allergy status to penicillin; Z88.5 Allergy status to narcotic agent; Z79.01 Long term (current) use of anticoagulants; Z90.49 Acquired absence of other specified parts of digestive tract; Z79.899 Other long term (current) drug therapy; Z79.890 Hormone replacement therapy; Z90.710 Acquired absence of both cervix and uterus; Z96.659 Presence of unspecified artificial knee joint; Z96.641 Presence of right artificial hip joint; W10.8XXA Fall (on) (from) other stairs and steps, initial encounter; Y99.9 Unspecified external cause status; Y93.9 Activity, unspecified; Y92.019 Unspecified place in single-family (private) house as the place of occurrence of the external cause
CPT/HCPCS: 36415; 51702; 70450; 71045; 71250; 72125; 80048; 80053; 80076; 81001; 82550; 83735; 83880; 84100; 84132; 84484; 85025; 85027; 85610; 87077; 87086; 87088; 87186; 93005; 94760; 96365; 96375; 97110; 97161; 97530; 99285; J0692; J0696; J1170; J1650; J2270; J2405; J2765; J3480; J7030; J7040

== ENCOUNTER 2024-05-19 14:46 | Emergency (ER) | payer OTHER, BC ==
[2024-05-19] MEDS ORDERED: NA CHLORIDE 0.9% 1,000 ML ONE (15:13)
[2024-05-19] MEDS ORDERED: ONDANSETRON 4 MG/2 ML VIAL ONE (15:13)
--- NOTE | 2024-05-19 15:48 | RAD REPORT ---
EXAM DESCRIPTION: Elvis Single View05/19/2024 3:14 pm CLINICAL HISTORY: Weakness. Diarrhea COMPARISON: September 2023 FINDINGS: The lungs appear clear of acute infiltrate. The heart is normal size IMPRESSION: No acute abnormalities displayed
[2024-05-19 15:53] LABS: Absolute Basophils 0.1 K/uL (0-0.5); Absolute Lymphocytes (CBC) 0.6 K/uL (0.7-4.9); Absolute Neutrophil 6.9 K/uL (1.8-8.0); Basophils % 0.7 % (0-1.3); Eosinophils % 0.2 % (0-4.4); Hematocrit 36.2 % (36.0-45.0); Hemoglobin 11.8 g/dL (12.0-15.0); Lymphocytes % 6.5 % (15.3-44.8); MCH 27.7 pg (27.0-35.0); MCHC 32.6 g/dL (32.0-36.0); MCV 84.9 fL (80-100); MPV 8.5 fL (7.6-11.3); Monocytes % 12.1 % (3.3-12.3); Neutrophils % 80.5 % (41.7-73.7); Platelets 389 thou/uL (152-406); RBC Red Blood Cell Count 4.26 M/uL (3.86-4.86); Red Cell Distribution Width 16.9 % (12.1-15.2)
[2024-05-19 16:22] LABS: ALT/SGPT 15 U/L (13-56); Albumin 2.3 g/dL (3.4-5.0); Albumin/Globulin Ratio 0.4 (1.1-1.8); Alkaline Phosphatase 173 U/L (45-117); Anion Gap 12.8 mEq/L (5.0-15.0); BUN Blood Urea Nitrogen 22 mg/dL (7-18); Bicarbonate 30 mEq/L (21-32); Bilirubin Total 0.7 mg/dL (0.2-1.0); Globulin 5.6 g/dL (2.3-3.5); Glomerular Filtration Rate 75 ml/min (=/>90); Glucose Level 133 mg/dL (74-106); Protein, Total 7.9 g/dL (6.4-8.2); Sodium Level 134 mEq/L (136-145); Troponin High Sensitivity 32.5 pg/mL (<58.9)
[2024-05-19 16:34] LABS: AST/SGOT 43 U/L (15-37); Bilirubin Direct < 0.2 mg/dL (0-0.2); Bilirubin Indirect, Calculated 0.5 mg/dL (0.2-0.8); Magnesium 1.7 mg/dL (1.6-2.4); Potassium 4.8 mEq/L (3.5-5.1)
--- NOTE | 2024-05-19 18:11 | RAD REPORT ---
EXAM DESCRIPTION: CT - Head Brain Wo Cont - 05/19/2024 6:02 pm CLINICAL HISTORY: Alteration of awareness/confusion COMPARISON: 2017 TECHNIQUE: Computed axial tomography of the head was obtained. IV contrast was not requested. All CT scans are performed using dose optimization technique as appropriate and may include automated exposure control or mA/KV adjustment according to patient size. FINDINGS: An intracranial bleed is not seen The ventricles are normal in caliber No extra-axial fluid collection is noted. Mild cerebral atrophy Mild low-density areas within periventricular, deep and subcortical white matter likely represent isc hemic changes secondary to small vessel disease. Fluid within the sinuses/ mastoids is not seen. IMPRESSION: No acute intracranial abnormality is seen If patient's symptoms persist MRI of the brain would be recommended
[2024-05-19 21:04] LABS: Specific Gravity 1.027 (1.005-1.030); Sqamous Epithelial <5 /HPF (None Seen); Urine Bacteria None Seen /HPF (<20); Urine Bilirubin NEGATIVE (Negative); Urine Blood Trace (Negative); Urine Clarity Extremely Turbid (Clear); Urine Color Yellow (Yellow); Urine Crystals Unidentified Few /HPF (None Seen); Urine Culture Reflex Order NOT NEEDED; Urine Glucose NEGATIVE (Negative); Urine Ketones 2+ (Negative); Urine Micro Reflex YN NO BILL MICROSCOPIC; Urine Mucus 4+ /HPF (None Seen); Urine Nitrite NEGATIVE (Negative); Urine Protein 2+ (Negative); Urine RBC >50 /HPF (None Seen); Urine Urobilinogen 2+ (Normal); Urine WBC Clump Occasional /HPF (None Seen); Urine Yeast (Budding) Trace /HPF (None Seen)
[2024-05-19 21:49] LABS: C-Reactive Protein 92.8 mg/L (<3.00); Thyroid Stimulating Hormone 2.26 uIU/mL (0.358-3.740)
--- NOTE | 2024-05-19 22:22 | RAD REPORT ---
EXAM DESCRIPTION: RAD - Femur Right - 05/19/2024 10:08 pm CLINICAL HISTORY: right leg pain COMPARISON: Femur Right dated 04/15/2024; Pelvis dated 05/19/2024 TECHNIQUE: Right femur, 2 views. FINDINGS: Healing internally fixated femoral neck fracture. Displaced and comminuted distal femoral metadiaphyseal fracture, with progressive healing callus. Both fractures show unchanged alignment. Mi ld disuse osteopenia. No other fracture is identified. There is no dislocation or periosteal reaction noted. No acute or suspicious bony finding. IMPRESSION: Healing proximal and distal femoral fractures as above. No other acute osseous abnormali ty.
--- NOTE | 2024-05-19 22:23 | RAD REPORT ---
EXAM DESCRIPTION: RAD - Pelvis - 05/19/2024 10:08 pm CLINICAL HISTORY: right hip pain COMPARISON: Pelvis dated 03/02/2023 TECHNIQUE: Single AP view of the pelvis. FINDINGS: The visualized pelvic ring is intact. No suspicious osseous lesions. Healing internally fi xated right femoral neck fracture in unchanged alignment. Other pelvic joints are unremarkable. Visua lized aspects of the abdomen and soft tissues are unremarkable. IMPRESSION: Healing internally fixated right femoral neck fracture in unchanged alignment. No other acute osseous abnormality of the bony pelvis.
--- NOTE | 2024-05-19 22:54 | EDPHYS ---
Physician Documentation [facility] Name: Jacquelyn Phillips Age: 78 yrs Sex: Female : 1945 Arrival Date: 05/19/2024 Time: 14:46 Bed 14 Private MD: ED Physician Marcellus Austin HPI: 05/19 16:48 This 78 yrs old Female presents to ER via EMS with complaints of General Weakness, rt Diarrhea. 16:48 Patient was diagnosed with COVID 11 days ago. Patient was symptom Covidien and her rt group home. Since then, family reports that she has had a significant decline. Is not eating, drinking. Reports of generalized weakness, diarrhea without bleeding. Denies other acute complaints at this time, symptoms are moderate severity, no other aggravating relieving factors.. 20:52 78-year-old female whose care was assumed from Dr. Díaz at 7 PM. Patient has sp4 history of atrial fibrillation, GERD, hypothyroidism, dementia history of recent right distal humeral fracture after a fall on April 16, 2024. Patient apparently fell and sustained a right distal femur fracture and was assessed by Dr. Berrios with orthopedic surgery who advised medical management with a knee immobilizer. Dr. Berrios commended that patient has significant osteopenia and advised against operative management.. Historical: - Allergies: 14:41 BISPHOSPHONATES; db 14:41 Codeine; db 14:41 Morphine; db 14:41 PENICILLINS; db - PMHx: 14:41 Alzheimer's disease; Chronic pain; Dementia; Atrial fibrillation; GERD; Hypothyroidism; db - Immunization history:: Adult Immunizations unknown. - Infectious Disease History:: Denies. - Social history:: Smoking status: Patient denies any tobacco usage or history of. - Family history:: not pertinent. ROS: 16:48 Unable to obtain ROS due to baseline dementia, rt 22:55 Constitutional: Negative for fever, chills, and weight loss, sp4 22:55 All other systems are negative, Exam: 16:48 Constitutional: This is a well developed, well nourished patient who is awake, alert, rt and in no acute distress. Head/Face: Normocephalic, atraumatic. Chest/axilla: Normal chest wall appearance and motion. Nontender with no deformity. No lesions are appreciated. Cardiovascular: Regular rate and rhythm with a normal S1 and S2. No gallops, murmurs, or rubs. Normal PMI, no JVD. No pulse deficits. Respiratory: Lungs have equal breath sounds bilaterally, clear to auscultation and percussion. No rales, rhonchi or wheezes noted. No increased work of breathing, no retractions or nasal flaring. Abdomen/GI: Soft, non-tender, with normal bowel sounds. No distension or tympany. No guarding or rebound. No evidence of tenderness throughout. Skin: Warm, dry with normal turgor. Normal color with no rashes, no lesions, and no evidence of cellulitis. MS/ Extremity: Pulses equal, no cyanosis. Neurovascular intact. Full, normal range of motion. 16:48 ENT: Dry mucous membranes. 16:48 ECG was reviewed by the Attending Physician. Vital Signs: 14:41 BP 141 / 65; Pulse 118; Resp 18; Temp 97.7(O); Pulse Ox 99% on R/A; Weight 59 kg (M); db Height 5 ft. 7 in. ; 15:30 BP 123 / 52; Pulse 88; Resp 18; Pulse Ox 98% on R/A; db 16:00 BP 100 / 59; Pulse 94; Resp 16; Pulse Ox 98% ; db 16:30 BP 116 / 43; Pulse 97; Resp 18; Pulse Ox 99% ; db 17:00 BP 121 / 50; Pulse 98; Resp 18; Pulse Ox 98% on R/A; db 18:00 BP 111 / 48; Pulse 93; Resp 16; Pulse Ox 99% on R/A; db 19:15 BP 120 / 50; Pulse 92; Resp 17; Temp 98; Pulse Ox 100% on R/A; Pain 0/10; db 20:31 BP 108 / 45; Pulse 92; Resp 17; Pulse Ox 99% on R/A; Pain 0/10; rg5 22:37 BP 113 / 50; Pulse 97; Resp 17 S; Temp 98(O); Pulse Ox 97% on R/A; Pain 0/10; rg5 23:00 BP 112 / 58; Pulse 93; Resp 18; Pulse Ox 98% on R/A; Pain 0/10; rg5 05/20 00:35 BP 110 / 50; Pulse 88; Resp 17; Temp 98(O); Pulse Ox 97% on R/A; Pain 0/10; rg5 05/19 14:41 Body Mass Index 20.37 (59.00 kg, 170.18 cm) db 19:15 Pain Scale: Adult db 20:31 Pain Scale: Adult rg5 22:37 Pain Scale: Adult rg5 23:00 Pain Scale: Adult rg5 05/20 00:35 Pain Scale: Adult rg5 MDM: 05/19 14:53 Patient medically screened. rt 22:53 Differential diagnosis: Nonspecific abd pain, gastritis, gastroenteritis. Data sp4 reviewed: vital signs, nurses notes, EMS record, lab test result(s), radiologic studies, CT scan, plain films. Consideration of Admission/Observation Escalation of care including admission/observation considered. Management of patient was discussed with the following: Manager R D: Orthopedist at [facility] ED course: EXAM DESCRIPTION: RAD - Pelvis - 05/19/2024 10:08 pm CLINICAL HISTORY: right hip pain COMPARISON: Pelvis dated 03/02/2023 TECHNIQUE: Single AP view of the pelvis. FINDINGS: The visualized pelvic ring is intact. No suspicious osseous lesions. Healing internally fixated right femoral neck fracture in unchanged alignment. Other pelvic joints are unremarkable. Visualized aspects of the abdomen and soft tissues are unremarkable. IMPRESSION: Healing internally fixated right femoral neck fracture in unchanged alignment. No other acute osseous abnormality of the bony pelvis. . ED course: EXAM DESCRIPTION: RAD - Femur Right - 05/19/2024 10:08 pm CLINICAL HISTORY: right leg pain COMPARISON: Femur Right dated 04/15/2024; Pelvis dated 05/19/2024 TECHNIQUE: Right femur, 2 views. FINDINGS: Healing internally fixated femoral neck fracture. Displaced and comminuted distal femoral metadiaphyseal fracture, with progressive healing callus. Both fractures show unchanged alignment. Mild disuse osteopenia. No other fracture is identified. There is no dislocation or periosteal reaction noted. No acute or suspicious bony finding. IMPRESSION: Healing proximal and distal femoral fractures as above. No other acute osseous abnormality. . ED course: EXAM DESCRIPTION: CT - Head Brain Wo Cont - 05/19/2024 6:02 pm CLINICAL HISTORY: Alteration of awareness/confusion COMPARISON: 2016 TECHNIQUE: Computed axial tomography of the head was obtained. IV contrast was not requested. All CT scans are performed using dose optimization technique as appropriate and may include automated exposure control or mA/KV adjustment according to patient size. FINDINGS: An intracranial bleed is not seen The ventricles are normal in caliber No extra-axial fluid collection is noted. Mild cerebral atrophy Mild low-density areas within periventricular, deep and subcortical white matter likely represent ischemic changes secondary to small vessel disease. Fluid within the sinuses/ mastoids is not seen. IMPRESSION: No acute intracranial abnormality is seen If patient's symptoms persist MRI of the brain would be recommended . ED course: EXAM DESCRIPTION: Elvis Single View05/19/2024 3:14 pm CLINICAL HISTORY: Weakness. Diarrhea COMPARISON: September 2023 FINDINGS: The lungs appear clear of acute infiltrate. The heart is normal size IMPRESSION: No acute abnormalities displayed . 23:11 ED course: At this time patient is having nonhealing right distal femur fracture. sp4 Prevents patient from getting up causing significant physical deconditioning. Patient discussed with orthopedist at [facility]. Orthopedist agreed to see patient in consult but requested admission to internal medicine. Patient was not discussed with audio/visual manager excepted patient for transfer to medicine with telemetry. 05/19 15:04 Order name: Basic Metabolic Panel; Complete Time: 16:37 rt 05/19 15:04 Order name: CBC with Diff; Complete Time: 16:37 rt 05/19 15:04 Order name: LFT's; Complete Time: 16:37 rt 05/19 15:04 Order name: Magnesium; Complete Time: 16:37 rt 05/19 15:04 Order name: Troponin HS; Complete Time: 16:37 rt 05/19 17:39 Order name: UAM; Complete Time: 21:17 rt 05/19 20:46 Order name: TSH; Complete Time: 22:41 sp4 05/19 20:46 Order name: T4 Free; Complete Time: 22:41 sp4 05/19 20:46 Order name: CRP; Complete Time: 22:41 sp4 05/19 20:46 Order name: CK; Complete Time: 22:41 sp4 05/19 21:17 Order name: SARS RAPID sp4 05/19 15:04 Order name: XRAY Chest (1 view); Complete Time: 15:51 rt 05/19 17:39 Order name: CT Head Brain wo Cont; Complete Time: 18:12 rt 05/19 20:46 Order name: Pelvis XRAY; Complete Time: 22:41 sp4 05/19 20:51 Order name: Femur Right XRAY; Complete Time: 22:41 sp4 05/19 15:04 Order name: EKG; Complete Time: 15:05 rt 05/19 15:04 Order name: Cardiac monitoring; Complete Time: 15:37 rt 05/19 15:04 Order name: EKG - Nurse/Tech; Complete Time: 15:37 rt 05/19 15:04 Order name: IV Saline Lock; Complete Time: 15:45 rt 05/19 15:04 Order name: Labs collected and sent; Complete Time: 15:45 rt 05/19 15:04 Order name: O2 Per Protocol; Complete Time: 15:37 rt 05/19 15:04 Order name: O2 Sat Monitoring; Complete Time: 15:37 rt EC:48 Rate is 104 beats/min. Rhythm is regular, Sinus tachycardia with No ectopy, LAFB. QRS rt [place] is Normal. LA interval is normal. QRS interval is normal. QT interval is normal. No Q waves. T waves are Normal. No ST changes noted. Interpreted by me. Administered Medications: 15:34 Drug: NS 0.9% IV 1000 ml IV at 1 bolus Per protocol; 1000 mL bolus Route: IV; Rate: 1 db bolus; Site: right antecubital; 19:30 Follow up: Response: No adverse reaction; IV Status: Completed infusion; IV Intake: db 1000ml 15:36 Drug: Ondansetron IVP 4 mg IVP once; over 2 minutes Route: IVP; Site: right antecubital;db 19:30 Follow up: Response: No adverse reaction db Disposition Summary: 05/19/24 22:53 Transfer Ordered Notes: Transfer Location: [facility] sp4 Reason: Higher level of care sp4 Condition: Stable sp4 Problem: new sp4 Symptoms: have improved sp4 [facility] 01:13[facility] rg5 Diagnosis - Right distal femur fracture, subacute right distal femur fracture, physical sp4 deconditioning, Failure to thrive Forms: - Medication Reconciliation Form sp4 - SBAR form sp4 Signatures: Dispatcher [employer] Mary Alice Figueroa RN RN db Daniel Barragan MD MD rt Marcellus Austin MD MD sp4 Mario Mcgraw RN RN rg5 Corrections: (The following items were deleted from the chart) 15:05 15:05 BASIC METABOLIC PANEL+C.LAB.BRZ ordered. EDMS EDMS 15:05 15:05 CBC+H.LAB.BRZ ordered. EDMS EDMS 15:05 15:05 HEPATIC FUNCTION+C.LAB.BRZ ordered. EDMS EDMS 15:05 15:05 MAGNESIUM+C.LAB.BRZ ordered. EDMS EDMS 15:05 15:05 Troponin High Sensitivity+C.LAB.BRZ ordered. EDMS EDMS 17:39 17:39 Head Brain Wo Cont+CT.RAD.BRZ ordered. EDMS EDMS 05/20 01:13 05/19 22:53 [facility] attending sp4 rg5
--- NOTE | 2024-05-19 22:54 | ER ---
Nurse's Notes [facility] Name: Jacquelyn Phillips Age: 78 yrs Sex: Female : 1945 Arrival Date: 05/19/2024 Time: 14:46 Bed 14 Private MD: Diagnosis: Right distal femur fracture, subacute right distal femur fracture, physical deconditioning, Failure to thrive Presentation: 05/19 14:41 Chief complaint: EMS states: EMS WAS CALLED BECAUSE PT HAS DIARRHEA AND NOT EATING WELL db WITH A DRY MOUTH. PT HAS PREVIOUS RIGHT LEG INJURY. Coronavirus screen: Client denies travel out of the [place] in the last 14 days. At this time, the client does not indicate any symptoms associated with coronavirus-19. Ebola Screen: Patient negative for fever greater than or equal to 101.5 degrees Fahrenheit, and additional compatible Ebola Virus Disease symptoms Patient denies exposure to infectious person. Patient denies travel to an Ebola-affected area in the 21 days before illness onset. No symptoms or risks identified at this time. Initial Sepsis Screen: Does the patient meet any 2 criteria? No. Patient's initial sepsis screen is negative. Does the patient have a suspected source of infection? No. Patient's initial sepsis screen is negative. Risk Assessment: Do you want to hurt yourself or someone else? Patient reports no desire to harm self or others. Onset of symptoms was May 19, 2024. 14:41 Method Of Arrival: EMS: [facility] db 14:41 Acuity: SCOTT 3 db 14:41 Care prior to arrival: Glucose check: 160. db Triage Assessment: 14:41 General: Appears in no apparent distress. comfortable, Behavior is calm, cooperative. db Pain: Denies pain. Neuro: Level of Consciousness is awake, alert. GI: Reports diarrhea. Historical: - Allergies: 14:41 BISPHOSPHONATES; db 14:41 Codeine; db 14:41 Morphine; db 14:41 PENICILLINS; db - PMHx: 14:41 Alzheimer's disease; Chronic pain; Dementia; Atrial fibrillation; GERD; Hypothyroidism; db - Immunization history:: Adult Immunizations unknown. - Infectious Disease History:: Denies. - Social history:: Smoking status: Patient denies any tobacco usage or history of. - Family history:: not pertinent. Screenin:46 [facility] ED Fall Risk Assessment (Adult) History of falling in the last 3 months, db including since admission Yes- single mechanical fall (1 pt) Confusion or Disorientation Yes (5 pts) Intoxicated or Sedated No (0 pts) Impaired Gait Yes (1 pt) Mobility Assist Device Used Yes (1 pt) Altered Elimination No (0 pt) Score/Fall Risk Level 3 or more points = High Risk Oriented to surroundings, Maintained a safe environment, Hourly rounding (assess needs \T\ fall precautionary measures) done, Utilized family, sitter, or virtual floor finisher helper as indicated. Abuse screen: Denies threats or abuse. Denies injuries from another. Nutritional screening: No deficits noted. Tuberculosis screening: No symptoms or risk factors identified. Assessment: 15:45 Reassessment: Patient appears in no apparent distress at this time. Patient and/or db family updated on plan of care and expected duration. Pain level reassessed. General: Appears in no apparent distress. comfortable. Neuro: Level of Consciousness is awake, alert, Oriented to person. Respiratory: Airway is patent Respiratory effort is even, unlabored, Respiratory pattern is regular, symmetrical. 16:44 Reassessment: Patient appears in no apparent distress at this time. Patient and/or db family updated on plan of care and expected duration. Pain level reassessed. PT PLACED ON A PURWICK FOR COMFORT. 17:21 Reassessment: Patient appears in no apparent distress at this time. No changes from db previously documented assessment. Patient and/or family updated on plan of care and expected duration. Pain level reassessed. 19:27 General: Appears in no apparent distress. Behavior is calm, cooperative, appropriate db for age. Neuro: Level of Consciousness is awake, alert, obeys commands, Oriented to person. Cardiovascular: Patient's skin is warm and dry. Respiratory: Airway is patent Respiratory effort is even, unlabored, Respiratory pattern is regular, symmetrical. GI: Abdomen is flat. : No signs and/or symptoms were reported regarding the genitourinary system. EENT: No deficits noted. Derm: Skin is intact, Skin is dry, Skin is normal. 20:32 Reassessment: No changes from previously documented assessment. Patient and/or family rg5 updated on plan of care and expected duration. Pain level reassessed. Patient is alert, oriented x 3, equal unlabored respirations, skin warm/dry/pink. 21:25 Reassessment: No changes from previously documented assessment. Patient and/or family rg5 updated on plan of care and expected duration. Pain level reassessed. Patient is alert, oriented x 3, equal unlabored respirations, skin warm/dry/pink. 22:38 Reassessment: No changes from previously documented assessment. Patient and/or family rg5 updated on plan of care and expected duration. Pain level reassessed. Patient is alert, oriented x 3, equal unlabored respirations, skin warm/dry/pink. 05/20 01:07 Reassessment: No changes from previously documented assessment. Patient and/or family rg5 updated on plan of care and expected duration. Pain level reassessed. Vital Signs: 05/19 14:41 BP 141 / 65; Pulse 118; Resp 18; Temp 97.7(O); Pulse Ox 99% on R/A; Weight 59 kg (M); db Height 5 ft. 7 in. ; 15:30 BP 123 / 52; Pulse 88; Resp 18; Pulse Ox 98% on R/A; db 16:00 BP 100 / 59; Pulse 94; Resp 16; Pulse Ox 98% ; db 16:30 BP 116 / 43; Pulse 97; Resp 18; Pulse Ox 99% ; db 17:00 BP 121 / 50; Pulse 98; Resp 18; Pulse Ox 98% on R/A; db 18:00 BP 111 / 48; Pulse 93; Resp 16; Pulse Ox 99% on R/A; db 19:15 BP 120 / 50; Pulse 92; Resp 17; Temp 98; Pulse Ox 100% on R/A; Pain 0/10; db 20:31 BP 108 / 45; Pulse 92; Resp 17; Pulse Ox 99% on R/A; Pain 0/10; rg5 22:37 BP 113 / 50; Pulse 97; Resp 17 S; Temp 98(O); Pulse Ox 97% on R/A; Pain 0/10; rg5 23:00 BP 112 / 58; Pulse 93; Resp 18; Pulse Ox 98% on R/A; Pain 0/10; rg5 05/20 00:35 BP 110 / 50; Pulse 88; Resp 17; Temp 98(O); Pulse Ox 97% on R/A; Pain 0/10; rg5 05/19 14:41 Body Mass Index 20.37 (59.00 kg, 170.18 cm) db 19:15 Pain Scale: Adult db 20:31 Pain Scale: Adult rg5 22:37 Pain Scale: Adult rg5 23:00 Pain Scale: Adult rg5 05/20 00:35 Pain Scale: Adult rg5 Vitals: 05/19 15:30 Cardiac Rhythm Assessment Regular. db ED Course: 14:47 Patient arrived in ED. db 14:48 Daniel Barragan MD is Attending Physician. rt 14:53 Triage completed. db 15:03 Arm band placed on Patient placed in an exam room. EKG completed in triage. Results db shown to MD. EKG completed in triage. Results shown to MD. 15:05 Mary Alice Simpson, RN is Primary Nurse. db 15:16 XRAY Chest (1 view) In Process Unspecified. EDMS 15:34 Initial lab(s) drawn, by me, sent to lab. Inserted saline lock: 22 gauge in right db antecubital area, using aseptic technique. Blood collected. Flushed with 10 mL NS. 18:04 CT Head Brain wo Cont In Process Unspecified. EDMS 19:24 Attending Physician role handed off by Daniel Barragan MD sp4 19:24 Marcellus Austin MD is Attending Physician. sp4 19:27 Awaiting lab results. db 19:27 Patient has correct armband on for positive identification. Call light in reach. Side db rails up X2. Adult w/ patient. 19:27 No provider procedures requiring assistance completed. db 21:51 initiated transfer with Kiana \T\ [facility] [id number]. kmf 22:09 Pelvis XRAY In Process Unspecified. EDMS 22:09 Femur Right XRAY In Process Unspecified. EDMS 22:10 doc to doc. [facility] 05/20 01:12 Provided Education on: post er care. rg5 01:12 Patient transferred, IV remains in place. rg5 02:[address] [facility] room 1555. Number for nurse to nurse report [phone]. [facility] accepting Dr. Landeros M \T\[id number]. Kristen Maykel gave approval \T\[id number]. [facility] to transfer pt. Administered Medications: 05/19 15:34 Drug: NS 0.9% IV 1000 ml IV at 1 bolus Per protocol; 1000 mL bolus Route: IV; Rate: 1 db bolus; Site: right antecubital; 19:30 Follow up: Response: No adverse reaction; IV Status: Completed infusion; IV Intake: db 1000ml 15:36 Drug: Ondansetron IVP 4 mg IVP once; over 2 minutes Route: IVP; Site: right antecubital;db 19:30 Follow up: Response: No adverse reaction db Medication: 19:27 VIS not applicable for this client. db Intake: 19:30 IV: 1000ml; Total: 1000ml. db Outcome: 22:53 ER care complete, transfer ordered by MD. hurtado 05/20 01:11 Transferred by ground EMS to [facility], [facility], [facility] Condition: stable Demonstrated understanding of instructions, 01:13 Patient left the ED. rg5 Signatures: Dispatcher [employer] Mary Alice Figueroa, RN RN Daniel Zhao MD MD rt Potepalov, Sergey, MD MD sp4 Xiao Stewart [facility] Mario Mcgraw RN RN rg5
[2024-05-20 01:28] LABS: SARS-CoV-2 Antigen CONTROL BLUE LINE VIS/BG OK; SARS-CoV-2 Antigen Rapid Res Negative (Negative)
[2024-05-20 01:36] VITALS: TEMP 98
[2024-05-20 01:43] VITALS: BP 110/50; O2SAT 97
--- NOTE | 2024-05-22 12:45 | EKG ---
Test Date: 2024-05-19 Test Time: 15:27:18 [employer] Sales Representative: JOSEPH MEASUREMENT RESULTS: Intervals: Rate: 104 [place]: 142 QRSD: 84 QT: 362 QTc: 476 [place]: P: 78 WY: 142 QRS: -51 T: 78 INTERPRETIVE STATEMENTS: Sinus tachycardia Left anterior fascicular block Anterior infarct, age undetermined Abnormal ECG Compared to ECG 04/15/2024 22:09:51 Left anterior fascicular block now present Myocardial infarct finding now present Atrial fibrillation no longer present Electronically Signed On 05-22-24 12:41:05 CDT by Miguel Payne
== END 2024-05-20 01:13 | disposition short-term general hospital (02) ==
LOC: ER 14:46
DX: R62.7 Adult failure to thrive (principal); S72.401A Unspecified fracture of lower end of right femur, initial encounter for closed fracture; R53.81 Other malaise; Z72.3 Lack of physical exercise; R19.7 Diarrhea, unspecified; Z11.52 Encounter for screening for COVID-19; G30.9 Alzheimer's disease, unspecified; F02.80 Dementia in other diseases classified elsewhere, unspecified severity, without behavioral disturbance, psychotic disturbance, mood disturbance, and anxiety; I48.91 Unspecified atrial fibrillation; M85.80 Other specified disorders of bone density and structure, unspecified site
CPT/HCPCS: 96361; 93005; 85025; 81001; 80048; 36415; 83735; 82550; 80076; 84443; 84484; 84439; 86140; 70450; 71045; 72170; 73552; 96374; 99285; 87811; J2405; J7030

== ENCOUNTER 2024-09-20 12:20 | Emergency (ER) | payer OTHER, BC ==
[2024-09-20] MEDS ORDERED: FENTANYL CITR 100 MCG/2 ML ONE (12:46)
[2024-09-20] MEDS ORDERED: TDAP (DIPHTH,PERTUSS(ACELL),TET VAC) 0.5 ML VIAL IMVAC ONE (12:48)
[2024-09-20 12:51] LABS: Absolute Lymphocytes (CBC) 0.7 K/uL (0.7-4.9); Absolute Monocytes 0.8 K/uL (0.1-1.3); Basophils % 0.8 % (0-1.3); Eosinophils % 0.5 % (0-4.4); Hematocrit 31.2 % (36.0-45.0); Hemoglobin 10.4 g/dL (12.0-15.0); Lymphocytes % 15.8 % (15.3-44.8); MCH 28.7 pg (27.0-35.0); MCHC 33.4 g/dL (32.0-36.0); MCV 85.9 fL (80-100); MPV 7.4 fL (7.6-11.3); Monocytes % 17.3 % (3.3-12.3); Neutrophils % 65.6 % (41.7-73.7); Nucleated Red Blood Cells % 0.1 % (0-0); Platelets 230 thou/uL (152-406); RBC Red Blood Cell Count 3.63 M/uL (3.86-4.86); Red Cell Distribution Width 16.5 % (12.1-15.2)
[2024-09-20 12:57] LABS: PT Prothrombin Time 13.4 SECONDS (9.4-12.5); Protime INR 1.2
[2024-09-20 13:06] LABS: Anion Gap 7.2 mEq/L (5.0-15.0); Potassium 3.2 mEq/L (3.5-5.1)
--- NOTE | 2024-09-20 13:12 | RAD REPORT ---
EXAM: CT brain without contrast HISTORY: GLF COMPARISON: None TECHNIQUE: Multiple contiguous axial images were obtained and a CT of the brain without contrast. Sag ittal and coronal reformats were performed. One or more of the following dose reduction techniques were used: Automated exposure control, adjust ment of the mA and/or kV according to patient size, and/or iterative reconstruction. FINDINGS: No evidence of hydrocephalus, intracranial hemorrhage, or extra-axial fluid collection. Mild brain atrophy with mild periventricular and deep white matter chronic microvascular ischemic ch anges present. No evidence of midline shift or areas of brain edema. The calvarium is intact. The visualized paranasal sinuses and mastoid air cells are essentially clear . IMPRESSION: No evidence of acute intracranial abnormality. EXAM: CT of the cervical spine without contrast HISTORY: Neck pain, injury GLF TECHNIQUE: Multiple contiguous axial images were obtained in a CT of the cervical spine without contr ast. Sagittal and coronal reformats were performed. FINDINGS: The vertebral bodies demonstrate normal height and alignment. No evidence of acute fracture or subluxation.. Mild mid cervical degenerative changes. No prevertebral soft tissue swelling is seen. Carotid atherosclerosis. The posterior facets are well aligned. Normal alignment of the skull base with the cervical spine is seen. The lung apices are unremarkable. IMPRESSION: No evidence of acute osseous abnormality of the cervical spine.
--- NOTE | 2024-09-20 13:21 | RAD REPORT ---
EXAM: CT PELVIS WITHOUT CONTRAST HISTORY: GLF COMPARISON: None TECHNIQUE: Multiple contiguous axial images were obtained and a CT of the pelvis with IV contrast. Sa gittal and coronal reformats were performed. One or more of the following dose reduction techniques were used: Automated exposure control, adjustment of the mA and/or kV according to patient size, and/ or iterative reconstruction. FINDINGS: Mildly comminuted fracture involves the superior and inferior pubic ramus on the left exten ding into the pubic symphysis. Fracture involves the left sacral ala extending into the left SI joint without SI joint widening.. Hardware proximal right femur. The visualized intrapelvic structures are unremarkable. The soft tissues surrounding the pelvis are u nremarkable. IMPRESSION: Pelvic fractures as detailed.
--- NOTE | 2024-09-20 13:50 | ER ---
Nurse's Notes [facility] Name: Jacquelyn Phillips Age: 79 yrs Sex: Female : 1945 Arrival Date: 09/20/2024 Time: 12:20 Bed 3 Private MD: Diagnosis: Distal Femur Fracture, Pelvic Fractures Presentation: 09/20 12:28 Chief complaint: EMS states: they were called to [facility] for a patient who had a ap3 fall last night around 8pm and had an xray this morning which showed a fracture to her left femur. patient also has a laceration to her right lower extremity. Coronavirus screen: At this time, the client does not indicate any symptoms associated with coronavirus-19. Ebola Screen: No symptoms or risks identified at this time. Initial Sepsis Screen: Does the patient meet any 2 criteria? No. Patient's initial sepsis screen is negative. Does the patient have a suspected source of infection? No. Patient's initial sepsis screen is negative. Risk Assessment: Do you want to hurt yourself or someone else? Patient reports no desire to harm self or others. Onset of symptoms was September 19, 2024. Care prior to arrival: Medication(s) given: Toradol 15mg IV IV initiated. 22 GA, in the right antecubital area. Mechanism of Injury: Fall an unknown distance. Transition of care: patient was received from another setting of care (long-term care facility), [facility]. 12:28 Method Of Arrival: EMS: [facility] ap3 12:28 Acuity: SCOTT 3 ap3 Triage Assessment: 12:33 General: Appears in no apparent distress. Behavior is calm, cooperative. Pain: ap3 Complains of pain in left hip, left leg and neck. Neuro: Level of Consciousness is awake, alert, Oriented to person, place, Speech is normal. Cardiovascular: Patient's skin is warm and dry. Respiratory: Airway is patent Respiratory effort is even, unlabored, Respiratory pattern is regular, symmetrical. Derm: Wound noted right yoder. Historical: - Allergies: 12:32 BISPHOSPHONATES; ap3 12:32 Codeine; ap3 12:32 Morphine; ap3 12:32 PENICILLINS; ap3 - PMHx: 12:32 Alzheimer's disease; Atrial fibrillation; Chronic pain; Dementia; GERD; Hypothyroidism; ap3 - Immunization history:: Client reports receiving the 2nd dose of the Covid vaccine. - Infectious Disease History:: Denies. - Social history:: Smoking status: Patient denies any tobacco usage or history of. Screenin:34 Abuse screen: Denies threats or abuse. Nutritional screening: No deficits noted. ap3 Tuberculosis screening: No symptoms or risk factors identified. 16:10 [facility] ED Fall Risk Assessment (Adult) History of falling in the last 3 months, bp including since admission Yes- single mechanical fall (1 pt) Confusion or Disorientation No (0 pts) Intoxicated or Sedated No (0 pts) Impaired Gait No (0 pts) Mobility Assist Device Used No (0 pt) Altered Elimination No (0 pt) Score/Fall Risk Level 0 - 2 = Low Risk Oriented to surroundings. Assessment: 13:00 General: Appears in no apparent distress. uncomfortable, Behavior is calm, cooperative, bp appropriate for age. 15:00 Reassessment: REPORT TO ROBERTO STEPHENS AT [facility] ER FOR ORTHO TRAUMA. bp 16:08 Reassessment: EMS AT B/S FOR TRANSPORT. bp Vital Signs: 12:28 BP 130 / 65; Pulse 80; Resp 19; Temp 98.1(O); Pulse Ox 100% on R/A; Weight 48.53 kg; ap3 14:00 BP 136 / 83; Pulse 63; Resp 15; Pulse Ox 97% ; bp 15:00 BP 131 / 63; Pulse 83; Resp 15; Pulse Ox 98% ; bp ED Course: 12:26 Patient arrived in ED. ec2 12:26 Shashank Sanabria MD is Attending Physician. ec2 12:28 Charley Trujillo, KAT is Primary Nurse. ap3 12:32 Triage completed. ap3 12:34 Arm band placed on right wrist. ap3 12:34 Patient has correct armband on for positive identification. Placed in gown. Bed in low ap3 position. Call light in reach. Side rails up X2. Provided Education on: fall risk education. Client placed on continuous cardiac and pulse oximetry monitoring. NIBP monitoring applied. freelance director on. Pulse ox on. NIBP on. 12:45 Inserted saline lock: 22 gauge in right antecubital area, using aseptic technique. bp Blood collected. 13:04 CT Head C Spine In Process Unspecified. EDMS 13:[address] In Process Unspecified. EDMS 13:39 Femur Left XRAY In Process Unspecified. EDMS 13:39 CXR XRAY In Process Unspecified. EDMS 13:39 Femur Right In Process Unspecified. EDMS 14:01 EKG done, by ED staff, reviewed by Shashank Sanabria MD. kb4 14:29 initiated transfer with [facility] at [facility]. bc6 14:40 auto accepted with [facility] for [place] [facility] with Dr. Lex Mallory. bc6 15:10 marshall with [facility] accepted transfer. bc6 16:09 No provider procedures requiring assistance completed. Patient transferred, IV remains bp in place. Administered Medications: 12:54 Drug: Boostrix Tdap IM 0.5 ml IM once; as a single dose Route: IM; Site: right deltoid; ap3 15:02 Follow up: Response: No adverse reaction bp 12:54 Drug: fentaNYL (PF) IVP 25 mcg IVP once Route: IVP; Site: right antecubital; ap3 15:02 Follow up: Response: No adverse reaction bp Medication: 12:54 Vaccine Information Statement (VIS) provided today. Questions and/or concerns ap3 addressed. VIS edition date: April 24, 2021. Outcome: 13:50 ER care complete, transfer ordered by . ec2 16:09 Transferred by ground EMS to [facility], Transfer form completed. bp 16:09 Condition: stable 16:09 Instructed on the need for transfer, 16:11 Patient left the ED. bp Signatures: Dispatcher [employer] Demetrius Whittington RN RN bp Prokisch, Amanda, RN RN ap3 Khushbu Hernandez [facility] Shashank Sanabria MD MD ec2 Farideh Moreno kb4
--- NOTE | 2024-09-20 13:50 | EDPHYS ---
Physician Documentation [facility] Name: Jacquelyn Phillips Age: 79 yrs Sex: Female : 1945 Arrival Date: 09/20/2024 Time: 12:20 Bed 3 Private MD: ED Physician Shashank Sanabria HPI: 09/20 12:27 This 79 yrs old Female presents to ER via Unassigned with complaints of fall. ec2 12:27 Patient arrives today for evaluation after a ground-level fall. Patient with pain to ec2 the left knee. No blood thinners, no LOC, unsure of what caused patient's fall. Patient with otherwise no other complaints.. Historical: - Allergies: 12:32 BISPHOSPHONATES; ap3 12:32 Codeine; ap3 12:32 Morphine; ap3 12:32 PENICILLINS; ap3 - PMHx: 12:32 Alzheimer's disease; Atrial fibrillation; Chronic pain; Dementia; GERD; Hypothyroidism; ap3 - Immunization history:: Client reports receiving the 2nd dose of the Covid vaccine. - Infectious Disease History:: Denies. - Social history:: Smoking status: Patient denies any tobacco usage or history of. ROS: 12:27 Constitutional: as per hpi ec2 Exam: 12:27 Constitutional: GEN: No acute distress HEENT: -Head: no deformities -Eyes: EOMI CV: ec2 regular rate LUNGS: no respiratory distress ABD: non-tender SKIN: no wounds appreciated MSK: No C/T/L spine deformities RUE w/o bony deformity LUE w/o bony deformity RLE w/o bony deformity LLE obvious deformity at the distal femur, intact distal neurovascular status. NEURO: moves all extremities equally, GCS 15 (E4, V5, M6) Vital Signs: 12:28 BP 130 / 65; Pulse 80; Resp 19; Temp 98.1(O); Pulse Ox 100% on R/A; Weight 48.53 kg; ap3 14:00 BP 136 / 83; Pulse 63; Resp 15; Pulse Ox 97% ; bp 15:00 BP 131 / 63; Pulse 83; Resp 15; Pulse Ox 98% ; bp MDM: 12:26 Medical Screening Exam initiated ec2 12:27 Data reviewed: vital signs, nurses notes. ED course: Patient arrives today for ec2 evaluation after ground-level fall with an obvious left distal femur deformity. Will obtain lab work, CT of the head and C-spine as well as radiographs. Differential includes intracranial brain bleed, C-spine fracture, femur fracture, hip fracture. Will give the patient fentanyl for pain control as well.. 14:06 ED course: CT of the pelvis shows multiple superior inferior pelvic rami fractures. ec2 Patient also with left distal femur fracture on x-ray, independently reviewed and interpreted by me, will transfer for orthopedic capable facility.. 14:06 ED course: EKG independently reviewed and interpreted by me, shows normal sinus rhythm, ec2 rate of 81, no acute ST segment elevations, intervals are nonactionable.. 09/20 12:27 Order name: CBC with Diff; Complete Time: 13:09 ec2 09/20 12:27 Order name: BMP; Complete Time: 13:09 ec2 09/20 12:27 Order name: Type And Screen; Complete Time: 13:27 ec2 09/20 12:27 Order name: PT-INR; Complete Time: 13:09 ec2 09/20 12:27 Order name: Ptt, Activated; Complete Time: 13:09 ec2 09/20 12:27 Order name: CT Head C Spine; Complete Time: 13:20 ec2 09/20 12:27 Order name: Pelvis Wo Cont CT; Complete Time: 13:27 ec2 09/20 12:27 Order name: Femur Left XRAY; Complete Time: 14:05 ec2 09/20 12:27 Order name: CXR XRAY; Complete Time: 14:05 ec2 09/20 13:22 Order name: Femur Right; Complete Time: 14:05 EDMS 09/20 12:27 Order name: IV; Complete Time: 13:52 ec2 09/20 12:27 Order name: EKG - Nurse/Tech; Complete Time: 13:52 ec2 09/20 12:29 Order name: NPO; Complete Time: 12:34 ec2 Administered Medications: 12:54 Drug: Boostrix Tdap IM 0.5 ml IM once; as a single dose Route: IM; Site: right deltoid; ap3 15:02 Follow up: Response: No adverse reaction bp 12:54 Drug: fentaNYL (PF) IVP 25 mcg IVP once Route: IVP; Site: right antecubital; ap3 15:02 Follow up: Response: No adverse reaction bp Disposition Summary: 09/20/24 13:50 Transfer Ordered Notes: Transfer Location: [facility] ec2 Reason: Higher level of care ec2 Condition: Stable ec2 Problem: new ec2 Symptoms: are unchanged ec2 Accepting Physician: Transferring Doc(09/20/24 16:11) bp Diagnosis - Distal Femur Fracture, Pelvic Fractures ec2 Forms: - Medication Reconciliation Form ec2 - SBAR form ec2 Signatures: Dispatcher [employer] Demetrius Whittington, RN RN bp Charley Trujillo RN RN ap3 Shashank Sanabria MD MD ec2 Corrections: (The following items were deleted from the chart) 12:28 12:28 Head C Spine MPR Wo Con+CT.RAD.BRZ ordered. EDMS EDMS 12:28 12:28 Pelvis Wo Cont+CT.RAD.BRZ ordered. EDMS EDMS 12:28 12:28 Femur Left+RAD.RAD.BRZ ordered. EDMS EDMS 12:28 12:28 Chest Single View+RAD.RAD.BRZ ordered. EDMS EDMS 16:11 13:50 Transferring Doc ec2 bp
--- NOTE | 2024-09-20 13:58 | RAD REPORT ---
EXAMINATION: XR LEFT FEMUR CLINICAL INDICATION: . femur fx TECHNIQUE: Multiple views of the left femur were obtained. COMPARISON: No prior exam. FINDINGS: Diffuse demineralization of the bone seen. Fracture is present involving the medial aspect of the distal left femur. Moderate suprapatellar joint fluid.
--- NOTE | 2024-09-20 13:59 | RAD REPORT ---
EXAMINATION: ONE VIEW CHEST XR CLINICAL INDICATION: fall TECHNIQUE: Frontal chest projection is submitted. Examination is limited by patient positioning and t echnique. COMPARISON: 05/19/2024 FINDINGS: The lungs are well inflated and clear. The heart is normal in size. No displaced fractures identified . IMPRESSION: No acute intrathoracic abnormalities.
--- NOTE | 2024-09-20 14:00 | RAD REPORT ---
EXAMINATION: XR RIGHT FEMUR CLINICAL INDICATION: . RT LEG PAIN TECHNIQUE: Multiple views of the right femur were obtained. COMPARISON: 05/19/2024 FINDINGS: Laterally positioned plate with numerous screws are present distal right femur. Distal righ t femoral fracture shows mild evidence of bony bridging. The bones are demineralized.
[2024-09-20 16:44] VITALS: TEMP 98.1
[2024-09-20 16:45] VITALS: BP 131/63; O2SAT 98
--- NOTE | 2024-09-21 12:43 | EKG ---
Test Date: 2024-09-20 Test Time: 13:56:40 Editor Department: [facility] MEASUREMENT RESULTS: Intervals: Rate: 81 IA: 164 QRSD: 84 QT: 388 QTc: 450 [place]: P: 67 IA: 164 QRS: -19 T: 60 INTERPRETIVE STATEMENTS: Normal sinus rhythm with sinus arrhythmia Normal ECG Compared to ECG 05/19/2024 15:27:18 Sinus tachycardia no longer present Left anterior fascicular block no longer present Myocardial infarct finding no longer present Electronically Signed On 09-21-24 12:40:40 HEALTH CARE SANITARY TECHNICIAN by Miguel Payne
== END 2024-09-20 16:11 | disposition short-term general hospital (02) ==
LOC: ER 12:20
DX: S72.402A Unspecified fracture of lower end of left femur, initial encounter for closed fracture (principal); S32.9XXA Fracture of unspecified parts of lumbosacral spine and pelvis, initial encounter for closed fracture; W19.XXXA Unspecified fall, initial encounter; Y92.129 Unspecified place in nursing home as the place of occurrence of the external cause; I48.91 Unspecified atrial fibrillation; G89.29 Other chronic pain; E03.9 Hypothyroidism, unspecified; G30.9 Alzheimer's disease, unspecified; F02.80 Dementia in other diseases classified elsewhere, unspecified severity, without behavioral disturbance, psychotic disturbance, mood disturbance, and anxiety; Z88.0 Allergy status to penicillin; Z88.5 Allergy status to narcotic agent
CPT/HCPCS: 93005; 85025; 80048; 36415; 86900; 86850; 85610; 86901; 85730; 70450; 72125; 72192; 71045; 73552 ×2; 96372; 96374; 99285; J3010